=== PATIENT | male | born 1950 | race Hispanic/Latino ===

== ENCOUNTER 2016-12-03 19:35 | Inpatient (IN) | payer MEDICARE ==
--- NOTE | 2016-12-03 19:41 | ED PDOC ---
Arrival/HPI - General Historian: Patient, Family, EMS - General Time Seen by Provider: 12/03/16 19:36 - History of Present Illness Narrative History of Present Illness (Text): 12/03/16 19:41 65 y/o male, pmh including htn/hyperlipidemia/primary aphasia/demantia, nkda, biba with the sister and niece, c/o fever/coughing and possible urinary tract infection. Pt.'s history can not be obtained completely due to the aphasia. Pt. has been coughing started yesterday, been having decrease in appetize and energy level today, urine has been foul odor as well, fever started this evening , no antipyretic given at home. Pt. also try to get himself up from the chair this afternoon and fall to the bed, no head or neck injury, no back injury, no night sweat, no pain to the chest or abdominal, no other medical or psychological complaints. (Brett Hoyt) Past Medical History - Provider Review Nursing Documentation Reviewed: Yes - Cardiac Hx Cardiac Disorders: No - Pulmonary Hx Respiratory Disorders: No - Neurological Other/Comment: PRIMARY PROGRESSIVE APHASIA - HEENT Hx HEENT Disorder: No - Renal Hx Renal Disorder: No - Endocrine/Metabolic Hx Endocrine Disorders: No - Hematological/Oncological Hx Blood Disorders: No - Integumentary Hx Dermatological Disorder: No - Musculoskeletal/Rheumatological Hx Musculoskeletal Disorders: No - Gastrointestinal Hx Gastrointestinal Disorders: No - Genitourinary/Gynecological Hx Genitourinary Disorders: No - Psychiatric Hx Psychophysiologic Disorder: No Hx Substance Use: No Family/Social History - Physician Review Nursing Documentation Reviewed: Yes Family/Social History: Unknown Family HX Smoking Status: Never Smoked Hx Alcohol Use: No Hx Substance Use: No Allergies/Home Meds Allergies/Adverse Reactions: Allergies Penicillins Allergy (Verified 12/03/16 19:42) ANAPHYLAXIS Home Medications: Home Meds Medication Instructions Recorded Confirmed Ergocalciferol (Vitamin D2) 1 tab PO DAILY 12/03/16 12/03/16 [Vitamin D] Simvastatin [Zocor] 40 mg PO DAILY 12/03/16 12/03/16 Review of Systems - Review of Systems Systems not reviewed;Unavailable: Dementia Constitutional: Fatigue, Fevers Respiratory: Cough, Sputum. absent: SOB, Wheezing Cardiovascular: absent: Chest Pain Gastrointestinal: absent: Abdominal Pain, Nausea, Vomiting Genitourinary Male: Other (foul smelled urine). absent: Dysuria, Frequency, Hematuria, Urinary Output Changes Musculoskeletal: absent: Arthralgias, Back Pain Skin: absent: Rash, Pruritis, Skin Lesions, Laceration Neurological: absent: Facial Droop Physical Exam Vital Signs Reviewed: Yes Temperature: Afebrile Blood Pressure: Hypertensive Pulse: Regular Respiratory Rate: Normal Appearance: Positive for: Well-Appearing, Non-Toxic, Ill-Appearing Pain Distress: None Mental Status: Positive for: other (alert) - Systems Exam Head: Present: Atraumatic, Normocephalic Pupils: Present: PERRL Extroacular Muscles: Present: EOMI Conjunctiva: Present: Normal Mouth: Present: Moist Mucous Membranes Neck: Present: Normal Range of Motion, Trachea Midline. No: Meningeal Signs, MIDLINE TENDERNESS, Paraspinal Tenderness Respiratory/Chest: Present: Clear to Auscultation, Good Air Exchange. No: Respiratory Distress, Accessory Muscle Use, Wheezes, Decreased Breath Sounds, Rales, Retracting, Rhonchi, Tachypneic, Tender to Palpation, Other Cardiovascular: Present: Regular Rate and Rhythm, Normal S1, S2. No: Murmurs Abdomen: Present: Tenderness (mild suprapubic tenderness), Normal Bowel Sounds. No: Distention, Peritoneal Signs, Rebound, Guarding Back: Present: Normal Inspection. No: Midline Tenderness, Paraspinal Tenderness , Decubitus Ulcer Upper Extremity: Present: Normal Inspection. No: Cyanosis, Edema, Tenderness, Swelling Lower Extremity: Present: Normal Inspection. No: Edema, Tenderness, Swelling Neurological: Present: Motor Func Grossly Intact Skin: Present: Warm, Dry, Normal Color. No: Rashes Psychiatric: Present: Alert, Other (demantia) Medical Decision Making - Lab Interpretations Interpretation: Abnormal lab values (Lactic acid 2.4, elevation of LFTs) - RAD Interpretation Canteen Operator: Radiologist - EKG Interpretation Interpreted by ED Physician: Yes Type: 12 lead EKG ED Course and Treatment: 12/03/16 19:59 -labs/blood and urine culture/vbg -chest x-ray -ekg -IVF/tylenol 650mg po or rectal -desk monitor 12/03/16 21:31 -Pt. is HR at 94, febrile 102.9F in the ER, Lactic acid 2.7, source of infection suspected, code sepsis activated. -I ordered additional IVF and the goal is 2100ml which I explained to the [employer] Parul. -Chest x-ray show possible/questionable infiltrate on the rt. lower lobe region , IV rocephine and vancomycin ordered (broader coverage) -EKG: NSR @ 88 BPM, no ST elevation or depression, no T wave inversion. -Labs show no acute findings except Lactic acid 2.4, elevation of LFTs -UA show no UTI -I will admit the patient. 12/03/16 21:44 -I discussed the case with Dr. Angela Oscar and Dr. Partida (night doctor), discussed about the case/labs/radiology studies, will admit the patient. -Pt. has 103.5F fever, motrin 600mg po ordered. -I discussed with Dr. Will, discussed about the labs/radiology and admission plan, she agree on the treatment/dispo. (Brett Hoyt) - Lab Interpretations Microbiology Results: Microbiology Results 12/03/16 20:30 Blood-Venous Blood Culture - Final NO GROWTH AFTER 5 DAYS 12/03/16 20:30 Blood-Venous Gram Stain - Final TEST NOT PERFORMED 12/03/16 20:15 Blood-Venous Blood Culture - Final NO GROWTH AFTER 5 DAYS 12/03/16 20:15 Blood-Venous Gram Stain - Final TEST NOT PERFORMED 12/03/16 21:00 Urine Urine Culture - Final No Growth (<1,000 CFU/ML) Lab Results: 12/03/16 20:15 12/03/16 20:15 Lab Results 12/03/16 21:00: Urine Color Yellow, Urine Appearance Clear, Urine pH 7.0, Ur Specific [place] 1.020, Urine Protein 30 H, Urine Glucose (UA) Negative, Urine Ketones Negative, Urine Blood Trace-intact H, Urine Nitrate Negative, Urine Bilirubin Negative, Urine Urobilinogen 0.2, Ur Leukocyte Esterase Negative, Urine RBC 0 - 2, Urine WBC 0 - 2 12/03/16 20:15: pO2 30, VBG pH 7.38, VBG pCO2 49.0, VBG HCO3 29.0 H, VBG Total CO2 30.5 H, VBG O2 Sat (Calc) 61.2, VBG Base Excess 3.0 H, VBG Potassium 4.0, Sodium 138.0, Chloride 100.0, Glucose 120 H, Lactate 2.4 H, FiO2 21.0, Venous Blood Potassium 4.0 12/03/16 20:15: Sodium 136, Chloride 98, Potassium 4.0, Carbon Dioxide 28, Anion Gap 14, BUN 11, Creatinine 1.1, Est GFR ( Amer) > 60, Est GFR (Non- Af Amer) > 60, Random Glucose 115 H, Calcium 9.4, Total Bilirubin 1.4 H, AST 103 H, ALT 160 H, Alkaline Phosphatase 84, NT-Pro-B Natriuret Pep 238, Total Protein 8.0, Albumin 4.7, Globulin 3.3, Albumin/Globulin Ratio 1.4 12/03/16 20:15: WBC 6.6 D, RBC 5.51, Hgb 16.2, Hct 45.7, MCV 82.9, MCH 29.4, MCHC 35.4, RDW 13.1, Plt Count 141, MPV 10.6, Gran % 81.4 H, Lymph % (Auto) 11.7 L, [place] % (Auto) 6.7 H, Eos % (Auto) 0.0 L, Baso % (Auto) 0.2, Gran # 5.34 , Lymph # 0.8 L, [place] # 0.4, Eos # 0.0, Baso # 0.01 - RAD Interpretation Radiology Orders: 12/03/16 19:51 CHEST PORTABLE [RAD] Stat no obvious active disease (Brett Hoyt) - EKG Interpretation EKG Interpretation (Text): 12/03/16 22:09 NSR @ 88 BPM, no ST elevation or depression, no T wave inversion. (Brett Hoyt) - Medication Orders Current Medication Orders: Diphenhydramine HCl (Benadryl) 25 mg IVP Q4 PRN PRN Reason: Allergy symptoms Guaifenesin (Robitussin) 100 mg PO Q4H PRN PRN Reason: Cough Last Admin: 12/09/16 10:28 Dose: 100 mg Hydralazine HCl (Apresoline) 10 mg IVP Q6 PRN PRN Reason: SBP > 160 Vancomycin HCl (Vancomycin 1gm) 1 gm in 250 mls @ 167 mls/hr IVPB Q12H PAULA PRN Reason: Protocol Last Admin: 12/09/16 22:36 Dose: 167 mls/hr Ibuprofen (Motrin Oral Susp) 400 mg PO Q6 PRN PRN Reason: Fever >100.4 F Last Admin: 12/07/16 06:03 Dose: 400 mg Re-Assess: MAR Pain/Vitals Document 12/07/16 07:03 RDS (Rec: 12/07/16 09:00 RDS [id number]) Pain Reassessment Is This A Pain ReAssessment? No Sleep Is patient sleeping during reassessment? Yes Levofloxacin/Dextrose (Levaquin 750mg) 750 mg IVPB DAILY [facility] Last Admin: 12/09/16 10:26 Dose: 750 mg Lisinopril (Zestril) 5 mg PO DAILY [facility] Last Admin: 12/09/16 10:28 Dose: 5 mg Metoprolol Tartrate (Lopressor) 25 mg PO BID [facility] Last Admin: 12/09/16 19:01 Dose: 25 mg Pantoprazole Sodium (Protonix Ec Tab) 40 mg PO 0630 [facility] Last Admin: 12/10/16 06:05 Dose: 40 mg Discontinued Medications Acetaminophen (Tylenol 325mg Tab) 650 mg PO STAT STA Stop: 12/03/16 19:52 Last Admin: 12/03/16 20:54 Dose: Not Given Non-Admin Reason: NPO Acetaminophen (Tylenol 650 Mg Supp) 650 mg RC STAT STA Stop: 12/03/16 20:28 Last Admin: 12/03/16 20:54 Dose: 650 mg Acetaminophen (Tylenol 650 Mg Supp) 650 mg RC Q4H PRN PRN Reason: Fever >100.4 F Last Admin: 12/04/16 22:03 Dose: 650 mg Re-Assess: [facility] Pain/Vitals Document 12/04/16 23:03 ST (Rec: 12/05/16 00:09 ST [id number]) Pain Reassessment Is This A Pain ReAssessment? No Sleep Is patient sleeping during reassessment? No Presence of Pain Presence of Pain No Vitals Temperature (97.6 F-99.6 F) 100.3 F Temperature Source Rectal Barium Sulfate (Readi-Cat 2) Confirm Administered Dose 900 ml PO .STK-MED ONE Stop: 12/06/16 10:34 Enoxaparin Sodium (Lovenox) 30 mg SC DAILY [facility] PRN Reason: Protocol Last Admin: 12/05/16 11:28 Dose: 30 mg Sodium Chloride (Sodium Chloride 0.9%) 1,000 mls @ 999 mls/hr IV .Q1H1M STA Stop: 12/03/16 20:51 Sodium Chloride (Sodium Chloride 0.9%) 1,000 mls @ 500 mls/hr IV .Q2H STA Stop: 12/03/16 21:50 Last Admin: 12/03/16 20:25 Dose: 500 mls/hr Ceftriaxone Sodium (Rocephin 1 Gram Ivpb) 1 gm in 100 mls @ 200 mls/hr IVPB STAT STA PRN Reason: Protocol Stop: 12/03/16 21:13 Last Admin: 12/03/16 21:26 Dose: 200 mls/hr Sodium Chloride (Sodium Chloride 0.9%) 100 mls @ 999 mls/hr IV .Q6M STA Stop: 12/03/16 20:49 Last Admin: 12/03/16 20:55 Dose: 999 mls/hr Vancomycin HCl (Vancomycin 1gm) 1 gm in 250 mls @ 167 mls/hr IVPB STAT STA PRN Reason: Protocol Stop: 12/03/16 23:10 Last Admin: 12/03/16 23:04 Dose: 167 mls/hr Aztreonam (Azactam 1 Gm) 100 mls @ 100 mls/hr IVPB Q8 PAULA PRN Reason: Protocol Last Admin: 12/08/16 14:09 Dose: 100 mls/hr Ibuprofen (Motrin Oral Susp) 600 mg PO STAT STA Stop: 12/03/16 21:46 Last Admin: 12/03/16 21:58 Dose: 600 mg Iohexol (Omnipaque 350 100 Ml) Confirm Administered Dose 350 mg .ROUTE .STK-MED ONE Stop: 12/06/16 13:43 Lisinopril (Zestril) 2.5 mg PO DAILY [facility] Last Admin: 12/08/16 09:35 Dose: 2.5 mg Potassium Chloride (Potassium Chloride Oral Soln) 40 meq PO ONCE ONE Stop: 12/07/16 07:38 Last Admin: 12/07/16 08:11 Dose: 40 meq Potassium Chloride (K-Dur 20 Meq Er Tab) 20 meq PO ONCE ONE Stop: 12/08/16 06:53 Last Admin: 12/08/16 10:13 Dose: 20 meq Potassium Chloride (Potassium Chloride Oral Soln) 40 meq PO ONCE ONE Stop: 12/09/16 08:01 Last Admin: 12/09/16 10:28 Dose: 40 meq - PA / [employer] / Resident Statement /DO has reviewed & agrees with the documentation as recorded. Disposition/Present on Arrival - Present on Arrival Any Indicators Present on Arrival: No History of DVT/PE: No History of Uncontrolled Diabetes: No Urinary Catheter: No History of Decub. Ulcer: No History Surgical Site Infection Following: None - Disposition Have Diagnosis and Disposition been Completed?: Yes Disposition Time: 20:50 Patient Plan: Admission - Disposition Diagnosis: Sepsis Disposition: HOSPITALIZED Patient Problems: Current Active Problems Problem Status Onset Sepsis Acute Condition: STABLE
[2016-12-03 19:42] VITALS: BMI 22.1
[2016-12-03] MEDS ORDERED: Sodium Chloride 0.9% 1,000 ML IV STA ×2 (19:51→19:54)
[2016-12-03 20:27] LABS: ADD MANUAL DIFF? NO
[2016-12-03 20:35] LABS: VENOUS BLOOD PH 7.38 (7.32-7.43)
[2016-12-03 20:43] LABS: BASO # 0.01 K/mm3 (0.0-2.0); BASO % 0.2 % (0.0-3.0); GRAN # 5.34 (1.4-6.5); GRAN % 81.4 % (50.0-68.0); HEMATOCRIT 45.7 % (42.0-52.0); LYMPH # 0.8 (1.2-3.4); LYMPH % 11.7 % (22.0-35.0); MEAN CELL VOLUME 82.9 fL (80.0-105.0); MEAN CORPUSCULAR HEMOGLOBIN 29.4 pg (25.0-35.0); MEAN CORPUSCULAR HGB CONC 35.4 g/dl (31.0-37.0); MEAN PLATELET VOLUME 10.6 fl (7.0-11.0); MONO # 0.4 (0.1-0.6); MONO % 6.7 % (1.0-6.0); PLATELET COUNT 141 10^3/uL (120.0-450.0); RED CELL DISTRIBUTION WIDTH 13.1 % (11.5-14.5); WHITE BLOOD COUNT 6.6 10^3/ul (4.5-11.0)
[2016-12-03] MEDS ORDERED: cefTRIAXone 1 gm 1 GM/100 ML BAG IVPB STA (20:44)
[2016-12-03] MEDS ORDERED: Azithromycin 500MG/NS 250ml 500 MG/250 ML BAG IVPB STA (20:44)
[2016-12-03] MEDS ORDERED: Sodium Chloride 0.9% 100 ML IV STA (20:44)
[2016-12-03 20:45] LABS: ALB/GLOB RATIO 1.4 (1.1-1.8); ALKALINE PHOSPHATASE 84 U/L (38-133); ALT/SGPT 160 U/L (7-56); AST/SGOT 103 U/L (15-59); BILIRUBIN,TOTAL 1.4 mg/dL (0.2-1.3); BLOOD UREA NITROGEN 11 mg/dL (7-21); CALCIUM 9.4 mg/dL (8.4-10.5); CARBON DIOXIDE 28 mmol/L (21-33); CHLORIDE 98 mmol/L (98-107); GFR AFRICAN-AMERICAN > 60; GLUCOSE,RANDOM 115 mg/dL (70-110); SODIUM 136 mmol/L (132-148)
[2016-12-03 21:11] LABS: URINE BILIRUBIN NEGATIVE (NEGATIVE); URINE BLOOD TRACE-INTACT (NEGATIVE); URINE GLUCOSE (UA) NEGATIVE (NEGATIVE); URINE KETONE NEGATIVE (NEGATIVE); URINE LEUKOCYTE ESTERASE NEGATIVE Leu/uL (NEGATIVE); URINE PROTEIN 30 mg/dL (<30 mg/dL); URINE UROBILINOGEN 0.2 E.U./dL (<1 E.U./dL)
[2016-12-03 21:17] LABS: URINE APPEARANCE CLEAR (CLEAR); URINE COLOR YELLOW (YELLOW)
[2016-12-03 21:25] LABS: URINE RBC 0 - 2 /hpf (0-2); URINE WBC 0 - 2 /hpf (0-6)
[2016-12-03] MEDS ORDERED: Vancomycin 1gm in NS 250ml 1 GM/250 ML BAG IVPB STA (21:41)
[2016-12-03] MEDS ORDERED: DiphenhydrAMINE 50 mg/ml Inj IVP PRN (22:48)
--- NOTE | 2016-12-03 23:00 | CP.PCM.HP ---
<Angela Oscar - Last Filed: 12/03/16 23:16> History of Present Illness - History of Present Illness History of Present Illness: 65 year old male with past medical history of primary progressive dementia was brought in by EMS to [facility] accompanied with his sister and niece for coughs and foul smelling urine. At the time of interview, patient was by himself. History per ED staff, patient started having dry cough for the past 2 days along with decreased appetite and energy. Patient also had a fell on his bed at home this evening, did not sustain any injuries. Patient was last seen in [facility] for AMS in 10/2015 and 11/2015. Due to parents baseline dementia, past medical history and review of systems is limited. In the ED patient's pulse was found to be 94 bpm, temperature of 102.9F and Lactic acid of 2.7 and code sepsis was called. CXR showed questionable infiltrate on the RLL, IV rocephine and vancomycin were given. Present on Admission - Present on Admission Any Indicators Present on Admission: No History of DVT/PE: No History of Uncontrolled Diabetes: No Review of Systems - Review of Systems Systems not reviewed;Unavailable: Dementia, Altered Mental Status - Constitutional Constitutional: As Per HPI - EENT Eyes: As Per HPI Ears: As Per HPI Nose/Mouth/Throat: As Per HPI - Cardiovascular Cardiovascular: As Per HPI - Respiratory Respiratory: As Per HPI - Gastrointestinal Gastrointestinal: As Per HPI - Genitourinary Genitourinary: As Per HPI - Musculoskeletal Musculoskeletal: As Per HPI - Integumentary Integumentary: As Per HPI - Neurological Neurological: As Per HPI - Psychiatric Psychiatric: As Per HPI - Endocrine Endocrine: As Per HPI - Hematologic/Lymphatic Hematologic: As Per HPI Past Patient History - Infectious Disease Hx of Infectious Diseases: None - Past Social History Smoking Status: Never Smoked - CARDIAC Hx Cardiac Disorders: No - PULMONARY Hx Respiratory Disorders: No - NEUROLOGICAL Other/Comment: PRIMARY PROGRESSIVE APHASIA - HEENT Hx HEENT Problems: No - RENAL Hx Chronic Kidney Disease: No - ENDOCRINE/METABOLIC Hx Endocrine Disorders: No - HEMATOLOGICAL/ONCOLOGICAL Hx Blood Disorders: No - INTEGUMENTARY Hx Dermatological Problems: No - MUSCULOSKELETAL/RHEUMATOLOGICAL Hx Musculoskeletal Disorders: No - GASTROINTESTINAL Hx Gastrointestinal Disorders: No - GENITOURINARY/GYNECOLOGICAL Hx Genitourinary Disorders: No - PSYCHIATRIC Hx Psychophysiologic Disorder: No Hx Substance Use: No - SURGICAL HISTORY Hx Surgeries: No (pt denies) - ANESTHESIA Hx Anesthesia: No Meds Allergies/Adverse Reactions: Allergies Allergy/AdvReac Type Severity Reaction Status Date / Time Penicillins Allergy ANAPHYLAXIS Verified 12/03/16 19:42 Physical Exam - Constitutional Appears: No Acute Distress, Chronically Ill - Head Exam Head Exam: ATRAUMATIC, NORMOCEPHALIC - Eye Exam Eye Exam: EOMI, Normal appearance, PERRL - ENT Exam ENT Exam: Mucous Membranes Moist - Neck Exam Neck exam: Positive for: Normal Inspection - Respiratory Exam Respiratory Exam: Clear to Auscultation Bilateral, NORMAL BREATHING PATTERN Additional comments: gurgling sound from throat appreciated - Cardiovascular Exam Cardiovascular Exam: REGULAR RHYTHM, RRR, +S1, +S2 - GI/Abdominal Exam GI & Abdominal Exam: Normal Bowel Sounds, Soft. absent: Tenderness - Extremities Exam Extremities exam: Positive for: normal capillary refill, normal inspection, pedal pulses present - Back Exam Back exam: NORMAL INSPECTION - Neurological Exam Neurological exam: Alert, Altered Additional comments: Awake, alert, not orientated to time, person or place. - Psychiatric Exam Additional comments: unable to assess - Skin Skin Exam: Dry, Warm Results - Vital Signs Recent Vital Signs: Last Vital Signs Temp 103.5 F H 12/03/16 21:58 Pulse 94 H 12/03/16 21:39 Resp 19 12/03/16 21:39 BP 183/96 H 12/03/16 21:39 Pulse Ox 95 12/03/16 21:39 - Labs Result Diagrams: 12/03/16 20:15 12/03/16 20:15 Labs: Laboratory Results - last 24 hr 12/03/16 12/03/16 12/03/16 20:15 20:15 20:15 WBC 6.6 D RBC 5.51 Hgb 16.2 Hct 45.7 MCV 82.9 MCH 29.4 MCHC 35.4 RDW 13.1 Plt Count 141 MPV 10.6 Gran % 81.4 H Lymph % (Auto) 11.7 L [place] % (Auto) 6.7 H Eos % (Auto) 0.0 L Baso % (Auto) 0.2 Gran # 5.34 Lymph # 0.8 L [place] # 0.4 Eos # 0.0 Baso # 0.01 pO2 30 VBG pH 7.38 VBG pCO2 49.0 VBG HCO3 29.0 H VBG Total CO2 30.5 H VBG O2 Sat (Calc) 61.2 VBG Base Excess 3.0 H VBG Potassium 4.0 Sodium 136 138.0 Chloride 98 100.0 Glucose 120 H Lactate 2.4 H FiO2 21.0 Potassium 4.0 Carbon Dioxide 28 Anion Gap 14 BUN 11 Creatinine 1.1 Est GFR ( Amer) > 60 Est GFR (Non-Af Amer) > 60 Random Glucose 115 H Calcium 9.4 Total Bilirubin 1.4 H AST 103 H ALT 160 H Alkaline Phosphatase 84 NT-Pro-B Natriuret Pep 238 Total Protein 8.0 Albumin 4.7 Globulin 3.3 Albumin/Globulin Ratio 1.4 Venous Blood Potassium 4.0 Urine Color Urine Appearance Urine pH Ur Specific [place] Urine Protein Urine Glucose (UA) Urine Ketones Urine Blood Urine Nitrate Urine Bilirubin Urine Urobilinogen Ur Leukocyte Esterase Urine RBC Urine WBC 12/03/16 21:00 WBC RBC Hgb Hct MCV MCH MCHC RDW Plt Count MPV Gran % Lymph % (Auto) [place] % (Auto) Eos % (Auto) Baso % (Auto) Gran # Lymph # [place] # Eos # Baso # pO2 VBG pH VBG pCO2 VBG HCO3 VBG Total CO2 VBG O2 Sat (Calc) VBG Base Excess VBG Potassium Sodium Chloride Glucose Lactate FiO2 Potassium Carbon Dioxide Anion Gap BUN Creatinine Est GFR ( Amer) Est GFR (Non-Af Amer) Random Glucose Calcium Total Bilirubin AST ALT Alkaline Phosphatase NT-Pro-B Natriuret Pep Total Protein Albumin Globulin Albumin/Globulin Ratio Venous Blood Potassium Urine Color Yellow Urine Appearance Clear Urine pH 7.0 Ur Specific [place] 1.020 Urine Protein 30 H Urine Glucose (UA) Negative Urine Ketones Negative Urine Blood Trace-intact H Urine Nitrate Negative Urine Bilirubin Negative Urine Urobilinogen 0.2 Ur Leukocyte Esterase Negative Urine RBC 0 - 2 Urine WBC 0 - 2 Assessment & Plan - Assessment and Plan (Free Text) Assessment: 65 year old male with past medical history of dementia presents with sepsis likely secondary to right lower lobe pneumonia Plan: Sepsis secondary to pneumonia vs UTI -Fever at 102.9F, heart rate at 94 bpm, lactate 2.7 -CXR showed possible RLL infiltrate -UA showed negative LE and WBC. Protein of 30 -Vancomycin and rocephin given in the ED -Azithromycin IV -Robitussin prn -Follow up blood and urine cultures -Follow up procal, microbe antigens -Aspiration precaution -ID consult, Dr. Hawthorne help appreciated Transaminitis -AST/ALT on admission 103/160 -Follow up hep panel Prophylactic measures -Protonix for GI ppx -Lovenox for DVT ppx -Motrin for fever -Benadryl for allergy symptoms <Halley Partida - Last Filed: 12/04/16 02:51> Results - Vital Signs Recent Vital Signs: Last Vital Signs Temp 100.5 F H 12/03/16 23:14 Pulse 94 H 12/04/16 02:00 Resp 17 12/04/16 00:36 BP 147/78 12/04/16 00:36 Pulse Ox 96 12/04/16 00:36 - Labs Result Diagrams: 12/03/16 20:15 12/03/16 20:15 Labs: Laboratory Results - last 24 hr 12/04/16 01:30 pO2 27 L VBG pH 7.27 L VBG pCO2 59.0 VBG HCO3 27.1 VBG Total CO2 28.9 H VBG O2 Sat (Calc) 50.9 VBG Base Excess -1.0 L VBG Potassium 3.8 Sodium 141.0 Chloride 107.0 Glucose 105 Lactate 2.5 H FiO2 21.0 Venous Blood Potassium 3.8 Attending/Attestation - Attestation I have personally seen and examined this patient.: Yes I have fully participated in the care of the patient.: Yes I have reviewed all pertinent clinical information: Yes Notes (Text): 12/04/16 02:50 Patient was seen when he was in bed # 8 in the ER. Agree with history , physical examination, assessment and plan.
[2016-12-04 01:43] LABS: VENOUS BLOOD PH 7.27 (7.32-7.43)
--- NOTE | 2016-12-04 03:14 | PCM.SEPTIC ---
<Angela Oscar - Last Filed: 12/04/16 03:12> Sepsis Progress Note - Reassessment Type Date of Evaluation: 12/04/16 Time of Evaluation: 02:50 Reassessment Type: Non-invasive reassessment - Non Invasive Reassessment Were the most recent vital sign reviewed: Yes Vital Sign (Latest): Temp Pulse Resp BP Pulse Ox 100.9 F H 94 H 24 163/91 H 96 12/04/16 01:49 12/04/16 02:00 12/04/16 01:49 12/04/16 01:49 12/04/16 00:36 Cardiovascular: Yes: Tachycardia. No: Murmur, Irregularly Irregular Respiratory: Yes: Normal Breath Sounds Capillary Refill: Normal (Less than 2 sec) Skin: Warm, Dry <Halley Partida - Last Filed: 12/04/16 20:50> Sepsis Progress Note - Non Invasive Reassessment Vital Sign (Latest): Temp Pulse Resp BP Pulse Ox 100.9 F H 86 20 170/99 H 96 12/04/16 18:46 12/04/16 17:39 12/04/16 12:00 12/04/16 12:00 12/04/16 06:00 Attending/Attestation - Attestation I have personally seen and examined this patient.: No I have fully participated in the care of the patient.: Yes I have reviewed all pertinent clinical information, including history, physical exam and plan: Yes
[2016-12-04] MEDS: Pantoprazole 40 mg EC Tab PO SCH (07:05)
--- NOTE | 2016-12-04 08:16 | RAD ---
HISTORY: Cough and fever COMPARISON: 11/14/2015. FINDINGS: LUNGS: The lungs are clear. PLEURA: No significant pleural effusion identified, no pneumothorax apparent. CARDIOVASCULAR: Normal. OSSEOUS STRUCTURES: No significant abnormalities. VISUALIZED UPPER ABDOMEN: Normal. OTHER FINDINGS: None. IMPRESSION: No active pulmonary disease.
--- NOTE | 2016-12-04 09:01 | US ---
HISTORY: elevated LFT COMPARISON: None available TECHNIQUE: Sonographic evaluation of the abdomen. FINDINGS: LIVER: Measures 17.2 cm in sagittal dimension and appears within normal limits of size, shape, and echotexture. No focal hepatic mass identified. The main portal vein appears patent with normal directional flow. No intrahepatic bile duct dilatation. GALLBLADDER: No gallstones. No gallbladder wall thickening. Negative sonographic Schwarz's sign as assessed by the pneumatic jacketer. COMMON BILE DUCT: Measures 5 mm. PANCREAS: Not well visualized. RIGHT KIDNEY: Measures 10.8 x 5.4 x 5.0cm. No obstructing calculus or hydronephrosis identified. LEFT KIDNEY: Measures 10.2 x 5.3 x 5.0cm. No obstructing calculus or hydronephrosis identified. SPLEEN: Measures approximately 11.5 x 5.9 x 4.9 cm. AORTA: Limited views appear unremarkable. IVC: Limited views appear unremarkable. OTHER FINDINGS: None. IMPRESSION: No acute findings. See above.
[2016-12-04] MEDS: levoFLOXacin 750 mg in D5W 150 ML BAG IVPB SCH (09:51)
[2016-12-04] MEDS: Enoxaparin 30 mg Syringe SC SCH (09:52)
[2016-12-04] MEDS ORDERED: ERGOCALCIFEROL PO SCH (10:00)
[2016-12-04] MEDS ORDERED: Azithromycin 500MG/NS 250ml 500 MG/250 ML BAG IVPB SCH (10:00)
[2016-12-04] MEDS: Vancomycin 1gm in NS 250ml 1 GM/250 ML BAG IVPB SCH (13:24)
[2016-12-04] MEDS ORDERED: metroNIDAZOLE IV 500 mg/100 ml 500 MG/100 ML BAG IVPB SCH (14:00)
[2016-12-04 15:23] LABS: ADD MANUAL DIFF? NO
[2016-12-04 15:27] LABS: VENOUS BLOOD GAS BASE EXCESS 1.7 mmol/L (0.0-2.0)
[2016-12-04 15:55] LABS: ALB/GLOB RATIO 1.2 (1.1-1.8); ALKALINE PHOSPHATASE 65 U/L (38-133); ALT/SGPT 90 U/L (7-56); AST/SGOT 40 U/L (15-59); BILIRUBIN,TOTAL 1.5 mg/dL (0.2-1.3); BLOOD UREA NITROGEN 13 mg/dL (7-21); CALCIUM 8.3 mg/dL (8.4-10.5); CARBON DIOXIDE 23 mmol/L (21-33); CHLORIDE 105 mmol/L (95-110); GFR AFRICAN-AMERICAN > 60; GLUCOSE,RANDOM 153 mg/dL (70-110); POTASSIUM 3.7 mmol/L (3.6-5.0); SODIUM 137 mmol/L (132-148); TOTAL PROTEIN 6.1 g/dL (5.8-8.3)
[2016-12-04 16:06] LABS: BASO # 0.01 K/mm3 (0.0-2.0); BASO % 0.2 % (0.0-3.0); GRAN # 3.24 (1.4-6.5); GRAN % 80.8 % (50.0-68.0); LYMPH # 0.4 (1.2-3.4); MEAN CELL VOLUME 83.3 fL (80.0-105.0); MEAN CORPUSCULAR HEMOGLOBIN 28.8 pg (25.0-35.0); MEAN CORPUSCULAR HGB CONC 34.6 g/dl (31.0-37.0); MEAN PLATELET VOLUME 11.2 fl (7.0-11.0); MONO # 0.3 (0.1-0.6); PLATELET COUNT 117 10^3/uL (120.0-450.0); RED CELL DISTRIBUTION WIDTH 13.3 % (11.5-14.5)
--- NOTE | 2016-12-04 19:07 | CARD ---
APPROVED REPORT EKG Measurement Heart [id number] <Conclusion> Normal sinus rhythm Normal ECG
--- NOTE | 2016-12-04 19:15 | CP.PCM.CON ---
History of Present Illness - History of Present Illness History of Present Illness: Infectious Disease Consultation: December 04, 2016 65 yo male with foul smelling urine and cough at home. The patient was brought to [facility] sister and niece. The patient has primary progressive dementia and aphasia. Symptoms started 2 days ago and the patient also had a fall at home. Patient was found to have a fever up to 102.9 F. The patient also had lactic acidosis of 2.7. He was started on IV Vancomycin and Rocephin for antibiotic treatment. When he was first brought in, the patient was lethargic but is more arousable now. PMHx: Primary Progressive Dementia, Primary Progressive Aphasia. PSHx: none to my knowledge Allergies: PCN Social Hx: To my knowledge, no tobacco, EtOH, or illicit drug use Active Medications Acetaminophen (Tylenol 650 Mg Supp) 650 mg RC Q4H PRN PRN Reason: Fever >100.4 F Last Admin: 12/04/16 06:15 Dose: 650 mg Diphenhydramine HCl (Benadryl) 25 mg IVP Q4 PRN PRN Reason: Allergy symptoms Enoxaparin Sodium (Lovenox) 30 mg SC DAILY PAULA PRN Reason: Protocol Last Admin: 12/04/16 09:52 Dose: 30 mg Guaifenesin (Robitussin) 100 mg PO Q4H PRN PRN Reason: Cough Vancomycin HCl (Vancomycin 1gm) 1 gm in 250 mls @ 167 mls/hr IVPB Q12H PAULA PRN Reason: Protocol Last Admin: 12/04/16 13:24 Dose: 167 mls/hr Ibuprofen (Motrin Oral Susp) 400 mg PO Q6 PRN PRN Reason: Fever >100.4 F Last Admin: 12/04/16 18:46 Dose: 400 mg Levofloxacin/Dextrose (Levaquin 750mg) 750 mg IVPB DAILY [facility] Last Admin: 12/04/16 09:51 Dose: 750 mg Pantoprazole Sodium (Protonix Ec Tab) 40 mg PO 0630 [facility] Last Admin: 12/04/16 07:05 Dose: Not Given Family Hx: none given ROS: Unable to obtain from the patient. Past Patient History - Infectious Disease Hx of Infectious Diseases: None - Past Social History Smoking Status: Never Smoked - CARDIAC Hx Cardiac Disorders: Yes Hx Hypercholesterolemia: Yes Hx Hypertension: Yes - PULMONARY Hx Respiratory Disorders: No - NEUROLOGICAL Hx Neurological Disorder: Yes Hx Dementia: Yes Other/Comment: PRIMARY PROGRESSIVE APHASIA - HEENT Hx HEENT Problems: No - RENAL Hx Chronic Kidney Disease: No - ENDOCRINE/METABOLIC Hx Endocrine Disorders: No - HEMATOLOGICAL/ONCOLOGICAL Hx Blood Disorders: No - INTEGUMENTARY Hx Dermatological Problems: No - MUSCULOSKELETAL/RHEUMATOLOGICAL Hx Musculoskeletal Disorders: No Hx Falls: Yes - GASTROINTESTINAL Hx Gastrointestinal Disorders: No - GENITOURINARY/GYNECOLOGICAL Hx Genitourinary Disorders: No - PSYCHIATRIC Hx Psychophysiologic Disorder: No - SURGICAL HISTORY Hx Surgeries: No (pt denies) - ANESTHESIA Hx Anesthesia: No Meds Allergies/Adverse Reactions: Allergies Allergy/AdvReac Type Severity Reaction Status Date / Time Penicillins Allergy ANAPHYLAXIS Verified 12/03/16 19:42 - Medications Medications: Current Medications Acetaminophen (Tylenol 650 Mg Supp) 650 mg RC Q4H PRN PRN Reason: Fever >100.4 F Last Admin: 12/04/16 06:15 Dose: 650 mg Diphenhydramine HCl (Benadryl) 25 mg IVP Q4 PRN PRN Reason: Allergy symptoms Enoxaparin Sodium (Lovenox) 30 mg SC DAILY PAULA PRN Reason: Protocol Last Admin: 12/04/16 09:52 Dose: 30 mg Guaifenesin (Robitussin) 100 mg PO Q4H PRN PRN Reason: Cough Vancomycin HCl (Vancomycin 1gm) 1 gm in 250 mls @ 167 mls/hr IVPB Q12H PAULA PRN Reason: Protocol Last Admin: 12/04/16 13:24 Dose: 167 mls/hr Ibuprofen (Motrin Oral Susp) 400 mg PO Q6 PRN PRN Reason: Fever >100.4 F Last Admin: 12/04/16 18:46 Dose: 400 mg Levofloxacin/Dextrose (Levaquin 750mg) 750 mg IVPB DAILY [facility] Last Admin: 12/04/16 09:51 Dose: 750 mg Pantoprazole Sodium (Protonix Ec Tab) 40 mg PO 0630 [facility] Last Admin: 12/04/16 07:05 Dose: Not Given Physical Exam - Constitutional Appears: Non-toxic, No Acute Distress, Chronically Ill - Head Exam Head Exam: ATRAUMATIC, NORMOCEPHALIC - Eye Exam Eye Exam: EOMI, PERRL Pupil Exam: NORMAL ACCOMODATION, PERRL - ENT Exam ENT Exam: Mucous Membranes Moist, Normal External Ear Exam, TM's Normal Bilaterally - Neck Exam Neck exam: Positive for: Full Rom, Normal Inspection - Respiratory Exam Respiratory Exam: Clear to Auscultation Bilateral, NORMAL BREATHING PATTERN. absent: Rales, Rhonchi, Wheezes - Cardiovascular Exam Cardiovascular Exam: REGULAR RHYTHM, RRR, +S1, +S2 - GI/Abdominal Exam GI & Abdominal Exam: Normal Bowel Sounds, Soft. absent: Distended, Tenderness - Extremities Exam Extremities exam: Positive for: normal inspection Additional comments: general weakness - Neurological Exam Neurological exam: Alert, CN II-XII Intact Additional comments: AAO x 1 at best. gives simple answer if given simple questions. - Skin Skin Exam: Intact, Normal Color Results - Vital Signs Recent Vital Signs: Last Vital Signs Temp 100.9 F H 12/04/16 18:46 Pulse 86 12/04/16 17:39 Resp 20 12/04/16 12:00 BP 170/99 H 12/04/16 12:00 Pulse Ox 96 12/04/16 06:00 - Labs Result Diagrams: 12/04/16 15:15 12/04/16 15:15 Labs: Laboratory Results - last 24 hr 12/04/16 12/04/16 12/04/16 00:15 01:30 15:15 WBC RBC Hgb Hct MCV MCH MCHC RDW Plt Count MPV Gran % Lymph % (Auto) Rutherford % (Auto) Eos % (Auto) Baso % (Auto) Gran # Lymph # Rutherford # Eos # Baso # pO2 27 L 66 H VBG pH 7.27 L 7.50 H VBG pCO2 59.0 31.0 L VBG HCO3 27.1 24.2 VBG Total CO2 28.9 H 25.2 VBG O2 Sat (Calc) 50.9 96.7 H VBG Base Excess -1.0 L 1.7 VBG Potassium 3.8 3.7 Sodium 141.0 137.0 Chloride 107.0 106.0 Glucose 105 171 H Lactate 2.5 H 2.1 FiO2 21.0 21.0 Potassium Carbon Dioxide Anion Gap BUN Creatinine Est GFR ( Amer) Est GFR (Non-Af Amer) Random Glucose Calcium Total Bilirubin AST ALT Alkaline Phosphatase Total Protein Albumin Globulin Albumin/Globulin Ratio Venous Blood Potassium 3.8 3.7 Ur L.pneumophila Ag Negative 12/04/16 12/04/16 15:15 15:15 WBC 4.0 L D RBC 4.68 Hgb 13.5 L Hct 39.0 L MCV 83.3 MCH 28.8 MCHC 34.6 RDW 13.3 Plt Count 117 L MPV 11.2 H Gran % 80.8 H Lymph % (Auto) 11.0 L Rutherford % (Auto) 8.0 H Eos % (Auto) 0.0 L Baso % (Auto) 0.2 Gran # 3.24 Lymph # 0.4 L Rutherford # 0.3 Eos # 0.0 Baso # 0.01 pO2 VBG pH VBG pCO2 VBG HCO3 VBG Total CO2 VBG O2 Sat (Calc) VBG Base Excess VBG Potassium Sodium 137 Chloride 105 Glucose Lactate FiO2 Potassium 3.7 Carbon Dioxide 23 Anion Gap 13 BUN 13 Creatinine 0.9 Est GFR ( Amer) > 60 Est GFR (Non-Af Amer) > 60 Random Glucose 153 H Calcium 8.3 L Total Bilirubin 1.5 H AST 40 ALT 90 H Alkaline Phosphatase 65 Total Protein 6.1 Albumin 3.4 Globulin 2.7 Albumin/Globulin Ratio 1.2 Venous Blood Potassium Ur L.pneumophila Ag Assessment & Plan - Assessment and Plan (Free Text) Assessment: 65 yo male with fevers up to 102.9 F and lactic acidosis, and question of pneumonia. He was apparently given Rocephin and Vancomycin in the ER. He supposedly has a PCN allergy. Azithromycin also started. Mild transaminitis. Licona cultures. Questionable UTI. Supportive care. Official read of Chest X-ray is not showing any active pulmonary disease. Continue on Vancomycin and Aztreonam for now. Thank you for allowing me to participate in the care of the patient, we will follow with you.
[2016-12-04 20:20] LABS: VENOUS BLOOD GAS BASE EXCESS 1.9 mmol/L (0.0-2.0); VENOUS BLOOD PH 7.42 (7.32-7.43)
[2016-12-04] MEDS: Aztreonam 1 Gm in NS 100mL 100 ML IVPB SCH (22:01)
[2016-12-05] MEDS: Vancomycin 1gm in NS 250ml 1 GM/250 ML BAG IVPB SCH ×3 (00:03→22:53)
[2016-12-05] MEDS: Aztreonam 1 Gm in NS 100mL 100 ML IVPB SCH ×3 (05:35→21:08)
[2016-12-05] MEDS: Pantoprazole 40 mg EC Tab PO SCH (05:36)
[2016-12-05 06:47] LABS: ADD MANUAL DIFF? NO
[2016-12-05 06:51] LABS: BASO # 0.01 K/mm3 (0.0-2.0); BASO % 0.3 % (0.0-3.0); EOS % 0.3 % (1.5-5.0); GRAN # 2.51 (1.4-6.5); GRAN % 66.9 % (50.0-68.0); HEMATOCRIT 39.5 % (42.0-52.0); LYMPH # 0.8 (1.2-3.4); LYMPH % 21.6 % (22.0-35.0); MEAN CELL VOLUME 82.3 fL (80.0-105.0); MEAN CORPUSCULAR HEMOGLOBIN 28.8 pg (25.0-35.0); MEAN CORPUSCULAR HGB CONC 34.9 g/dl (31.0-37.0); MEAN PLATELET VOLUME 10.4 fl (7.0-11.0); MONO # 0.4 (0.1-0.6); MONO % 10.9 % (1.0-6.0); PLATELET COUNT 98 10^3/uL (120.0-450.0); WHITE BLOOD COUNT 3.8 10^3/ul (4.5-11.0)
[2016-12-05 07:05] LABS: BLOOD UREA NITROGEN 15 mg/dL (7-21); CALCIUM 8.6 mg/dL (8.4-10.5); CARBON DIOXIDE 25 mmol/L (21-33); CHLORIDE 107 mmol/L (98-107); GFR AFRICAN-AMERICAN > 60; GLUCOSE,RANDOM 102 mg/dL (70-110); POTASSIUM 4.2 mmol/L (3.6-5.0); SODIUM 141 mmol/L (132-148)
[2016-12-05 10:03] LABS: ALB/GLOB RATIO 1.2 (1.1-1.8); BILIRUBIN,DIRECT 0.5 mg/dL (0.0-0.4); BILIRUBIN,TOTAL 1.7 mg/dL (0.2-1.3)
[2016-12-05] MEDS: levoFLOXacin 750 mg in D5W 150 ML BAG IVPB SCH (11:28)
[2016-12-05] MEDS: Enoxaparin 30 mg Syringe SC SCH (11:28)
--- NOTE | 2016-12-05 12:19 | CP.PCM.PN ---
Addendum entered and electronically signed by Aliza Gentile DO 12/05/16 19:54: addition to plan: abd U/S w/o acute findings. Pending chest/abd/pelvis CT with IV and PO contrast Original Note: <Aliza Gentile - Last Filed: 12/05/16 19:43> Subjective - Date & Time of Evaluation Date of Evaluation: 12/05/16 Time of Evaluation: 09:35 - Subjective Subjective: Pt seen and evaluated at bedside. Observed coughing, underneath a cooling blanket and pt denies chest pain and abdominal pain. Temperature of 101F this PM. Objective - Vital Signs/Intake and Output Vital Signs (last 24 hours): Temp Pulse Resp BP Pulse Ox 99.9 F H 93 H 18 153/79 H 95 12/05/16 05:44 12/05/16 05:44 12/05/16 05:44 12/05/16 05:44 12/05/16 05:44 Intake and Output: 12/05/16 12/05/16 06:59 18:59 Intake Total 570 Balance 570 - Medications Medications: Current Medications Diphenhydramine HCl (Benadryl) 25 mg IVP Q4 PRN PRN Reason: Allergy symptoms Enoxaparin Sodium (Lovenox) 30 mg SC DAILY PAULA PRN Reason: Protocol Last Admin: 12/05/16 11:28 Dose: 30 mg Guaifenesin (Robitussin) 100 mg PO Q4H PRN PRN Reason: Cough Vancomycin HCl (Vancomycin 1gm) 1 gm in 250 mls @ 167 mls/hr IVPB Q12H PAULA PRN Reason: Protocol Last Admin: 12/05/16 00:03 Dose: 167 mls/hr Aztreonam (Azactam 1 Gm) 100 mls @ 100 mls/hr IVPB Q8 PAULA PRN Reason: Protocol Last Admin: 12/05/16 05:35 Dose: 100 mls/hr Ibuprofen (Motrin Oral Susp) 400 mg PO Q6 PRN PRN Reason: Fever >100.4 F Last Admin: 12/04/16 18:46 Dose: 400 mg Levofloxacin/Dextrose (Levaquin 750mg) 750 mg IVPB DAILY [facility] Last Admin: 12/05/16 11:28 Dose: 750 mg Pantoprazole Sodium (Protonix Ec Tab) 40 mg PO 0630 [facility] Last Admin: 12/05/16 05:36 Dose: 40 mg - Labs Labs: 12/05/16 06:30 12/05/16 06:30 - Constitutional Appears: No Acute Distress, Confused - Head Exam Head Exam: ATRAUMATIC, NORMOCEPHALIC - Eye Exam Eye Exam: EOMI, Normal appearance - Respiratory Exam Respiratory Exam: Clear to Ausculation Bilateral, NORMAL BREATHING PATTERN - Cardiovascular Exam Cardiovascular Exam: +S1, +S2. absent: Bradycardia - GI/Abdominal Exam GI & Abdominal Exam: Soft. absent: Tenderness - Exam External exam: absent: Lacerations, Lesions - Back Exam Back Exam: absent: CVA tenderness (L), CVA tenderness (R) - Neurological Exam Neurological Exam: Alert, Awake - Skin Skin Exam: Normal Color, Warm Assessment and Plan - Assessment and Plan (Free Text) Plan: 65 year old male with past medical history of dementia presents with sepsis likely secondary to right lower lobe pneumonia Sepsis secondary to pneumonia vs UTI -Initially Fever at 102.9F, heart rate at 94 bpm, lactate 2.7, code sepsis called -CXR showed possible RLL infiltrate -UA showed negative LE and WBC. Protein of 30 -Vancomycin and rocephin given in the ED -Cureently Aztreonam, levofloxacin, vancomycin IV -Robitussin prn -blood cx is negative at 24hrs and urine cx negative final -procal 5.05-->4.28 , legionella ur ag negative -Aspiration precaution -ID consult, Dr. Hawthorne help appreciated Transaminitis -AST/ALT on admission 103/160-->44/71 today -hep panel negative Prophylactic measures -Protonix for GI ppx -Lovenox for DVT ppx -Motrin for fever -Benadryl for allergy symptoms <Diana Chavez - Last Filed: 12/05/16 21:44> Objective - Vital Signs/Intake and Output Vital Signs (last 24 hours): Temp Pulse Resp BP Pulse Ox 100.1 F H 78 20 169/85 H 95 12/05/16 18:00 12/05/16 18:00 12/05/16 18:00 12/05/16 18:00 12/05/16 05:44 - Medications Medications: Current Medications Diphenhydramine HCl (Benadryl) 25 mg IVP Q4 PRN PRN Reason: Allergy symptoms Guaifenesin (Robitussin) 100 mg PO Q4H PRN PRN Reason: Cough Last Admin: 12/05/16 12:34 Dose: 100 mg Vancomycin HCl (Vancomycin 1gm) 1 gm in 250 mls @ 167 mls/hr IVPB Q12H PAULA PRN Reason: Protocol Last Admin: 12/05/16 13:19 Dose: 167 mls/hr Aztreonam (Azactam 1 Gm) 100 mls @ 100 mls/hr IVPB Q8 PAULA PRN Reason: Protocol Last Admin: 12/05/16 21:08 Dose: 100 mls/hr Ibuprofen (Motrin Oral Susp) 400 mg PO Q6 PRN PRN Reason: Fever >100.4 F Last Admin: 12/05/16 15:05 Dose: 400 mg Levofloxacin/Dextrose (Levaquin 750mg) 750 mg IVPB DAILY [facility] Last Admin: 12/05/16 11:28 Dose: 750 mg Pantoprazole Sodium (Protonix Ec Tab) 40 mg PO 0630 [facility] Last Admin: 12/05/16 05:36 Dose: 40 mg - Labs Labs: 12/05/16 06:30 12/05/16 06:30 Attending/Attestation - Attestation I have personally seen and examined this patient.: Yes I have fully participated in the care of the patient.: Yes I have reviewed all pertinent clinical information, including history, physical exam and plan: Yes Notes (Text): 12/05/16 21:41 Patient seen and examined at bedside with the resident. Labs, vitals, medications, orders and notes reviewed. case d/w ID attending and Imaging ordered considering ongoing FUO.Cultures remain negative so far. BM suppression noted. Agree with the plan outlined above including continuation of antibiotics and telemetry monitoring. Monitor LFTS and CBC closely. Hold Lovenox.
[2016-12-05] MEDS: guaiFENesin 100 mg/5 ml Syrup UD PO PRN (12:34)
--- NOTE | 2016-12-05 19:53 | CP.PCM.PN ---
Subjective - Date & Time of Evaluation Date of Evaluation: 12/05/16 Time of Evaluation: 18:00 - Subjective Subjective: Infectious Disease Follow Up: December 05, 2016 65 yo male with foul smelling urine and cough at home. The patient was brought to [facility] [place] by sister and niece. The patient has primary progressive dementia and aphasia. Symptoms started 2 days ago and the patient also had a fall at home. Patient was found to have a fever up to 102.9 F. The patient also had lactic acidosis of 2.7. He was started on IV Vancomycin and Rocephin for antibiotic treatment. When he was first brought in, the patient was lethargic but is more arousable now. Currently on Vancomycin IV and Aztreonam. Although the patient is still having fevers, it is downtrending. The patient is arousable. Continuing on antibiotics for now. Cultures of blood and urine are negative so far. Objective - Vital Signs/Intake and Output Vital Signs (last 24 hours): Temp Pulse Resp BP Pulse Ox 100.1 F H 78 20 169/85 H 95 12/05/16 18:00 12/05/16 18:00 12/05/16 18:00 12/05/16 18:00 12/05/16 05:44 - Medications Medications: Current Medications Diphenhydramine HCl (Benadryl) 25 mg IVP Q4 PRN PRN Reason: Allergy symptoms Enoxaparin Sodium (Lovenox) 30 mg SC DAILY PAULA PRN Reason: Protocol Last Admin: 12/05/16 11:28 Dose: 30 mg Guaifenesin (Robitussin) 100 mg PO Q4H PRN PRN Reason: Cough Last Admin: 12/05/16 12:34 Dose: 100 mg Vancomycin HCl (Vancomycin 1gm) 1 gm in 250 mls @ 167 mls/hr IVPB Q12H PAULA PRN Reason: Protocol Last Admin: 12/05/16 13:19 Dose: 167 mls/hr Aztreonam (Azactam 1 Gm) 100 mls @ 100 mls/hr IVPB Q8 PAULA PRN Reason: Protocol Last Admin: 12/05/16 14:56 Dose: 100 mls/hr Ibuprofen (Motrin Oral Susp) 400 mg PO Q6 PRN PRN Reason: Fever >100.4 F Last Admin: 12/05/16 15:05 Dose: 400 mg Levofloxacin/Dextrose (Levaquin 750mg) 750 mg IVPB DAILY [facility] Last Admin: 12/05/16 11:28 Dose: 750 mg Pantoprazole Sodium (Protonix Ec Tab) 40 mg PO 0630 [facility] Last Admin: 12/05/16 05:36 Dose: 40 mg - Labs Labs: 12/05/16 06:30 12/05/16 06:30 - Constitutional Appears: Non-toxic, No Acute Distress, Chronically Ill - Head Exam Head Exam: ATRAUMATIC, NORMOCEPHALIC - Eye Exam Eye Exam: EOMI, PERRL Pupil Exam: NORMAL ACCOMODATION, PERRL - ENT Exam ENT Exam: Mucous Membranes Moist, Normal External Ear Exam, TM's Normal Bilaterally - Neck Exam Neck Exam: Full ROM, Normal Inspection - Respiratory Exam Respiratory Exam: Clear to Ausculation Bilateral, NORMAL BREATHING PATTERN. absent: Rales, Rhonchi, Wheezes - Cardiovascular Exam Cardiovascular Exam: REGULAR RHYTHM, RRR, +S1, +S2 - GI/Abdominal Exam GI & Abdominal Exam: Soft, Normal Bowel Sounds. absent: Distended, Tenderness - Extremities Exam Extremities Exam: Full ROM, Normal Inspection Additional comments: general weakness - Neurological Exam Neurological Exam: Alert, Awake, CN II-XII Intact Additional comments: AAO x 1 at best. gives simple answer if given simple questions. - Psychiatric Exam Additional comments: AAO x 1 at best. gives simple answer if given simple questions. - Skin Skin Exam: Intact, Normal Color Assessment and Plan - Assessment and Plan (Free Text) Assessment: 65 yo male with fevers up to 102.9 F and lactic acidosis, and question of pneumonia. He was apparently given Rocephin and Vancomycin in the ER. He supposedly has a PCN allergy. Azithromycin also started. Mild transaminitis. Licona cultures. Questionable UTI. Supportive care. Official read of Chest X-ray is not showing any active pulmonary disease. Continue on Vancomycin and Aztreonam for now. Fevers downtrending so far. Thank you for allowing me to participate in the care of the patient, we will follow with you.
[2016-12-06] MEDS: Aztreonam 1 Gm in NS 100mL 100 ML IVPB SCH ×3 (05:00→22:14)
[2016-12-06] MEDS: Pantoprazole 40 mg EC Tab PO SCH (06:07)
[2016-12-06] MEDS: levoFLOXacin 750 mg in D5W 150 ML BAG IVPB SCH (09:42)
[2016-12-06] MEDS ORDERED: Barium Sulfate Susp 2.1% w/v, 2.0% w/w 450 mL Bottle PO ONE (10:33)
[2016-12-06 11:16] LABS: ADD MANUAL DIFF? NO
[2016-12-06 11:26] LABS: BASO # 0.01 K/mm3 (0.0-2.0); BASO % 0.3 % (0.0-3.0); EOS % 1.4 % (1.5-5.0); GRAN # 1.95 (1.4-6.5); HEMATOCRIT 38.8 % (42.0-52.0); LYMPH # 0.5 (1.2-3.4); LYMPH % 17.2 % (22.0-35.0); MEAN CELL VOLUME 81.2 fL (80.0-105.0); MEAN CORPUSCULAR HEMOGLOBIN 28.9 pg (25.0-35.0); MEAN CORPUSCULAR HGB CONC 35.6 g/dl (31.0-37.0); MEAN PLATELET VOLUME 10.8 fl (7.0-11.0); MONO # 0.4 (0.1-0.6); MONO % 14.1 % (1.0-6.0); PLATELET COUNT 134 10^3/uL (120.0-450.0); RED CELL DISTRIBUTION WIDTH 12.8 % (11.5-14.5)
[2016-12-06 11:27] LABS: WHITE BLOOD COUNT 2.9 10^3/ul (4.5-11.0)
[2016-12-06] MEDS: Vancomycin 1gm in NS 250ml 1 GM/250 ML BAG IVPB SCH (11:28)
[2016-12-06 11:30] LABS: ALB/GLOB RATIO 1.1 (1.1-1.8); ALKALINE PHOSPHATASE 65 U/L (38-133); ALT/SGPT 60 U/L (7-56); AST/SGOT 28 U/L (15-59); BLOOD UREA NITROGEN 13 mg/dL (7-21); CALCIUM 9.1 mg/dL (8.4-10.5); CARBON DIOXIDE 31 mmol/L (21-33); CHLORIDE 103 mmol/L (98-107); GFR AFRICAN-AMERICAN > 60; GLUCOSE,RANDOM 116 mg/dL (70-110); POTASSIUM 3.9 mmol/L (3.6-5.0); SODIUM 140 mmol/L (132-148)
[2016-12-06] MEDS ORDERED: Iohexol 350 MG/100 ML VIAL ONE (13:42)
--- NOTE | 2016-12-06 17:35 | CP.PCM.PN ---
Subjective - Date & Time of Evaluation Date of Evaluation: 12/06/16 Time of Evaluation: 15:15 - Subjective Subjective: Infectious Disease Follow Up: December 06, 2016 65 yo male with foul smelling urine and cough at home. The patient was brought to [facility] [place] by sister and niece. The patient has primary progressive dementia and aphasia. Symptoms started 2 days ago and the patient also had a fall at home. Patient was found to have a fever up to 102.9 F. The patient also had lactic acidosis of 2.7. He was started on IV Vancomycin and Rocephin for antibiotic treatment. When he was first brought in, the patient was lethargic but is more arousable now. Currently on Vancomycin IV and Aztreonam. Although the patient is still having fevers, it is downtrending. The patient is arousable. Continuing on antibiotics for now. Cultures of blood and urine are negative so far. The patient did have temperatures that were under 100.0 F today. Objective - Vital Signs/Intake and Output Vital Signs (last 24 hours): Temp Pulse Resp BP Pulse Ox 97.1 F L 66 20 159/87 H 94 L 12/06/16 12:00 12/06/16 14:00 12/06/16 12:00 12/06/16 13:00 12/06/16 05:20 Intake and Output: 12/06/16 12/06/16 06:59 18:59 Intake Total 1130 Balance 1130 - Medications Medications: Current Medications Diphenhydramine HCl (Benadryl) 25 mg IVP Q4 PRN PRN Reason: Allergy symptoms Guaifenesin (Robitussin) 100 mg PO Q4H PRN PRN Reason: Cough Last Admin: 12/05/16 12:34 Dose: 100 mg Vancomycin HCl (Vancomycin 1gm) 1 gm in 250 mls @ 167 mls/hr IVPB Q12H PAULA PRN Reason: Protocol Last Admin: 12/06/16 11:28 Dose: 167 mls/hr Aztreonam (Azactam 1 Gm) 100 mls @ 100 mls/hr IVPB Q8 PAULA PRN Reason: Protocol Last Admin: 12/06/16 14:03 Dose: 100 mls/hr Ibuprofen (Motrin Oral Susp) 400 mg PO Q6 PRN PRN Reason: Fever >100.4 F Last Admin: 12/06/16 04:20 Dose: 400 mg Levofloxacin/Dextrose (Levaquin 750mg) 750 mg IVPB DAILY [facility] Last Admin: 12/06/16 09:42 Dose: 750 mg Metoprolol Tartrate (Lopressor) 25 mg PO BID [facility] Last Admin: 12/06/16 09:41 Dose: 25 mg Pantoprazole Sodium (Protonix Ec Tab) 40 mg PO 0630 [facility] Last Admin: 12/06/16 06:07 Dose: Not Given - Labs Labs: 12/06/16 11:10 12/06/16 11:10 - Constitutional Appears: Non-toxic, No Acute Distress, Chronically Ill - Head Exam Head Exam: ATRAUMATIC, NORMOCEPHALIC - Eye Exam Eye Exam: EOMI, PERRL Pupil Exam: NORMAL ACCOMODATION, PERRL - ENT Exam ENT Exam: Mucous Membranes Moist, Normal External Ear Exam, TM's Normal Bilaterally - Neck Exam Neck Exam: Full ROM, Normal Inspection - Respiratory Exam Respiratory Exam: Clear to Ausculation Bilateral, NORMAL BREATHING PATTERN. absent: Rales, Rhonchi, Wheezes - Cardiovascular Exam Cardiovascular Exam: REGULAR RHYTHM, RRR, +S1, +S2 - GI/Abdominal Exam GI & Abdominal Exam: Soft, Normal Bowel Sounds. absent: Distended, Tenderness - Extremities Exam Extremities Exam: Full ROM, Normal Inspection Additional comments: general weakness - Neurological Exam Neurological Exam: Alert, Awake, CN II-XII Intact, Oriented x3 Additional comments: AAO x 1 at best. gives simple answer if given simple questions. - Psychiatric Exam Additional comments: AAO x 1 at best. gives simple answer if given simple questions. - Skin Skin Exam: Intact, Normal Color Assessment and Plan - Assessment and Plan (Free Text) Assessment: 65 yo male with fevers up to 102.9 F and lactic acidosis, and question of pneumonia. He was apparently given Rocephin and Vancomycin in the ER. He supposedly has a PCN allergy. Azithromycin also started. Mild transaminitis. Licona cultures. Questionable UTI. Supportive care. Official read of Chest X-ray is not showing any active pulmonary disease. Continue on Vancomycin and Aztreonam for now. Fevers downtrending so far. Noted leukocytosis of 2.9 today. Unclear what his normal WBC values have been normally but on previous hospitalizations it has been on the low side. Thank you for allowing me to participate in the care of the patient, we will follow with you.
--- NOTE | 2016-12-06 19:29 | CP.PCM.PN ---
<Aliza Gentile - Last Filed: 12/06/16 19:33> Subjective - Date & Time of Evaluation Date of Evaluation: 12/06/16 Time of Evaluation: 11:00 - Subjective Subjective: Pt seen and evaluated at bedside. Pt denies chest and abdominal pain. Intermittent low grade fevers throughout overnight w/ tmax 101.1. Pt refused PO contrast for Chest/abd/pelvis CT, so ordered with only IV contrast. Objective - Vital Signs/Intake and Output Vital Signs (last 24 hours): Temp Pulse Resp BP Pulse Ox 97.3 F L 74 16 177/87 H 94 L 12/06/16 18:00 12/06/16 18:00 12/06/16 18:00 12/06/16 18:00 12/06/16 05:20 - Medications Medications: Current Medications Diphenhydramine HCl (Benadryl) 25 mg IVP Q4 PRN PRN Reason: Allergy symptoms Guaifenesin (Robitussin) 100 mg PO Q4H PRN PRN Reason: Cough Last Admin: 12/05/16 12:34 Dose: 100 mg Vancomycin HCl (Vancomycin 1gm) 1 gm in 250 mls @ 167 mls/hr IVPB Q12H PAULA PRN Reason: Protocol Last Admin: 12/06/16 11:28 Dose: 167 mls/hr Aztreonam (Azactam 1 Gm) 100 mls @ 100 mls/hr IVPB Q8 [facility]ULA PRN Reason: Protocol Last Admin: 12/06/16 14:03 Dose: 100 mls/hr Ibuprofen (Motrin Oral Susp) 400 mg PO Q6 PRN PRN Reason: Fever >100.4 F Last Admin: 12/06/16 04:20 Dose: 400 mg Levofloxacin/Dextrose (Levaquin 750mg) 750 mg IVPB DAILY [facility] Last Admin: 12/06/16 09:42 Dose: 750 mg Metoprolol Tartrate (Lopressor) 25 mg PO BID [facility] Last Admin: 12/06/16 17:41 Dose: 25 mg Pantoprazole Sodium (Protonix Ec Tab) 40 mg PO 0630 [facility] Last Admin: 12/06/16 06:07 Dose: Not Given - Labs Labs: 12/06/16 11:10 12/06/16 11:10 - Additional Findings Additional findings: - Constitutional Appears: No Acute Distress, Confused - Head Exam Head Exam: ATRAUMATIC, NORMOCEPHALIC - Eye Exam Eye Exam: EOMI, Normal appearance - Respiratory Exam Respiratory Exam: Clear to Ausculation Bilateral, NORMAL BREATHING PATTERN - Cardiovascular Exam Cardiovascular Exam: +S1, +S2. absent: tachycardia - GI/Abdominal Exam GI & Abdominal Exam: Soft. absent: Tenderness - Exam External exam: absent: Lacerations, Lesions - Back Exam Back Exam: absent: CVA tenderness (L), CVA tenderness (R) - Neurological Exam Neurological Exam: Alert, Awake - Skin Skin Exam: Normal Color, Warm Assessment and Plan - Assessment and Plan (Free Text) Plan: 65 year old male with past medical history of dementia presents with sepsis likely secondary to right lower lobe pneumonia Sepsis secondary to pneumonia vs UTI -Initially Fever at 102.9F, heart rate at 94 bpm, lactate 2.7, code sepsis called -CXR showed possible RLL infiltrate -UA showed negative LE and WBC. Protein of 30 -Vancomycin and rocephin given in the ED -Currently Aztreonam, levofloxacin, vancomycin IV -Robitussin prn -blood cx is negative at 48hrs and urine cx negative final -procal 5.05-->4.28 , legionella ur ag negative, mycoplasma pnu igg positive -Aspiration precaution -ID consult, Dr. Hawthorne help appreciated -chest/abd/pelvis CT w/ IV contrast ordered for infectious source investigation. PO contrast was refused by pt. Transaminitis -AST/ALT on admission 103/160-->44/71 --> 28/60 today -hep panel negative Prophylactic measures -Protonix for GI ppx -Lovenox for DVT ppx -Motrin for fever -Benadryl for allergy symptoms <Diana Chavez - Last Filed: 12/07/16 17:49> Objective - Vital Signs/Intake and Output Vital Signs (last 24 hours): Temp Pulse Resp BP Pulse Ox 98.9 F 68 20 168/90 H 94 L 12/07/16 12:00 12/07/16 17:40 12/07/16 12:00 12/07/16 17:40 12/06/16 05:20 Intake and Output: 12/07/16 12/07/16 06:59 18:59 Intake Total 120 Output Total 1200 Balance -1080 - Medications Medications: Current Medications Diphenhydramine HCl (Benadryl) 25 mg IVP Q4 PRN PRN Reason: Allergy symptoms Guaifenesin (Robitussin) 100 mg PO Q4H PRN PRN Reason: Cough Last Admin: 12/05/16 12:34 Dose: 100 mg Vancomycin HCl (Vancomycin 1gm) 1 gm in 250 mls @ 167 mls/hr IVPB Q12H PAULA PRN Reason: Protocol Last Admin: 12/07/16 12:45 Dose: 167 mls/hr Aztreonam (Azactam 1 Gm) 100 mls @ 100 mls/hr IVPB Q8 [facility]UL[facility] PRN Reason: Protocol Last Admin: 12/07/16 14:53 Dose: 100 mls/hr Ibuprofen (Motrin Oral Susp) 400 mg PO Q6 PRN PRN Reason: Fever >100.4 F Last Admin: 12/07/16 06:03 Dose: 400 mg Levofloxacin/Dextrose (Levaquin 750mg) 750 mg IVPB DAILY [facility] Last Admin: 12/07/16 11:11 Dose: 750 mg Lisinopril (Zestril) 2.5 mg PO DAILY [facility] Last Admin: 12/07/16 11:12 Dose: 2.5 mg Metoprolol Tartrate (Lopressor) 25 mg PO BID [facility] Last Admin: 12/07/16 17:40 Dose: 25 mg Pantoprazole Sodium (Protonix Ec Tab) 40 mg PO 0630 [facility] Last Admin: 12/07/16 06:03 Dose: 40 mg - Labs Labs: 12/07/16 06:30 12/07/16 06:30 Attending/Attestation - Attestation I have personally seen and examined this patient.: Yes I have fully participated in the care of the patient.: Yes I have reviewed all pertinent clinical information, including history, physical exam and plan: Yes Notes (Text): 12/07/16 17:48 Patient seen and examined at bedside with the resident. Labs, vitals, medications reviewed. Low grade fevers noted. Multi-speciality follow up ongoing. Obtain Imaging in view of ongoing FUO. Continue IV antibiotics, agree with the rest of the plan as outlined above by the resident.
[2016-12-07] MEDS: Vancomycin 1gm in NS 250ml 1 GM/250 ML BAG IVPB SCH ×3 (01:06→22:48)
[2016-12-07] MEDS: Aztreonam 1 Gm in NS 100mL 100 ML IVPB SCH ×3 (06:02→22:47)
[2016-12-07] MEDS: Pantoprazole 40 mg EC Tab PO SCH (06:03)
[2016-12-07 06:50] LABS: ADD MANUAL DIFF? NO
[2016-12-07 07:05] LABS: BASO # 0.01 K/mm3 (0.0-2.0); BASO % 0.3 % (0.0-3.0); EOS # 0.1 (0.0-0.7); EOS % 1.5 % (1.5-5.0); GRAN # 2.19 (1.4-6.5); GRAN % 66.8 % (50.0-68.0); LYMPH # 0.6 (1.2-3.4); LYMPH % 18.9 % (22.0-35.0); MEAN CELL VOLUME 80.4 fL (80.0-105.0); MEAN CORPUSCULAR HEMOGLOBIN 28.5 pg (25.0-35.0); MEAN CORPUSCULAR HGB CONC 35.4 g/dl (31.0-37.0); MEAN PLATELET VOLUME 11.2 fl (7.0-11.0); MONO # 0.4 (0.1-0.6); MONO % 12.5 % (1.0-6.0); PLATELET COUNT 153 10^3/uL (120.0-450.0); RED CELL DISTRIBUTION WIDTH 12.8 % (11.5-14.5); WHITE BLOOD COUNT 3.3 10^3/ul (4.5-11.0)
[2016-12-07 07:22] LABS: ALB/GLOB RATIO 1.1 (1.1-1.8); ALKALINE PHOSPHATASE 71 U/L (38-133); ALT/SGPT 56 U/L (7-56); AST/SGOT 31 U/L (15-59); BILIRUBIN,TOTAL 0.8 mg/dL (0.2-1.3); BLOOD UREA NITROGEN 12 mg/dL (7-21); CALCIUM 8.9 mg/dL (8.4-10.5); CARBON DIOXIDE 26 mmol/L (21-33); CHLORIDE 105 mmol/L (98-107); GFR AFRICAN-AMERICAN > 60; GLUCOSE,RANDOM 90 mg/dL (70-110); POTASSIUM 3.5 mmol/L (3.6-5.0); SODIUM 140 mmol/L (132-148); TOTAL PROTEIN 6.7 g/dL (5.8-8.3)
[2016-12-07] MEDS ORDERED: Potassium Chloride 40 mEq/30 ml LIQ UD PO ONE (07:37)
--- NOTE | 2016-12-07 10:17 | CT ---
PROCEDURE: CT Chest, Abdomen and Pelvis with intravenous contrast HISTORY: fevers of unknown orgin COMPARISON: None. TECHNIQUE: IV dose administered: 100 cc of Omni 350 Radiation dose: Total exam DLP = 928 mGy-cm. This CT exam was performed using one or more of the following dose reduction techniques: Automated exposure control, adjustment of the mA and/or kV according to patient size, and/or use of iterative reconstruction technique. FINDINGS: CT CHEST WITH CONTRAST: LUNGS: There is a focal infiltrate in the superior segment of the left lower lobe seen on image 56 series 4. There is also consolidation at the left lung base posteriorly image 82. Findings suspicious for pneumonia MEDIASTINUM: Unremarkable. Normal caliber aorta and pulmonary arterial trunk. No aortic dissection. Normal size heart. LYMPH NODES: Unremarkable. PLEURA: Unremarkable. No pneumothorax. No pleural fluid. BONES: Unremarkable. OTHER FINDINGS: None. CT ABDOMEN AND PELVIS: LIVER: Unremarkable. No gross lesion or ductal dilatation. GALLBLADDER AND BILE DUCTS: Unremarkable. PANCREAS: Unremarkable. No gross lesion or ductal dilatation. SPLEEN: Unremarkable. ADRENALS: Unremarkable. No mass. KIDNEYS AND URETERS: Unremarkable. No hydronephrosis. No solid mass. VASCULATURE: Unremarkable. No aortic aneurysm. BOWEL: Unremarkable. No obstruction. No gross mural thickening. APPENDIX: Normal appendix. PERITONEUM: Unremarkable. No free fluid. No free air. LYMPH NODES: Unremarkable. No enlarged lymph nodes. BLADDER: Unremarkable. REPRODUCTIVE: Unremarkable. BONES: No acute fracture. OTHER FINDINGS: None. IMPRESSION: Multi focal left lower lobe pneumonia
[2016-12-07] MEDS: levoFLOXacin 750 mg in D5W 150 ML BAG IVPB SCH (11:11)
--- NOTE | 2016-12-07 11:25 | CP.PCM.PN ---
<Tyler Carlos - Last Filed: 12/07/16 11:25> Subjective - Date & Time of Evaluation Date of Evaluation: 12/07/16 Time of Evaluation: 11:25 - Subjective Subjective: Med progress note. Attending: Dr. Hall Pt seen and examined at bedside. No acute distress. No events overnight. Pt is obtunded, ROS not able to be obtained. Fever 100.5 this morning. Objective - Vital Signs/Intake and Output Vital Signs (last 24 hours): Temp Pulse Resp BP Pulse Ox 100.2 F H 72 20 152/98 H 94 L 12/07/16 06:03 12/07/16 11:13 12/07/16 06:00 12/07/16 11:13 12/06/16 05:20 Intake and Output: 12/07/16 12/07/16 06:59 18:59 Intake Total 120 Output Total 1200 Balance -1080 - Medications Medications: Current Medications Diphenhydramine HCl (Benadryl) 25 mg IVP Q4 PRN PRN Reason: Allergy symptoms Guaifenesin (Robitussin) 100 mg PO Q4H PRN PRN Reason: Cough Last Admin: 12/05/16 12:34 Dose: 100 mg Vancomycin HCl (Vancomycin 1gm) 1 gm in 250 mls @ 167 mls/hr IVPB Q12H [facility]UL[facility] PRN Reason: Protocol Last Admin: 12/07/16 01:06 Dose: 167 mls/hr Aztreonam (Azactam 1 Gm) 100 mls @ 100 mls/hr IVPB Q8 [facility] PRN Reason: Protocol Last Admin: 12/07/16 06:02 Dose: 100 mls/hr Ibuprofen (Motrin Oral Susp) 400 mg PO Q6 PRN PRN Reason: Fever >100.4 F Last Admin: 12/07/16 06:03 Dose: 400 mg Levofloxacin/Dextrose (Levaquin 750mg) 750 mg IVPB DAILY [facility] Last Admin: 12/07/16 11:11 Dose: 750 mg Lisinopril (Zestril) 2.5 mg PO DAILY [facility] Last Admin: 12/07/16 11:12 Dose: 2.5 mg Metoprolol Tartrate (Lopressor) 25 mg PO BID [facility] Last Admin: 12/07/16 11:13 Dose: 25 mg Pantoprazole Sodium (Protonix Ec Tab) 40 mg PO 0630 [facility] Last Admin: 12/07/16 06:03 Dose: 40 mg - Labs Labs: 12/07/16 06:30 12/07/16 06:30 - Constitutional Appears: Non-toxic, No Acute Distress, Unkempt - Head Exam Head Exam: ATRAUMATIC, NORMAL INSPECTION, NORMOCEPHALIC - Eye Exam Eye Exam: EOMI - ENT Exam ENT Exam: Mucous Membranes Moist - Neck Exam Neck Exam: Full ROM, Normal Inspection - Respiratory Exam Respiratory Exam: NORMAL BREATHING PATTERN. absent: Respiratory Distress - Cardiovascular Exam Cardiovascular Exam: +S1, +S2 - GI/Abdominal Exam GI & Abdominal Exam: Soft, Normal Bowel Sounds. absent: Tenderness - Extremities Exam Extremities Exam: Full ROM, Normal Inspection - Neurological Exam Neurological Exam: Altered - Psychiatric Exam Additional comments: Unable to assess- AMS - Skin Skin Exam: Dry, Intact, Normal Color, Warm Assessment and Plan - Assessment and Plan (Free Text) Assessment: This is a 65 year old male with past medical history of dementia presenting with sepsis with questionable source at this point Sepsis secondary to pneumonia vs UTI vs. other source -Initially Fever at 102.9F, heart rate at 94 bpm, lactate 2.7, code sepsis called -CXR read as no active disease -UA showed negative LE and WBC. Protein of 30, trace blood -Vancomycin and rocephin given in the ED -Currently Aztreonam, levofloxacin, vancomycin IV -continue aztreonam 1 g q 8 hrs -continue levaquin 750 mg iv daily -continue vanco 1 g q 12 hrs -Robitussin prn -blood cx is negative -urine cultures negative -procal 5.05-->4.28 , legionella ur ag negative, mycoplasma pnu igg positive -Aspiration precaution -ID consult, Dr. Hawthorne help appreciated -chest/abd/pelvis CT w/ IV contrast ordered for infectious source investigation. PO contrast was refused by pt. -scan pending Transaminitis -AST/ALT on admission 103/160-->44/71 --> 28/60 today>> LFTs normal today -hep panel negative Prophylactic measures -Protonix for GI ppx -SCDs -Motrin for fever -Benadryl for allergy symptoms discussed with Dr. Hall <Deisy Hall - Last Filed: 12/08/16 08:01> Objective - Vital Signs/Intake and Output Vital Signs (last 24 hours): Temp Pulse Resp BP Pulse Ox 98 F 69 19 175/96 H 98 12/08/16 06:00 12/08/16 06:00 12/08/16 06:00 12/08/16 06:00 12/08/16 00:01 Intake and Output: 12/08/16 12/08/16 06:59 18:59 Intake Total 420 Output Total 400 Balance 20 - Medications Medications: Current Medications Diphenhydramine HCl (Benadryl) 25 mg IVP Q4 PRN PRN Reason: Allergy symptoms Guaifenesin (Robitussin) 100 mg PO Q4H PRN PRN Reason: Cough Last Admin: 12/05/16 12:34 Dose: 100 mg Vancomycin HCl (Vancomycin 1gm) 1 gm in 250 mls @ 167 mls/hr IVPB Q12H PAULA PRN Reason: Protocol Last Admin: 12/07/16 22:48 Dose: 167 mls/hr Aztreonam (Azactam 1 Gm) 100 mls @ 100 mls/hr IVPB Q8 [facility] PRN Reason: Protocol Last Admin: 12/08/16 06:32 Dose: 100 mls/hr Ibuprofen (Motrin Oral Susp) 400 mg PO Q6 PRN PRN Reason: Fever >100.4 F Last Admin: 12/07/16 06:03 Dose: 400 mg Levofloxacin/Dextrose (Levaquin 750mg) 750 mg IVPB DAILY [facility] Last Admin: 12/07/16 11:11 Dose: 750 mg Lisinopril (Zestril) 2.5 mg PO DAILY [facility] Last Admin: 12/07/16 11:12 Dose: 2.5 mg Metoprolol Tartrate (Lopressor) 25 mg PO BID [facility] Last Admin: 12/07/16 17:40 Dose: 25 mg Pantoprazole Sodium (Protonix Ec Tab) 40 mg PO 0630 [facility] Last Admin: 12/08/16 06:32 Dose: 40 mg - Labs Labs: 12/08/16 05:45 12/08/16 05:45 Attending/Attestation - Attestation I have personally seen and examined this patient.: Yes I have fully participated in the care of the patient.: Yes I have reviewed all pertinent clinical information, including history, physical exam and plan: Yes Notes (Text): 12/07/16 65 year old male with past medical history of dementia who presented with sepsis. CT chest shows left lower lobe pneumonia. Fever trend is coming down. Continue with antibiotics as per ID. Will continue to monitor LFTs which were elevated but is now improving. Hepatitis panel was negative. He is hypertensive while on metoprolol. Will add lisinopril as well and monitor. Deisy Hall MD Hospitalist.
--- NOTE | 2016-12-07 19:48 | CP.PCM.PN ---
Subjective - Date & Time of Evaluation Date of Evaluation: 12/07/16 Time of Evaluation: 17:45 - Subjective Subjective: Infectious Disease Follow Up: December 07, 2016 65 yo male with foul smelling urine and cough at home. The patient [place] [facility] [place] and [place] The patient has primary progressive dementia and aphasia. Symptoms started 2 days ago and the patient also had a fall at home. Patient was found to have a fever up to 102.9 F. The patient also had lactic acidosis of 2.7. He was started on IV Vancomycin and Rocephin for antibiotic treatment. When he was first brought in, the patient was lethargic but is more arousable now. Currently on Vancomycin IV and Aztreonam. Although the patient is still having fevers, it is downtrending. The patient is arousable. Continuing on antibiotics for now. Cultures of blood and urine are negative so far. The patient did have temperatures up to 100.6 F today. On the whole, the patient is improving. Objective - Vital Signs/Intake and Output Vital Signs (last 24 hours): Temp Pulse Resp BP Pulse Ox 97.1 F L 68 20 168/90 H 94 L 12/07/16 18:00 12/07/16 18:00 12/07/16 18:00 12/07/16 18:00 12/06/16 05:20 - Medications Medications: Current Medications Diphenhydramine HCl (Benadryl) 25 mg IVP Q4 PRN PRN Reason: Allergy symptoms Guaifenesin (Robitussin) 100 mg PO Q4H PRN PRN Reason: Cough Last Admin: 12/05/16 12:34 Dose: 100 mg Vancomycin HCl (Vancomycin 1gm) 1 gm in 250 mls @ 167 mls/hr IVPB Q12H [facility]UL[facility] PRN Reason: Protocol Last Admin: 12/07/16 12:45 Dose: 167 mls/hr Aztreonam (Azactam 1 Gm) 100 mls @ 100 mls/hr IVPB Q8 [facility] PRN Reason: Protocol Last Admin: 12/07/16 14:53 Dose: 100 mls/hr Ibuprofen (Motrin Oral Susp) 400 mg PO Q6 PRN PRN Reason: Fever >100.4 F Last Admin: 12/07/16 06:03 Dose: 400 mg Levofloxacin/Dextrose (Levaquin 750mg) 750 mg IVPB DAILY [facility] Last Admin: 12/07/16 11:11 Dose: 750 mg Lisinopril (Zestril) 2.5 mg PO DAILY [facility] Last Admin: 12/07/16 11:12 Dose: 2.5 mg Metoprolol Tartrate (Lopressor) 25 mg PO BID [facility] Last Admin: 12/07/16 17:40 Dose: 25 mg Pantoprazole Sodium (Protonix Ec Tab) 40 mg PO 0630 [facility] Last Admin: 12/07/16 06:03 Dose: 40 mg - Labs Labs: 12/07/16 06:30 12/07/16 06:30 - Constitutional Appears: Non-toxic, No Acute Distress, Chronically Ill - Head Exam Head Exam: ATRAUMATIC, NORMOCEPHALIC - Eye Exam Eye Exam: EOMI, PERRL Pupil Exam: NORMAL ACCOMODATION, PERRL - ENT Exam ENT Exam: Mucous Membranes Moist, Normal External Ear Exam, TM's Normal Bilaterally - Neck Exam Neck Exam: Full ROM, Normal Inspection - Respiratory Exam Respiratory Exam: Clear to Ausculation Bilateral, NORMAL BREATHING PATTERN. absent: Rales, Rhonchi, Wheezes - Cardiovascular Exam Cardiovascular Exam: REGULAR RHYTHM, RRR, +S1, +S2 - GI/Abdominal Exam GI & Abdominal Exam: Soft, Normal Bowel Sounds. absent: Distended, Tenderness - Extremities Exam Extremities Exam: Full ROM, Normal Inspection Additional comments: general weakness - Neurological Exam Neurological Exam: Alert, Awake, CN II-XII Intact Additional comments: AAO x 1 at best. gives simple answer if given simple questions. - Psychiatric Exam Additional comments: AAO x 1 at best. gives simple answer if given simple questions. - Skin Skin Exam: Intact, Normal Color Assessment and Plan - Assessment and Plan (Free Text) Assessment: 65 yo male with fevers up to 102.9 F and lactic acidosis, and question of pneumonia. He was apparently given Rocephin and Vancomycin in the ER. He supposedly has a PCN allergy. Azithromycin also started. Mild transaminitis. Licona cultures. Questionable UTI. Supportive care. Official read of Chest X-ray is not showing any active pulmonary disease. Continue on Vancomycin and Aztreonam for now. Fevers downtrending so far. Noted leukocytosis of 3.3 today. Unclear what his normal WBC values have been normally but on previous hospitalizations it has been on the low side. Thank you for allowing me to participate in the care of the patient, we will follow with you.
[2016-12-08 06:15] LABS: ADD MANUAL DIFF? NO
[2016-12-08 06:19] LABS: BASO # 0.01 K/mm3 (0.0-2.0); BASO % 0.3 % (0.0-3.0); EOS # 0.1 (0.0-0.7); EOS % 1.8 % (1.5-5.0); GRAN # 1.77 (1.4-6.5); GRAN % 52.5 % (50.0-68.0); HEMATOCRIT 38.8 % (42.0-52.0); LYMPH % 28.5 % (22.0-35.0); MEAN CELL VOLUME 81.7 fL (80.0-105.0); MEAN CORPUSCULAR HEMOGLOBIN 28.4 pg (25.0-35.0); MEAN CORPUSCULAR HGB CONC 34.8 g/dl (31.0-37.0); MEAN PLATELET VOLUME 10.4 fl (7.0-11.0); MONO # 0.6 (0.1-0.6); MONO % 16.9 % (1.0-6.0); PLATELET COUNT 169 10^3/uL (120.0-450.0); RED CELL DISTRIBUTION WIDTH 12.8 % (11.5-14.5); WHITE BLOOD COUNT 3.4 10^3/ul (4.5-11.0)
[2016-12-08] MEDS: Aztreonam 1 Gm in NS 100mL 100 ML IVPB SCH ×2 (06:32→14:09)
[2016-12-08] MEDS: Pantoprazole 40 mg EC Tab PO SCH (06:32)
[2016-12-08 06:42] LABS: ALB/GLOB RATIO 1.1 (1.1-1.8); ALKALINE PHOSPHATASE 62 U/L (38-133); ALT/SGPT 57 U/L (7-56); AST/SGOT 33 U/L (15-59); BILIRUBIN,TOTAL 0.6 mg/dL (0.2-1.3); BLOOD UREA NITROGEN 13 mg/dL (7-21); CALCIUM 8.8 mg/dL (8.4-10.5); CARBON DIOXIDE 27 mmol/L (21-33); CHLORIDE 107 mmol/L (98-107); GFR AFRICAN-AMERICAN > 60; GLUCOSE,RANDOM 95 mg/dL (70-110); PHOSPHOROUS 3.7 mg/dL (2.5-4.5); POTASSIUM 3.4 mmol/L (3.6-5.0); SODIUM 140 mmol/L (132-148); TOTAL PROTEIN 6.3 g/dL (5.8-8.3)
[2016-12-08] MEDS ORDERED: Potassium Chloride 20 mEq ER Tab PO ONE (06:52)
[2016-12-08] MEDS: levoFLOXacin 750 mg in D5W 150 ML BAG IVPB SCH (09:35)
[2016-12-08] MEDS: Vancomycin 1gm in NS 250ml 1 GM/250 ML BAG IVPB SCH ×2 (11:51→23:25)
--- NOTE | 2016-12-08 13:37 | CP.PCM.PN ---
<Tyler Carlos - Last Filed: 12/08/16 13:38> Subjective - Date & Time of Evaluation Date of Evaluation: 12/08/16 Time of Evaluation: 13:35 - Subjective Subjective: Med progress note. Attending : Dr. Hall Pt seen and examined at bedside. No acute distress. No events overnight. Pt has been afebrile for over 24 hrs. Pt is demented, not able to answer questions. Will f/u with id workup. Objective - Vital Signs/Intake and Output Vital Signs (last 24 hours): Temp Pulse Resp BP Pulse Ox 98.3 F 74 20 139/79 98 12/08/16 12:00 12/08/16 12:00 12/08/16 12:00 12/08/16 12:00 12/08/16 00:01 Intake and Output: 12/08/16 12/08/16 06:59 18:59 Intake Total 420 Output Total 400 Balance 20 - Medications Medications: Current Medications Diphenhydramine HCl (Benadryl) 25 mg IVP Q4 PRN PRN Reason: Allergy symptoms Guaifenesin (Robitussin) 100 mg PO Q4H PRN PRN Reason: Cough Last Admin: 12/05/16 12:34 Dose: 100 mg Vancomycin HCl (Vancomycin 1gm) 1 gm in 250 mls @ 167 mls/hr IVPB Q12H [facility] PRN Reason: Protocol Last Admin: 12/08/16 11:51 Dose: 167 mls/hr Aztreonam (Azactam 1 Gm) 100 mls @ 100 mls/hr IVPB Q8 [facility] PRN Reason: Protocol Last Admin: 12/08/16 06:32 Dose: 100 mls/hr Ibuprofen (Motrin Oral Susp) 400 mg PO Q6 PRN PRN Reason: Fever >100.4 F Last Admin: 12/07/16 06:03 Dose: 400 mg Levofloxacin/Dextrose (Levaquin 750mg) 750 mg IVPB DAILY [facility] Last Admin: 12/08/16 09:35 Dose: 750 mg Lisinopril (Zestril) 5 mg PO DAILY [facility] Metoprolol Tartrate (Lopressor) 25 mg PO BID [facility] Last Admin: 12/08/16 09:35 Dose: 25 mg Pantoprazole Sodium (Protonix Ec Tab) 40 mg PO 0630 [facility] Last Admin: 12/08/16 06:32 Dose: 40 mg - Labs Labs: 12/08/16 05:45 12/08/16 05:45 - Constitutional Appears: Non-toxic, No Acute Distress, Unkempt - Head Exam Head Exam: ATRAUMATIC, NORMAL INSPECTION, NORMOCEPHALIC - Eye Exam Eye Exam: EOMI - ENT Exam ENT Exam: Mucous Membranes Moist - Neck Exam Neck Exam: Full ROM, Normal Inspection - Respiratory Exam Respiratory Exam: NORMAL BREATHING PATTERN. absent: Respiratory Distress - Cardiovascular Exam Cardiovascular Exam: +S1, +S2 - GI/Abdominal Exam GI & Abdominal Exam: Soft, Normal Bowel Sounds. absent: Tenderness - Extremities Exam Extremities Exam: Full ROM, Normal Inspection - Neurological Exam Neurological Exam: Altered - Psychiatric Exam Additional comments: Unable to assess - Skin Skin Exam: Dry, Intact, Normal Color, Warm Assessment and Plan - Assessment and Plan (Free Text) Assessment: This is a 65 year old male with past medical history of dementia presenting with sepsis secondary to pneumonia Sepsis secondary to pneumonia -ct chest/abd/pelvis shows multifocal left lower lobe pna -Initially Fever at 102.9F, heart rate at 94 bpm, lactate 2.7, code sepsis called -CXR read as no active disease -UA showed negative LE and WBC. Protein of 30, trace blood -Vancomycin and rocephin given in the ED -Currently Aztreonam, levofloxacin, vancomycin IV -continue aztreonam 1 g q 8 hrs -continue levaquin 750 mg iv daily -continue vanco 1 g q 12 hrs -Robitussin prn -blood cx is negative -urine cultures negative -procal 5.05-->4.28 , legionella ur ag negative, mycoplasma pnu igg positive -Aspiration precaution -ID consult, Dr. Hawthorne help appreciated -will dc tele HTN -will increase lisinopril to 5 mg po daily -continue to monitor Transaminitis -AST/ALT on admission 103/160-->44/71 --> 28/60 today>> LFTs normal today -hep panel negative Prophylactic measures -Protonix for GI ppx -SCDs -Motrin for fever -Benadryl for allergy symptoms discussed with Dr. Hall <Deisy Hall - Last Filed: 12/09/16 21:53> Objective - Vital Signs/Intake and Output Vital Signs (last 24 hours): Temp Pulse Resp BP Pulse Ox 97.3 F L 64 20 123/72 96 12/09/16 16:00 12/09/16 19:01 12/09/16 16:00 12/09/16 19:01 12/09/16 16:00 Intake and Output: 12/09/16 12/10/16 18:59 06:59 Intake Total 200 Balance 200 - Medications Medications: Current Medications Diphenhydramine HCl (Benadryl) 25 mg IVP Q4 PRN PRN Reason: Allergy symptoms Guaifenesin (Robitussin) 100 mg PO Q4H PRN PRN Reason: Cough Last Admin: 12/09/16 10:28 Dose: 100 mg Hydralazine HCl (Apresoline) 10 mg IVP Q6 PRN PRN Reason: SBP > 160 Vancomycin HCl (Vancomycin 1gm) 1 gm in 250 mls @ 167 mls/hr IVPB Q12H [facility] PRN Reason: Protocol Last Admin: 12/09/16 11:32 Dose: 167 mls/hr Ibuprofen (Motrin Oral Susp) 400 mg PO Q6 PRN PRN Reason: Fever >100.4 F Last Admin: 12/07/16 06:03 Dose: 400 mg Levofloxacin/Dextrose (Levaquin 750mg) 750 mg IVPB DAILY [facility] Last Admin: 12/09/16 10:26 Dose: 750 mg Lisinopril (Zestril) 5 mg PO DAILY [facility] Last Admin: 12/09/16 10:28 Dose: 5 mg Metoprolol Tartrate (Lopressor) 25 mg PO BID [facility] Last Admin: 12/09/16 19:01 Dose: 25 mg Pantoprazole Sodium (Protonix Ec Tab) 40 mg PO 0630 [facility] Last Admin: 12/09/16 05:34 Dose: 40 mg - Labs Labs: 12/09/16 06:15 12/09/16 06:15 Attending/Attestation - Attestation I have personally seen and examined this patient.: Yes I have fully participated in the care of the patient.: Yes I have reviewed all pertinent clinical information, including history, physical exam and plan: Yes Notes (Text): 12/08/16 65 year old male with past medical history of dementia who presented with sepsis. He was found to have left lower lobe pneumonia on CT chest. Fever trend has come down. Continue with antibiotics as per ID. Will d/c tele. He initially had elevated LFTs which have improved. Hepatitis panel was negative. He is on metoprolol and lisinopril for hypertension. Deisy Hall MD Hospitalist.
--- NOTE | 2016-12-08 19:12 | CP.PCM.PN ---
Subjective - Date & Time of Evaluation Date of Evaluation: 12/08/16 Time of Evaluation: 16:45 - Subjective Subjective: Infectious Disease Follow Up: December 08, 2016 65 yo male with foul smelling urine and cough at home. The patient was brought to [facility] [place] by sister and niece. The patient has primary progressive dementia and aphasia. Symptoms started 2 days ago and the patient also had a fall at home. Patient was found to have a fever up to 102.9 F. The patient also had lactic acidosis of 2.7. He was started on IV Vancomycin and Rocephin for antibiotic treatment. When he was first brought in, the patient was lethargic but is more arousable now. Currently on Vancomycin IV and Aztreonam. Although the patient is still having fevers, it is downtrending. The patient is arousable. Continuing on antibiotics for now. Cultures of blood and urine are negative so far. The patient is afebrile. On the whole, the patient is improving. He is awake but demented. Objective - Vital Signs/Intake and Output Vital Signs (last 24 hours): Temp Pulse Resp BP Pulse Ox 98.1 F 65 20 146/97 H 98 12/08/16 17:39 12/08/16 17:39 12/08/16 17:39 12/08/16 17:39 12/08/16 00:01 Intake and Output: 12/08/16 12/08/16 06:59 18:59 Intake Total 420 540 Output Total 400 Balance 20 540 - Medications Medications: Current Medications Diphenhydramine HCl (Benadryl) 25 mg IVP Q4 PRN PRN Reason: Allergy symptoms Guaifenesin (Robitussin) 100 mg PO Q4H PRN PRN Reason: Cough Last Admin: 12/05/16 12:34 Dose: 100 mg Hydralazine HCl (Apresoline) 10 mg IVP Q6 PRN PRN Reason: SBP > 160 Vancomycin HCl (Vancomycin 1gm) 1 gm in 250 mls @ 167 mls/hr IVPB Q12H PAULA PRN Reason: Protocol Last Admin: 12/08/16 11:51 Dose: 167 mls/hr Ibuprofen (Motrin Oral Susp) 400 mg PO Q6 PRN PRN Reason: Fever >100.4 F Last Admin: 12/07/16 06:03 Dose: 400 mg Levofloxacin/Dextrose (Levaquin 750mg) 750 mg IVPB DAILY [facility] Last Admin: 12/08/16 09:35 Dose: 750 mg Lisinopril (Zestril) 5 mg PO DAILY [facility] Metoprolol Tartrate (Lopressor) 25 mg PO BID [facility] Last Admin: 12/08/16 17:30 Dose: 25 mg Pantoprazole Sodium (Protonix Ec Tab) 40 mg PO 0630 [facility] Last Admin: 12/08/16 06:32 Dose: 40 mg - Labs Labs: 12/08/16 05:45 12/08/16 05:45 - Constitutional Appears: Non-toxic, No Acute Distress, Chronically Ill - Head Exam Head Exam: ATRAUMATIC, NORMOCEPHALIC - Eye Exam Eye Exam: EOMI, PERRL Pupil Exam: NORMAL ACCOMODATION, PERRL - ENT Exam ENT Exam: Mucous Membranes Moist, Normal External Ear Exam, TM's Normal Bilaterally - Neck Exam Neck Exam: Full ROM, Normal Inspection - Respiratory Exam Respiratory Exam: Clear to Ausculation Bilateral, NORMAL BREATHING PATTERN. absent: Rales, Rhonchi, Wheezes - Cardiovascular Exam Cardiovascular Exam: REGULAR RHYTHM, RRR, +S1, +S2 - GI/Abdominal Exam GI & Abdominal Exam: Soft, Normal Bowel Sounds. absent: Distended, Tenderness - Extremities Exam Extremities Exam: Full ROM, Normal Inspection Additional comments: general weakness - Neurological Exam Neurological Exam: Alert, Awake, CN II-XII Intact Additional comments: AAO x 1 at best. gives simple answer if given simple questions. - Psychiatric Exam Additional comments: AAO x 1 at best. gives simple answer if given simple questions. - Skin Skin Exam: Intact, Normal Color Assessment and Plan - Assessment and Plan (Free Text) Assessment: 65 yo male with fevers up to 102.9 F and lactic acidosis, and question of pneumonia. He was apparently given Rocephin and Vancomycin in the ER. He supposedly has a PCN allergy. Azithromycin also started. Mild transaminitis. Licona cultures. Questionable UTI. Supportive care. Official read of Chest X-ray is not showing any active pulmonary disease. Continue on Vancomycin and Aztreonam for now. Fevers downtrending so far. Noted leukocytosis of 3.4 today. Unclear what his normal WBC values have been normally but on previous hospitalizations it has been on the low side. On the whole, the patient has been improving. Looking for at least 7 days of antibiotic therapy. Thank you for allowing me to participate in the care of the patient, we will follow with you.
[2016-12-09] MEDS: Pantoprazole 40 mg EC Tab PO SCH (05:34)
[2016-12-09 06:45] LABS: ADD MANUAL DIFF? NO
[2016-12-09 06:53] LABS: BASO # 0.03 K/mm3 (0.0-2.0); BASO % 0.7 % (0.0-3.0); EOS # 0.1 (0.0-0.7); EOS % 2.3 % (1.5-5.0); GRAN # 2.28 (1.4-6.5); GRAN % 52.4 % (50.0-68.0); HEMATOCRIT 39.4 % (42.0-52.0); LYMPH # 1.2 (1.2-3.4); LYMPH % 27.6 % (22.0-35.0); MEAN CELL VOLUME 82.1 fL (80.0-105.0); MEAN CORPUSCULAR HEMOGLOBIN 28.5 pg (25.0-35.0); MEAN CORPUSCULAR HGB CONC 34.8 g/dl (31.0-37.0); MEAN PLATELET VOLUME 10.3 fl (7.0-11.0); MONO # 0.7 (0.1-0.6); PLATELET COUNT 179 10^3/uL (120.0-450.0); RED CELL DISTRIBUTION WIDTH 12.8 % (11.5-14.5); WHITE BLOOD COUNT 4.4 10^3/ul (4.5-11.0)
[2016-12-09 07:10] LABS: ALB/GLOB RATIO 1.1 (1.1-1.8); ALKALINE PHOSPHATASE 59 U/L (38-133); ALT/SGPT 64 U/L (7-56); AST/SGOT 39 U/L (15-59); BILIRUBIN,TOTAL 0.5 mg/dL (0.2-1.3); BLOOD UREA NITROGEN 13 mg/dL (7-21); CALCIUM 8.6 mg/dL (8.4-10.5); CARBON DIOXIDE 25 mmol/L (21-33); CHLORIDE 107 mmol/L (95-110); GFR AFRICAN-AMERICAN > 60; GLUCOSE,RANDOM 90 mg/dL (70-110); PHOSPHOROUS 3.3 mg/dL (2.5-4.5); POTASSIUM 3.4 mmol/L (3.6-5.0); SODIUM 140 mmol/L (132-148); TOTAL PROTEIN 6.3 g/dL (5.8-8.3)
[2016-12-09] MEDS ORDERED: Potassium Chloride 40 mEq/30 ml LIQ UD PO ONE (08:00)
[2016-12-09] MEDS: levoFLOXacin 750 mg in D5W 150 ML BAG IVPB SCH (10:26)
[2016-12-09] MEDS: guaiFENesin 100 mg/5 ml Syrup UD PO PRN (10:28)
[2016-12-09] MEDS: Vancomycin 1gm in NS 250ml 1 GM/250 ML BAG IVPB SCH ×2 (11:32→22:36)
--- NOTE | 2016-12-09 15:17 | CP.PCM.PN ---
<Tyler Carlos - Last Filed: 12/09/16 15:17> Subjective - Date & Time of Evaluation Date of Evaluation: 12/09/16 Time of Evaluation: 15:15 - Subjective Subjective: Med progress note. Attending: Dr. Hall Pt seen and examined at bedside. No acute distress. No events overnight. Pt afebrile. Pt non responding appropriately. ROS unable to be obtained. DC planning in progress. Objective - Vital Signs/Intake and Output Vital Signs (last 24 hours): Temp Pulse Resp BP Pulse Ox 98.3 F 72 18 168/85 H 95 12/09/16 07:40 12/09/16 10:29 12/09/16 07:40 12/09/16 10:29 12/09/16 07:40 Intake and Output: 12/09/16 12/09/16 06:59 18:59 Intake Total 120 200 Output Total 1000 Balance -880 200 - Medications Medications: Current Medications Diphenhydramine HCl (Benadryl) 25 mg IVP Q4 PRN PRN Reason: Allergy symptoms Guaifenesin (Robitussin) 100 mg PO Q4H PRN PRN Reason: Cough Last Admin: 12/09/16 10:28 Dose: 100 mg Hydralazine HCl (Apresoline) 10 mg IVP Q6 PRN PRN Reason: SBP > 160 Vancomycin HCl (Vancomycin 1gm) 1 gm in 250 mls @ 167 mls/hr IVPB Q12H PAULA PRN Reason: Protocol Last Admin: 12/09/16 11:32 Dose: 167 mls/hr Ibuprofen (Motrin Oral Susp) 400 mg PO Q6 PRN PRN Reason: Fever >100.4 F Last Admin: 12/07/16 06:03 Dose: 400 mg Levofloxacin/Dextrose (Levaquin 750mg) 750 mg IVPB DAILY [facility] Last Admin: 12/09/16 10:26 Dose: 750 mg Lisinopril (Zestril) 5 mg PO DAILY [facility] Last Admin: 12/09/16 10:28 Dose: 5 mg Metoprolol Tartrate (Lopressor) 25 mg PO BID [facility] Last Admin: 12/09/16 10:29 Dose: 25 mg Pantoprazole Sodium (Protonix Ec Tab) 40 mg PO 0630 [facility] Last Admin: 12/09/16 05:34 Dose: 40 mg - Labs Labs: 06/07/17 06:15 12/09/16 06:15 - Constitutional Appears: Non-toxic, No Acute Distress - Head Exam Head Exam: ATRAUMATIC, NORMAL INSPECTION, NORMOCEPHALIC - Eye Exam Eye Exam: EOMI - ENT Exam ENT Exam: Mucous Membranes Moist - Neck Exam Neck Exam: Full ROM, Normal Inspection - Respiratory Exam Respiratory Exam: NORMAL BREATHING PATTERN - Cardiovascular Exam Cardiovascular Exam: +S1, +S2 - GI/Abdominal Exam GI & Abdominal Exam: Soft, Normal Bowel Sounds. absent: Tenderness - Extremities Exam Extremities Exam: Full ROM, Normal Inspection - Neurological Exam Neurological Exam: Altered, Awake. absent: Oriented x3 - Psychiatric Exam Additional comments: Unable to assess - Skin Skin Exam: Dry, Intact, Normal Color, Warm Assessment and Plan - Assessment and Plan (Free Text) Assessment: This is a 65 year old male with past medical history of dementia presenting with sepsis secondary to pneumonia Sepsis secondary to pneumonia -ct chest/abd/pelvis shows multifocal left lower lobe pna -Initially Fever at 102.9F, heart rate at 94 bpm, lactate 2.7, code sepsis called -CXR read as no active disease -UA showed negative LE and WBC. Protein of 30, trace blood -Vancomycin and rocephin given in the ED -Currently Aztreonam, levofloxacin, vancomycin IV -continue aztreonam 1 g q 8 hrs>>> discontinued -continue levaquin 750 mg iv daily -continue vanco 1 g q 12 hrs -Robitussin prn -blood cx is negative -urine cultures negative -procal 5.05-->4.28 , legionella ur ag negative, mycoplasma pnu igg positive -Aspiration precaution -ID consult, Dr. Hawthorne help appreciated -will dc tele HTN -will increase lisinopril to 5 mg po daily -continue to monitor -added hydralazine 10 IV q 6 prn sbp > 160 Transaminitis -AST/ALT on admission 103/160-->44/71 --> 28/60 today>> ALT 64 today -continue to monitor -hep panel negative Prophylactic measures -Protonix for GI ppx -SCDs -Motrin for fever -Benadryl for allergy symptoms discussed with Dr. Hall <Deisy Hall - Last Filed: 12/10/16 08:08> Objective - Vital Signs/Intake and Output Vital Signs (last 24 hours): Temp Pulse Resp BP Pulse Ox 99.0 F 75 18 147/83 95 12/10/16 07:30 12/10/16 07:30 12/10/16 07:30 12/10/16 07:30 12/10/16 07:30 Intake and Output: 12/10/16 12/10/16 06:59 18:59 Intake Total 0 Output Total 100 Balance -100 - Medications Medications: Current Medications Diphenhydramine HCl (Benadryl) 25 mg IVP Q4 PRN PRN Reason: Allergy symptoms Guaifenesin (Robitussin) 100 mg PO Q4H PRN PRN Reason: Cough Last Admin: 12/09/16 10:28 Dose: 100 mg Hydralazine HCl (Apresoline) 10 mg IVP Q6 PRN PRN Reason: SBP > 160 Vancomycin HCl (Vancomycin 1gm) 1 gm in 250 mls @ 167 mls/hr IVPB Q12H PAULA PRN Reason: Protocol Last Admin: 12/09/16 22:36 Dose: 167 mls/hr Ibuprofen (Motrin Oral Susp) 400 mg PO Q6 PRN PRN Reason: Fever >100.4 F Last Admin: 12/07/16 06:03 Dose: 400 mg Levofloxacin/Dextrose (Levaquin 750mg) 750 mg IVPB DAILY [facility] Last Admin: 12/09/16 10:26 Dose: 750 mg Lisinopril (Zestril) 5 mg PO DAILY [facility] Last Admin: 12/09/16 10:28 Dose: 5 mg Metoprolol Tartrate (Lopressor) 25 mg PO BID [facility] Last Admin: 12/09/16 19:01 Dose: 25 mg Pantoprazole Sodium (Protonix Ec Tab) 40 mg PO 0630 [facility] Last Admin: 12/10/16 06:05 Dose: 40 mg - Labs Labs: 12/10/16 06:30 12/10/16 06:30 Attending/Attestation - Attestation I have personally seen and examined this patient.: Yes I have fully participated in the care of the patient.: Yes I have reviewed all pertinent clinical information, including history, physical exam and plan: Yes Notes (Text): 12/09/16 65 year old male with past medical history of dementia who presented with sepsis secondary to left lower lobe pneumonia as seen on CT chest. Continue with antibiotics as per ID. He is no longer febrile. Cultures have been negative to date. He initially had elevated LFTs which have overall improved. Hepatitis panel was negative. He is on metoprolol and lisinopril for hypertension. PT evaluation was appreciated who recommended [facility]. However patient's family request patient to go home with his own [facility]. Discussed with case work aide and high school social studies tutor today. Deisy Hall MD Hospitalist.
--- NOTE | 2016-12-09 17:45 | CP.PCM.PN ---
Subjective - Date & Time of Evaluation Date of Evaluation: 12/09/16 Time of Evaluation: 15:45 - Subjective Subjective: Infectious Disease Follow Up: December 09, 2016 66 yo male with foul smelling urine and cough at home. The patient was brought to [facility] [place] by sister and niece. The patient has primary progressive dementia and aphasia. Symptoms started 2 days ago and the patient also had a fall at home. Patient was found to have a fever up to 102.9 F. The patient also had lactic acidosis of 2.7. He was started on IV Vancomycin and Rocephin for antibiotic treatment. When he was first brought in, the patient was lethargic but is more arousable now. Currently on Vancomycin IV and Aztreonam. Although the patient is still having fevers, it is downtrending. The patient is arousable. Continuing on antibiotics for now. Cultures of blood and urine are negative so far. The patient is afebrile. On the whole, the patient is improving. He is awake but demented. Objective - Vital Signs/Intake and Output Vital Signs (last 24 hours): Temp Pulse Resp BP Pulse Ox 97.3 F L 64 20 123/72 96 12/09/16 16:00 12/09/16 16:00 12/09/16 16:00 12/09/16 16:00 12/09/16 16:00 Intake and Output: 12/09/16 12/09/16 06:59 18:59 Intake Total 120 200 Output Total 1000 Balance -880 200 - Medications Medications: Current Medications Diphenhydramine HCl (Benadryl) 25 mg IVP Q4 PRN PRN Reason: Allergy symptoms Guaifenesin (Robitussin) 100 mg PO Q4H PRN PRN Reason: Cough Last Admin: 12/09/16 10:28 Dose: 100 mg Hydralazine HCl (Apresoline) 10 mg IVP Q6 PRN PRN Reason: SBP > 160 Vancomycin HCl (Vancomycin 1gm) 1 gm in 250 mls @ 167 mls/hr IVPB Q12H PAULA PRN Reason: Protocol Last Admin: 12/09/16 11:32 Dose: 167 mls/hr Ibuprofen (Motrin Oral Susp) 400 mg PO Q6 PRN PRN Reason: Fever >100.4 F Last Admin: 06/05/17 06:03 Dose: 400 mg Levofloxacin/Dextrose (Levaquin 750mg) 750 mg IVPB DAILY [facility] Last Admin: 12/09/16 10:26 Dose: 750 mg Lisinopril (Zestril) 5 mg PO DAILY [facility] Last Admin: 12/09/16 10:28 Dose: 5 mg Metoprolol Tartrate (Lopressor) 25 mg PO BID [facility] Last Admin: 12/09/16 10:29 Dose: 25 mg Pantoprazole Sodium (Protonix Ec Tab) 40 mg PO 0630 [facility] Last Admin: 12/09/16 05:34 Dose: 40 mg - Labs Labs: 12/09/16 06:15 12/09/16 06:15 - Constitutional Appears: Non-toxic, No Acute Distress, Confused, Chronically Ill - Head Exam Head Exam: ATRAUMATIC, NORMOCEPHALIC - Eye Exam Eye Exam: EOMI, PERRL Pupil Exam: NORMAL ACCOMODATION, PERRL - ENT Exam ENT Exam: Mucous Membranes Moist, Normal External Ear Exam, TM's Normal Bilaterally - Neck Exam Neck Exam: Full ROM, Normal Inspection - Respiratory Exam Respiratory Exam: Clear to Ausculation Bilateral, NORMAL BREATHING PATTERN. absent: Rales, Rhonchi, Wheezes - Cardiovascular Exam Cardiovascular Exam: REGULAR RHYTHM, RRR, +S1, +S2 - GI/Abdominal Exam GI & Abdominal Exam: Soft, Normal Bowel Sounds. absent: Distended, Tenderness - Extremities Exam Additional comments: general weakness - Neurological Exam Neurological Exam: Alert, Awake, CN II-XII Intact Additional comments: AAO x 1 at best. gives simple answer if given simple questions. - Psychiatric Exam Additional comments: AAO x 1 at best. gives simple answer if given simple questions. - Skin Skin Exam: Intact, Normal Color Assessment and Plan - Assessment and Plan (Free Text) Assessment: 65 yo male with fevers up to 102.9 F and lactic acidosis, and question of pneumonia. He was apparently given Rocephin and Vancomycin in the ER. He supposedly has a PCN allergy. Azithromycin also started. Mild transaminitis. Licona cultures. Questionable UTI. Supportive care. Official read of Chest X-ray is not showing any active pulmonary disease. Continue on Vancomycin and Aztreonam for now. Afebrile for the past 48 hours. Noted WBC of 4.4 today. Unclear what his normal WBC values have been normally but on previous hospitalizations it has been on the low side. On the whole, the patient has been improving. Looking for at least 7 days of antibiotic therapy. Thank you for allowing me to participate in the care of the patient, we will follow with you.
[2016-12-10] MEDS: Pantoprazole 40 mg EC Tab PO SCH (06:05)
[2016-12-10 06:46] LABS: ADD MANUAL DIFF? NO
[2016-12-10 07:07] LABS: BASO # 0.02 K/mm3 (0.0-2.0); BASO % 0.4 % (0.0-3.0); EOS # 0.1 (0.0-0.7); GRAN # 3.49 (1.4-6.5); GRAN % 63.6 % (50.0-68.0); HEMATOCRIT 40.2 % (42.0-52.0); LYMPH # 1.2 (1.2-3.4); LYMPH % 22.3 % (22.0-35.0); MEAN CORPUSCULAR HGB CONC 34.1 g/dl (31.0-37.0); MEAN PLATELET VOLUME 9.9 fl (7.0-11.0); MONO # 0.6 (0.1-0.6); MONO % 11.7 % (1.0-6.0); PLATELET COUNT 205 10^3/uL (120.0-450.0); RED CELL DISTRIBUTION WIDTH 12.8 % (11.5-14.5); WHITE BLOOD COUNT 5.5 10^3/ul (4.5-11.0)
[2016-12-10 07:24] LABS: ALB/GLOB RATIO 1.1 (1.1-1.8); ALKALINE PHOSPHATASE 60 U/L (38-133); ALT/SGPT 57 U/L (7-56); AST/SGOT 31 U/L (15-59); BILIRUBIN,TOTAL 0.5 mg/dL (0.2-1.3); BLOOD UREA NITROGEN 13 mg/dL (7-21); CALCIUM 8.9 mg/dL (8.4-10.5); CARBON DIOXIDE 26 mmol/L (21-33); CHLORIDE 107 mmol/L (98-107); GFR AFRICAN-AMERICAN > 60; GLUCOSE,RANDOM 94 mg/dL (70-110); MAGNESIUM 2.1 mg/dL (1.7-2.2); PHOSPHOROUS 3.2 mg/dL (2.5-4.5); POTASSIUM 3.6 mmol/L (3.6-5.0); SODIUM 140 mmol/L (132-148); TOTAL PROTEIN 6.4 g/dL (5.8-8.3)
[2016-12-10 07:49] VITALS: O2SAT 95
[2016-12-10] MEDS: Vancomycin 1gm in NS 250ml 1 GM/250 ML BAG IVPB SCH (11:26)
--- NOTE | 2016-12-10 13:49 | CP.PCM.DIS ---
<Tyler Carlos - Last Filed: 12/10/16 13:51> Provider - Provider Date of Admission: 12/03/16 21:46 Attending physician: Deisy Hall MD Primary care physician: NO PRIMARY CARE PROVIDER Consults: Consults [facility]ER[facility]-Myron Hawthorne Time Spent in preparation of Discharge (in minutes): 45 Hospital Course - Lab Results Lab Results: Most Recent Lab Values WBC 5.5 10^3/ul (4.5-11.0) D 12/10/16 06:30 RBC 4.90 10^6/uL (3.5-6.1) 12/10/16 06:30 Hgb 13.7 gm/dL (14.0-18.0) L 12/10/16 06:30 Hct 40.2 % (42.0-52.0) L 12/10/16 06:30 MCV 82.0 fL (80.0-105.0) 12/10/16 06:30 MCH 28.0 pg (25.0-35.0) 12/10/16 06:30 MCHC 34.1 g/dl (31.0-37.0) 12/10/16 06:30 RDW 12.8 % (11.5-14.5) 12/10/16 06:30 Plt Count 205 10^3/uL (120.0-450.0) 12/10/16 06:30 MPV 9.9 fl (7.0-11.0) 12/10/16 06:30 Gran % 63.6 % (50.0-68.0) 12/10/16 06:30 Lymph % (Auto) 22.3 % (22.0-35.0) 12/10/16 06:30 Moca % (Auto) 11.7 % (1.0-6.0) H 12/10/16 06:30 Eos % (Auto) 2.0 % (1.5-5.0) 12/10/16 06:30 Baso % (Auto) 0.4 % (0.0-3.0) 12/10/16 06:30 Gran # 3.49 (1.4-6.5) 12/10/16 06:30 Lymph # 1.2 (1.2-3.4) 12/10/16 06:30 Moca # 0.6 (0.1-0.6) 12/10/16 06:30 Eos # 0.1 (0.0-0.7) 12/10/16 06:30 Baso # 0.02 K/mm3 (0.0-2.0) 12/10/16 06:30 pO2 62 mm/Hg (30-55) H 12/04/16 20:16 VBG pH 7.42 (7.32-7.43) 12/04/16 20:16 VBG pCO2 41.0 (40-60) 12/04/16 20:16 VBG HCO3 26.6 mmol/l (21-28) 12/04/16 20:16 VBG Total CO2 27.9 mmol.L (22-28) 12/04/16 20:16 VBG O2 Sat (Calc) 94.5 % (40-65) H 12/04/16 20:16 VBG Base Excess 1.9 mmol/L (0.0-2.0) 12/04/16 20:16 VBG Potassium 4.1 mmol/L (3.6-5.2) 12/04/16 20:16 Sodium 139.0 mmol/L (132-148) 12/04/16 20:16 Chloride 104.0 mmol/L (98-107) 12/04/16 20:16 Glucose 135 mg/dl (75-110) H 12/04/16 20:16 Lactate 2.3 mmol/L (0.7-2.1) H 12/04/16 20:16 FiO2 21.0 % 12/04/16 20:16 Sodium 140 mmol/L (132-148) 12/10/16 06:30 Potassium 3.6 mmol/L (3.6-5.0) 12/10/16 06:30 Chloride 107 mmol/L (98-107) 12/10/16 06:30 Carbon Dioxide 26 mmol/L (21-33) 12/10/16 06:30 Anion Gap 11 (10-20) 12/10/16 06:30 BUN 13 mg/dL (7-21) 12/10/16 06:30 Creatinine 0.9 mg/dL (0.5-1.4) 12/10/16 06:30 Est GFR ( Amer) > 60 12/10/16 06:30 Est GFR (Non-Af Amer) > 60 12/10/16 06:30 Random Glucose 94 mg/dL (70-110) 12/10/16 06:30 Calcium 8.9 mg/dL (8.4-10.5) 12/10/16 06:30 Phosphorus 3.2 mg/dL (2.5-4.5) 12/10/16 06:30 Magnesium 2.1 mg/dL (1.7-2.2) 12/10/16 06:30 Total Bilirubin 0.5 mg/dL (0.2-1.3) 12/10/16 06:30 Direct Bilirubin 0.5 mg/dL (0.0-0.4) H 12/05/16 09:20 AST 31 U/L (15-59) 12/10/16 06:30 ALT 57 U/L (7-56) H 12/10/16 06:30 Alkaline Phosphatase 60 U/L (38-133) 12/10/16 06:30 NT-Pro-B Natriuret Pep 238 pg/mL (0-450) 12/03/16 20:15 Total Protein 6.4 g/dL (5.8-8.3) 12/10/16 06:30 Albumin 3.3 g/dL (3.0-4.8) 12/10/16 06:30 Globulin 3.1 gm/dL 12/10/16 06:30 Albumin/Globulin Ratio 1.1 (1.1-1.8) 12/10/16 06:30 Procalcitonin 4.26 NG/ML (0.19-0.49) H 12/05/16 11:40 Venous Blood Potassium 4.1 mmol/L (3.6-5.2) 12/04/16 20:16 Urine Color Yellow (YELLOW) 12/03/16 21:00 Urine Appearance Clear (CLEAR) 12/03/16 21:00 Urine pH 7.0 (4.7-8.0) 12/03/16 21:00 Ur Specific [place] 1.020 (1.005-1.035) 12/03/16 21:00 Urine Protein 30 mg/dL (<30 mg/dL) H 12/03/16 21:00 Urine Glucose (UA) Negative mg/dL (NEGATIVE) 12/03/16 21:00 Urine Ketones Negative mg/dL (NEGATIVE) 12/03/16 21:00 Urine Blood Trace-intact (NEGATIVE) H 12/03/16 21:00 Urine Nitrate Negative (NEGATIVE) 12/03/16 21:00 Urine Bilirubin Negative (NEGATIVE) 12/03/16 21:00 Urine Urobilinogen 0.2 E.U./dL (<1 E.U./dL) 12/03/16 21:00 Ur Leukocyte Esterase Negative Mariana/uL (NEGATIVE) 12/03/16 21:00 Urine RBC 0 - 2 /hpf (0-2) 12/03/16 21:00 Urine WBC 0 - 2 /hpf (0-6) 12/03/16 21:00 Vancomycin Trough 8.2 ug/mL (5.0-10.0) 12/06/16 23:30 Hepatitis A IgM Ab Negative (NEGATIVE) 12/04/16 15:15 Hep Bs Antigen Negative (NEGATIVE) 12/04/16 15:15 Hep B Core IgM Ab Negative (NEGATIVE) 12/04/16 15:15 Hepatitis C Antibody Negative (NEGATIVE) 12/04/16 15:15 Ur L.pneumophila Ag Negative (NEGATIVE) 12/04/16 00:15 Mycoplasma pneumon IgG 1.88 (<=0.90) H 12/04/16 15:15 Mycoplasma pneumon IgM 14 U/mL (<770) 12/04/16 15:15 Ur Strep pneumoniae Ag Not detected 12/04/16 00:15 - Hospital Course Hospital Course: Admit date- 12/04/16 DC date- 12/10/16 Attending: Dr. Hall Procedures- none Consults Go-ID No complications DC to home with nm services Discharge dx 1. Pneumonia 2. HTN 3. Transaminitis HPI: see h/p Labs: see lab data Hospital course This is a 65 year old male with past medical history of dementia presenting with sepsis secondary to pneumonia Sepsis secondary to pneumonia -ct chest/abd/pelvis shows multifocal left lower lobe pna -Initially Fever at 102.9F, heart rate at 94 bpm, lactate 2.7, code sepsis called -CXR read as no active disease -UA showed negative LE and WBC. Protein of 30, trace blood -Vancomycin and rocephin given in the ED -put on Aztreonam, levofloxacin, vancomycin IV -aztreonam 1 g q 8 hrs>>> discontinued -levaquin 750 mg iv daily -vanco 1 g q 12 hrs -Robitussin prn -blood cx is negative -urine cultures negative -procal 5.05-->4.28 , legionella ur ag negative, mycoplasma pnu igg positive -Aspiration precaution -ID consult, Dr. Hawthorne help appreciated -initially on tele__ then discontinued HTN - lisinopril to 5 mg po daily -continue to monitor -added hydralazine 10 IV q 6 prn sbp > 160 Transaminitis -AST/ALT on admission 103/160-->44/71 --> 28/60 today>> ALT 57 today -continue to monitor -hep panel negative Prophylactic measures -Protonix for GI ppx -SCDs -Motrin for fever -Benadryl for allergy symptoms DC meds 1. levaquin 750 mg po daily for 5 days 2. lisinopril 5 mg po daily 3. lopressor 25 mg po bid 4. vitamin d DC instructions 1. Pt medically stable for dc. Please return if condition worsens. FU with PMD. Take levaquin for 5 more days. - Date & Time of H&P Date of H&P: 12/04/16 Time of H&P: 00:10 Discharge Exam - Head Exam Head Exam: ATRAUMATIC, NORMAL INSPECTION, NORMOCEPHALIC - Eye Exam Eye Exam: EOMI - ENT Exam ENT Exam: Mucous Membranes Moist - Neck Exam Neck exam: Full Rom, Normal Inspection - Respiratory Exam Respiratory Exam: NORMAL BREATHING PATTERN, UNREMARKABLE - Cardiovascular Exam Cardiovascular Exam: +S1, +S2 - GI/Abdominal Exam GI & Abdominal Exam: Normal Bowel Sounds - Extremities Exam Extremities exam: full ROM, normal inspection - Neurological Exam Neurological exam: Altered - Psychiatric Exam Psychiatric exam: Flat Affect - Skin Skin Exam: Dry, Intact, Normal Color, Warm Discharge Plan - Discharge Medications Prescriptions: levoFLOXacin [Levaquin] 750 mg PO DAILY #5 tab Lisinopril [Zestril] 5 mg PO DAILY #30 tab Metoprolol Tartrate [Lopressor] 25 mg PO BID #60 tab - Follow Up Plan Condition: STABLE Disposition: HOME/ ROUTINE Instructions: Alzheimer Disease (DC), Sepsis (GEN) Additional Instructions: You are being discharged to home. You are being given the following prescriptions. Please take them according to the directions on the bottles. Levaquin 750 mg PO #5 Lisinopril 5mg PO #30 Lopressor 25 mg PO #60 If your symptoms worsen, please return to the Emergency Room. Referrals: PCP,NO [Primary Care Provider] - <Deisy Hall - Last Filed: 12/10/16 17:11> Provider - Provider Date of Admission: 12/03/16 21:46 Attending physician: Deisy Hall MD Primary care physician: NO PRIMARY CARE PROVIDER Hospital Course - Lab Results Lab Results: Most Recent Lab Values WBC 5.5 10^3/ul (4.5-11.0) D 12/10/16 06:30 RBC 4.90 10^6/uL (3.5-6.1) 12/10/16 06:30 Hgb 13.7 gm/dL (14.0-18.0) L 12/10/16 06:30 Hct 40.2 % (42.0-52.0) L 12/10/16 06:30 MCV 82.0 fL (80.0-105.0) 12/10/16 06:30 MCH 28.0 pg (25.0-35.0) 12/10/16 06:30 MCHC 34.1 g/dl (31.0-37.0) 12/10/16 06:30 RDW 12.8 % (11.5-14.5) 12/10/16 06:30 Plt Count 205 10^3/uL (120.0-450.0) 12/10/16 06:30 MPV 9.9 fl (7.0-11.0) 12/10/16 06:30 Gran % 63.6 % (50.0-68.0) 12/10/16 06:30 Lymph % (Auto) 22.3 % (22.0-35.0) 12/10/16 06:30 Moca % (Auto) 11.7 % (1.0-6.0) H 12/10/16 06:30 Eos % (Auto) 2.0 % (1.5-5.0) 12/10/16 06:30 Baso % (Auto) 0.4 % (0.0-3.0) 12/10/16 06:30 Gran # 3.49 (1.4-6.5) 12/10/16 06:30 Lymph # 1.2 (1.2-3.4) 12/10/16 06:30 Moca # 0.6 (0.1-0.6) 12/10/16 06:30 Eos # 0.1 (0.0-0.7) 12/10/16 06:30 Baso # 0.02 K/mm3 (0.0-2.0) 12/10/16 06:30 pO2 62 mm/Hg (30-55) H 12/04/16 20:16 VBG pH 7.42 (7.32-7.43) 12/04/16 20:16 VBG pCO2 41.0 (40-60) 12/04/16 20:16 VBG HCO3 26.6 mmol/l (21-28) 12/04/16 20:16 VBG Total CO2 27.9 mmol.L (22-28) 12/04/16 20:16 VBG O2 Sat (Calc) 94.5 % (40-65) H 12/04/16 20:16 VBG Base Excess 1.9 mmol/L (0.0-2.0) 12/04/16 20:16 VBG Potassium 4.1 mmol/L (3.6-5.2) 12/04/16 20:16 Sodium 139.0 mmol/L (132-148) 12/04/16 20:16 Chloride 104.0 mmol/L (98-107) 12/04/16 20:16 Glucose 135 mg/dl (75-110) H 12/04/16 20:16 Lactate 2.3 mmol/L (0.7-2.1) H 12/04/16 20:16 FiO2 21.0 % 12/04/16 20:16 Sodium 140 mmol/L (132-148) 12/10/16 06:30 Potassium 3.6 mmol/L (3.6-5.0) 12/10/16 06:30 Chloride 107 mmol/L (98-107) 12/10/16 06:30 Carbon Dioxide 26 mmol/L (21-33) 12/10/16 06:30 Anion Gap 11 (10-20) 12/10/16 06:30 BUN 13 mg/dL (7-21) 12/10/16 06:30 Creatinine 0.9 mg/dL (0.5-1.4) 12/10/16 06:30 Est GFR ( Amer) > 60 12/10/16 06:30 Est GFR (Non-Af Amer) > 60 12/10/16 06:30 Random Glucose 94 mg/dL (70-110) 12/10/16 06:30 Calcium 8.9 mg/dL (8.4-10.5) 12/10/16 06:30 Phosphorus 3.2 mg/dL (2.5-4.5) 12/10/16 06:30 Magnesium 2.1 mg/dL (1.7-2.2) 12/10/16 06:30 Total Bilirubin 0.5 mg/dL (0.2-1.3) 12/10/16 06:30 Direct Bilirubin 0.5 mg/dL (0.0-0.4) H 12/05/16 09:20 AST 31 U/L (15-59) 12/10/16 06:30 ALT 57 U/L (7-56) H 12/10/16 06:30 Alkaline Phosphatase 60 U/L (38-133) 12/10/16 06:30 NT-Pro-B Natriuret Pep 238 pg/mL (0-450) 12/03/16 20:15 Total Protein 6.4 g/dL (5.8-8.3) 12/10/16 06:30 Albumin 3.3 g/dL (3.0-4.8) 12/10/16 06:30 Globulin 3.1 gm/dL 12/10/16 06:30 Albumin/Globulin Ratio 1.1 (1.1-1.8) 12/10/16 06:30 Procalcitonin 4.26 NG/ML (0.19-0.49) H 12/05/16 11:40 Venous Blood Potassium 4.1 mmol/L (3.6-5.2) 12/04/16 20:16 Urine Color Yellow (YELLOW) 12/03/16 21:00 Urine Appearance Clear (CLEAR) 12/03/16 21:00 Urine pH 7.0 (4.7-8.0) 12/03/16 21:00 Ur Specific [place] 1.020 (1.005-1.035) 12/03/16 21:00 Urine Protein 30 mg/dL (<30 mg/dL) H 12/03/16 21:00 Urine Glucose (UA) Negative mg/dL (NEGATIVE) 12/03/16 21:00 Urine Ketones Negative mg/dL (NEGATIVE) 12/03/16 21:00 Urine Blood Trace-intact (NEGATIVE) H 12/03/16 21:00 Urine Nitrate Negative (NEGATIVE) 12/03/16 21:00 Urine Bilirubin Negative (NEGATIVE) 12/03/16 21:00 Urine Urobilinogen 0.2 E.U./dL (<1 E.U./dL) 12/03/16 21:00 Ur Leukocyte Esterase Negative Mariana/uL (NEGATIVE) 12/03/16 21:00 Urine RBC 0 - 2 /hpf (0-2) 12/03/16 21:00 Urine WBC 0 - 2 /hpf (0-6) 12/03/16 21:00 Vancomycin Trough 8.2 ug/mL (5.0-10.0) 12/06/16 23:30 Hepatitis A IgM Ab Negative (NEGATIVE) 12/04/16 15:15 Hep Bs Antigen Negative (NEGATIVE) 12/04/16 15:15 Hep B Core IgM Ab Negative (NEGATIVE) 12/04/16 15:15 Hepatitis C Antibody Negative (NEGATIVE) 12/04/16 15:15 Ur L.pneumophila Ag Negative (NEGATIVE) 12/04/16 00:15 Mycoplasma pneumon IgG 1.88 (<=0.90) H 12/04/16 15:15 Mycoplasma pneumon IgM 14 U/mL (<770) 12/04/16 15:15 Ur Strep pneumoniae Ag Not detected 12/04/16 00:15 Attending/Attestation - Attestation I have personally seen and examined this patient.: Yes I have fully participated in the care of the patient.: Yes I have reviewed all pertinent clinical information, including history, physical exam and plan: Yes Notes (Text): 12/10/16 17:07 65 year old male with past medical history of dementia who presented with sepsis secondary to left lower lobe pneumonia as seen on CT chest. He was started on antibiotics with improvement of symptoms. He was no longer febrile and cultures have been negative to date. He initially had elevated LFTs which have overall improved. Hepatitis panel was negative. He is on metoprolol and lisinopril for hypertension. He was seen by PT who recommended [facility]. However family has refused [facility] and requested home with his [facility]. Patient is discharged home with home services. Continue with po antibiotics. Follow up with PMD. Deisy Hall MD Hospitalist.
[2016-12-10] MEDS: levoFLOXacin 750 mg in D5W 150 ML BAG IVPB SCH (15:25)
[2016-12-10 17:27] VITALS: BP 133/80; PULSE 63; RESP 20; TEMP 97.6
--- NOTE | 2016-12-10 18:54 | CP.PCM.PN ---
Subjective - Date & Time of Evaluation Date of Evaluation: 12/10/16 Time of Evaluation: 17:00 - Subjective Subjective: Infectious Disease Follow Up: December 10, 2016 66 yo male with foul smelling urine and cough at home. The patient was brought to [facility] [place] sister and niece. The patient has primary progressive dementia and aphasia. Symptoms started 2 days ago and the patient also had a fall at home. Patient was found to have a fever up to 102.9 F. The patient also had lactic acidosis of 2.7. He was started on IV Vancomycin and Rocephin for antibiotic treatment. When he was first brought in, the patient was lethargic but is more arousable now. Currently on Vancomycin IV and Aztreonam. Although the patient is still having fevers, it is downtrending. The patient is arousable. Continuing on antibiotics for now. Cultures of blood and urine are negative so far. The patient is afebrile. On the whole, the patient is improving. He is awake but demented. Objective - Vital Signs/Intake and Output Vital Signs (last 24 hours): Temp Pulse Resp BP Pulse Ox 97.6 F 63 20 133/80 95 12/10/16 16:00 12/10/16 18:35 12/10/16 16:00 12/10/16 18:35 12/10/16 16:00 Intake and Output: 12/10/16 12/10/16 06:59 18:59 Intake Total 0 300 Output Total 100 Balance -100 300 - Medications Medications: Current Medications Diphenhydramine HCl (Benadryl) 25 mg IVP Q4 PRN PRN Reason: Allergy symptoms Guaifenesin (Robitussin) 100 mg PO Q4H PRN PRN Reason: Cough Last Admin: 12/09/16 10:28 Dose: 100 mg Hydralazine HCl (Apresoline) 10 mg IVP Q6 PRN PRN Reason: SBP > 160 Ibuprofen (Motrin Oral Susp) 400 mg PO Q6 PRN PRN Reason: Fever >100.4 F Last Admin: 12/07/16 06:03 Dose: 400 mg Levofloxacin (Levaquin) 750 mg PO DAILY PAULA Stop: 12/16/16 00:01 Lisinopril (Zestril) 5 mg PO DAILY [facility] Last Admin: 12/10/16 15:26 Dose: 5 mg Metoprolol Tartrate (Lopressor) 25 mg PO BID [facility] Last Admin: 12/10/16 18:35 Dose: 25 mg Pantoprazole Sodium (Protonix Ec Tab) 40 mg PO 0630 [facility] Last Admin: 12/10/16 06:05 Dose: 40 mg - Labs Labs: 12/10/16 06:30 12/10/16 06:30 - Constitutional Appears: Non-toxic, No Acute Distress, Chronically Ill - Head Exam Head Exam: ATRAUMATIC, NORMOCEPHALIC - Eye Exam Eye Exam: EOMI, PERRL Pupil Exam: NORMAL ACCOMODATION, PERRL - ENT Exam ENT Exam: Mucous Membranes Moist, Normal External Ear Exam, TM's Normal Bilaterally - Neck Exam Neck Exam: Full ROM, Normal Inspection - Respiratory Exam Respiratory Exam: Clear to Ausculation Bilateral, NORMAL BREATHING PATTERN. absent: Rales, Rhonchi, Wheezes - Cardiovascular Exam Cardiovascular Exam: REGULAR RHYTHM, RRR, +S1, +S2 - GI/Abdominal Exam GI & Abdominal Exam: Soft, Normal Bowel Sounds. absent: Distended, Tenderness - Extremities Exam Extremities Exam: Full ROM, Normal Inspection Additional comments: general weakness - Neurological Exam Neurological Exam: Alert, Awake, CN II-XII Intact Additional comments: AAO x 1 at best. gives simple answer if given simple questions. - Psychiatric Exam Additional comments: AAO x 1 at best. gives simple answer if given simple questions. - Skin Skin Exam: Intact Assessment and Plan - Assessment and Plan (Free Text) Assessment: 65 yo male with fevers up to 102.9 F and lactic acidosis, and question of pneumonia. He was apparently given Rocephin and Vancomycin in the ER. He supposedly has a PCN allergy. Azithromycin also started. Mild transaminitis. Licona cultures. Questionable UTI. Supportive care. Official read of Chest X-ray is not showing any active pulmonary disease. Continue on Vancomycin and Aztreonam for now. Afebrile for the past 48 hours. Noted WBC of 5.5 today. Unclear what his normal WBC values have been normally but on previous hospitalizations it has been on the low side. On the whole, the patient has been improving. Looking for at least 7 days of antibiotic therapy. Thank you for allowing me to participate in the care of the patient, we will follow with you.
[2016-12-11] MEDS ORDERED: levoFLOXacin 750 MG TAB PO SCH (10:00)
== END 2016-12-10 21:51 | disposition home or self-care (01) | DRG 871 ==
LOC: ED 19:35 → ERH 21:46 → 2RNO 12-04 01:51 → 5RNO 12-08 22:31
PROVIDERS: ADMIT Internal Medicine; ATTEND Internal Medicine
DX: A41.9 Sepsis, unspecified organism (principal); J18.9 Pneumonia, unspecified organism; E87.2 Acidosis; F03.90 Unspecified dementia, unspecified severity, without behavioral disturbance, psychotic disturbance, mood disturbance, and anxiety; R47.01 Aphasia; I10 Essential (primary) hypertension; E78.5 Hyperlipidemia, unspecified; R79.89 Other specified abnormal findings of blood chemistry; Z91.81 History of falling

== ENCOUNTER 2017-06-18 15:56 | Inpatient (IN) | payer MEDICARE, OTHER ==
--- NOTE | 2017-06-18 16:12 | ED PDOC ---
Arrival/HPI - General Time Seen by Provider: 06/18/17 16:00 Historian: Family, Caregiver, EMS EM Caveat: Dementia, Other (aphasia (baseline)) - Critical Care Critical Care Time: Unstable - History of Present Illness Narrative History of Present Illness (Text): 06/18/17 16:04 66 y/o male, pmh including htn/hyperlipidemia/primary aphasia/demantia, penicillin allergy, limited HPI can be obtained due to the patient is aphasia, biba with the sister c/o change in activity and fatigue x 2 days. Pt. was eating lunch today around 12pm, eating and keep tilting the chin down to the chest, doesn't wanna drink much water or wanna chew his food which they concern for food bolus stuck, no clenching fist against the chest, no fever or chills, no gagging or coughing, no nausea or vomiting, no diarrhea, no other medical or psychological complaints. As per family, pt. also has been having swelling of the bilateral lower extremities for the past 1 weeks on and off but he usually is bed bound and doesn't walk independently as his usual baseline. Past Medical History - Provider Review Nursing Documentation Reviewed: Yes - Infectious Disease Hx of Infectious Diseases: None - Cardiac Hx Cardiac Disorders: No - Pulmonary Hx Respiratory Disorders: No - Neurological Other/Comment: PRIMARY PROGRESSIVE APHASIA - HEENT Hx HEENT Disorder: No - Renal Hx Renal Disorder: No - Endocrine/Metabolic Hx Endocrine Disorders: No - Hematological/Oncological Hx Blood Disorders: No - Integumentary Hx Dermatological Disorder: No - Musculoskeletal/Rheumatological Hx Musculoskeletal Disorders: No - Gastrointestinal Hx Gastrointestinal Disorders: No - Genitourinary/Gynecological Hx Genitourinary Disorders: No - Psychiatric Hx Psychophysiologic Disorder: Yes Hx Substance Use: No - Anesthesia Hx Anesthesia: No Family/Social History - Physician Review Nursing Documentation Reviewed: Yes Family/Social History: Unknown Family HX Smoking Status: Never Smoked Hx Alcohol Use: No Hx Substance Use: No Allergies/Home Meds Allergies/Adverse Reactions: Allergies Penicillins Allergy (Verified 12/03/16 19:42) ANAPHYLAXIS Home Medications: Home Meds Medication Instructions Recorded Confirmed Ergocalciferol (Vitamin D2) 1 tab PO DAILY 12/03/16 12/03/16 [Vitamin D] Review of Systems - Review of Systems Systems not reviewed;Unavailable: Dementia Constitutional: absent: Fevers Respiratory: absent: Cough Gastrointestinal: absent: Diarrhea, Nausea, Vomiting Skin: absent: Rash Physical Exam - Physical Exam Physical Exam Limitations: Other (demantia) Vital Signs Reviewed: Yes Vital Signs Temp Pulse Pulse Resp BP Pulse Ox 06/18/17 22:20 83 21 98 06/18/17 22:10 84 15 96 06/18/17 22:08 100.5 F H 80 80 16 06/18/17 22:00 85 20 115/72 97 06/18/17 21:50 87 20 98 06/18/17 21:40 88 23 96 06/18/17 21:35 88 22 116/77 98 06/18/17 21:33 94 H 19 71/36 L 96 06/18/17 21:31 91 H 92/62 L 92 L 06/18/17 21:30 95 H 18 66/48 L 06/18/17 21:28 92 H 6 L 06/18/17 21:20 82 17 110/58 L 98 06/18/17 18:07 97.6 F 06/18/17 16:09 96 H 18 118/81 98 Temperature: Afebrile Blood Pressure: Normal Pulse: Regular Respiratory Rate: Normal Appearance: Positive for: Well-Appearing, Non-Toxic, Comfortable - Systems Exam Head: Present: Atraumatic, Normocephalic Pupils: Present: PERRL Extroacular Muscles: Present: EOMI Conjunctiva: Present: Normal Ears: Present: NORMAL TM, Normal Canal. No: Erythema Mouth: Present: Moist Mucous Membranes Pharnyx: Present: Other (no visible foreign bodies but there is moist old food inside the mouth with no food bolus). No: ERYTHEMA, EXUDATE, TONSILS ENLARGED, Uvular Deviation, Muffled/Hoarse Voice, Strider, Soft Palate/Uvular Edema Nose (Internal): Present: Normal Inspection, No Active Bleeding. No: Rhinorrhea , Septal Hematoma, Epistaxis Neck: Present: Normal Range of Motion, Trachea Midline. No: MIDLINE TENDERNESS , Lymphadenopathy Respiratory/Chest: Present: Clear to Auscultation, Good Air Exchange. No: Respiratory Distress, Accessory Muscle Use, Wheezes, Decreased Breath Sounds, Rales, Retracting, Rhonchi Cardiovascular: Present: Regular Rate and Rhythm, Normal S1, S2, Other (2+ pedal edema noted on the bilateral lower extremities tibial region. ). No: Murmurs Abdomen: Present: Normal Bowel Sounds. No: Tenderness, Distention, Peritoneal Signs, Rebound, Guarding Rectal: Present: Normal Rectal Tone, Other (Guaiac negative. Female Cooler Service Supervisor: COMBINE MECHANICTIFFANIE Rodirgues. ). No: Occult Blood, Rectal Tenderness, Gross Blood, Melena, Hemorrhoids, Fissures, Nodule/Mass/Lesions Back: Present: Normal Inspection Upper Extremity: Present: Normal Inspection. No: Cyanosis, Edema Lower Extremity: Present: Normal Inspection. No: Edema Neurological: Present: Motor Func Grossly Intact Skin: Present: Warm, Dry, Normal Color. No: Rashes Psychiatric: Present: Alert, Oriented x 3, Normal Insight, Normal Concentration Medical Decision Making ED Course and Treatment: 06/18/17 16:21 Differential: Sepsis vs. dehydration vs. UTI vs. food bolus vs. pneumonia vs. influenza vs. CAD -labs/ua -EKG -CT neck and chest -IVF @ 70cc/hr -Case discussed with Dr. Savage and agreed on the treatment/orders -Observe and reassess 06/18/17 18:06 -Pending ekg -Bilateral lower extremities venuous doppler: as per preliminary report, no acute DVT. -CT Neck and Chest: No significant or acute findings to account for/ related to the clinical presentation. Multifocal infiltrates right lung. Likely infectious/ inflammatory process. -Labs are non-significant exept wbc 13.0/BUN 37 with creatine 1.4 (likely dehydrated), Na 151 and Cl 110 (likely dehydratedion), AST 183 and ALT 122 ( acutely elevated, underlying cause is unclear at this point), BNP 7590 (this is acutely elevated with pedal edema, likely this is new onset of CHF). -VBG shock panel lactic acid within normal limit, pt. fits the SIRS criteria but not sepsis. Blood cultures ordered. -Negative influenza result. -Pt. will need admission for dehydration/CHF/pneumonia to telemetry, calling the patient's pmd Dr. Salgado for admission. -Case discussed with Dr. Savage and agreed on the admission. -Pending UA and EKG 06/18/17 18:20 -Rocephine and azithromycin IV ordered, urine culture ordered. -Dr. Salgado paged for admission. 06/18/17 18:54 -EKG: NSR @ 88 BPM, ST elevation noted on the V4V5, no T wave inversion. -Cardiac enzyme ordered. -Discussed with Dr. Savage about the labs/radiology results and he examined the patient as well. -Dr. Savage Spoke to cardia cath (blender) Dr. Nesbitt, reviewed the EKG and stated no need to activate the code HEART as Q waves developed with pneumonia, IV heparin 5000unit bolus/aspirin, need ICU admission. As per Dr. Santacruz, the patient is not a code HEART candidate given sepsis/pneumonia with other underlying comorbidities. -Plavix ordered. 06/18/17 19:23 -I spoke to Dr. Dick, ICU independent agent music education, discussed about the case/labs/radiology results, he will come to evaluate the patient and see if he qualifies for ICU. -UA +UTI, rocephine IV ordered. 06/18/17 19:30 -Dr. Dick came to evaluate the patient, reviewed the charts, will take the patient to the ICU. 06/18/17 19:37 -Pt. doesn't wanna tolerate PO aspirin, changed to rectal aspirin. -CK 1415 and Troponin. 06/18/17 19:58 -I spoke to Dr. Pollard, discussed about the labs/radiology studies/treatments , agreed on the ICU and request Dr. Seymour King for routine consult. 06/18/17 20:14 -I discussed with the family member about the findings and agreed about the admission to the ICU for closer observation and care for the patient. -I spoke to the assigned COMBINE MECHANIC Lilia to tell the floor nurse to notify family members if there is status change on the patient including during the admission to the ICU. 06/18/17 21:06 -Dr. Momin (Parking Lot Signaler) is in the ER, covering for Dr. King, discussed about the case/labs/radiology results by Dr. Savage and Dr. Momin is evaluating the patient. - Critical Care Critical Care Minutes: 30 minutes Narrative Critical Care (Text): 06/18/17 20:02 -Pneumonia/UTI/Dehydration/CHF/NJ, IV antiobiotics/anticoagulant. - Lab Interpretations Microbiology Results: Microbiology Results 06/18/17 19:00 Blood-Venous Blood Culture - Final Staphylococcus Sp Coag Neg 06/18/17 19:00 Blood-Venous Gram Stain - Final 06/18/17 19:20 Blood-Venous S.aureus & Coag-Neg Staph PNA FISH - Final 06/18/17 19:20 Blood-Venous Blood Culture - Final Coagulase Neg Staphylococcus 06/18/17 19:20 Blood-Venous Gram Stain - Final 06/18/17 19:00 Urine Urine Culture - Final No Growth (<1,000 CFU/ML) Lab Results: 06/18/17 16:15 06/18/17 16:15 Lab Results 06/18/17 19:00: Urine Color Yellow, Urine Appearance Clear, Urine pH 5.5, Ur Specific [place] >= 1.030, Urine Protein 100 H, Urine Glucose (UA) Negative, Urine Ketones Negative, Urine Blood Moderate H, Urine Nitrate Positive H, Urine Bilirubin Negative, Urine Urobilinogen 0.2, Ur Leukocyte Esterase Negative, Urine RBC 15 - 20, Urine WBC 0 - 2, Ur Epithelial Cells None, Urine Bacteria Many, Urine Other Uyeast 06/18/17 16:50: Influenza Typ A,B (EIA) Negative for flu a/b 06/18/17 16:50: pO2 30, VBG pH 7.40, VBG pCO2 53.0, VBG HCO3 32.8 H, VBG Total CO2 34.4 H, VBG O2 Sat (Calc) 61.8, VBG Base Excess 6.5 H, VBG Potassium 4.1, Glucose 140 H, Lactate 1.3, FiO2 21.0, Sodium 149.0 H, Chloride 111.0 H, Venous Blood Potassium 4.1 06/18/17 16:15: Procalcitonin 0.35 06/18/17 16:15: Hemoglobin A1c 5.6 06/18/17 16:15: Triglycerides 123, Cholesterol 206 H, LDL Cholesterol Direct 101 , HDL Cholesterol 44 06/18/17 16:15: PT 13.1 H, INR 1.20 H, APTT 33.5 06/18/17 16:15: Lactate Dehydrogenase 3246 H, Total Creatine Kinase 1415 H, CK- MB (CK-2) 12.7 H, CK-MB (CK-2) % 0.9 L, Troponin I 59.00 H* 06/18/17 16:15: Acetaminophen < 10.0 L 06/18/17 16:15: WBC 13.0 H D, RBC 5.16, Hgb 15.0, Hct 45.3, MCV 87.8, MCH 29.1, MCHC 33.1, RDW 13.6, Plt Count 127, MPV 11.7 H, Gran % 83.6 H, Lymph % (Auto) 7.7 L, [place] % (Auto) 8.5 H, Eos % (Auto) 0.0 L, Baso % (Auto) 0.2, Gran # 10.87 H, Lymph # 1.0 L, [place] # 1.1 H, Eos # 0.0, Baso # 0.02 06/18/17 16:15: Sodium 151 H, Potassium 4.2, Chloride 110 H, Carbon Dioxide 32, Anion Gap 13, BUN 37 H, Creatinine 1.4, Est GFR ( Amer) > 60, Est GFR ( Non-Af Amer) 50, Random Glucose 138 H, Calcium 9.7, Magnesium 2.5 H, Total Bilirubin 1.1, AST 183 H, ALT 122 H, Alkaline Phosphatase 71, NT-Pro-B Natriuret Pep 7590 H, Total Protein 7.7, Albumin 4.1, Globulin 3.6, Albumin/ Globulin Ratio 1.1 - RAD Interpretation Radiology Orders: 06/18/17 16:13 DUPLEX LOWER EXTRM VEIN BILAT [US] Stat 06/18/17 16:17 NECK & CHEST W/O CONTRAST [CT] Stat Bilateral lower extremities venuous doppler: as per preliminary report, no acute DVT --------- CT Neck and Chest: PROCEDURE: CT Neck, Chest, HISTORY: demantia, food found in the mouth COMPARISON: None. TECHNIQUE: Unenhanced study. Intravenous contrast was not administered Radiation dose: Total exam DLP = 1293.50 mGy-cm. This CT exam was performed using one or more of the following dose reduction techniques: Automated exposure control, adjustment of the mA and/or kV according to patient size, and/or use of iterative reconstruction technique. Radiation dose (DLP): 1293.50 mGy-cm. FINDINGS: CT OF THE NECK: PHARYNX: Nasopharynx: Unremarkable. Oropharnx: Unremarkable. Hypopharynx: Unremarkable. LYMPH NODES: Unremarkable. VASCULATURE: Unremarkable. GLANDS: Unremarkable. CERVICAL SPINE: Multilevel degenerative changes, mild. Reversal of the anatomic lordosis with kyphosis CT OF THE CHEST: LUNGS: Multifocal subsegmental infiltrates primarily affecting the right upper lobe and to a lesser extent dependent portions of the right lower lobe. No focal infiltrates identified left lung. No suspicious pulmonary nodules or masses. MEDIASTINUM: Unremarkable thoracic aorta. No aneurysm or dissection. Normal sized heart. Pulmonary arterial truck unremarkable. No vascular congestion. No lymphadenopathy. PLEURA: No pleural fluid. No pneumothorax. BONES: No fracture. No destructive lesion. OTHER FINDINGS: None. IMPRESSION: No significant or acute findings to account for/ related to the clinical presentation. Multifocal infiltrates right lung. Likely infectious/ inflammatory process. Entry Level Manufacturing Engineer: Radiologist - EKG Interpretation Interpreted by ED Physician: Yes Type: 12 lead EKG Comparison: Com.w/previous EKG - Medication Orders Current Medication Orders: Apixaban (Eliquis) 2.5 mg PO BID [facility] PRN Reason: Protocol Last Admin: 06/23/17 10:15 Dose: 2.5 mg Aspirin (Ecotrin) 81 mg PO DAILY [facility] Last Admin: 06/23/17 10:14 Dose: 81 mg Atorvastatin Calcium (Lipitor) 40 mg PO DIN [facility] Last Admin: 06/22/17 17:28 Dose: 40 mg Azithromycin (Zithromax) 500 mg PO DAILY [facility] Last Admin: 06/23/17 10:14 Dose: 500 mg Clopidogrel Bisulfate (Plavix) 75 mg PO DAILY [facility] Last Admin: 06/23/17 10:14 Dose: 75 mg Famotidine (Pepcid) 20 mg PO BID [facility] Last Admin: 06/23/17 10:14 Dose: 20 mg Furosemide (Lasix) 40 mg IVP DAILY [facility] Last Admin: 06/23/17 10:13 Dose: 40 mg MAR Blood Pressure Document 06/23/17 10:13 RT (Rec: 06/23/17 10:14 RT [id number]) Blood Pressure Blood Pressure (100/60-150/90) 120/70 IVP Administration Document 06/23/17 10:13 RT (Rec: 06/23/17 10:14 RT [facility] [id number]) Charges for Administration # of IVP Administrations 1 Sodium Chloride (Sodium Chloride 0.9%) 1,000 mls @ 50 mls/hr IV .Q20H [facility] Last Admin: 06/22/17 18:55 Dose: 50 mls/hr eMAR Start Stop Document 06/22/17 18:55 KE (Rec: 06/22/17 18:56 KE [facility] [id number]) Intravenous Solution Start Date 06/22/17 Start Time 18:30 Labetalol HCl (Trandate) 5 mg IV Q6 PRN PRN Reason: sbp>160 Metoprolol Tartrate (Lopressor) 25 mg PO BID [facility] Last Admin: 06/23/17 10:14 Dose: 25 mg MAR Pulse and Blood Pressure Document 06/23/17 10:14 RT (Rec: 06/23/17 10:14 RT [facility] [id number]) Pulse Pulse Rate (60-90) 98 Blood Pressure Blood Pressure (100/60-150/90) 120/70 Discontinued Medications Aspirin (Aspirin Supp) 300 mg RC STAT STA Stop: 06/18/17 19:42 Last Admin: 06/18/17 20:02 Dose: 300 mg Aspirin (Aspirin Chewable) 81 mg PO DAILY [facility] Last Admin: 06/21/17 09:31 Dose: 81 mg Clopidogrel Bisulfate (Plavix) 300 mg PO STAT STA Stop: 06/18/17 19:30 Heparin Sodium (Porcine) (Heparin) 5,000 units SC STAT STA PRN Reason: Protocol Stop: 06/18/17 19:20 Last Admin: 06/18/17 19:26 Dose: 5,000 units Subcutaneous Administrations Document 06/18/17 19:26 IT (Rec: 06/18/17 19:26 IT [id number]) Injection Site MAR Injection Site Right Abdomen Charges for Administration # of Subcutaneous Administrations 1 Heparin Sodium (Porcine) (Heparin) 5,000 units IV STAT STA Stop: 06/18/17 19:31 Last Admin: 06/18/17 19:32 Dose: 5,000 units eMAR Start Stop Document 06/18/17 19:32 IT (Rec: 06/18/17 19:32 IT [id number]) Intravenous Solution Start Date 06/18/17 Start Time 19:32 Sodium Chloride (Sodium Chloride 0.9%) 1,000 mls @ 75 mls/hr IV .[id number] [facility]UL[facility] Last Admin: 06/19/17 10:31 Dose: 75 mls/hr eMAR Start Stop Document 06/19/17 10:31 PHANT (Rec: 06/19/17 10:32 PHANT [facility] [employer]) Intravenous Solution Start Date 06/19/17 Start Time 10:32 End Date 06/19/17 Ceftriaxone Sodium (Rocephin 1 Gram Ivpb (D5w)) 1 gm in 100 mls @ 200 mls/hr IVPB STAT [facility] PRN Reason: Protocol Last Admin: 06/18/17 19:17 Dose: 200 mls/hr eMAR Start Stop Document 06/18/17 19:17 HP (Rec: 06/18/17 19:17 HP [id number]) Intravenous Solution Start Date 06/18/17 Start Time 19:17 End Date 06/18/17 End time 19:47 Total Infusion Time 30 Azithromycin (Zithromax 500mg In Ns) 500 mg in 250 mls @ 167 mls/hr IVPB STAT STA PRN Reason: Protocol Stop: 06/18/17 19:47 Last Admin: 06/18/17 20:12 Dose: 167 mls/hr eMAR Start Stop Document 06/18/17 20:12 IT (Rec: 06/18/17 20:12 IT [id number]) Intravenous Solution Start Date 06/18/17 Start Time 20:12 Heparin Sodium/Sodium Chloride (Heparin 69704 Units/250ml 1/2 Normal Saline) 25 ,000 units in 250 mls @ 8.132 mls/hr IV .Q24H PAULA; 12 UNITS/KG/HR PRN Reason: Protocol Last Admin: 06/21/17 04:12 Dose: 14 units/kg/hr, 9.487 mls/hr eMAR Start Stop Document 06/21/17 04:12 LOPEMAR (Rec: 06/21/17 04:13 LOPEMAR [facility] [place]- [facility]) Intravenous Solution Start Date 06/21/17 Start Time 04:12 Titration Intervention Document 06/21/17 04:12 LOPEMAR (Rec: 06/21/17 04:13 LOPEMAR [facility]) Titration Intake Cumulative Intake (Rx) 250 Waste Amount 0 Container Volume 250 Titration Dosing Titration Dose 14 IV Rate 9.487 Intake/Decrease Started/Running Cumulative Dose 51727 Ceftriaxone Sodium (Rocephin 1 Gram Ivpb (D5w)) 1 gm in 100 mls @ 100 mls/hr IVPB DAILY [facility] PRN Reason: Protocol Last Admin: 06/21/17 09:27 Dose: Azithromycin (Zithromax 500mg In Ns) 500 mg in 250 mls @ 167 mls/hr IVPB DAILY [facility] PRN Reason: Protocol Last Admin: 06/21/17 09:29 Dose: 167 mls/hr eMAR Start Stop Document 06/21/17 09:29 COURTNEY (Rec: 06/21/17 09:30 COURTNEY [facility]) Intravenous Solution Start Date 06/21/17 Start Time 09:29 End Date 06/21/17 End time 10:59 Total Infusion Time 90 Dextrose (Dextrose 5% In Water 1000 Ml) 1,000 mls @ 100 mls/hr IV .Q10H [facility] Last Admin: 06/21/17 05:04 Dose: 100 mls/hr eMAR Start Stop Document 06/21/17 05:04 LOPEMAR (Rec: 06/21/17 05:05 LOPEMAR [facility] [employer]) Intravenous Solution Start Date 06/21/17 Start Time 05:04 End Date 06/21/17 End time 15:00 Total Infusion Time 596 Potassium Chloride (Potassium Chloride 10 Meq/100 Ml) 10 meq in 100 mls @ 50 mls/hr IVPB ONCE ONE Stop: 06/20/17 15:17 Last Admin: 06/20/17 14:48 Dose: 50 mls/hr eMAR Start Stop Document 06/20/17 14:48 PHANT (Rec: 06/20/17 14:49 PHANT [id number]) Intravenous Solution Start Date 06/20/17 Start Time 14:48 End Date 06/20/17 End time 15:48 Total Infusion Time 60 Potassium Chloride (Potassium Chloride 10 Meq/100 Ml) 10 meq in 100 mls @ 50 mls/hr IVPB ONCE ONE Stop: 06/20/17 20:26 Last Admin: 06/20/17 21:18 Dose: 50 mls/hr eMAR Start Stop Document 06/20/17 21:18 LOPEMAR (Rec: 06/20/17 21:19 LOPEMAR [facility] [employer]) Intravenous Solution Start Date 06/20/17 Start Time 21:19 End Date 06/20/17 End time 22:20 Total Infusion Time 61 Sodium Chloride (Sodium Chloride 0.9%) 1,000 mls @ 10 mls/hr IV .Q24H PAULA Last Admin: 06/21/17 18:14 Dose: 10 mls/hr eMAR Start Stop Document 06/21/17 18:14 COURTNEY (Rec: 06/21/17 18:14 COURTNEY [facility] [place]) Intravenous Solution Start Date 06/21/17 Start Time 14:00 End Date 06/21/17 Potassium Chloride (Potassium Chloride Oral Soln) 40 meq PO ONCE ONE Stop: 06/21/17 10:24 Last Admin: 06/21/17 10:32 Dose: 40 meq - PA / RENTAL COORDINATOR / Resident Statement / has reviewed & agrees with the documentation as recorded. / has examined the patient and agrees with the treatment plan. Disposition/Present on Arrival - Present on Arrival Any Indicators Present on Arrival: No History of DVT/PE: No History of Uncontrolled Diabetes: No Urinary Catheter: No History of Decub. Ulcer: No History Surgical Site Infection Following: None - Disposition Have Diagnosis and Disposition been Completed?: Yes Diagnosis: CHF (congestive heart failure), Dehydration, Elevated LFTs, Pneumonia, Myocardial infarct, UTI (urinary tract infection) Disposition: HOSPITALIZED Disposition Time: 17:10 Patient Plan: Admission, ICU Patient Problems: Current Active Problems Problem Status Onset CHF (congestive heart failure) Acute Dehydration Acute Elevated LFTs Acute Pneumonia Acute Myocardial infarct Acute UTI (urinary tract infection) Acute Condition: GUARDED
[2017-06-18] MEDS: Sodium Chloride 0.9% 1,000 ML IV SCH (16:28)
[2017-06-18 16:31] LABS: BASO # 0.02 K/mm3 (0.0-2.0); BASO % 0.2 % (0.0-3.0); GRAN # 10.87 (1.4-6.5); GRAN % 83.6 % (50.0-68.0); HEMATOCRIT 45.3 % (42.0-52.0); LYMPH % 7.7 % (22.0-35.0); MEAN CELL VOLUME 87.8 fl (80.0-105.0); MEAN CORPUSCULAR HEMOGLOBIN 29.1 pg (25.0-35.0); MEAN CORPUSCULAR HGB CONC 33.1 g/dl (31.0-37.0); MEAN PLATELET VOLUME 11.7 fl (7.0-11.0); MONO # 1.1 (0.1-0.6); MONO % 8.5 % (1.0-6.0); RED CELL DISTRIBUTION WIDTH 13.6 % (11.5-14.5)
[2017-06-18 16:43] LABS: ALB/GLOB RATIO 1.1 (1.1-1.8); ALKALINE PHOSPHATASE 71 U/L (38-126); ALT/SGPT 122 U/L (7-56); AST/SGOT 183 U/L (17-59); BILIRUBIN,TOTAL 1.1 mg/dL (0.2-1.3); BLOOD UREA NITROGEN 37 mg/dL (7-21); CALCIUM 9.7 mg/dL (8.4-10.5); CARBON DIOXIDE 32 mmol/L (21-33); CHLORIDE 110 mmol/L (98-107); GFR AFRICAN-AMERICAN > 60; GLUCOSE,RANDOM 138 mg/dL (70-110); MAGNESIUM 2.5 mg/dL (1.7-2.2); POTASSIUM 4.2 mmol/L (3.6-5.0); SODIUM 151 mmol/L (132-148); TOTAL PROTEIN 7.7 g/dL (5.8-8.3)
[2017-06-18 17:02] LABS: VENOUS BLOOD GAS BASE EXCESS 6.5 mmol/L (0.0-2.0)
--- NOTE | 2017-06-18 18:04 | CT ---
PROCEDURE: CT Neck, Chest, HISTORY: demantia, food found in the mouth COMPARISON: None. TECHNIQUE: Unenhanced study. Intravenous contrast was not administered Radiation dose: Total exam DLP = 1293.50 mGy-cm. This CT exam was performed using one or more of the following dose reduction techniques: Automated exposure control, adjustment of the mA and/or kV according to patient size, and/or use of iterative reconstruction technique. Radiation dose (DLP): 1293.50 mGy-cm. FINDINGS: CT OF THE NECK: PHARYNX: Nasopharynx: Unremarkable. Oropharnx: Unremarkable. Hypopharynx: Unremarkable. LYMPH NODES: Unremarkable. VASCULATURE: Unremarkable. GLANDS: Unremarkable. CERVICAL SPINE: Multilevel degenerative changes, mild. Reversal of the anatomic lordosis with kyphosis CT OF THE CHEST: LUNGS: Multifocal subsegmental infiltrates primarily affecting the right upper lobe and to a lesser extent dependent portions of the right lower lobe. No focal infiltrates identified left lung. No suspicious pulmonary nodules or masses. MEDIASTINUM: Unremarkable thoracic aorta. No aneurysm or dissection. Normal sized heart. Pulmonary arterial truck unremarkable. No vascular congestion. No lymphadenopathy. PLEURA: No pleural fluid. No pneumothorax. BONES: No fracture. No destructive lesion. OTHER FINDINGS: None. IMPRESSION: No significant or acute findings to account for/ related to the clinical presentation. Multifocal infiltrates right lung. Likely infectious/ inflammatory process.
[2017-06-18] MEDS ORDERED: Azithromycin 500MG/NS 250ml 500 MG/250 ML BAG IVPB STA (18:18)
[2017-06-18] MEDS ORDERED: cefTRIAXone 1 gm 1 GM/100 ML BAG IVPB SCH (18:30)
[2017-06-18] MEDS ORDERED: Heparin 25,000units in D5W 25,000 UNITS/250 ML BAG IV SCH (19:15)
[2017-06-18 19:16] LABS: INR 1.2 (0.93-1.08); PARTIAL THROMBOPLASTIN TIME 33.5 Seconds (25.1-36.5)
[2017-06-18 19:20] LABS: PH,URINE 5.5 (4.7-8.0); URINE BILIRUBIN NEGATIVE (NEGATIVE); URINE BLOOD MODERATE (NEGATIVE); URINE GLUCOSE (UA) NEGATIVE (NEGATIVE); URINE KETONE NEGATIVE (NEGATIVE); URINE LEUKOCYTE ESTERASE NEGATIVE Leu/uL (NEGATIVE); URINE PROTEIN 100 mg/dL (<30 mg/dL); URINE UROBILINOGEN 0.2 E.U./dL (<1 E.U./dL)
[2017-06-18 19:21] LABS: URINE APPEARANCE CLEAR (CLEAR); URINE COLOR YELLOW (YELLOW)
--- NOTE | 2017-06-18 19:25 | US ---
HISTORY: Leg pain and swelling. Evaluate for DVT PHYSICIAN(S): Seymour Jordan MD. TECHNIQUE: Duplex sonography and color-flow Doppler with graded compression were used to evaluate the deep venous systems of both lower extremities. FINDINGS: The visualized deep venous systems of both lower extremities are sonographically normal and compressible. Normal wave forms and augmentation are seen. There is no sonographic evidence for deep venous thrombosis in the visualized segments of both lower extremities. IMPRESSION: No sonographic evidence for deep venous thrombosis in the visualized segments of both lower extremities.
[2017-06-18 19:26] LABS: URINE BACTERIA MANY (NEG); URINE RBC 15 - 20 /hpf (0-2); URINE WBC 0 - 2 /hpf (0-6)
[2017-06-18] MEDS ORDERED: Heparin25000 units/250ml 1/2NS 25,000 UNITS/250 ML BAG IV SCH (19:30)
[2017-06-18] MEDS: Heparin25000 units/250ml 1/2NS 25,000 UNITS/250 ML BAG IV SCH (19:33)
[2017-06-18] MEDS ORDERED: Labetalol 5 mg/ml Inj 20ML IV PRN (20:00)
[2017-06-18 20:41] LABS: CHOLESTEROL 206 mg/dL (130-200)
--- NOTE | 2017-06-18 22:33 | CP.PCM.HP ---
<Gail Garzon - Last Filed: 06/19/17 06:09> History of Present Illness - History of Present Illness History of Present Illness: PGY-2 ICU consult note 66 yo male with PMH of htn, hyperlipidemia, primary aphasia, dementia, penicillin allergy, present to ED with sister for change in activity and fatigue for 2 days. HPI and ROS were unable to be obtain due to patients aphasia and dementia, history taken from ED. Per sister when patient was eating lunch, he kept tilting his chin down to the chest, and did not want to drink much water or chew his food/ Family was concerned for choking. Per family patient did not have fever, chills, gagging, coughing, vomiting, diarrhea, no other medical complaints. In ED patient was found to have STEMI with EKG changes and elevated trops. PMH: htn, hyperlipidemia, primary aphasia, dementia PSH: none social history: never smokes, no alcohol use Allergy: penicillin Present on Admission - Present on Admission Any Indicators Present on Admission: No Review of Systems - Review of Systems Systems not reviewed;Unavailable: Dementia, Other (aphasic) Past Patient History - Infectious Disease Hx of Infectious Diseases: None - Past Social History Smoking Status: Never Smoked - CARDIAC Hx Cardiac Disorders: No - PULMONARY Hx Respiratory Disorders: No - NEUROLOGICAL Other/Comment: PRIMARY PROGRESSIVE APHASIA - HEENT Hx HEENT Problems: No - RENAL Hx Chronic Kidney Disease: No - ENDOCRINE/METABOLIC Hx Endocrine Disorders: No - HEMATOLOGICAL/ONCOLOGICAL Hx Blood Disorders: No - INTEGUMENTARY Hx Dermatological Problems: No - MUSCULOSKELETAL/RHEUMATOLOGICAL Hx Musculoskeletal Disorders: No - GASTROINTESTINAL Hx Gastrointestinal Disorders: No - GENITOURINARY/GYNECOLOGICAL Hx Genitourinary Disorders: No - PSYCHIATRIC Hx Psychophysiologic Disorder: Yes Hx Substance Use: No - SURGICAL HISTORY Hx Surgeries: No (pt denies) - ANESTHESIA Hx Anesthesia: No Meds Allergies/Adverse Reactions: Allergies Allergy/AdvReac Type Severity Reaction Status Date / Time Penicillins Allergy ANAPHYLAXIS Verified 12/03/16 19:42 Physical Exam - Constitutional Appears: Well, No Acute Distress - Head Exam Head Exam: ATRAUMATIC, NORMAL INSPECTION, NORMOCEPHALIC - Eye Exam Eye Exam: EOMI, Normal appearance - ENT Exam ENT Exam: Mucous Membranes Dry - Respiratory Exam Respiratory Exam: Clear to Auscultation Bilateral, NORMAL BREATHING PATTERN. absent: Rhonchi, Wheezes, Respiratory Distress - Cardiovascular Exam Cardiovascular Exam: REGULAR RHYTHM, +S1, +S2. absent: Tachycardia, Diastolic murmur, Systolic Murmur - GI/Abdominal Exam GI & Abdominal Exam: Normal Bowel Sounds, Soft. absent: Firm, Tenderness - Extremities Exam Additional comments: +1 pitting edema bilateral lower extremities - Neurological Exam Neurological exam: Alert - Skin Skin Exam: Dry, Intact, Normal Color, Warm Results - Vital Signs Recent Vital Signs: Last Vital Signs Temp 97.6 F 06/18/17 18:07 Pulse 82 06/18/17 21:20 Resp 17 06/18/17 21:20 BP 110/58 L 06/18/17 21:20 Pulse Ox 98 06/18/17 21:20 - Labs Result Diagrams: 06/18/17 16:15 06/18/17 16:15 Assessment & Plan - Assessment and Plan (Free Text) Assessment: 66 yo male with PMH of htn, hyperlipidemia, primary aphasia, demantia, penicillin allergy, present with STEMI, UTI Plan: neuro - history or dementia and aphasia - will continue to monitor ENT - patient has h/o dementia - failed bedside swallow - NPO - neck/chest CT negative for acute findings, infiltrates right lung - aspiration precautions - swallow evaluation cardio - STEMIwith elevated trops and ST changes - EKG showed NSR at [address] elevation in V4-5, no T wave inversions - Trop was elevated at 59, will trend trops and EKG - ED contacted cardiology, not code heart candidate - started on heparin drip - asa 300mg RC given in ED, will continue daily - labetalol 5mg prn q6 for SBP>160 - plavix PO was not started because patient failed bedside swallow - will start statin therapy once patient has swallow evaluation - hgba1c and lipid panel ordered - echo ordered - lasix 20mg q daily for lower extremity swelling - lower extremity US negative for DVT - cardiology consulted pulm - respiratory rate 18, saturating well on room air - supplemental O2 as needed to maintain SaO2>90 - neck/chest CT negative for acute findings, infiltrates right lung - aspiration precaution ID - afebrile with mild leukocytosis - UA positive for nitrates - given rocephen and azithromycin in ED, will continue IV. patient has pcn allergy however he has taken rocephen previously without incident - flu negative - lactate was low at 1.3 - will order procal - cxr - blood, urine cultures - continue to monitor GI - prophalaxis pepcid - NPO - swallow eval renal - elevated BUN, sodium, possible to due dehydration - NS @ 75 given in ED - will repeat CMP - monitor electrolytes, correct as needed GI prophalaxis- pepcid DVT prophalaxis heparin drip <Mayelin SHIN,Deshaun - Last Filed: 06/25/17 13:49> Results - Vital Signs Recent Vital Signs: Last Vital Signs Temp 97.1 F L 06/25/17 12:00 Pulse 102 H 06/25/17 12:00 Resp 19 06/25/17 12:00 BP 122/86 06/25/17 12:00 Pulse Ox 96 06/25/17 06:00 - Labs Result Diagrams: 06/25/17 05:50 06/25/17 05:50 Labs: Laboratory Results - last 24 hr 06/24/17 06/25/17 06/25/17 08:15 05:50 05:50 WBC 6.2 RBC 4.39 Hgb 12.5 L Hct 37.9 L MCV 86.3 MCH 28.5 MCHC 33.0 RDW 13.2 Plt Count 238 MPV 12.5 H Gran % 74.0 H Lymph % (Auto) 14.2 L Prentiss % (Auto) 10.5 H Eos % (Auto) 1.1 L Baso % (Auto) 0.2 Gran # 4.59 Lymph # 0.9 L Prentiss # 0.7 H Eos # 0.1 Baso # 0.01 Sodium 143 Potassium 3.8 Chloride 109 H Carbon Dioxide 26 Anion Gap 12 BUN 23 H Creatinine 1.1 Est GFR ( Amer) > 60 Est GFR (Non-Af Amer) > 60 Random Glucose 107 Calcium 8.3 L Total Bilirubin 0.7 AST 52 ALT 134 H Alkaline Phosphatase 94 Total Protein 6.5 Albumin 3.0 Globulin 3.5 Albumin/Globulin Ratio 0.9 L Crossmatch See Detail Attending/Attestation - Attestation I have personally seen and examined this patient.: Yes I have fully participated in the care of the patient.: Yes I have reviewed all pertinent clinical information: Yes Notes (Text): -I agree with the above ICU consult H&P completed by the resident physician, with the following changes and/or additions: -The patient is a 66 year old man with a history of HL, HTN, aphasia and dementia, brought in with lethargy and anorexia (noticed by his family). On EKG done in the ED, he was found to have ST-elevations on leads V4 and V5. ED physician spoke on-call bioinformatics assistant, who didn't feel a Code Heart was necessary since the EKG also showed evidence of Q-waves. Therefore, the patient will be treated as an NSTEMI and started on therapeutic Heparin Drip (per ACS protocol). He was given ASA in the ED. Cardiology has been consulted and serial trop's and EKG's ordered. We will defer further work-up of any potential issues with anorexia and/or dysphagia to the primary team once the patient's cardiac issues have been managed.
[2017-06-19 00:25] VITALS: BMI 20.9
[2017-06-19 02:06] LABS: TROPONIN I 47.5 ng/mL
--- NOTE | 2017-06-19 04:08 | CON ---
DATE: 06/18/2017 LOCATION: The patient is in ICU 128, bed 2. This consult is being done on behalf of Dr. King, whom I am covering. REASON FOR CONSULTATION: Acute myocardial infarction and dementia. HISTORY OF PRESENT ILLNESS: A 66-year-old patient who is known to have aphasia and dementia, hyperlipidemia, and hypertension. As per sister, the patient has change in activity and fatigue since last 2 days. The patient was eating lunch today and kept tilting the chin down to the chest. The patient was not drinking well and was not chewing his food, so family brought into the emergency room where his EKG showed ST elevation in V4, V5, and V6 along with deep Q with the troponin elevation suggestive of myocardial infarction. . There is no history of shortness of breath or diaphoresis or nausea or vomiting. There is no previous history of angina or coronary artery disease or cardiac problem. PAST MEDICAL HISTORY: Positive for dementia, aphasia, hypertension, and hyperlipidemia. ALLERGIES: THE PATIENT IS ALLERGIC TO PENICILLIN. PERSONAL HISTORY: No smoking. No drinking. FAMILY HISTORY: Not significant. HOME MEDICATIONS: The patient was taking ergocalciferol, which is vitamin D2 one tablet p.o. daily. REVIEW OF SYSTEMS: All the systems reviewed and positive as mentioned in the history, otherwise negative. PHYSICAL EXAMINATION: VITAL SIGNS: Blood pressure 110/58, respirations 18, pulse 82, and the patient is afebrile 97.6. HEENT: Head is normocephalic. Eyes; pupils are normal. Conjunctivae normal. NECK: JVP is low. Carotids are equal. THORAX: AP diameter normal. LUNGS: No significant rales. CARDIOVASCULAR: S1 and S2. ABDOMEN: Soft and nontender. No organomegaly. Bowel sounds normal. EXTREMITIES: No clubbing. No cyanosis. LABORATORY DATA: WBC 13.0, hemoglobin 15.0, hematocrit 45.3, and platelet 127. Sodium 151, potassium 4.2, BUN 37, creatinine 1.4, and random glucose 138. AST 183, ALT 122, and alkaline phosphatase 71. Total CPK is 1415. LDH 3246. Troponin 59.00. NT-proB natriuretic peptide 7590. Total protein and albumin normal. EKG showed sinus rhythm with ST elevation in V4, V5, V6 with deep Q wave in V4, V5, V6. Neck and chest CT showed infiltrates in the right lung. DIAGNOSES: Acute myocardial infarction, pneumonia, hypertension, hyperlipidemia, dementia, aphasia, hypernatremia, and dehydration. PLAN: The patient has been started on heparin drip, furosemide 20 mg IV daily, Plavix has been given 300 mg p.o. stat, Pepcid 20 mg b.i.d., Rocephin 1 g IV daily, sodium chloride saline 75 mL an hour. We will repeat labs in the morning. We will also add Lopressor 25 b.i.d. and we will follow with you. Mak Momin MD
[2017-06-19 06:25] LABS: BASO # 0.02 K/mm3 (0.0-2.0); BASO % 0.2 % (0.0-3.0); EOS % 0.1 % (1.5-5.0); GRAN # 6.27 (1.4-6.5); GRAN % 77.9 % (50.0-68.0); HEMATOCRIT 42.3 % (42.0-52.0); LYMPH # 1.1 (1.2-3.4); LYMPH % 13.7 % (22.0-35.0); MEAN CELL VOLUME 88.5 fl (80.0-105.0); MEAN CORPUSCULAR HEMOGLOBIN 28.7 pg (25.0-35.0); MEAN CORPUSCULAR HGB CONC 32.4 g/dl (31.0-37.0); MEAN PLATELET VOLUME 12.2 fl (7.0-11.0); MONO # 0.7 (0.1-0.6); MONO % 8.1 % (1.0-6.0); RED CELL DISTRIBUTION WIDTH 13.6 % (11.5-14.5); WHITE BLOOD COUNT 8.1 10^3/ul (4.5-11.0)
[2017-06-19 06:48] LABS: ALKALINE PHOSPHATASE 77 U/L (38-126); ALT/SGPT 175 U/L (7-56); AST/SGOT 226 U/L (17-59); BILIRUBIN,TOTAL 0.9 mg/dL (0.2-1.3); BLOOD UREA NITROGEN 33 mg/dL (7-21); CALCIUM 9.1 mg/dL (8.4-10.5); CARBON DIOXIDE 30 mmol/L (21-33); CHLORIDE 113 mmol/L (98-107); GFR AFRICAN-AMERICAN > 60; GLUCOSE,RANDOM 119 mg/dL (70-110); POTASSIUM 3.5 mmol/L (3.6-5.0); SODIUM 152 mmol/L (132-148); TOTAL PROTEIN 6.8 g/dL (5.8-8.3)
[2017-06-19] MEDS: Azithromycin 500MG/NS 250ml 500 MG/250 ML BAG IVPB SCH (10:21)
--- NOTE | 2017-06-19 10:21 | PN ---
PUBLICATION DISTRIBUTOR NOTE DATE: 06/19/2017 SUBJECTIVE: The patient is resting in bed, awake, but note that the patient does have aphasia as well as some dementia. The patient has no obvious respiratory distress, no seemingly shortness of breath, no cough, no congestion at this time. PHYSICAL EXAMINATION: VITAL SIGNS: Note that his temperature is 99, pulse is 80, respirations are 27, and BP is 102/64. HEENT: Head atraumatic and normocephalic. Eyes reactive to light. Ear, nose, and throat seemed to be within normal limits. NECK: Supple. No JVD. No thyroid enlargement. No lymph nodes. HEART: Has regular rate and rhythm. Normal S1 and S2. LUNGS: Revealed occasional rhonchi at the right base. ABDOMEN: Soft. Decreased bowel sounds. GENITALIA AND RECTAL: Deferred. MUSCULOSKELETAL: No joint deformities. EXTREMITIES: Revealed some trace lower extremity edema. NEUROLOGICAL: The patient is awake, but aphasic, but moves all extremities. SKIN: Warm and dry. LABORATORY DATA: As far as laboratories: His white count is 8.1, hemoglobin is 13.7, and hematocrit is 42.3 with platelets of 117,000. Sodium is 152, potassium is 3.5, chloride is 113, CO2 of 30 with BUN of 33, creatinine of 1.3, and glucose of 190. Note that the patient's troponin is 47.5. Chest x-ray reveals that there is a right upper lobe and scant right lower lobe infiltrates. IMPRESSION: As far as my impression, this patient presents with acute myocardial infarction, right upper lobe pneumonia, possible sepsis, history of congestive heart failure, hypertension, and hyperlipidemia. PLAN: As far as our plan, we will continue with Cardiology recommendations. The patient is resting on O2 via nasal cannula. Also, the patient is getting aspirin as well as IV heparin, Lasix, Lopressor, and Pepcid. He is getting antibiotics of Rocephin and azithromycin. He is on labetalol and normal saline. We will continue to treat him aggressively and follow closely along with the other consultants and the primary care doctor. Nelson Ann MD
[2017-06-19] MEDS: cefTRIAXone 1 gm 1 GM/100 ML BAG IVPB SCH (10:22)
[2017-06-19] MEDS: Sodium Chloride 0.9% 1,000 ML IV SCH (10:31)
--- NOTE | 2017-06-19 11:00 | RAD ---
HISTORY: leukocytosis COMPARISON: 12/03/2016 FINDINGS: LUNGS: No active pulmonary disease. PLEURA: No significant pleural effusion identified, no pneumothorax apparent. CARDIOVASCULAR: Normal. OSSEOUS STRUCTURES: No significant abnormalities. VISUALIZED UPPER ABDOMEN: Normal. OTHER FINDINGS: None. IMPRESSION: No active disease.
[2017-06-19 12:40] LABS: TROPONIN I 40.3 ng/mL
--- NOTE | 2017-06-19 15:08 | CARD ---
APPROVED REPORT EKG Measurement Heart [id number] <Conclusion> Normal sinus rhythm Anterolateral infarct, possibly acute ACUTE NM Abnormal ECG
--- NOTE | 2017-06-19 15:17 | CARD ---
APPROVED REPORT EKG Measurement Heart [id number] <Conclusion> Normal sinus rhythm Anterolateral infarct, possibly acute ACUTE SC Abnormal ECG
--- NOTE | 2017-06-19 15:23 | CARD ---
APPROVED REPORT EKG Measurement Heart [id number] QTc0 <Conclusion> No QRS complexes found, no ECG analysis possible
--- NOTE | 2017-06-19 15:29 | CARD ---
APPROVED REPORT EKG Measurement Heart [id number] ME [id number] <Conclusion> Normal sinus rhythm Acute Anteroseptal infarct, Abnormal ECG
--- NOTE | 2017-06-19 17:33 | HP ---
HISTORY OF PRESENT ILLNESS: The patient is a 66-year-old man with hypertension, hyperlipidemia, dementia and primary progressive aphasia, who is brought to [facility] ED by his sister for evaluation of a 3-day history of malaise, increasing lethargy and altered sensorium. The patient was last seen at his baseline on the day prior to presentation to the emergency department when he was eating lunch with his sister. During that time, she noticed him to become suddenly quiet and slump forward with food in his chest. She immediately called 911 and the patient was brought to [facility] ED for further evaluation. Upon arrival to the ED, he was noted to be febrile with a temperature of 100.5 and hypotensive with a blood pressure of 92/62. Workup in the emergency department demonstrated hypernatremia with a sodium of 151, transaminitis and a markedly elevated troponin level of 59. The patient was started on IV heparin, received the Plavix loading dose, and was subsequently admitted to the CCU for continued management of multiple electrolyte derangements and STEMI. PAST MEDICAL HISTORY: As per HPI. PAST SURGICAL HISTORY: None. ALLERGIES: PENICILLIN. MEDICATIONS: Simvastatin 20 mg p.o. daily, lisinopril 5 mg p.o. daily and Zoloft 50 mg p.o. daily. FAMILY HISTORY: Noncontributory. SOCIAL HISTORY: Patient has no toxic habits. REVIEW OF SYSTEMS: Unobtainable secondary to aphasia in this patient. PHYSICAL EXAMINATION: VITAL SIGNS: Temperature 99, pulse 80, blood pressure 120/66, respiratory rate 20, and oxygen saturation 98% on room air. GENERAL: No apparent distress. HEENT: PERRL, EOMI. No scleral icterus. No conjunctival pallor. NECK: Supple with full range of motion. No JVD. No bruits. LUNGS: Clear to auscultation. CARDIOVASCULAR: Regular rate and rhythm. Normal S1 and S2. ABDOMEN: Normoactive bowel sounds, soft, nontender, and nondistended. EXTREMITIES: No edema. NEUROLOGIC: Awake and alert. Not following commands. Able to move all extremities. LABORATORY DATA: WBC 8, hemoglobin 13.7, hematocrit 42, platelets 117. Sodium 152, potassium 3.5, chloride 113, bicarbonate 30, BUN 33, creatinine 1.3, glucose 119, AST 226, ALT 175, CK 1103. Troponin 59, 47.5. BNP 7590. IMAGING STUDIES: 1. CT of the chest without contrast demonstrates multifocal infiltrates in the lungs, likely infectious/inflammatory. 2. Bilateral lower extremity ultrasound with Doppler demonstrates no evidence for DVT. DIAGNOSTIC STUDIES: EKG demonstrates normal sinus rhythm with ST elevation in V4, V5, and V6. ASSESSMENT: The patient is a 66-year-old male with hypertension, hyperlipidemia, dementia and primary progressive aphasia, who presented to [facility] by EMS for evaluation of increasing lethargy and malaise, and who was admitted to the CCU for management of ST-elevation myocardial infarction, acute systolic heart failure, multiple electrolyte derangements and probable pneumonia. PLAN: 1. STEMI. Input from Dr. Momin noted and appreciated. Patient remains on heparin drip and has been loaded with aspirin and Plavix. Continue with Lopressor 25 mg p.o. b.i.d. and Lipitor 40 mg p.o. daily. 2. Acute systolic heart failure, likely secondary to acute [place]. A transthoracic echocardiogram is ordered and pending. As above, input from Dr. Momin noted and appreciated. Continue with Lasix 20 mg IV daily. Continue to monitor strict in's and out's. 3. Hypernatremia, etiology likely secondary to poor p.o. intake. Patient has a free water deficit of 3.4 L. Continue with IV fluid hydration consisting of isotonic saline at 75 mL per hour. Continue to monitor serum sodium daily. 4. Transaminitis, etiology likely secondary to shock liver due to poor forward flow in the setting of acute [place]. We will check acute hepatitis panel. Continue with IV fluid hydration and optimization of hemodynamics. Continue to monitor CMP daily. 5. Community-acquired pneumonia. CT of the chest reviewed and demonstrates infiltrates to the right upper lobe. This makes a low suspicion for aspiration pneumonia. The patient remains on ceftriaxone 1 g IV daily. We will resume azithromycin 500 mg IV daily. Continue to monitor for fever and leukocytosis. 6. Hypertension, blood pressure is controlled. Continue with current medications. 7. Hyperlipidemia. Continue with Lipitor 40 mg p.o. daily. 8. Dementia. Patient is at his baseline neurologic status. Continue to monitor daily. 9. Primary progressive aphasia. 10. Prophylaxis: Continue Pepcid for GI prophylaxis. DVT prophylaxis is not indicated as the patient is on heparin. CODE STATUS: Full code. Jacek Salgado MD [facility] # [id number]
[2017-06-20] MEDS: Heparin25000 units/250ml 1/2NS 25,000 UNITS/250 ML BAG IV SCH (00:49)
--- NOTE | 2017-06-20 01:02 | PN ---
DATE: 06/19/2017 LOCATION: The patient is in ICU 128, bed 2. This progress note being dictated on behalf of Dr. King, whom I am covering. REASON FOR CONSULTATION: Acute myocardial infarction, dementia, infiltrate in the lung, hypertension, and hyperlipidemia. SUBJECTIVE: The patient is lying in bed without any chest pain, shortness of breath, palpitations. PHYSICAL EXAMINATION VITAL SIGNS: Blood pressure 107/71, respirations 18, pulse 73. The patient is afebrile. Temperature 98.1. HEENT: Head is normocephalic. Eyes; pupils are normal. Conjunctivae normal. Nose and throat normal. NECK: JVP low. Carotid equal. THORAX: AP diameter normal. LUNGS: Clear. CARDIOVASCULAR: S1, S2. ABDOMEN: Soft. No tenderness. No organomegaly. Bowel sounds normal. EXTREMITIES: No clubbing. No cyanosis. LABORATORY DATA: WBC 8.1, hemoglobin 13.7, hematocrit 42.3, platelet 117. Sodium 142, potassium 3.5, BUN 33, creatinine 1.3. Total CPK 1103, second one 765, troponin initial 47.50, repeat 140.30. EKG: Anteroseptal myocardial infarction with Q wave in V1 to V4. Yesterday, CAT scan suggested infiltrate in the right lung. Today, chest x-ray reported as no significant abnormality. DIAGNOSES: Acute anteroseptal myocardial infarction, pneumonia, hypertension, hyperlipidemia, dementia, hypernatremia, and dehydration. PLAN: The patient is getting Lasix 20 IV daily, we will stop that. The patient is getting sodium chloride, normal saline 75 mL an hour, we will change it to D5W for present time because the patient has hypernitremia. The patient on Rocephin 1 g IV daily, azithromycin 500 mg IV daily. The patient is also on heparin drip. Lipitor 40 daily, metoprolol 25 b.i.d., Pepcid 20 b.i.d. Yesterday the patient received 300 mg of Plavix loading dose. We will start today Plavix 75 mg daily. We will repeat labs in the morning and we will follow. Mak Momin MD
[2017-06-20 07:37] LABS: BASO # 0.01 K/mm3 (0.0-2.0); BASO % 0.2 % (0.0-3.0); EOS % 0.5 % (1.5-5.0); GRAN # 4.28 (1.4-6.5); GRAN % 68.6 % (50.0-68.0); HEMATOCRIT 39.4 % (42.0-52.0); LYMPH # 1.4 (1.2-3.4); LYMPH % 22.4 % (22.0-35.0); MEAN CELL VOLUME 87.6 fl (80.0-105.0); MEAN CORPUSCULAR HEMOGLOBIN 29.1 pg (25.0-35.0); MEAN CORPUSCULAR HGB CONC 33.2 g/dl (31.0-37.0); MEAN PLATELET VOLUME 13.3 fl (7.0-11.0); MONO # 0.5 (0.1-0.6); MONO % 8.3 % (1.0-6.0); RED CELL DISTRIBUTION WIDTH 13.4 % (11.5-14.5); WHITE BLOOD COUNT 6.2 10^3/ul (4.5-11.0)
[2017-06-20 08:24] LABS: ALKALINE PHOSPHATASE 99 U/L (38-126); ALT/SGPT 304 U/L (7-56); AST/SGOT 254 U/L (17-59); BILIRUBIN,TOTAL 0.9 mg/dL (0.2-1.3); BLOOD UREA NITROGEN 24 mg/dL (7-21); CALCIUM 8.4 mg/dL (8.4-10.5); CARBON DIOXIDE 26 mmol/L (21-33); CHLORIDE 111 mmol/L (98-107); GFR AFRICAN-AMERICAN > 60; GLUCOSE,RANDOM 119 mg/dL (70-110); POTASSIUM 3.5 mmol/L (3.6-5.0); SODIUM 146 mmol/L (132-148); TOTAL PROTEIN 5.7 g/dL (5.8-8.3)
--- NOTE | 2017-06-20 09:30 | PN ---
DATE: 06/20/2017 CYBER SECURITY ENGINEER NOTE SUBJECTIVE: The patient is resting in bed, awake, no new complaints. He does carry diagnosis of aphasia as well as dementia. He had no respiratory distress. No shortness of breath. No cough. No wheezing. No fever, chills. No nausea or vomiting. PHYSICAL EXAMINATION: VITAL SIGNS: Note that his temperature is 98.8, his pulse is 75, BP is 108/70, respirations are 19. HEENT: Head is atraumatic and normocephalic. Eyes; reactive to light. Ears, nose, and throat seem to be within normal limits. NECK: Supple. No JVD. No thyroid enlargement. No lymph nodes. HEART: Has regular rate and rhythm. Normal S1 and S2. LUNGS: Reveal good breath sounds bilaterally. ABDOMEN: Soft, nontender. Normal bowel sounds. GENITALIA AND RECTAL: Deferred. MUSCULOSKELETAL: No joint deformities. EXTREMITIES: Reveal trace lower extremity edema. NEUROLOGICAL: He seems to be moving all extremities, awake but with aphasia and history of dementia. LABORATORY DATA: Reveal white count of 6.2, hemoglobin 13.1, hematocrit 39.4 with platelets of 137,000. His sodium is 152, potassium 3.5, chloride 113, CO2 of 30 with BUN of 33, creatinine of 1.3, and glucose of 119. His troponin is slowly decreasing and today is 40.3. IMPRESSION: As far as my impression, this patient has acute myocardial infarction, also right upper lobe pneumonia, possible sepsis with history of congestive heart failure, hypertension, and hyperlipidemia. PLAN: We will continue to follow professional sports scout's recommendations and continue on O2 via nasal cannula. The patient is also on aspirin and IV heparin, Lasix, Lopressor and Pepcid. He is getting antibiotics of Rocephin, Zithromax and is on labetalol and normal saline. We will continue to follow closely and treat aggressively along with the other consults and the primary care doctor. Nelson Ann MD
[2017-06-20] MEDS: Azithromycin 500MG/NS 250ml 500 MG/250 ML BAG IVPB SCH (09:46)
[2017-06-20] MEDS: cefTRIAXone 1 gm 1 GM/100 ML BAG IVPB SCH (09:46)
--- NOTE | 2017-06-20 21:05 | CP.PCM.PN ---
Subjective - Date & Time of Evaluation Date of Evaluation: 06/20/17 Time of Evaluation: 11:30 - Subjective Subjective: Subjective: The patient was seen and examined at bedside in the CCU. No acute events overnight. He remains clinically unchanged. Blood cultures noted to be positive with Staph. ID evaluation pending. Objective: VS: T 97.7, P 82, BP 99/58, RR 22 General: NAD HEENT: PERRL, EOMI, no scleral icterus, no conjunctival pallor Neck: No JVD Lungs: Coarse BS anteriorly with few scattered rhonchi CV: RRR, normal S1, S2 Abd: benign Ext: trace LE edema b/l Neuro: Awake and alert, not following commands, unable to answer questions Laboratory Data: WBC 6.2, Hb 13, Hct 39, Plt 137 Na 146, K 3.5, Cl 111, HCO3 26, BUN 24, Cr 1, Glucose 119 Blood cultures with Staph Assessment: The patient is a 66 year old man with HTN, HL, dementia and primary progressive aphasia who presented for evaluation of increasing lethargy and was admitted to the CCU for management of STEMI, acute systolic heart failure and sepsis secondary to pneumonia Plan: 1. STEMI. Input from Dr. Momin noted and appreciated. Continue with medical therapy consisting of heparin drip, beta blockade, statin, ASA and Plavix. TTE ordered and pending. 2. Acute systolic HF, likely secondary to acute MT. The patient has no underlying history of HF. TTE ordered and pending as above. Lasix dc as per Dr. Momin. 3. Hypernatremia, etiology likely secondary to poor po intake, resolving. Labs demonstrate favorably trending serum Na and patient remains on D5W. Will encourage po intake as per speech and swallow eval so as to wean patient off IVF. 4. Transaminitis, hepatitis panel negative. Will continue to monitor daily 5. Sepsis secondary to CAP. Patient remains on Azithromycin and Rocephin and remains afebrile and with improving leukocytosis. Procalcitonin pending. 6. Staph bacteremia. Dr. Ramirez has been consulted for further evaluation and recommendations. 7. HTN. BP controlled, c/w current meds. 8. Hyperlipidemia. Continue Lipitor 9. Dementia 10. Primary progressive aphasia 11. Prophylaxis. Continue Pepcid for GI prophylaxis and Heparin for DVT prophylaxis. Code Status: Full Code Objective - Vital Signs/Intake and Output Vital Signs (last 24 hours): Temp Pulse Resp BP Pulse Ox 98.5 F 82 26 H 99/58 L 97 06/20/17 16:00 06/20/17 18:35 06/20/17 18:35 06/20/17 18:00 06/20/17 05:00 Intake and Output: 06/20/17 06/21/17 18:59 06:59 Intake Total 2338 Output Total 350 Balance 1987 - Medications Medications: Current Medications Aspirin (Aspirin Chewable) 81 mg PO DAILY [facility] Last Admin: 06/20/17 09:49 Dose: 81 mg Atorvastatin Calcium (Lipitor) 40 mg PO DIN [facility] Last Admin: 06/20/17 17:27 Dose: 40 mg Clopidogrel Bisulfate (Plavix) 75 mg PO DAILY [facility] Last Admin: 06/20/17 09:48 Dose: 75 mg Famotidine (Pepcid) 20 mg PO BID [facility] Last Admin: 06/20/17 17:27 Dose: 20 mg Heparin Sodium/Sodium Chloride (Heparin 28931 Units/250ml 1/2 Normal Saline) 25 ,000 units in 250 mls @ 8.132 mls/hr IV .Q24H [facility]; 12 UNITS/KG/HR PRN Reason: Protocol Last Titration: 06/20/17 07:10 Dose: 14 units/kg/hr, 9.487 mls/hr Ceftriaxone Sodium (Rocephin 1 Gram Ivpb (D5w)) 1 gm in 100 mls @ 100 mls/hr IVPB DAILY [facility] PRN Reason: Protocol Last Admin: 06/20/17 09:46 Dose: 100 mls/hr Azithromycin (Zithromax 500mg In Ns) 500 mg in 250 mls @ 167 mls/hr IVPB DAILY [facility] PRN Reason: Protocol Last Admin: 06/20/17 09:46 Dose: 167 mls/hr Dextrose (Dextrose 5% In Water 1000 Ml) 1,000 mls @ 100 mls/hr IV .Q10H [facility] Last Admin: 06/20/17 17:52 Dose: 100 mls/hr Labetalol HCl (Trandate) 5 mg IV Q6 PRN PRN Reason: sbp>160 Metoprolol Tartrate (Lopressor) 25 mg PO BID [facility] Last Admin: 06/20/17 17:27 Dose: 25 mg - Labs Labs: 06/20/17 07:00 06/20/17 07:00 PT 13.1 SECONDS (9.4-12.5) H 06/18/17 16:15 INR 1.20 (0.93-1.08) H 06/18/17 16:15 APTT 52.3 Seconds (25.1-36.5) H 06/20/17 19:20
--- NOTE | 2017-06-20 23:36 | PN ---
DATE: 06/20/2017 LOCATION: The patient is in ICU 128, bed 2. This note being dictated on behalf of Dr. King, whom I am covering. REASON FOR CONSULTATION: Acute myocardial infarction, dementia, infiltrate in the lung, hypertension, hyperlipidemia. SUBJECTIVE: The patient is lying comfortably in bed without any respiratory distress. PHYSICAL EXAMINATION: VITAL SIGNS: Blood pressure 103/58, pulse 78, temperature 98.3, respirations 25. HEENT: Head is normocephalic. Eyes; pupils are normal. Conjunctivae normal. Nose and throat normal. NECK: JVP low. Carotid equal. THORAX: AP diameter normal. LUNGS: No significant rales. CARDIOPULMONARY: S1 and S2. ABDOMEN: Soft, nontender. No organomegaly. EXTREMITIES: No clubbing. No cyanosis. LABORATORY DATA: WBC 6.2, hemoglobin 13.1, hematocrit 39.4, platelets 137. Sodium 146, potassium 3.5, BUN 24, creatinine 1.0. AST 254, ALT 304, total protein 5.7, albumin 2.9. First troponin was 59.00, second was 47.50, third one 40.30. DIAGNOSES: Acute anteroseptal myocardial infarction, pneumonia, hypertension, hyperlipidemia, dementia, hypernatremia. Yesterday, sodium was 152, today is 146. Hypokalemia. PLAN: Yesterday due to hypernatremia, I stopped the patient's Lasix and also changed his IV therapy to 5% Dexilant water and today his sodium level has improved. The patient is on aspirin 81 mg daily, Dexilant water 100 mL an hour, heparin drip, Lipitor 40 p.o. daily, metoprolol 25 b.i.d., Pepcid 20 b.i.d., Plavix 75 mg daily. For hypokalemia, I already gave him potassium 10 mEq bolus and I will give another 10 mEq. The patient is on ceftriaxone 1 g IV daily, azithromycin 500 mg IV daily. Repeat blood work for tomorrow morning has been already ordered. From tomorrow Dr. Yao will follow the patient. Mak Momin MD
[2017-06-21] MEDS: Heparin25000 units/250ml 1/2NS 25,000 UNITS/250 ML BAG IV SCH (04:12)
[2017-06-21 05:54] LABS: BASO # 0.01 K/mm3 (0.0-2.0); BASO % 0.2 % (0.0-3.0); EOS % 0.7 % (1.5-5.0); GRAN # 3.83 (1.4-6.5); GRAN % 64.7 % (50.0-68.0); HEMATOCRIT 37.6 % (42.0-52.0); LYMPH # 1.4 (1.2-3.4); LYMPH % 24.2 % (22.0-35.0); MEAN CORPUSCULAR HEMOGLOBIN 29.1 pg (25.0-35.0); MEAN CORPUSCULAR HGB CONC 33.8 g/dl (31.0-37.0); MONO # 0.6 (0.1-0.6); MONO % 10.2 % (1.0-6.0); RED CELL DISTRIBUTION WIDTH 13.2 % (11.5-14.5); WHITE BLOOD COUNT 5.9 10^3/ul (4.5-11.0)
[2017-06-21 07:07] LABS: ALB/GLOB RATIO 0.9 (1.1-1.8); ALKALINE PHOSPHATASE 105 U/L (38-126); ALT/SGPT 461 U/L (7-56); AST/SGOT 275 U/L (17-59); BLOOD UREA NITROGEN 16 mg/dL (7-21); CALCIUM 8.2 mg/dL (8.4-10.5); CARBON DIOXIDE 27 mmol/L (21-33); CHLORIDE 107 mmol/L (98-107); GFR AFRICAN-AMERICAN > 60; GLUCOSE,RANDOM 124 mg/dL (70-110); POTASSIUM 3.3 mmol/L (3.6-5.0); SODIUM 139 mmol/L (132-148)
[2017-06-21] MEDS: cefTRIAXone 1 gm 1 GM/100 ML BAG IVPB SCH ×2 (08:30→09:27)
--- NOTE | 2017-06-21 08:58 | CON ---
DATE: 06/21/2017 LOCATION: The patient's and seen in the ICU 128, bed #2. CHIEF COMPLAINT: Positive blood culture x1-day duration. HISTORY OF PRESENT ILLNESS: This is a 66-year-old male with history of primary progressive aphasia, history of dementia, hyperlipidemia, hypertension, coronary artery disease, depression, who is admitted and with diagnoses of sepsis, pneumonia, urinary tract infection, myocardial infarction. Infectious Disease consultation requested. The patient's blood cultures done and one bottle is positive for coag-negative Staph. REVIEW OF SYSTEMS: Reveals the patient is not having any fevers now or in admission. The patient did have a temperature of 100.5 and at this point is poor historian. There has been no chills reported. No abdominal pain reported. No diarrhea or constipation. Unable to clearly verbalize. PAST MEDICAL HISTORY: Significant for the primary progressive aphasia. The patient with dementia, hyperlipidemia, hypertension, coronary artery disease, depression. PAST SURGICAL HISTORY: Noncontributory. ALLERGIES: THE PATIENT IS ALLERGIC TO PENICILLIN, THE TYPE OF ALLERGY IS NOT ENTIRELY CLEAR. MEDICATIONS: At home are reviewed and included Levaquin and lisinopril, although it is not clear when he was on the Levaquin. PHYSICAL EXAMINATION: GENERAL: He is in bed, in no acute distress. He appeared to be comfortable. VITAL SIGNS: With a temperature of 97.5, T max is 100.5 and blood pressure is 108/70, respiratory rate of 23 and his blood pressure was down to 66/48 on admission and the heart rate is down to 79 and it was up to 94 on admission. HEENT: Unremarkable. NECK: Supple. LUNGS: Have decreased breath sounds. HEART: Normal S1, S2. ABDOMEN: Soft, nontender. LABORATORY DATA: Reveals the patient's white count of 13,000, hemoglobin of 15, and platelets of 127. Coagulation is noted. Blood gases are reviewed and the patient's BUN is 37, creatinine of 1.4. LFTs were elevated, LDH is elevated and CK is elevated. Procalcitonin is 0.35. Urinalysis is noted to have 0-2 wbc's. Hepatitis profile is negative. Microbiology reveals one bottle of blood cultures positive for gram-positive cocci. By PNA FISH, it is a coag-negative Staph, and the patient had a chest x-ray which was negative. However, the CT scan of the chest and neck is reviewed and shows that there is multifocal infiltrates on the right lung. Dr. Jacek Salgado's note from yesterday is reviewed and appreciated. ASSESSMENT AND PLAN: A 66-year-old male with primary progressive aphasia, dementia, depression, hyperlipidemia, hypertension, coronary artery disease with sepsis with acute anterior septal wall myocardial infarction with acute systolic congestive heart failure and community-acquired pneumonia, right-sided aspiration pneumonia with a coag-negative Staph bacteremia most consistent with a contamination. No intravascular devices, and we will check on the repeat procalcitonin and repeat blood cultures x2 and continue the ceftriaxone and azithromycin as ordered by Dr. Jacek Salgado, and we will follow closely with you. Of note is the patient's QTC is 416, and we will also order a urine for Legionella antigen. We will follow closely with you. Devon Ramirez MD
[2017-06-21] MEDS: Azithromycin 500MG/NS 250ml 500 MG/250 ML BAG IVPB SCH (09:29)
[2017-06-21] MEDS ORDERED: Potassium Chloride 40 mEq/30 ml LIQ UD PO ONE (10:23)
[2017-06-21] MEDS ORDERED: Lidocaine 2% Inj (20ml) ONE (10:45)
[2017-06-21] MEDS ORDERED: Midazolam 2 MG/2 ML VIAL ONE (10:46)
[2017-06-21] MEDS ORDERED: Iodixanol 320 MG/ML 200 ML BOTTLE IV ONE ×2 (10:47→10:48)
--- NOTE | 2017-06-21 10:54 | CP.PCM.PN ---
Subjective - Date & Time of Evaluation Date of Evaluation: 06/21/17 Time of Evaluation: 08:15 - Subjective Subjective: Pt seen and examined, reports NO SOB, cp, fever, chills, or cough. Objective - Vital Signs/Intake and Output Vital Signs (last 24 hours): Temp Pulse Resp BP Pulse Ox 98.2 F 91 H 22 107/60 98 06/21/17 08:17 06/21/17 09:30 06/21/17 08:16 06/21/17 09:30 06/21/17 08:00 Intake and Output: 06/21/17 06/21/17 06:59 18:59 Intake Total 1425 Output Total 600 Balance 825 - Medications Medications: Current Medications Aspirin (Aspirin Chewable) 81 mg PO DAILY [facility] Last Admin: 06/21/17 09:31 Dose: 81 mg Atorvastatin Calcium (Lipitor) 40 mg PO DIN [facility] Last Admin: 06/20/17 17:27 Dose: 40 mg Clopidogrel Bisulfate (Plavix) 75 mg PO DAILY [facility] Last Admin: 06/21/17 09:30 Dose: 75 mg Famotidine (Pepcid) 20 mg PO BID [facility] Last Admin: 06/21/17 09:31 Dose: 20 mg Heparin Sodium/Sodium Chloride (Heparin 60270 Units/250ml 1/2 Normal Saline) 25 ,000 units in 250 mls @ 8.132 mls/hr IV .Q24H [facility]; 12 UNITS/KG/HR PRN Reason: Protocol Last Admin: 06/21/17 04:12 Dose: 14 units/kg/hr, 9.487 mls/hr Ceftriaxone Sodium (Rocephin 1 Gram Ivpb (D5w)) 1 gm in 100 mls @ 100 mls/hr IVPB DAILY [facility] PRN Reason: Protocol Last Admin: 06/21/17 09:27 Dose: Not Given Azithromycin (Zithromax 500mg In Ns) 500 mg in 250 mls @ 167 mls/hr IVPB DAILY [facility] PRN Reason: Protocol Last Admin: 06/21/17 09:29 Dose: 167 mls/hr Labetalol HCl (Trandate) 5 mg IV Q6 PRN PRN Reason: sbp>160 Metoprolol Tartrate (Lopressor) 25 mg PO BID [facility] Last Admin: 06/21/17 09:30 Dose: 25 mg - Labs Labs: 06/21/17 05:35 06/21/17 05:35 PT 13.1 SECONDS (9.4-12.5) H 06/18/17 16:15 INR 1.20 (0.93-1.08) H 06/18/17 16:15 APTT 57.3 Seconds (25.1-36.5) H 06/21/17 07:10 - Constitutional Appears: Well, Non-toxic, No Acute Distress - Head Exam Head Exam: NORMAL INSPECTION - Eye Exam Eye Exam: Normal appearance - ENT Exam ENT Exam: Mucous Membranes Moist - Neck Exam Neck Exam: Full ROM - Respiratory Exam Respiratory Exam: Clear to Ausculation Bilateral, NORMAL BREATHING PATTERN - Cardiovascular Exam Cardiovascular Exam: REGULAR RHYTHM, +S1, +S2 - GI/Abdominal Exam GI & Abdominal Exam: Soft, Normal Bowel Sounds - Extremities Exam Extremities Exam: Full ROM, Normal Inspection - Neurological Exam Neurological Exam: Alert, Awake Assessment and Plan - Assessment and Plan (Free Text) Assessment: 66yo male a/w NSTEMI, and CAP CAP NSTEMI Elevated LFTs Dehydration Recommend: - supp o2 as needed - Rocephin, Azithromycin - follow up Urine Lg, Strep, Procal - repeat Blood cultures - follow up ID - ASA, Plavix, Statin, BB - Heparin drip - NPO for cardiac cath today - follow up cardiology - ECHO - Check hep Panel - RUQ Sono - GI ppx - DVT ppx - stable
--- NOTE | 2017-06-21 11:08 | PN ---
SUBJECTIVE: The patient was seen and examined on the bedside in the CCU. No acute events overnight. He remains afebrile, hemodynamically stable and largely clinically unchanged. PHYSICAL EXAMINATION: VITAL SIGNS: Temperature 98.9, pulse 83, blood pressure 108/70, respiratory rate 20 and oxygen saturation 94% on 2L NC GENERAL: No apparent distress. HEENT: PERRL, EOMI. No scleral icterus. No conjunctival pallor. NECK: No JVD. No bruits. LUNGS: Clear to auscultation anteriorly. CARDIOVASCULAR: Regular rate and rhythm. Normal S1 and S2. ABDOMEN: Normoactive bowel sounds, soft, nontender, and nondistended. EXTREMITIES: Trace lower extremity edema bilaterally. NEUROLOGIC: Awake and alert. Unable to follow commands or answer questions. Able to move all extremities. LABORATORY DATA: WBC of 5.9 with 65% neutrophils, hemoglobin of 12.7, hematocrit of 38, and platelets of 123. Sodium of 139, potassium of 3.3, chloride of 107, bicarbonate of 27, BUN of 16, creatinine of 1.1, and glucose of 124. AST of 275 and ALT of 461. Blood cultures with coagulase-negative Staphylococcus. ASSESSMENT: The patient is a 66 year old man with hypertension, hyperlipidemia , dementia and primary progressive aphasia who presented to [facility] by EMS for evaluation of increasing lethargy and malaise and who was admitted to the CCU for management of STEMI, acute systolic heart failure, multiple electrolyte derangements and sepsis secondary to pneumonia. PLAN: 1. STEMI. Input from Dr. Momin noted and appreciated. The patient is presently on medical management consisting of heparin drip, Plavix 75 mg p.o. daily, Lipitor 40 mg p.o. daily, Aspirin 81 mg p.o. daily and Metoprolol 25 mg p.o. b.i.d. 2. Acute systolic heart failure, likely secondary to acute STEMI, resolving. TTE is pending. Patient remains off Lasix and largely clinically euvolemic. 3. Hypernatremia, etiology likely secondary to poor p.o. intake, resolved. We will discontinue IV fluids today and encourage p.o. intake. 4. Sepsis secondary to CAP. The patient is on Azithromycin 500 mg IV daily and Ceftriaxone 1 g IV daily. Input from Dr. Ramirez of Infectious Diseases is pending. 5. Bacteremia secondary to coagulase negative Staphylococcus. As above input from Dr. Ramirez is pending. A procalcitonin level has been ordered. TTE pending. 6. Transaminitis, consider etiology secondary to poor forward flow in the setting of acute myocardial infarction. Acute hepatitis panel is negative. Legionella has been sent and pending. Continue to monitor CMP daily. RUQ U/S pending. 7. Hypertension, blood pressure is controlled. Continue with current medications. 8. Hyperlipidemia. Continue Lipitor 40 mg p.o. daily. 9. Dementia. The patient remains at his baseline neurologic status. 10. Primary progressive aphasia. 11. Prophylaxis: Continue with Pepcid for GI prophylaxis. The patient remains on heparin drip thus DVT prophylaxis is not indicated. CODE STATUS: Full code. Jacek Salgado MD MTDD
--- NOTE | 2017-06-21 11:08 | PN ---
DATE: 06/21/2017 CARDIOLOGY FOLLOWUP HISTORY: The patient presented with an acute anterior wall myocardial infarction. The patient suffers from aphasia. Currently, the patient is comfortable in bed without shortness of breath. PHYSICAL EXAMINATION: VITAL SIGNS: Blood pressure is 107/60 and the heart rate in the 90s. NECK: Negative JVD. LUNGS: Without rales. HEART: Reveals S1 and S2. EXTREMITIES: Without edema. LABORATORY DATA: The EKG shows an acute anterior wall KS. Hemoglobin is 12.7. Chemistries, troponins are 40 with a BUN and creatinine of 9 and 1.1. IMPRESSION: 1. Acute anterior wall myocardial infarction. 2. Coronary artery disease. 3. Congestive heart failure. 4. Primary aphasia. 5. Hypertension. PLAN: Given these findings, we will continue his heparin, beta-blockers, and Plavix. We will need to discuss with the family about possible cardiac catheterization. Seymour King MD
[2017-06-21] MEDS ORDERED: Sodium Chloride 0.9% 1,000 ML IV SCH (13:00)
--- NOTE | 2017-06-21 14:29 | CARD ---
APPROVED REPORT EKG Measurement Heart [id number] <Conclusion> Poor data quality, interpretation may be adversely affected Normal sinus rhythm Left axis deviation Anterolateral infarct, age undetermined Electrical artifact and wandering baseline (V 6).
--- NOTE | 2017-06-21 19:25 | CARD ---
APPROVED REPORT EXAM: Two-dimensional and M-mode echocardiogram with Doppler and color Doppler. INDICATION 2D DIMENSIONS IVSd1.5 (0.7-1.1cm)LVDd3.9 (3.9-5.9cm) PWd1.4 (0.7-1.1cm)LVDs3.4 (2.5-4.0cm) FS (%) 12.5 %LVEF (%)27.3 (>50%) M-Mode DIMENSIONS Left Atrium (MM)3.50 (2.5-4.0cm)Aortic Root3.70 (2.2-3.7cm) Aortic Cusp Exc.2.00 (1.5-2.0cm) Aortic Valve AoV Peak Vjvkmaqn29.7cm/Ralf Peak GR.2mmHg Mitral Valve MV E Xqhcmzlt78.8cm/sMV A Epnmzqac33.5cm/sE/A ratio1.4 TDI Lateral E' Peak V7.60cm/sMedial E' Peak V4.97cm/sE/Lateral E'7.5 E/Medial E'11.4 Tricuspid Valve TR Peak [id number]/sRAP [id number] Peak Gr.6mmHg [id number] LEFT VENTRICLE The left ventricle is normal size. There is mild to moderate concentric left ventricular hypertrophy. The systolic function is moderately to severely impaired.EF-25% There is akinesis in the apical septal wall. Transmitral Doppler flow pattern is Grade II-pseudonormal filling dynamics. No left ventricle thrombus noted on this study. There is no ventricular septal defect visualized. There is no left ventricular aneurysm. Organized Layered Thrombus noted attatched to Apival septum. RIGHT VENTRICLE The right ventricle is normal size. There is normal right ventricular wall thickness. The right ventricular systolic function is normal. ATRIA The left atrium size is normal. The right atrium size is normal. The interatrial septum is intact with no evidence for an atrial septal defect. AORTIC VALVE The aortic valve is thickened but opens well. There is trace aortic regurgitation. There is no aortic valvular stenosis. There is no aortic valvular vegetation. MITRAL VALVE The mitral valve is thickened but opens well. Mitral regurgitation is trace. There is no mitral valve stenosis. There is no evidence of mitral valve prolapse. TRICUSPID VALVE The tricuspid valve leaflets are thickened , but open well. There is trace tricuspid regurgitation.RVSP-16 mmof Hg. There is no tricuspid valve stenosis. There is no tricuspid valve prolapse or vegetation. PULMONIC VALVE The pulmonary valve is normal in structure. There is trace pulmonic valvular regurgitation. There is no pulmonic valvular stenosis. GREAT VESSELS The aortic root is normal in size. The ascending aorta is normal in size. The pulmonary artery is normal. The IVC is normal in size and collapses >50% with inspiration. PERICARDIAL EFFUSION There is no pleural effusion. There is no pericardial effusion. <Conclusion> The left ventricle is normal size. There is mild to moderate concentric left ventricular hypertrophy. The systolic function is moderately to severely impaired.EF-25% Organized Layered Thrombus noted attatched to Apival septum. Trace MR/TR/AR/PI
[2017-06-22 06:19] LABS: ALB/GLOB RATIO 0.9 (1.1-1.8); ALKALINE PHOSPHATASE 103 U/L (38-126); ALT/SGPT 287 U/L (7-56); AST/SGOT 95 U/L (17-59); BILIRUBIN,TOTAL 0.9 mg/dL (0.2-1.3); BLOOD UREA NITROGEN 16 mg/dL (7-21); CALCIUM 8.2 mg/dL (8.4-10.5); CARBON DIOXIDE 27 mmol/L (21-33); CHLORIDE 107 mmol/L (98-107); GFR AFRICAN-AMERICAN > 60; GLUCOSE,RANDOM 105 mg/dL (70-110); POTASSIUM 4.2 mmol/L (3.6-5.0); SODIUM 142 mmol/L (132-148); TOTAL PROTEIN 6.1 g/dL (5.8-8.3)
[2017-06-22 06:38] LABS: EOS # 0.1 (0.0-0.7); EOS % 0.7 % (1.5-5.0); GRAN # 5.21 (1.4-6.5); GRAN % 73.9 % (50.0-68.0); HEMATOCRIT 37.6 % (42.0-52.0); LYMPH # 1.1 (1.2-3.4); LYMPH % 14.9 % (22.0-35.0); MEAN CELL VOLUME 86.2 fl (80.0-105.0); MEAN CORPUSCULAR HEMOGLOBIN 29.1 pg (25.0-35.0); MEAN CORPUSCULAR HGB CONC 33.8 g/dl (31.0-37.0); MEAN PLATELET VOLUME 13.5 fl (7.0-11.0); MONO # 0.7 (0.1-0.6); MONO % 10.5 % (1.0-6.0); RED CELL DISTRIBUTION WIDTH 13.2 % (11.5-14.5); WHITE BLOOD COUNT 7.1 10^3/ul (4.5-11.0)
--- NOTE | 2017-06-22 09:39 | CP.CCUPN ---
<Ian Castro - Last Filed: 06/22/17 09:42> CCU Subjective - Physician Review Subjective (Free Text): Pt seen and examined at bedside. Pt doing well overnight with no acute complaints. Pt s/p cardiac cath yesterday with 2 stents placed in LAD. Pt is aphasic. CCU Objective - Vital Signs / Intake & Output Vital Signs (Last 4 hours): Vital Signs Temp 06/22/17 08:00 99.3 F Intake and Output (Last 8hrs): Intake & Output 06/21/17 06/22/17 06/22/17 22:59 06:59 14:59 Intake Total 750 Output Total 3800 500 Balance -3050 -500 Intake: IV 350 Left Forearm 350 Oral 400 Output: Urine 3800 500 Urethral (Whitaker) 3800 500 - Physical Exam Head: Positive for: Atraumatic, Normocephalic Pupils: Positive for: PERRL Extroacular Muscles: Positive for: EOMI Conjunctiva: Positive for: Normal Mouth: Positive for: Moist Mucous Membranes Pharnyx: Positive for: Other Nose (Internal): Positive for: Normal Inspection, No Active Bleeding. Negative for: Rhinorrhea, Septal Hematoma, Epistaxis Neck: Positive for: Normal Range of Motion, Trachea Midline. Negative for: MIDLINE TENDERNESS, Lymphadenopathy Respiratory/Chest: Positive for: Clear to Auscultation, Good Air Exchange. Negative for: Respiratory Distress, Accessory Muscle Use, Wheezes, Decreased Breath Sounds, Rales, Retracting, Rhonchi Cardiovascular: Positive for: Regular Rate and Rhythm, Normal S1, S2, Other. Negative for: Murmurs Abdomen: Positive for: Normal Bowel Sounds. Negative for: Tenderness, Distention, Peritoneal Signs, Rebound, Guarding Genitourinary Male: Positive for: Other (Right groin dressing clean, dry, and intact.) Back: Positive for: Normal Inspection Upper Extremity: Positive for: Normal Inspection. Negative for: Cyanosis, Edema Lower Extremity: Positive for: Normal Inspection. Negative for: Edema Neurological: Positive for: Motor Func Grossly Intact Skin: Positive for: Warm, Dry, Normal Color. Negative for: Rashes Psychiatric: Positive for: Alert, Oriented x 3, Normal Insight, Normal Concentration - Medications Active Medications: Active Medications Generic Name Dose Route Start Last Admin Trade Name Freq PRN Reason Stop Dose Admin Aspirin 81 mg 06/22/17 10:00 Ecotrin PO DAILY [facility] Atorvastatin Calcium 40 mg 06/19/17 17:00 06/21/17 18:17 Lipitor PO 40 mg DIN PAULA Administration Azithromycin 500 mg 06/22/17 10:00 Zithromax PO DAILY PAULA Clopidogrel Bisulfate 75 mg 06/19/17 19:00 06/21/17 09:30 Plavix PO 75 mg DAILY PAULA Administration Famotidine 20 mg 06/19/17 10:00 06/21/17 18:18 Pepcid PO 20 mg BID PAULA Administration Furosemide 40 mg 06/21/17 13:00 06/21/17 13:36 Lasix IVP 40 mg DAILY PAULA Administration Sodium Chloride 1,000 mls @ 10 mls/hr 06/21/17 13:00 06/21/17 18:14 Sodium Chloride 0.9% IV 10 mls/hr .Q24H PAULA Administration Labetalol HCl 5 mg 06/18/17 20:00 Trandate IV Q6 PRN sbp>160 Metoprolol Tartrate 25 mg 06/18/17 23:00 06/21/17 18:17 Lopressor PO 25 mg BID PAULA Administration - Patient Studies Lab Studies: Microbiology Studies 06/21/17 05:35 Blood Culture - Preliminary Blood-Venous NO GROWTH AFTER 24 HOURS Lab Studies 06/22/17 06/22/17 06/22/17 Range/Units 05:15 05:15 05:00 WBC 7.1 D (4.5-11.0) 10^3/ul RBC 4.36 (3.5-6.1) 10^6/uL Hgb 12.7 L (14.0-18.0) g/dL Hct 37.6 L (42.0-52.0) % MCV 86.2 (80.0-105.0) fl MCH 29.1 (25.0-35.0) pg MCHC 33.8 (31.0-37.0) g/dl RDW 13.2 (11.5-14.5) % Plt Count 134 (120.0-450.0) 10^3/uL MPV 13.5 H (7.0-11.0) fl Gran % 73.9 H (50.0-68.0) % Lymph % (Auto) 14.9 L (22.0-35.0) % Callaway % (Auto) 10.5 H (1.0-6.0) % Eos % (Auto) 0.7 L (1.5-5.0) % Baso % (Auto) 0.0 (0.0-3.0) % Gran # 5.21 (1.4-6.5) Lymph # 1.1 L (1.2-3.4) Callaway # 0.7 H (0.1-0.6) Eos # 0.1 (0.0-0.7) Baso # 0.00 (0.0-2.0) K/mm3 APTT 32.4 (25.1-36.5) Seconds Sodium 142 (132-148) mmol/L Potassium 4.2 (3.6-5.0) mmol/L Chloride 107 (98-107) mmol/L Carbon Dioxide 27 (21-33) mmol/L Anion Gap 13 (10-20) BUN 16 (7-21) mg/dL Creatinine 1.2 (0.8-1.5) mg/dl Est GFR ( Amer) > 60 Est GFR (Non-Af Amer) > 60 Random Glucose 105 (70-110) mg/dL Calcium 8.2 L (8.4-10.5) mg/dL Total Bilirubin 0.9 (0.2-1.3) mg/dL AST 95 H D (17-59) U/L ALT 287 H (7-56) U/L Alkaline Phosphatase 103 (38-126) U/L Total Protein 6.1 (5.8-8.3) g/dL Albumin 2.8 L (3.0-4.8) g/dL Globulin 3.3 gm/dL Albumin/Globulin Ratio 0.9 L (1.1-1.8) Procalcitonin (0.19-0.49) NG/ML Ur L.pneumophila Ag (NEGATIVE) 06/21/17 06/21/17 Range/Units 08:16 05:35 WBC (4.5-11.0) 10^3/ul RBC (3.5-6.1) 10^6/uL Hgb (14.0-18.0) g/dL Hct (42.0-52.0) % MCV (80.0-105.0) fl MCH (25.0-35.0) pg MCHC (31.0-37.0) g/dl RDW (11.5-14.5) % Plt Count (120.0-450.0) 10^3/uL MPV (7.0-11.0) fl Gran % (50.0-68.0) % Lymph % (Auto) (22.0-35.0) % Callaway % (Auto) (1.0-6.0) % Eos % (Auto) (1.5-5.0) % Baso % (Auto) (0.0-3.0) % Gran # (1.4-6.5) Lymph # (1.2-3.4) Callaway # (0.1-0.6) Eos # (0.0-0.7) Baso # (0.0-2.0) K/mm3 APTT (25.1-36.5) Seconds Sodium (132-148) mmol/L Potassium (3.6-5.0) mmol/L Chloride (98-107) mmol/L Carbon Dioxide (21-33) mmol/L Anion Gap (10-20) BUN (7-21) mg/dL Creatinine (0.8-1.5) mg/dl Est GFR ( Amer) Est GFR (Non-Af Amer) Random Glucose (70-110) mg/dL Calcium (8.4-10.5) mg/dL Total Bilirubin (0.2-1.3) mg/dL AST (17-59) U/L ALT (7-56) U/L Alkaline Phosphatase (38-126) U/L Total Protein (5.8-8.3) g/dL Albumin (3.0-4.8) g/dL Globulin gm/dL Albumin/Globulin Ratio (1.1-1.8) Procalcitonin 0.15 L (0.19-0.49) NG/ML Ur L.pneumophila Ag Negative (NEGATIVE) Laboratory Results - last 24 hr 06/21/17 06/21/17 06/22/17 05:35 08:16 05:00 WBC 7.1 D RBC 4.36 Hgb 12.7 L Hct 37.6 L MCV 86.2 MCH 29.1 MCHC 33.8 RDW 13.2 Plt Count 134 MPV 13.5 H Gran % 73.9 H Lymph % (Auto) 14.9 L Callaway % (Auto) 10.5 H Eos % (Auto) 0.7 L Baso % (Auto) 0.0 Gran # 5.21 Lymph # 1.1 L Callaway # 0.7 H Eos # 0.1 Baso # 0.00 APTT Sodium Potassium Chloride Carbon Dioxide Anion Gap BUN Creatinine Est GFR ( Amer) Est GFR (Non-Af Amer) Random Glucose Calcium Total Bilirubin AST ALT Alkaline Phosphatase Total Protein Albumin Globulin Albumin/Globulin Ratio Procalcitonin 0.15 L Ur L.pneumophila Ag Negative 06/22/17 06/22/17 05:15 05:15 WBC RBC Hgb Hct MCV MCH MCHC RDW Plt Count MPV Gran % Lymph % (Auto) Callaway % (Auto) Eos % (Auto) Baso % (Auto) Gran # Lymph # Callaway # Eos # Baso # APTT 32.4 Sodium 142 Potassium 4.2 Chloride 107 Carbon Dioxide 27 Anion Gap 13 BUN 16 Creatinine 1.2 Est GFR ( Amer) > 60 Est GFR (Non-Af Amer) > 60 Random Glucose 105 Calcium 8.2 L Total Bilirubin 0.9 AST 95 H D ALT 287 H Alkaline Phosphatase 103 Total Protein 6.1 Albumin 2.8 L Globulin 3.3 Albumin/Globulin Ratio 0.9 L Procalcitonin Ur L.pneumophila Ag EKG/Cardiology Studies: Cardiology / EKG Studies 06/21/17 12:50 ELECTROCARDIOGRAM Urgent Comment: 12 lead EKG upon arrival in unit Reason For Exam: post ptca 06/22/17 13:00 ELECTROCARDIOGRAM DAILY Comment: Reason For Exam: chest pain Critical Care Progress Note - Nutrition Nutrition: Nutrition Category Date Time Status Pureed [Dysphagia/Modified Consistency Diet] [DIET] Diets 06/21/17 Dinner Ordered Assessment/Plan - Assessment and Plan (Free Text) Plan: 66 y/o M with PMH of hypertension, HLD, dementia, and aphasia presents with NSTEMI and CAP. Pt underwent cardiac cath with 2 stents placed in the LAD yesterday. Pt remains on Azithromycin for CAP, will continue to follow ID recs. Pt will be transferred to telemetry later today. Neuro: Aphasic, hx of dementia Currently at baseline Cardio: NSTEMI, s/p cath Continue ASA, plavix, lipitor, lasix, lopressor Cardiology, Dr. King following Maintain MAP > 65 Hemodynamically stable Pulm: CAP, continue Azithromycin. Consider Rocephin Follow ID recs, Dr. Ramirez Maintain O2 sats > 90% GI: Pepcid for GI PPX Dysphagia diet Renal: Maintain euvolemia Replenish electrolytes as needed ID: Afebrile, No leukocytosis Maintain normothermia Procal negative Continue Azithromycin Endocrine: Maintain euglycemia Matthew, PGY-2 <Donal Calzada - Last Filed: 06/22/17 11:21> CCU Objective - Vital Signs / Intake & Output Vital Signs (Last 4 hours): Vital Signs Temp BP 06/22/17 10:03 104/68 06/22/17 08:00 99.3 F Intake and Output (Last 8hrs): Intake & Output 06/21/17 06/22/17 06/22/17 22:59 06:59 14:59 Intake Total 750 Output Total 3800 500 Balance -3050 -500 Intake: IV 350 Left Forearm 350 Oral 400 Output: Urine 3800 500 Urethral (Whitaker) 3800 500 - Medications Active Medications: Active Medications Generic Name Dose Route Start Last Admin Trade Name Freq PRN Reason Stop Dose Admin Aspirin 81 mg 06/22/17 10:00 06/22/17 10:03 Ecotrin PO 81 mg DAILY PAULA Administration Atorvastatin Calcium 40 mg 06/19/17 17:00 06/21/17 18:17 Lipitor PO 40 mg DIN PAULA Administration Azithromycin 500 mg 06/22/17 10:00 06/22/17 10:03 Zithromax PO 500 mg DAILY PAULA Administration Clopidogrel Bisulfate 75 mg 06/19/17 19:00 06/22/17 10:03 Plavix PO 75 mg DAILY PAULA Administration Famotidine 20 mg 06/19/17 10:00 06/22/17 10:03 Pepcid PO 20 mg BID PAULA Administration Furosemide 40 mg 06/21/17 13:00 06/22/17 10:03 Lasix IVP 40 mg DAILY PAULA Administration Sodium Chloride 1,000 mls @ 10 mls/hr 06/21/17 13:00 06/21/17 18:14 Sodium Chloride 0.9% IV 10 mls/hr .Q24H PAULA Administration Labetalol HCl 5 mg 06/18/17 20:00 Trandate IV Q6 PRN sbp>160 Metoprolol Tartrate 25 mg 06/18/17 23:00 06/21/17 18:17 Lopressor PO 25 mg BID PAULA Administration - Patient Studies Lab Studies: Microbiology Studies 06/21/17 05:35 Blood Culture - Preliminary Blood-Venous NO GROWTH AFTER 24 HOURS Lab Studies 06/22/17 06/22/17 06/22/17 Range/Units 05:15 05:15 05:00 WBC 7.1 D (4.5-11.0) 10^3/ul RBC 4.36 (3.5-6.1) 10^6/uL Hgb 12.7 L (14.0-18.0) g/dL Hct 37.6 L (42.0-52.0) % MCV 86.2 (80.0-105.0) fl MCH 29.1 (25.0-35.0) pg MCHC 33.8 (31.0-37.0) g/dl RDW 13.2 (11.5-14.5) % Plt Count 134 (120.0-450.0) 10^3/uL MPV 13.5 H (7.0-11.0) fl Gran % 73.9 H (50.0-68.0) % Lymph % (Auto) 14.9 L (22.0-35.0) % Callaway % (Auto) 10.5 H (1.0-6.0) % Eos % (Auto) 0.7 L (1.5-5.0) % Baso % (Auto) 0.0 (0.0-3.0) % Gran # 5.21 (1.4-6.5) Lymph # 1.1 L (1.2-3.4) Callaway # 0.7 H (0.1-0.6) Eos # 0.1 (0.0-0.7) Baso # 0.00 (0.0-2.0) K/mm3 APTT 32.4 (25.1-36.5) Seconds Sodium 142 (132-148) mmol/L Potassium 4.2 (3.6-5.0) mmol/L Chloride 107 (98-107) mmol/L Carbon Dioxide 27 (21-33) mmol/L Anion Gap 13 (10-20) BUN 16 (7-21) mg/dL Creatinine 1.2 (0.8-1.5) mg/dl Est GFR ( Amer) > 60 Est GFR (Non-Af Amer) > 60 Random Glucose 105 (70-110) mg/dL Calcium 8.2 L (8.4-10.5) mg/dL Total Bilirubin 0.9 (0.2-1.3) mg/dL AST 95 H D (17-59) U/L ALT 287 H (7-56) U/L Alkaline Phosphatase 103 (38-126) U/L Total Protein 6.1 (5.8-8.3) g/dL Albumin 2.8 L (3.0-4.8) g/dL Globulin 3.3 gm/dL Albumin/Globulin Ratio 0.9 L (1.1-1.8) Procalcitonin (0.19-0.49) NG/ML Ur L.pneumophila Ag (NEGATIVE) 06/21/17 06/21/17 Range/Units 08:16 05:35 WBC (4.5-11.0) 10^3/ul RBC (3.5-6.1) 10^6/uL Hgb (14.0-18.0) g/dL Hct (42.0-52.0) % MCV (80.0-105.0) fl MCH (25.0-35.0) pg MCHC (31.0-37.0) g/dl RDW (11.5-14.5) % Plt Count (120.0-450.0) 10^3/uL MPV (7.0-11.0) fl Gran % (50.0-68.0) % Lymph % (Auto) (22.0-35.0) % Callaway % (Auto) (1.0-6.0) % Eos % (Auto) (1.5-5.0) % Baso % (Auto) (0.0-3.0) % Gran # (1.4-6.5) Lymph # (1.2-3.4) Callaway # (0.1-0.6) Eos # (0.0-0.7) Baso # (0.0-2.0) K/mm3 APTT (25.1-36.5) Seconds Sodium (132-148) mmol/L Potassium (3.6-5.0) mmol/L Chloride (98-107) mmol/L Carbon Dioxide (21-33) mmol/L Anion Gap (10-20) BUN (7-21) mg/dL Creatinine (0.8-1.5) mg/dl Est GFR ( Amer) Est GFR (Non-Af Amer) Random Glucose (70-110) mg/dL Calcium (8.4-10.5) mg/dL Total Bilirubin (0.2-1.3) mg/dL AST (17-59) U/L ALT (7-56) U/L Alkaline Phosphatase (38-126) U/L Total Protein (5.8-8.3) g/dL Albumin (3.0-4.8) g/dL Globulin gm/dL Albumin/Globulin Ratio (1.1-1.8) Procalcitonin 0.15 L (0.19-0.49) NG/ML Ur L.pneumophila Ag Negative (NEGATIVE) Laboratory Results - last 24 hr 06/21/17 06/21/17 06/22/17 05:35 08:16 05:00 WBC 7.1 D RBC 4.36 Hgb 12.7 L Hct 37.6 L MCV 86.2 MCH 29.1 MCHC 33.8 RDW 13.2 Plt Count 134 MPV 13.5 H Gran % 73.9 H Lymph % (Auto) 14.9 L [place] % (Auto) 10.5 H Eos % (Auto) 0.7 L Baso % (Auto) 0.0 Gran # 5.21 Lymph # 1.1 L [place]away # 0.7 H Eos # 0.1 Baso # 0.00 APTT Sodium Potassium Chloride Carbon Dioxide Anion Gap BUN Creatinine Est GFR ( Amer) Est GFR (Non-Af Amer) Random Glucose Calcium Total Bilirubin AST ALT Alkaline Phosphatase Total Protein Albumin Globulin Albumin/Globulin Ratio Procalcitonin 0.15 L Ur L.pneumophila Ag Negative 06/22/17 06/22/17 05:15 05:15 WBC RBC Hgb Hct MCV MCH MCHC RDW Plt Count MPV Gran % Lymph % (Auto) Call[place] % (Auto) Eos % (Auto) Baso % (Auto) Gran # Lymph # Callaway # Eos # Baso # APTT 32.4 Sodium 142 Potassium 4.2 Chloride 107 Carbon Dioxide 27 Anion Gap 13 BUN 16 Creatinine 1.2 Est GFR ( Amer) > 60 Est GFR (Non-Af Amer) > 60 Random Glucose 105 Calcium 8.2 L Total Bilirubin 0.9 AST 95 H D ALT 287 H Alkaline Phosphatase 103 Total Protein 6.1 Albumin 2.8 L Globulin 3.3 Albumin/Globulin Ratio 0.9 L Procalcitonin Ur L.pneumophila Ag EKG/Cardiology Studies: Cardiology / EKG Studies 06/21/17 12:50 ELECTROCARDIOGRAM Urgent Comment: 12 lead EKG upon arrival in unit Reason For Exam: post ptca 06/22/17 13:00 ELECTROCARDIOGRAM DAILY Comment: Reason For Exam: chest pain Critical Care Progress Note - Nutrition Nutrition: Nutrition Category Date Time Status Pureed [Dysphagia/Modified Consistency Diet] [DIET] Diets 06/21/17 Dinner Ordered Assessment/Plan - Assessment and Plan (Free Text) Plan: Patient seen and examined, on rounds with resident, agree with note, with following additions, exceptions. Pt currently doing well, s/p cath yesterday. No chest pain, or SOB. Stable. Cont with ASA, Plavix, Statin, BB. Would transfer to telemetry.
--- NOTE | 2017-06-22 09:58 | PN ---
SUBJECTIVE: The patient was seen and examined on the bedside in the CCU. No acute events overnight. He remains afebrile and hemodynamically stable. The patient is s/p cardiac catheterization with Dr. King with placement of GRZEGORZ stent to the mid LAD. There were no post-procedure complications noted and this morning the patient does not express any symptoms of chest pain or palpitations. OBJECTIVE: VITAL SIGNS: Temperature of 99.1, pulse of 77, blood pressure of 110/66, respiratory rate of 16, and oxygen saturation of 94% on room air. GENERAL: No apparent distress. HEENT: PERRL, EOMI. No scleral icterus. No conjunctival pallor. NECK: No JVD. No bruits. LUNGS: Clear to auscultation. CARDIOVASCULAR: Regular rate and rhythm. Normal S1 and S2. ABDOMEN: Normoactive bowel sounds, soft, nontender, and nondistended. EXTREMITIES: Trace lower extremity edema bilaterally. NEUROLOGIC: Awake and alert. Unable to follow commands or answer questions. Able to move all extremities. LABORATORY DATA: WBC of 7.1 with 74% neutrophils, hemoglobin of 12.7, hematocrit of 38, and platelets of 134. Chemistry reviewed and unremarkable. AST is 95 and ALT is 287. Blood cultures (06/18/2017) with coagulase-negative Staphylococcus (1 bottle) and sensitivity is noted. Blood cultures (06/21/2017) with no growth to date. ASSESSMENT: The patient is a 66 year old man with hypertension, hyperlipidemia , dementia and primary progressive aphasia who presented to [facility] by EMS for evaluation of increasing lethargy and malaise and who was admitted to the CCU for management of STEMI, acute systolic heart failure, multiple electrolyte derangements and sepsis secondary to pneumonia. PLAN: 1. STEMI. Input from Dr. King noted and the patient is s/p PCI with GRZEGORZ stent placement. Continue with Lipitor 40 mg p.o. daily, Aspirin 81 mg p.o. daily, Plavix 75 mg p.o. daily and Metoprolol 25 mg p.o. b.i.d. 2. Acute systolic heart failure, likely secondary to acute STEMI. TTE reviewed and demonstrates EF of 25%. As above the input from Dr. King noted and greatly appreciated. The patient has been restarted on Lasix 40 mg IV daily. Continue to monitor strict input and output. 3. Sepsis secondary to community-acquired pneumonia, resolving. The patient remains afebrile and hemodynamically stable. Input from Dr. Ramirez noted and greatly appreciated and the patient remains on Azithromycin 500 mg p.o. daily. 4. Hypernatremia, etiology likely secondary to poor p.o. intake, resolved. 5. Bacteremia secondary to coagulase-negative Staphylococcus. As above input from Dr. Ramirez noted. Continue with care as per Dr. Ramirez. 6. Transaminitis, consider secondary to poor forward flow in the setting of acute myocardial infarction, resolving. Labs demonstrates favorably trending liver function tests. Acute hepatitis panel is negative. 7. Hypertension, blood pressure is controlled. Continue with Metoprolol 25 mg p.o. b.i.d. 8. Hyperlipidemia. Continue Lipitor 40 mg p.o. daily. 9. Dementia. The patient remains at his baseline neurologic status. 10. Primary progressive aphasia. 11. Prophylaxis: Continue with Pepcid for GI and SCDs for DVT prophylaxis. CODE STATUS: Full code. Jacek Salgado MD MTDD
--- NOTE | 2017-06-22 13:34 | PN ---
DATE: 06/22/2017 SUBJECTIVE: The patient is in bed, in no acute distress. The patient has had no fevers. He did have a fever earlier this morning, late last night. PHYSICAL EXAMINATION: VITAL SIGNS: Temperature is 100.3, blood pressure is 104/60, respiratory rate of 16, heart rate of 77. GENERAL: The patient is on room air. HEENT: Unremarkable. NECK: Supple. LUNGS: Have decreased breath sounds. HEART: Normal S1, S2. ABDOMEN: Soft. LABORATORY EXAMINATION: Reveals a white count of 7.1, hemoglobin of 12, platelets of 134. BUN of 16, creatinine of 1.2, AST is 95, ALT is 287. Procalcitonin is 0.15. Urinalysis is noted. Urine for Legionella antigen is negative and hepatitis profile is negative. Influenza is negative. Microbiology reveals a coag-negative staph and the repeat blood cultures are no growth. The nurses note detected. Dr. Jacek Salgado's note is reviewed. ASSESSMENT AND PLAN: This is a 66-year-old male seen in the ICU 128, bed 2 with primary progressive aphasia, dementia, depression, hyperlipidemia, hypertension, coronary artery disease, admitted with sepsis with acute anterior septal wall myocardial infarction with acute systolic congestive heart failure and community-acquired pneumonia with right-sided aspiration pneumonia and a coag-negative staph bacteremia most consistent with contamination. The patient does not have any intravascular devices and procalcitonin is negative. Repeat blood cultures are negative and QTC is 416. We will follow closely. Currently on ceftriaxone and Zithromax. If cultures remain negative, the patient's ceftriaxone has been discontinued. The patient is only on p.o. Zithromax since the patient's procalcitonin is 0.15, which is a repeat one. The initial one was 0.35, which is highly against bacterial pneumonia, currently on p.o. Zithromax only. Devon Ramirez MD
--- NOTE | 2017-06-22 16:15 | US ---
PROCEDURE: Lower extremity DEMETRIS exam HISTORY: Peripheral vascular disease with pain and claudication. PHYSICIAN(S): Seymour Jordan MD. FINDINGS: The right resting DEMETRIS is moderately abnormal, 0.61. The left resting DEMETRIS is normal, 1.18 All waveforms on the right are severely blunted. This is consistent with right iliac occlusive disease. Given the asymmetry, this could represent an embolus. The PVR waveforms and pressures are normal at all levels on the left. IMPRESSION: 1. Right iliac occlusive disease. Given the asymmetry, this could represent a right iliac embolus
--- NOTE | 2017-06-22 17:57 | PN ---
DATE: 06/22/2017 SUBJECTIVE: The patient is without symptoms. PHYSICAL EXAMINATION: VITAL SIGNS: Blood pressure 104/68, heart rate is in the 80s, normal sinus rhythm. NECK: Negative JVD. LUNGS: Without rales. HEART: S1, S2. EXTREMITIES: Without edema. LABORATORY DATA: Hemoglobin is 12.7. Chemistries: BUN and creatinine are unremarkable. IMPRESSION: 1. Status post anterior wall myocardial infarction. 2. Status post successful percutaneous transluminal coronary angiography and stent of an occluded left anterior descending artery. 3. Coronary artery disease. 4. History of aphasia. 5. Peripheral vascular disease. Given these findings, an arterial Doppler was performed today. In review of the echocardiogram, there is an organized thrombus in the apical septum according to echocardiogram. Given these findings, we will start the patient on low-dose Eliquis. We will maintain on Plavix and aspirin. Even though the risk of bleeding is increased, the patient will need these three medications for his recently placed stent as well as his organized thrombus in the apex. As an outpatient, we will discontinue the aspirin and just continue the Plavix and Eliquis. Seymour King MD
[2017-06-22] MEDS: Sodium Chloride 0.9% 1,000 ML IV SCH (18:55)
[2017-06-23 06:12] LABS: INR 1.31 (0.93-1.08)
[2017-06-23 08:48] LABS: BASO # 0.01 K/mm3 (0.0-2.0); BASO % 0.2 % (0.0-3.0); EOS # 0.1 (0.0-0.7); EOS % 1.9 % (1.5-5.0); GRAN # 3.77 (1.4-6.5); GRAN % 70.3 % (50.0-68.0); HEMATOCRIT 36.4 % (42.0-52.0); LYMPH # 0.9 (1.2-3.4); LYMPH % 16.6 % (22.0-35.0); MEAN CELL VOLUME 86.5 fl (80.0-105.0); MEAN CORPUSCULAR HEMOGLOBIN 28.5 pg (25.0-35.0); MEAN PLATELET VOLUME 13.3 fl (7.0-11.0); MONO # 0.6 (0.1-0.6); RED CELL DISTRIBUTION WIDTH 13.3 % (11.5-14.5); WHITE BLOOD COUNT 5.4 10^3/ul (4.5-11.0)
[2017-06-23 08:54] LABS: ALB/GLOB RATIO 0.8 (1.1-1.8); ALKALINE PHOSPHATASE 88 U/L (38-126); ALT/SGPT 195 U/L (7-56); AST/SGOT 60 U/L (17-59); BILIRUBIN,TOTAL 0.5 mg/dL (0.2-1.3); BLOOD UREA NITROGEN 20 mg/dL (7-21); CALCIUM 8.2 mg/dL (8.4-10.5); CARBON DIOXIDE 27 mmol/L (21-33); CHLORIDE 106 mmol/L (98-107); GFR AFRICAN-AMERICAN > 60; GLUCOSE,RANDOM 104 mg/dL (70-110); POTASSIUM 3.6 mmol/L (3.6-5.0); SODIUM 140 mmol/L (132-148); TOTAL PROTEIN 6.2 g/dL (5.8-8.3)
--- NOTE | 2017-06-23 10:21 | PN ---
SUBJECTIVE: The patient was seen and examined at the bedside on the telemetry birch. No acute events overnight. He remains afebrile and hemodynamically stable s/p transfer out of the CCU. He is pending PT evaluation. OBJECTIVE: VITAL SIGNS: Temperature 98.1, pulse 74, blood pressure 155/52, respiratory rate 18, and oxygen saturation 96% on room air. GENERAL: No apparent distress. HEENT: PERRL. EOMI. No scleral icterus. No conjunctival pallor. NECK: No JVD. No bruits. LUNGS: Clear to auscultation. CARDIOVASCULAR: Regular rate and rhythm. Normal S1 and S2. ABDOMEN: Normoactive bowel sounds, soft, nontender, and nondistended. EXTREMITIES: Trace lower extremity edema bilaterally. NEUROLOGIC: Awake and alert, unable to follow commands. Moving all extremities. LABORATORY DATA: Morning laboratories are pending. Blood cultures (06/18/2017) with coag-negative staph (1 bottle) and sensitivities noted. Blood cultures (06/21/2017) with no growth to date. IMAGING STUDIES: Lower extremity DEMETRIS exam demonstrates right iliac occlusive disease which could represent an iliac embolus. ASSESSMENT: The patient is a 66 year old man with hypertension, hyperlipidemia , dementia and primary progressive aphasia who presented to for evaluation of increasing lethargy and malaise and was initially admitted to the CCU for management of STEMI, acute systolic heart failure, multiple electrolyte derangements and sepsis secondary to pneumonia who is now s/p PCI with GRZEGORZ stent placement to the LAD s/p transfer to the telemetry birch. PLAN: 1. STEMI s/p PCI with GRZEGORZ stent placement to the LAD lesion. Input from Dr. King noted and greatly appreciated. The patient remains on Aspirin 81 mg p.o. daily, Plavix 75 mg p.o. daily, Lipitor 40 mg p.o. daily and Metoprolol 25 mg p.o. b.i.d. 2. Intracardiac thrombus. TTE demonstrates an organized, layered thrombus to the apical septum. The patient has been started on Eliquis 2.5 mg p.o. b.i.d. 3. Acute systolic heart failure, likely secondary to acute STEMI. TTE demonstrates severe diminished EF of 25%. As above input from Dr. King noted and appreciated. Continue with Lasix 40 mg IV daily. Continue to monitor strict Ins and outs. 4. Sepsis secondary to community-acquired pneumonia, resolving. The patient remains afebrile and hemodynamically stable and with negative repeat blood cultures. Input from Dr. Ramirez noted and appreciated. The patient remains Azithromycin 500 mg p.o. daily (day #5). 5. Peripheral vascular disease. The patient's DEMETRIS demonstrates right iliac vasoocclusive disease. Continue with Lipitor 40 mg p.o. daily and Eliquis 2.5 mg p.o. b.i.d. 6. Hypernatremia, etiology likely secondary to poor p.o. intake, resolved. 7. Transaminitis, consider etiology secondary to poor forward flow in the setting of acute NM and acute systolic HF. Labs with favorably trending LFTs. Hepatitis panel negative. 8. Hypertension, blood pressure is controlled. Continue Metoprolol 25 mg p.o. b.i.d.. 9. Hyperlipidemia. Continue Lipitor 40 mg p.o. daily. 10. Dementia. The patient remains at his baseline neurologic status. 11. Primary progressive aphasia. 12. Prophylaxis: Continue with Pepcid for GI prophylaxis and SCDs for DVT prophylaxis. CODE STATUS: Full code. Jacek Salgado MD MTDD
--- NOTE | 2017-06-23 10:26 | CARD ---
APPROVED REPORT EKG Measurement Heart [id number] <Conclusion> Normal sinus rhythm Possible Left atrial enlargement Anterolateral infarct, possibly acute ACUTE [place] Abnormal ECG
--- NOTE | 2017-06-23 12:04 | PN ---
DATE: 06/23/2017 CARDIOLOGY FOLLOWUP SUBJECTIVE: The patient is without shortness of breath. No chest pain noted. PHYSICAL EXAMINATION: VITAL SIGNS: Blood pressure is 155/52, the heart rate is in the 70s, normal sinus rhythm. NECK: Negative JVD. LUNGS: Without rales. HEART: Reveal S1, S2. EXTREMITIES: Both extremities are warm. There are decreased pulses on the right lower extremity. LABORATORY DATA: Hemoglobin is 12.0. Chemistries, BUN and creatinine unremarkable. IMPRESSION: 1. Status post acute anterior wall myocardial infarction. 2. Status post percutaneous transluminal coronary angioplasty and stent of an occluded left anterior descending artery. 3. History of left ventricular thrombus. 4. Hypercholesterolemia. 5. Peripheral vascular disease. 6. Decreased pulses in the right lower extremity. Given these findings, the patient is for angiogram of the right lower extremity today. I have discussed with Dr. Jordan. We would avoid thrombolysis if possible given the patient's multiple anticoagulants and antiplatelet therapy as well as the history of left ventricular thrombus. Seymour King MD
--- NOTE | 2017-06-23 13:29 | IP.NPCORE ---
Acute PA Core Measure PNote - Source Source: Echo - Medications Aspirin Name/Dose/Frequency:: ecotrin 81mg Beta Luciana prescribed: Name/dose/frequency: lopressor 25mg bid Contraindications to LINDA/ARB:: Worsening renal insufficiency Lipid Lowering Agent: Name/Dose/Frequency: lipitor 40 mg LDL:: 101
[2017-06-23] MEDS ORDERED: Lidocaine 2% Inj (20ml) ONE (14:19)
[2017-06-23] MEDS ORDERED: Midazolam 2 MG/2 ML VIAL ONE ×2 (14:20→14:52)
[2017-06-23] MEDS ORDERED: HEPARIN SODIUM/NS 2,000 ML IV ONE (14:21)
[2017-06-23] MEDS ORDERED: Iodixanol 320 MG/ML 100 ML BOTTLE IV ONE (14:21)
[2017-06-23] MEDS ORDERED: Iodixanol 320 MG/ML 200 ML BOTTLE IV ONE (14:21)
[2017-06-23] MEDS ORDERED: Nitroglycerin 50mg in D5W 50 MG/250 ML BOTTLE IV ONE (14:22)
--- NOTE | 2017-06-23 16:26 | VASCULAR ---
PROCEDURE: Abdominal aortogram and bilateral lower extremity runoff with right selective views HISTORY: Recent cardiac catheterization. Acute right lower extremity ischemia. Possible closure device injury. PHYSICIAN(S): Seymour Jordan MD. TECHNIQUE: The relative risks and indications of the procedure were explained to the patient's knees and consent obtained. The patient was hydrated prior to the procedure and the appropriate labs drawn. The patient was placed supine on the arteriogram table and the left groin prepped and draped in the usual sterile fashion. Conscious sedation and monitoring were provided throughout the procedure by a nurse. Under ultrasound guidance, the left common femoral artery was punctured with a micropuncture set. Next a 5 Monegasque sheath was placed the left groin. Through the sheath and over a guidewire, a 5 Monegasque flush catheter was placed in the abdominal aorta at the level of the renal arteries and a PA DSA abdominal aortogram performed. The catheter was pulled down to the aortic bifurcation and bilateral oblique DSA pelvic arteriograms performed. Overlapping bilateral lower extremity DSA arteriograms were obtained from the inguinal ligaments to the trifurcation. A 6 Monegasque 40 cm sheath was placed in the right external iliac artery. A 5 Monegasque bearing sting catheter was placed at the site of the right common femoral artery occlusion. The abrupt occlusion was probed with various 0.035 and 0.014 guidewires. The occlusion could not be successfully crossed with re-entry. The procedure was terminated. FINDINGS: There are single renal arteries bilaterally which are patent. The nephrograms are symmetric. The infrarenal abdominal aorta is patent. The aortic bifurcation is patent. The common external iliac arteries are normal and patent. There is slow flow in the right iliac system. The internal iliac arteries are patent bilaterally. Right lower extremity: There is an abrupt occlusion of the right common femoral artery at the inguinal ligament. Reconstitution is noted at the right [employer]AD [employer] bifurcation. The appearance is consistent with a closure device injury Reconstituted slow flow is noted in the normal right profunda femoral artery and right SFA. The right popliteal artery is patent. The right trifurcation is intact and faintly opacified. Left lower extremity: Left common femoral artery is patent. The left profunda femoral artery is patent. The left superficial femoral artery is patent and continuous without a radiographically significant stenosis. The left popliteal artery and trifurcation. The 3 left tibial vessels are patent and continuous to the foot. IMPRESSION: 1. Abrupt occlusion of the right common femoral artery, consist with with a closure device injury. Unfortunately, the occlusion could not be crossed in an antegrade fashion
--- NOTE | 2017-06-23 17:49 | CP.PCM.CON ---
History of Present Illness - History of Present Illness History of Present Illness: Vascular Surgery 66 yo male with PMH of htn, hyperlipidemia, CAD, R ventricular thrombus, primary aphasia, dementia, penicillin allergy, present to ED with sister for change in activity and fatigue. HPI and ROS were unable to be obtain due to patients aphasia and dementia, history taken from the chart. Pt was found to have STEMI. Pt underwent endovascular LAD stent placement via R groin. Pt was also found to have decreased pulses on the R leg and DEMETRIS showed R illiac vasoacclusive disease. Endovascular angioplasty was attempted but unable to revascularize R SFA. Angiogram shows R SFA occlusion. Pt is currently on theraputic anticoagulation. Vascular surgery is consulted to evaluate for SFA thrombosis/embolus. PMH: htn, hyperlipidemia, primary aphasia, dementia PSH: none social history: never smokes, no alcohol use Allergy: penicillin Review of Systems - Review of Systems Systems not reviewed;Unavailable: Dementia Past Patient History - Infectious Disease Hx of Infectious Diseases: None - Past Social History Smoking Status: Never Smoked - CARDIAC Hx Cardiac Disorders: No - PULMONARY Hx Respiratory Disorders: No - NEUROLOGICAL Other/Comment: PRIMARY PROGRESSIVE APHASIA - HEENT Hx HEENT Problems: No - RENAL Hx Chronic Kidney Disease: No - ENDOCRINE/METABOLIC Hx Endocrine Disorders: No - HEMATOLOGICAL/ONCOLOGICAL Hx Blood Disorders: No - INTEGUMENTARY Hx Dermatological Problems: No - MUSCULOSKELETAL/RHEUMATOLOGICAL Hx Musculoskeletal Disorders: No - GASTROINTESTINAL Hx Gastrointestinal Disorders: No - GENITOURINARY/GYNECOLOGICAL Hx Genitourinary Disorders: No - PSYCHIATRIC Hx Psychophysiologic Disorder: Yes Hx Substance Use: No - SURGICAL HISTORY Hx Surgeries: Yes - ANESTHESIA Hx Anesthesia: No Meds Allergies/Adverse Reactions: Allergies Allergy/AdvReac Type Severity Reaction Status Date / Time Penicillins Allergy ANAPHYLAXIS Verified 12/03/16 19:42 - Medications Medications: Current Medications Apixaban (Eliquis) 2.5 mg PO BID [facility] PRN Reason: Protocol Last Admin: 06/23/17 10:15 Dose: 2.5 mg Aspirin (Ecotrin) 81 mg PO DAILY [facility] Last Admin: 06/23/17 10:14 Dose: 81 mg Atorvastatin Calcium (Lipitor) 40 mg PO DIN [facility] Last Admin: 06/23/17 17:30 Dose: 40 mg Azithromycin (Zithromax) 500 mg PO DAILY [facility] Last Admin: 06/23/17 10:14 Dose: 500 mg Clopidogrel Bisulfate (Plavix) 75 mg PO DAILY [facility] Last Admin: 06/23/17 10:14 Dose: 75 mg Famotidine (Pepcid) 20 mg PO BID [facility] Last Admin: 06/23/17 17:28 Dose: 20 mg Furosemide (Lasix) 40 mg IVP DAILY [facility] Last Admin: 06/23/17 10:13 Dose: 40 mg Sodium Chloride (Sodium Chloride 0.9%) 1,000 mls @ 50 mls/hr IV .Q20H [facility] Last Admin: 06/22/17 18:55 Dose: 50 mls/hr Labetalol HCl (Trandate) 5 mg IV Q6 PRN PRN Reason: sbp>160 Metoprolol Tartrate (Lopressor) 25 mg PO BID [facility] Last Admin: 06/23/17 17:28 Dose: 25 mg Physical Exam - Constitutional Appears: No Acute Distress - Head Exam Head Exam: ATRAUMATIC, NORMAL INSPECTION, NORMOCEPHALIC - Eye Exam Eye Exam: EOMI, Normal appearance, PERRL Pupil Exam: NORMAL ACCOMODATION, PERRL - ENT Exam ENT Exam: Mucous Membranes Moist, Normal Exam - Neck Exam Neck exam: Positive for: Normal Inspection - Respiratory Exam Respiratory Exam: Clear to Auscultation Bilateral, NORMAL BREATHING PATTERN - Cardiovascular Exam Cardiovascular Exam: REGULAR RHYTHM, +S1, +S2 - GI/Abdominal Exam GI & Abdominal Exam: Normal Bowel Sounds, Soft. absent: Tenderness - Exam Exam: NORMAL INSPECTION - Extremities Exam Extremities exam: Positive for: tenderness. Negative for: full ROM Additional comments: thready R popliteal pulses. R PT dopplerable pulses. non palpable R distal pulses. L leg has immobilizer. b/l groin has pressure dressing. - Skin Skin Exam: Dry, Intact Results - Vital Signs Recent Vital Signs: Last Vital Signs Temp 97.4 F L 06/23/17 16:37 Pulse 73 06/23/17 17:28 Resp 24 06/23/17 16:37 BP 136/60 06/23/17 17:28 Pulse Ox 96 06/23/17 06:00 - Labs Result Diagrams: 06/23/17 08:00 06/23/17 08:00 Labs: Laboratory Results - last 24 hr 06/23/17 06/23/17 06/23/17 05:45 08:00 08:00 WBC 5.4 D RBC 4.21 Hgb 12.0 L Hct 36.4 L MCV 86.5 MCH 28.5 MCHC 33.0 RDW 13.3 Plt Count 159 MPV 13.3 H Gran % 70.3 H Lymph % (Auto) 16.6 L [place] % (Auto) 11.0 H Eos % (Auto) 1.9 Baso % (Auto) 0.2 Gran # 3.77 Lymph # 0.9 L [place] # 0.6 Eos # 0.1 Baso # 0.01 PT 14.5 H INR 1.31 H APTT 33.0 Sodium 140 Potassium 3.6 Chloride 106 Carbon Dioxide 27 Anion Gap 10 BUN 20 Creatinine 1.1 Est GFR ( Amer) > 60 Est GFR (Non-Af Amer) > 60 Random Glucose 104 Calcium 8.2 L Total Bilirubin 0.5 AST 60 H D ALT 195 H Alkaline Phosphatase 88 Total Protein 6.2 Albumin 2.8 L Globulin 3.4 Albumin/Globulin Ratio 0.8 L Assessment & Plan - Assessment and Plan (Free Text) Assessment: R SFA thrombosis/embolism -OR Th 1130 AM for embolectomy -NPO after midnight -Will obtain consent from family : family considering surgery -Medical management -Continue anticoagulation RAYSA Bernstein
--- NOTE | 2017-06-23 23:31 | PN ---
DATE: 06/23/2017 SUBJECTIVE: Patient is in bed, in no acute distress, nontoxic. PHYSICAL EXAMINATION: VITAL SIGNS: Temperature is 98, blood pressure is 112/70, respiratory rate of 18. HEENT: Unremarkable. NECK: Supple. LUNGS: Have decreased breath sounds. HEART: Normal S1 and S2. ABDOMEN: Soft and nontender. LABORATORY DATA: Reveals a white count of 5.4, hemoglobin of 12, platelets of 36. Chemistries are noted and troponin is 40. Microbiology reveals coag-negative staph and repeat blood cultures are negative and urine culture has no growth. Review of the orders reveals the patient is on p.o. Zithromax. ASSESSMENT AND PLAN: He is a 66-year-old male seen early this morning in room 271, bed 2, with primary progressive aphasia, dementia, depression, hyperlipidemia, hypertension, coronary artery disease, admitted with sepsis with acute anterior septal wall myocardial infarction, acute systolic congestive heart failure, community-acquired pneumonia, right-sided aspiration pneumonia with a coag-negative staph consistent with a contamination. Patient has no intravascular devices and procalcitonin is negative. Currently on p.o. Zithromax. We will follow closely with you. Devon Ramirez MD
[2017-06-24 07:07] LABS: ALKALINE PHOSPHATASE 97 U/L (38-126); ALT/SGPT 168 U/L (7-56); AST/SGOT 51 U/L (17-59); BILIRUBIN,TOTAL 0.6 mg/dL (0.2-1.3); BLOOD UREA NITROGEN 20 mg/dL (7-21); CALCIUM 8.4 mg/dL (8.4-10.5); CARBON DIOXIDE 27 mmol/L (21-33); CHLORIDE 106 mmol/L (98-107); GFR AFRICAN-AMERICAN > 60; GLUCOSE,RANDOM 107 mg/dL (70-110); POTASSIUM 3.8 mmol/L (3.6-5.0); SODIUM 140 mmol/L (132-148); TOTAL PROTEIN 6.6 g/dL (5.8-8.3)
[2017-06-24 07:21] LABS: BASO # 0.01 K/mm3 (0.0-2.0); BASO % 0.2 % (0.0-3.0); EOS # 0.1 (0.0-0.7); EOS % 1.3 % (1.5-5.0); GRAN # 4.7 (1.4-6.5); GRAN % 74.9 % (50.0-68.0); LYMPH # 0.9 (1.2-3.4); LYMPH % 13.6 % (22.0-35.0); MEAN CELL VOLUME 85.7 fl (80.0-105.0); MEAN CORPUSCULAR HEMOGLOBIN 28.4 pg (25.0-35.0); MEAN CORPUSCULAR HGB CONC 33.1 g/dl (31.0-37.0); MEAN PLATELET VOLUME 13.4 fl (7.0-11.0); MONO # 0.6 (0.1-0.6); RED CELL DISTRIBUTION WIDTH 13.1 % (11.5-14.5); WHITE BLOOD COUNT 6.3 10^3/ul (4.5-11.0)
[2017-06-24 08:01] LABS: ALB/GLOB RATIO 0.8 (1.1-1.8)
--- NOTE | 2017-06-24 10:35 | PN ---
SUBJECTIVE: The patient was seen and examined at the bedside on the telemetry birch. No acute events overnight. He remains afebrile and hemodynamically stable. Yesterday the patient was scheduled for IR procedure with Dr. Seymour Jordan for attempted thrombolysis of his right iliac thrombus however due to significant peripheral vascular disease this was a technically difficult procedure and was unable to be performed. As such Dr. Bernstein of vascular surgery was consulted for possible embolectomy. OBJECTIVE: VITAL SIGNS: Temperature of 98.3, pulse of 80, blood pressure of 124/78, respiratory rate of 19 and oxygen saturation of 94% on room air. GENERAL: No apparent distress. HEENT: PERRL. EOMI. No scleral icterus. No conjunctival pallor. NECK: No JVD. No bruits. LUNGS: Clear to auscultation. CARDIOVASCULAR: Regular rate and rhythm. Normal S1 and S2. ABDOMEN: Normoactive bowel sounds. Soft, nontender and nondistended. EXTREMITIES: Trace lower extremity edema bilaterally. NEUROLOGIC: Awake, alert and unable to follow commands. Moving all extremities. LABORATORY DATA: WBC of 6.3 with 75% neutrophils, hemoglobin of 13, hematocrit of 39 and platelets of 228. Chemistry reviewed and unremarkable. AST of 51 and ALT of 168. Blood cultures (06/18/2017) with coagulase-negative Staphylococcus (one bottle). Blood cultures (06/21/2017) with no growth to date. ASSESSMENT: The patient is a 66 year old man with hypertension, hyperlipidemia , dementia and primary progressive aphasia who presented for evaluation of increasing lethargy and malaise and was initially admitted to the CCU for management of STEMI, acute systolic heart failure, multiple electrolyte derangements and sepsis secondary to pneumonia who is now s/p PCI with GRZEGORZ stent placement to the LAD s/p transfer to the telemetry birch and pending right lower extremity thrombectomy with the vascular surgery. PLAN: 1. STEMI s/p PCI with GRZEGORZ stent placement to LAD. Input from Dr. King noted. The patient remains on Aspirin 81 mg p.o. daily, Plavix 75 mg p.o daily, Lipitor 40 mg p.o. daily and Metoprolol 25 mg p.o. b.i.d. He remains chest pain free and hemodynamically stable. 2. Intracardiac thrombus. TTE demonstrates an organized, layered thrombus to the apical septum. He remains on Eliquis 2.5 mg p.o. b.i.d. 3. PVD. Input from Dr. Jordan noted and patient is s/p unsuccessful attempt at IR thrombolysis due to significant vasculopathy. Dr. Bernstein of vascular surgery is evaluating the patient for possible thrombectomy. 4. Acute systolic heart failure, likely secondary to acute STEMI. TTE demonstrates severely diminished EF of 25%. As above input from Dr. King noted. The patient remains on Lasix 40 mg IV daily. 5. Sepsis secondary to community-acquired pneumonia, resolving. Input from Dr. Ramirez noted and appreciated. The patient remains Azithromycin 500 mg p.o. daily (day # 6). He remains afebrile and hemodynamically stable and with negative repeat blood cultures. 6. Hypernatremia, etiology secondary to poor p.o. intake, resolved. 7. Transaminitis, consider etiology secondary to poor forward flow in the setting of an acute FL and acute systolic heart failure. Labs demonstrate near resolution of transaminitis. Hepatitis panel is negative. 8. Hypertension. Blood pressure controlled. Continue Metoprolol 25 mg p.o. b.i.d. 9. Hyperlipidemia, continue Lipitor 40 mg p.o. daily. 10. Dementia. The patient remains at his baseline neurologic status. 11. Primary progressive aphasia. 12. Prophylaxis: Continue with Pepcid for GI prophylaxis. He remains on Eliquis thus DVT prophylaxis not indicated. CODE STATUS: Full code. Jacek Salgado MD MTDLaith
--- NOTE | 2017-06-24 11:44 | PN ---
DATE: 06/24/2017 SUBJECTIVE: The patient is comfortable without shortness of breath, without pain in the lower extremities. OBJECTIVE: VITAL SIGNS: On physical exam, blood pressure is 122/68, heart rate is in the 70s. NECK: Negative JVD. LUNGS: Without rales. HEART: S1, S2. EXTREMITIES: The right lower extremity is slightly cooler than the left. Hemoglobin is 12.5, BUN and creatinine unremarkable. IMPRESSION: 1. Status post anterior wall myocardial infarction. 2. Status post emergency percutaneous transluminal coronary angioplasty and stent of an occluded left anterior descending artery. 3. History of left ventricular thrombus. 4. Right femoral occlusion from Angio-Seal placement. 5. Mild ischemia in the right lower extremity. 6. History of primary aphasia. Given these findings, the patient is going to the OR to repair the right femoral artery. Seymour King MD
[2017-06-24] MEDS ORDERED: Lidocaine 1% Inj (20ml) ONE (12:26)
[2017-06-24] MEDS ORDERED: Thrombin Topical 20,000 Intl Units Spray Kit TOP ONE (12:38)
[2017-06-24] MEDS: Sodium Chloride 0.9% 1,000 ML IV SCH ×2 (14:00→23:46)
--- NOTE | 2017-06-24 14:20 | CP.PCM.PN ---
Subjective - Date & Time of Evaluation Date of Evaluation: 06/24/17 Time of Evaluation: 13:51 - Subjective Subjective: Surgery Pt s&e. NAEON. OR cancelled. Family is undecided. Objective - Vital Signs/Intake and Output Vital Signs (last 24 hours): Temp Pulse Resp BP Pulse Ox 98.4 F 66 18 115/68 95 06/24/17 11:45 06/24/17 11:45 06/24/17 11:45 06/24/17 11:45 06/24/17 11:45 Intake and Output: 06/24/17 06/24/17 06:59 18:59 Intake Total 120 Output Total 850 Balance -730 - Medications Medications: Current Medications Apixaban (Eliquis) 2.5 mg PO BID [facility] PRN Reason: Protocol Last Admin: 06/23/17 10:15 Dose: 2.5 mg Aspirin (Ecotrin) 81 mg PO DAILY [facility] Last Admin: 06/24/17 09:41 Dose: Not Given Atorvastatin Calcium (Lipitor) 40 mg PO DIN [facility] Last Admin: 06/23/17 17:30 Dose: 40 mg Azithromycin (Zithromax) 500 mg PO DAILY [facility] Last Admin: 06/24/17 10:52 Dose: Not Given Clopidogrel Bisulfate (Plavix) 75 mg PO DAILY [facility] Last Admin: 06/24/17 09:41 Dose: Not Given Famotidine (Pepcid) 20 mg PO BID [facility] Last Admin: 06/24/17 09:42 Dose: Not Given Furosemide (Lasix) 40 mg IVP DAILY [facility] Last Admin: 06/24/17 09:23 Dose: 40 mg Sodium Chloride (Sodium Chloride 0.9%) 1,000 mls @ 50 mls/hr IV .Q20H [facility] Last Admin: 06/22/17 18:55 Dose: 50 mls/hr Labetalol HCl (Trandate) 5 mg IV Q6 PRN PRN Reason: sbp>160 Metoprolol Tartrate (Lopressor) 25 mg PO BID [facility] Last Admin: 06/24/17 09:06 Dose: 25 mg - Labs Labs: 06/24/17 05:30 06/24/17 05:30 PT 14.5 SECONDS (9.4-12.5) H 06/23/17 05:45 INR 1.31 (0.93-1.08) H 06/23/17 05:45 APTT 33.0 Seconds (25.1-36.5) 06/23/17 05:45 - Constitutional Appears: Non-toxic - Head Exam Head Exam: ATRAUMATIC, NORMAL INSPECTION, NORMOCEPHALIC - Eye Exam Eye Exam: EOMI, Normal appearance, PERRL Pupil Exam: NORMAL ACCOMODATION, PERRL - ENT Exam ENT Exam: Mucous Membranes Moist, Normal Exam - Neck Exam Neck Exam: Full ROM, Normal Inspection - Respiratory Exam Respiratory Exam: Clear to Ausculation Bilateral, NORMAL BREATHING PATTERN - Cardiovascular Exam Cardiovascular Exam: REGULAR RHYTHM, +S1, +S2. absent: Murmur - GI/Abdominal Exam GI & Abdominal Exam: Soft, Normal Bowel Sounds. absent: Distended, Tenderness - Exam Exam: NORMAL INSPECTION - Extremities Exam Extremities Exam: Full ROM, Normal Capillary Refill, Normal Inspection. absent : Joint Swelling, Pedal Edema Additional comments: b/l groin dressing in place. C/D/I. R LE thready popliteal pulses. Dopplerable PT, non dopplerable DP - Back Exam Back Exam: NORMAL INSPECTION - Neurological Exam Neurological Exam: Awake. absent: Alert, Normal Gait, Oriented x3 - Skin Skin Exam: Dry, Intact, Normal Color. absent: Erythema Assessment and Plan - Assessment and Plan (Free Text) Assessment: R SFA thromboembolism -Medical management -Family refused surgery RAYSA Bernstein
--- NOTE | 2017-06-24 19:51 | CARDCATH ---
PROCEDURE DATE: 06/21/2017 EMERGENCY CARDIAC CATHETERIZATION AND PTCA HISTORY: The patient is a 66-year-old male who presented with acute anterior wall myocardial infarction to be dyspneic. Code heart was called. PROCEDURE: an emergency cardiac catheterization with PTCA and stent of an occluded LAD. DESCRIPTION OF PROCEDURE: The right femoral artery was cannulated with 6-Finnish sheath. There were no complications. The findings on catheterization revealed left ventricle that showed an anterior apical hypokinetic area. Initial LVEDP was 35-40 mmHg. The estimated ejection fraction is 35-40%. The findings on catheterization revealed a left dominant circulation. The RCA was a small vessel without intimal irregularities. The left main artery is unremarkable. The LAD was occluded in its midportion. Diagonal vessels were diffusely diseased. The circumflex artery was a large vessel, revealed intimal irregularities. The patient was started on intravenous Angiomax under fluoroscopic guide, the guiding catheter was placed in the ostium of left main artery. An 0.014 ATW wire followed by a flow-through wire was used across the total occlusion. A 2.0 balloon was utilized to predilate the lesion. A 2.5 x2 stents were placed in the mid LAD and deployed at 14 atmospheres of pressure. Repeat coronary arteriography revealed an excellent result with no residual stenosis and BRENDA III flow. Angio-Seal was used to close the femoral artery site, and the patient tolerated the procedure well. In summary, the procedure was an emergency cardiac catheterization and PTCA and stent of an occluded LAD. LV function shows anterior apical myocardial infarction. Given these findings, the patient will need to remain on aspirin indefinitely and Plavix for at least a year and undergo a strict cardiac risk reduction program. Seymour King MD
--- NOTE | 2017-06-24 20:10 | PN ---
DATE: 06/24/2017 SUBJECTIVE: The patient is in bed, in no acute distress. He was seen early this morning in room 271, bed 2. PHYSICAL EXAMINATION: VITAL SIGNS: Temperature is 98, blood pressure is 116/70, respiratory rate of 16. HEENT: Unremarkable. NECK: Supple. LUNGS: Have decreased breath sounds. HEART: Normal S1 and S2. ABDOMEN: Soft. LABORATORY DATA: Reveals a white count of 6.3, hemoglobin of 12, platelets of 228. BUN of 20, creatinine of 1.1. Procalcitonin is 0.15. Urinalysis is noted. Serology is noted. Urine for Legionella antigen is negative. Hepatitis profile is negative. Influenza is negative. Blood cultures are coag-negative staph. Repeat blood cultures, no growth. Review of orders reveals the patient to be on p.o. Zithromax. ASSESSMENT AND PLAN: This is a 66-year-old male, and this patient is in room 271, bed 2, with primary progressive aphasia, dementia, depression, hyperlipidemia, hypertension, coronary artery disease, admitted with sepsis with acute anterior septal wall myocardial infarction, acute systolic congestive heart failure, community-acquired pneumonia, right-sided aspiration, pneumonia with a coag-negative staph, which is a contamination. No intravascular devices, procalcitonin is normal, and is on p.o. Zithromax. Devon Ramirez MD
[2017-06-25 06:14] LABS: BASO # 0.01 K/mm3 (0.0-2.0); BASO % 0.2 % (0.0-3.0); EOS # 0.1 (0.0-0.7); EOS % 1.1 % (1.5-5.0); GRAN # 4.59 (1.4-6.5); HEMATOCRIT 37.9 % (42.0-52.0); LYMPH # 0.9 (1.2-3.4); LYMPH % 14.2 % (22.0-35.0); MEAN CELL VOLUME 86.3 fl (80.0-105.0); MEAN CORPUSCULAR HEMOGLOBIN 28.5 pg (25.0-35.0); MEAN PLATELET VOLUME 12.5 fl (7.0-11.0); MONO # 0.7 (0.1-0.6); MONO % 10.5 % (1.0-6.0); RED CELL DISTRIBUTION WIDTH 13.2 % (11.5-14.5); WHITE BLOOD COUNT 6.2 10^3/ul (4.5-11.0)
[2017-06-25 06:42] LABS: ALB/GLOB RATIO 0.9 (1.1-1.8); ALKALINE PHOSPHATASE 94 U/L (38-126); ALT/SGPT 134 U/L (7-56); AST/SGOT 52 U/L (17-59); BILIRUBIN,TOTAL 0.7 mg/dL (0.2-1.3); BLOOD UREA NITROGEN 23 mg/dL (7-21); CALCIUM 8.3 mg/dL (8.4-10.5); CARBON DIOXIDE 26 mmol/L (21-33); CHLORIDE 109 mmol/L (98-107); GFR AFRICAN-AMERICAN > 60; GLUCOSE,RANDOM 107 mg/dL (70-110); POTASSIUM 3.8 mmol/L (3.6-5.0); SODIUM 143 mmol/L (132-148); TOTAL PROTEIN 6.5 g/dL (5.8-8.3)
[2017-06-25] MEDS: Sodium Chloride 0.9% 1,000 ML IV SCH ×2 (07:01→09:57)
--- NOTE | 2017-06-25 08:28 | PN ---
DATE: 06/25/2017 SUBJECTIVE: The patient is in bed, in no acute distress, nontoxic, but seen early this morning in 271, bed 2. Has uneventful night last night. PHYSICAL EXAMINATION: VITAL SIGNS: Temperature is 98, blood pressure 120/60, respiratory rate of 18. HEENT: Unremarkable. NECK: Supple. LUNGS: Decreased breath sounds. HEART: Normal S1 and S2. ABDOMEN: Soft, nontender. LABORATORY DATA: Reveals a white count of 6.2, hemoglobin of 12, platelets of 238. BUN of 23, creatinine of 1.1, procalcitonin was 0.15. His repeat blood cultures are negative. Initially, the patient did have a coag-negative Staph. The urine culture is no growth and review of orders reveals the patient to be on p.o. azithromycin. ASSESSMENT AND PLAN: This is a 66-year-old male, the patient was seen early this morning with history of primary progressive aphasia, dementia, depression, hyperlipidemia, hypertension, coronary artery disease, admitted with sepsis with acute anterior septal wall myocardial infarction, acute systolic congestive heart failure with reduced ejection fraction, and the patient with community-acquired pneumonia, right-sided aspiration pneumonia and coag-negative Staphylococcus most consistent with a contamination. Currently, on p.o. Zithromax. Devon Ramirez MD
--- NOTE | 2017-06-25 09:19 | CP.PCM.PN ---
Subjective - Date & Time of Evaluation Date of Evaluation: 06/25/17 Time of Evaluation: 09:16 - Subjective Subjective: Vascular surgery Pt s&e. OR for SFA embolectomy cancelled. Pt's POA undecided. Pt follows commands. Aphasic. Objective - Vital Signs/Intake and Output Vital Signs (last 24 hours): Temp Pulse Resp BP Pulse Ox 97.8 F 69 20 122/76 96 06/25/17 06:00 06/25/17 06:00 06/25/17 06:00 06/25/17 06:00 06/25/17 06:00 Intake and Output: 06/25/17 06/25/17 06:59 18:59 Intake Total 660 Output Total 300 Balance 360 - Medications Medications: Current Medications Apixaban (Eliquis) 2.5 mg PO BID [facility] PRN Reason: Protocol Last Admin: 06/24/17 17:00 Dose: 2.5 mg Aspirin (Ecotrin) 81 mg PO DAILY [facility] Last Admin: 06/24/17 15:34 Dose: 81 mg Atorvastatin Calcium (Lipitor) 40 mg PO DIN [facility] Last Admin: 06/24/17 17:00 Dose: 40 mg Azithromycin (Zithromax) 500 mg PO DAILY [facility] Last Admin: 06/24/17 15:34 Dose: 500 mg Clopidogrel Bisulfate (Plavix) 75 mg PO DAILY [facility] Last Admin: 06/24/17 15:34 Dose: 75 mg Famotidine (Pepcid) 20 mg PO BID [facility] Last Admin: 06/24/17 17:00 Dose: 20 mg Furosemide (Lasix) 40 mg IVP DAILY [facility] Last Admin: 06/24/17 09:23 Dose: 40 mg Sodium Chloride (Sodium Chloride 0.9%) 1,000 mls @ 50 mls/hr IV .Q20H [facility] Last Admin: 06/25/17 07:01 Dose: Not Given Labetalol HCl (Trandate) 5 mg IV Q6 PRN PRN Reason: sbp>160 Metoprolol Tartrate (Lopressor) 25 mg PO BID [facility] Last Admin: 06/24/17 17:00 Dose: 25 mg - Labs Labs: 06/25/17 05:50 06/25/17 05:50 PT 14.5 SECONDS (9.4-12.5) H 06/23/17 05:45 INR 1.31 (0.93-1.08) H 06/23/17 05:45 APTT 33.0 Seconds (25.1-36.5) 06/23/17 05:45 - Constitutional Appears: No Acute Distress - Head Exam Head Exam: ATRAUMATIC, NORMAL INSPECTION, NORMOCEPHALIC - Eye Exam Eye Exam: EOMI, Normal appearance, PERRL Pupil Exam: NORMAL ACCOMODATION, PERRL - ENT Exam ENT Exam: Mucous Membranes Moist, Normal Exam - Neck Exam Neck Exam: Full ROM, Normal Inspection. absent: Lymphadenopathy - Respiratory Exam Respiratory Exam: Clear to Ausculation Bilateral, NORMAL BREATHING PATTERN - Cardiovascular Exam Cardiovascular Exam: REGULAR RHYTHM, +S1, +S2. absent: Murmur - GI/Abdominal Exam GI & Abdominal Exam: Soft, Normal Bowel Sounds. absent: Distended, Tenderness - Extremities Exam Extremities Exam: Normal Capillary Refill. absent: Joint Swelling, Pedal Edema Additional comments: THready R popliteal pulses. Non palpable distal pulses. monophasic R DP, biphasic R PT - Back Exam Back Exam: NORMAL INSPECTION - Neurological Exam Neurological Exam: Awake. absent: Alert, Normal Gait, Oriented x3 - Skin Skin Exam: Dry, Intact, Normal Color, Warm Assessment and Plan - Assessment and Plan (Free Text) Assessment: R SFA Thromboembolism : Pt family undecided on undergoing surgery despite risk of limb loss. Explained to pt's POA in detail multiple times. -We will sign off. -Please reconsult as needed. Will RAYSA Bernstein
--- NOTE | 2017-06-25 11:55 | PN ---
DATE: LOCATION: The patient is currently in room 271, bed 2. SUBJECTIVE: He is aphasic, both expressive and receptive. The patient was supposed to have been taken to the OR yesterday for a right femoral occlusion, but Anesthesia refused the surgery, saying that the patient will from the surgery. I spoke with Dr. Yao and we spoke with the Anesthesia and they will decide whether to take him probably Wednesday. There have been no acute events overnight. PHYSICAL EXAMINATION: VITAL SIGNS: Temperature of 97.8, pulse rate of 69, blood pressure of 122/76, and respiratory rate of 20 with an O2 saturation of 96% on room air. HEENT: Unremarkable. NECK: Supple with a full range of motion. No JVD or bruits are present. LUNGS: Clear bilaterally. HEART: Regular rate and rhythm. ABDOMEN: Soft. It is nontender. There is no organomegaly. Bowel sounds are normoactive. EXTREMITIES: Show no deformities. There is no edema. There is no cyanosis of either leg. NEUROLOGIC: Apart from the aphasia, the patient has no focal motor deficits. LABORATORY DATA: Laboratory values are hemoglobin of 12.5 with a hematocrit of 37.9. Chemistry is normal with the exception of a chloride of 109 and BUN of 23, calcium of 8.3, and an ALT of 134 which is coming down. We will refer the patient to Transitional Care Unit and await anesthesiologist's decision as to the surgery. CURRENT DIAGNOSES: Status post anterior wall myocardial infarction, status post angiography with stent placement in the left anterior descending artery, history of left ventricular thrombus, right femoral occlusion and history of primary aphasia. We will continue current regimen. Harley Salgado MD
[2017-06-26 01:35] VITALS: O2SAT 95
[2017-06-26] MEDS: Sodium Chloride 0.9% 1,000 ML IV SCH ×2 (02:30→04:59)
[2017-06-26 06:46] LABS: BASO # 0.01 K/mm3 (0.0-2.0); BASO % 0.1 % (0.0-3.0); EOS # 0.1 (0.0-0.7); EOS % 0.9 % (1.5-5.0); GRAN % 75.8 % (50.0-68.0); HEMATOCRIT 35.9 % (42.0-52.0); LYMPH # 1.1 (1.2-3.4); LYMPH % 13.4 % (22.0-35.0); MEAN CELL VOLUME 86.5 fl (80.0-105.0); MEAN CORPUSCULAR HEMOGLOBIN 28.2 pg (25.0-35.0); MEAN CORPUSCULAR HGB CONC 32.6 g/dl (31.0-37.0); MEAN PLATELET VOLUME 12.4 fl (7.0-11.0); MONO # 0.8 (0.1-0.6); MONO % 9.8 % (1.0-6.0); WHITE BLOOD COUNT 7.9 10^3/ul (4.5-11.0)
[2017-06-26 07:15] LABS: ALB/GLOB RATIO 0.9 (1.1-1.8); ALKALINE PHOSPHATASE 90 U/L (38-126); ALT/SGPT 137 U/L (7-56); AST/SGOT 64 U/L (17-59); BILIRUBIN,TOTAL 0.4 mg/dL (0.2-1.3); BLOOD UREA NITROGEN 24 mg/dL (7-21); CALCIUM 8.1 mg/dL (8.4-10.5); CARBON DIOXIDE 25 mmol/L (21-33); CHLORIDE 110 mmol/L (98-107); GFR AFRICAN-AMERICAN > 60; GLUCOSE,RANDOM 110 mg/dL (70-110); POTASSIUM 3.7 mmol/L (3.6-5.0); SODIUM 142 mmol/L (132-148); TOTAL PROTEIN 6.1 g/dL (5.8-8.3)
--- NOTE | 2017-06-26 08:17 | CP.PCM.PN ---
Subjective - Date & Time of Evaluation Date of Evaluation: 06/26/17 Time of Evaluation: 07:20 - Subjective Subjective: Vascular Surgery Note for Dr. Bernstein Patient seen and examined at bedside. No acute event overnight. He is resting in bed comfortably. Patient is non-verbal due to aphasia but is able to follow commands. ROS unobtainable. Objective - Vital Signs/Intake and Output Vital Signs (last 24 hours): Temp Pulse Resp BP Pulse Ox 98.3 F 78 18 123/75 95 06/26/17 06:00 06/26/17 06:00 06/26/17 06:00 06/26/17 06:00 06/26/17 06:00 Intake and Output: 06/26/17 06/26/17 06:59 18:59 Intake Total 840 Output Total 700 Balance 140 - Medications Medications: Current Medications Apixaban (Eliquis) 2.5 mg PO BID [facility] PRN Reason: Protocol Last Admin: 06/25/17 17:53 Dose: 2.5 mg Aspirin (Ecotrin) 81 mg PO DAILY [facility] Last Admin: 06/25/17 09:38 Dose: 81 mg Atorvastatin Calcium (Lipitor) 40 mg PO DIN [facility] Last Admin: 06/25/17 17:53 Dose: 40 mg Azithromycin (Zithromax) 500 mg PO DAILY [facility] Last Admin: 06/25/17 09:38 Dose: 500 mg Clopidogrel Bisulfate (Plavix) 75 mg PO DAILY [facility] Last Admin: 06/25/17 09:38 Dose: 75 mg Famotidine (Pepcid) 20 mg PO BID [facility] Last Admin: 06/25/17 17:53 Dose: 20 mg Furosemide (Lasix) 40 mg IVP DAILY [facility] Last Admin: 06/25/17 09:38 Dose: 40 mg Sodium Chloride (Sodium Chloride 0.9%) 1,000 mls @ 50 mls/hr IV .Q20H [facility] Last Admin: 06/26/17 04:59 Dose: 50 mls/hr Labetalol HCl (Trandate) 5 mg IV Q6 PRN PRN Reason: sbp>160 Metoprolol Tartrate (Lopressor) 25 mg PO BID [facility] Last Admin: 06/25/17 17:53 Dose: 25 mg - Labs Labs: 06/26/17 06:00 06/26/17 06:00 PT 14.5 SECONDS (9.4-12.5) H 06/23/17 05:45 INR 1.31 (0.93-1.08) H 06/23/17 05:45 APTT 33.0 Seconds (25.1-36.5) 06/23/17 05:45 - Constitutional Appears: No Acute Distress - Head Exam Head Exam: ATRAUMATIC, NORMOCEPHALIC - Eye Exam Eye Exam: EOMI, Normal appearance Pupil Exam: PERRL - ENT Exam ENT Exam: Mucous Membranes Moist - Respiratory Exam Respiratory Exam: NORMAL BREATHING PATTERN - Cardiovascular Exam Cardiovascular Exam: REGULAR RHYTHM - GI/Abdominal Exam GI & Abdominal Exam: Soft. absent: Tenderness - Extremities Exam Additional comments: RLE: Thready R popliteal pulses. Non palpable distal pulses - pulses found with doppler (monophasic R DP, biphasic R PT) LLE: palpable DP on the left - Neurological Exam Neurological Exam: Awake - Psychiatric Exam Psychiatric exam: Flat Affect - Skin Skin Exam: Dry, Warm Assessment and Plan - Assessment and Plan (Free Text) Plan: 66 M with R SFA Thromboembolism Surgery rescheduled for Friday 06/29 NPO Past MN Wednesday Anticoagulation Management as per primary team Will discuss with Dr. Amandeep Preciado PGY1
--- NOTE | 2017-06-26 12:41 | PN ---
DATE: SUBJECTIVE: The patient is seen and examined at bedside on Telemetry [facility]. No acute events overnight. He remains afebrile and hemodynamically stable. The patient is pending TCU evaluation for possible transfer. Otherwise, he remains clinically unchanged. PHYSICAL EXAMINATION: GENERAL: No apparent distress. VITAL SIGNS: Temperature 98.3, pulse 78, blood pressure 123/75, respiratory rate 18, and oxygen saturation 95% on room air. HEENT: PERRL, EOMI, no scleral icterus. No conjunctival pallor. NECK: No JVD. No bruits. LUNGS: Clear to auscultation. CARDIOVASCULAR: Regular rate and rhythm. Normal S1 and S2. ABDOMEN: Normoactive bowel sounds. Soft, nontender, and nondistended. EXTREMITIES: No edema. NEUROLOGIC: Awake and alert. Unable to follow commands. Moving all extremities. LABORATORY DATA: WBC 7.9, hemoglobin 12, hematocrit 36, and platelets 247. Chemistry reviewed and largely unremarkable. Blood cultures on 06/21/2017, with no growth today. ASSESSMENT: The patient is a 66-year-old man with hypertension, hyperlipidemia, dementia, and primary progressive aphasia, who presented for evaluation of increasing lethargy and malaise and was initially admitted to the CCU for management of ST-segment elevation myocardial infarction, acute systolic heart failure, and sepsis secondary to pneumonia, who is now status post percutaneous coronary intervention with drug-eluting stent placement to the left anterior descending artery status post transfer to the Telemetry [facility] and pending TCU evaluation. PLAN: 1. STEMI status post PCI with GRZEGORZ placement to the LAD, Dr. King noted. Continue aspirin 81 mg p.o. daily, Plavix 75 mg p.o. daily, Lipitor 40 mg p.o. daily, and metoprolol 25 mg p.o. twice a day. 2. Intracardiac thrombus, TTE demonstrates an organized, layered thrombus to the apical septum. Continue Eliquis 2.5 mg p.o. twice a day. 3. PVD: The patient was reportedly scheduled for vascular surgery with Dr. Bernstein for thrombectomy; however, the case was canceled by Anesthesiology secondary to the patient's poor underlying cardiac function. Continue with aspirin 81 mg p.o. daily, Lipitor 40 mg p.o. daily, and Eliquis 2.5 mg p.o. twice a day pending reevaluation by Vascular Surgery and Anesthesiology. 4. Acute systolic heart failure, likely secondary to acute STEMI, resolved. The patient remains clinically euvolemic. Continue Lasix 40 mg IV daily. 5. Sepsis secondary to community-acquired pneumonia, resolved. The patient has completed a seven-day course of azithromycin and remains afebrile, hemodynamically stable and without leukocytosis. Repeat blood cultures are negative. 6. Hypernatremia, resolved. 7. Transaminitis, consider etiology secondary to poor forward flow in the setting of an acute [place] and acute systolic heart failure, resolving. Hepatitis panel is negative. 8. Hypertension: Blood pressure controlled, continue metoprolol 25 mg p.o. twice a day. 9. Hyperlipidemia, continue Lipitor 40 mg p.o. daily. 10. Dementia: The patient remains at his baseline neurologic status. 11. Primary progressive aphasia. 12. Prophylaxis: Continue with Pepcid for GI prophylaxis. He remains on Eliquis as DVT prophylaxis is not indicated. CODE STATUS: Full code. Jacek Salgado MD MTDLaith
[2017-06-26 13:38] VITALS: RESP 20; TEMP 98.1
[2017-06-26 14:02] VITALS: BP 115/69; PULSE 80
--- NOTE | 2017-06-26 14:06 | PN ---
DATE: 06/26/2017 SUBJECTIVE: The patient is in bed in no acute distress, nontoxic. PHYSICAL EXAMINATION: VITAL SIGNS: Temperature is 98, blood pressure is 106/60, and respiratory rate of 18. HEENT: Unremarkable. NECK: Supple. LUNGS: Have decreased breath sounds. HEART: Normal S1 and S2. ABDOMEN: Soft and nontender. LABORATORY EXAMINATION: Reveals a white count of 7.9, hemoglobin of 11, and platelets of 247. BUN of 24 and creatinine of 1.1. Hepatitis profile is negative. Microbiology is noted. Review of orders reveals the patient to be off of antibiotics. Dr. Harley Salgado's note is reviewed. Dr. Carla Bernstein's note is reviewed from yesterday. Surgery is to be scheduled for next Wednesday. ASSESSMENT AND PLAN: This is a 66-year-old male with seen early this morning with a history of primary progressive aphasia, dementia, depression, hyperlipidemia, hypertension, coronary artery disease with sepsis, with acute anterior septal wall myocardial infarction, acute systolic congestive heart failure, reduced ejection fraction in a patient with community-acquired pneumonia, right-sided aspiration pneumonia, Coagulase-negative Staphylococcus bacteremia consistent with contamination and currently off of antibiotics, afebrile, acute systolic congestive heart failure and was allergic to penicillin with the right superficial femoral artery thromboembolism. The patient is scheduled for surgery on Wednesday per Vascular Surgery by Dr. Carla Bernstein. Dr. Seymour King's note is also reviewed from 06/24/2017. Devon Ramirez MD
--- NOTE | 2017-06-26 15:10 | PN ---
DATE: Covering for Dr. Seymour King. SUBJECTIVE: The patient denies any chest pain. He denies any leg pain. PHYSICAL EXAMINATION: VITAL SIGNS: Blood pressure 106/60, heart rate 82, temperature 98.3, and respirations 18. HEENT: Normocephalic. CHEST: Clear. HEART: S1 and S2 regular. EXTREMITIES: No pedal edema. LABORATORY DATA: Hemoglobin and hematocrit 11.7 and 35.9. White count and platelet count are within normal limits. Today's SMA-7 is within normal limits except for chloride of 110 and BUN of 24. Calcium is 8.1. ASSESSMENT: 1. Status post ST-elevation myocardial infarction with recent left anterior descending artery stenting, so with recent stenting. 2. Left ventricular thrombus. 3. Systolic heart failure. 4. Primary aphasia. 5. Peripheral vascular disease. RECOMMENDATIONS: Continue aspirin 81 mg once a day, Eliquis 2.5 mg twice a day, Plavix 75 mg once daily, Lopressor 25 mg once daily, Lipitor 40 mg once daily, Lasix 40 mg intravenously once a day and labetalol at 5 mg intravenously q.6 hours p.r.n. Start Cozaar 12.5 mg orally daily. The patient will be transferred to [facility]. Chi Hoang MD
--- NOTE | 2017-06-27 21:32 | PN ---
DATE: 06/25/2017 SUBJECTIVE: The patient's embolectomy was not done yesterday due to the patient's power of admitted attorneys, niece discussion with anesthesia. The patient is awake, alert without complaints. PHYSICAL EXAMINATION: VITAL SIGNS: Blood pressure is 124/75, the heart rate in the 60s. NECK: Negative JVD. LUNGS: Without rales, HEART: With S1, S2. EXTREMITIES: Both feet are equally warm. LABORATORY DATA: Hemoglobin is 12.5. Chemistries, BUN and creatinine is 23 and 1.1. IMPRESSION: 1. Status post acute anterior wall myocardial infarction. 2. Status post emergency percutaneous transluminal coronary angioplasty and stent of an occluded left anterior descending artery. 3. History of a left ventricular thrombus. 4. Compromise of flow in the right lower extremity post closure device deployment. FINDINGS: Given these findings, I had an extensive discussion with the patient's niece. The risks, benefits of thrombectomy was discussed with the patient's niece in detail. Although the patient is at higher risk for any procedure given his recent anterior wall MD, under local anesthesia, the procedure should be able to be done safely. The risks, benefit analysis would suggest that an embolectomy should be done. She understands. All questions were answered. She is agreeable. I have left a message with Dr. Bernstein to try to reschedule the procedure as soon as possible. Seymour King MD
== END 2017-06-26 16:23 | DRG 853 ==
LOC: ED 15:56 → ERH 19:53 → ICU 21:42 → 2RSO 06-22 17:22
PROVIDERS: ADMIT Internal Medicine; ATTEND Internal Medicine
PROC: 02703DZ Dilation of Coronary Artery, One Artery with Intraluminal Device, Percutaneous Approach (ICD-10-PCS; principal; 2017-06-21)
PROC: 4A023N7 Measurement of Cardiac Sampling and Pressure, Left Heart, Percutaneous Approach (ICD-10-PCS; 2017-06-21)
PROC: B41D1ZZ Fluoroscopy of Aorta and Bilateral Lower Extremity Arteries using Low Osmolar Contrast (ICD-10-PCS; 2017-06-23)
DX: A41.9 Sepsis, unspecified organism (principal); J69.0 Pneumonitis due to inhalation of food and vomit; I21.09 ST elevation (STEMI) myocardial infarction involving other coronary artery of anterior wall; I21.4 Non-ST elevation (NSTEMI) myocardial infarction; I21.29 ST elevation (STEMI) myocardial infarction involving other sites; I50.23 Acute on chronic systolic (congestive) heart failure; I74.5 Embolism and thrombosis of iliac artery; E87.0 Hyperosmolality and hypernatremia; N39.0 Urinary tract infection, site not specified; R47.01 Aphasia; I25.10 Atherosclerotic heart disease of native coronary artery without angina pectoris; I25.2 Old myocardial infarction; I70.201 Unspecified atherosclerosis of native arteries of extremities, right leg; I11.0 Hypertensive heart disease with heart failure; F03.90 Unspecified dementia, unspecified severity, without behavioral disturbance, psychotic disturbance, mood disturbance, and anxiety; E87.6 Hypokalemia; E86.0 Dehydration; E78.5 Hyperlipidemia, unspecified; E78.00 Pure hypercholesterolemia, unspecified; Z79.01 Long term (current) use of anticoagulants; Z88.0 Allergy status to penicillin; Y84.0 Cardiac catheterization as the cause of abnormal reaction of the patient, or of later complication, without mention of misadventure at the time of the procedure

== ENCOUNTER 2017-06-26 16:26 | Inpatient (IN) | payer OTHER ==
[2017-06-26 16:35] VITALS: BMI 21.1
[2017-06-26] MEDS ORDERED: Pneumococcal 23-Valent Vaccine IM ONE (19:16)
[2017-06-26] MEDS ORDERED: Influenza Vaccine 60 mcg/0.5 mL SYR (4YR UP) IM ONE (19:16)
[2017-06-27 07:13] LABS: BASO # 0.02 K/mm3 (0.0-2.0); BASO % 0.2 % (0.0-3.0); EOS # 0.1 (0.0-0.7); EOS % 1.5 % (1.5-5.0); GRAN # 6.07 (1.4-6.5); GRAN % 74.2 % (50.0-68.0); LYMPH # 1.3 (1.2-3.4); LYMPH % 15.6 % (22.0-35.0); MEAN CELL VOLUME 86.8 fl (80.0-105.0); MEAN CORPUSCULAR HEMOGLOBIN 28.3 pg (25.0-35.0); MEAN CORPUSCULAR HGB CONC 32.6 g/dl (31.0-37.0); MEAN PLATELET VOLUME 12.7 fl (7.0-11.0); MONO # 0.7 (0.1-0.6); MONO % 8.5 % (1.0-6.0); RED CELL DISTRIBUTION WIDTH 13.1 % (11.5-14.5); WHITE BLOOD COUNT 8.2 10^3/ul (4.5-11.0)
[2017-06-27 07:46] LABS: ALB/GLOB RATIO 0.9 (1.1-1.8); ALKALINE PHOSPHATASE 92 U/L (38-126); ALT/SGPT 137 U/L (7-56); AST/SGOT 61 U/L (17-59); BILIRUBIN,TOTAL 0.6 mg/dL (0.2-1.3); BLOOD UREA NITROGEN 23 mg/dL (7-21); CALCIUM 8.7 mg/dL (8.4-10.5); CARBON DIOXIDE 25 mmol/L (21-33); CHLORIDE 108 mmol/L (98-107); GFR AFRICAN-AMERICAN > 60; GLUCOSE,RANDOM 107 mg/dL (70-110); POTASSIUM 3.7 mmol/L (3.6-5.0); SODIUM 143 mmol/L (132-148); TOTAL PROTEIN 6.7 g/dL (5.8-8.3)
--- NOTE | 2017-06-27 11:21 | CP.PCM.PN ---
Subjective - Date & Time of Evaluation Date of Evaluation: 06/27/17 Time of Evaluation: 11:18 - Subjective Subjective: Surgery Pt s&e. NAEON. Pt is aphasic. Objective - Vital Signs/Intake and Output Vital Signs (last 24 hours): Temp Pulse Resp BP Pulse Ox 98.3 F 77 16 110/73 94 L 06/27/17 10:41 06/27/17 10:41 06/27/17 10:41 06/27/17 10:57 06/27/17 10:41 Intake and Output: 06/27/17 06/27/17 06:59 18:59 Intake Total 240 Output Total 675 Balance -435 - Medications Medications: Current Medications Apixaban (Eliquis) 2.5 mg PO BID [facility] PRN Reason: Protocol Last Admin: 06/27/17 10:40 Dose: 2.5 mg Aspirin (Ecotrin) 81 mg PO 0800 [facility] PRN Reason: Protocol Last Admin: 06/27/17 10:40 Dose: 81 mg Atorvastatin Calcium (Lipitor) 40 mg PO DIN [facility] PRN Reason: Protocol Last Admin: 06/26/17 18:20 Dose: 40 mg Clopidogrel Bisulfate (Plavix) 75 mg PO DAILY [facility] PRN Reason: Protocol Last Admin: 06/27/17 10:41 Dose: 75 mg Famotidine (Pepcid) 20 mg PO 1000,2200 [facility] PRN Reason: Protocol Last Admin: 06/27/17 10:41 Dose: 20 mg Furosemide (Lasix) 40 mg IVP DAILY [facility] PRN Reason: Protocol Last Admin: 06/27/17 10:57 Dose: 40 mg Losartan Potassium (Cozaar) 12.5 mg PO DAILY [facility] PRN Reason: Protocol Last Admin: 06/27/17 10:40 Dose: 12.5 mg Metoprolol Tartrate (Lopressor) 25 mg PO 0800,1800 [facility] PRN Reason: Protocol Last Admin: 06/27/17 07:37 Dose: Not Given - Labs Labs: 06/27/17 06:30 06/27/17 06:30 - Constitutional Appears: No Acute Distress - Head Exam Head Exam: ATRAUMATIC, NORMAL INSPECTION, NORMOCEPHALIC - Eye Exam Eye Exam: EOMI, Normal appearance, PERRL Pupil Exam: NORMAL ACCOMODATION, PERRL - ENT Exam ENT Exam: Mucous Membranes Moist, Normal Exam - Neck Exam Neck Exam: Full ROM, Normal Inspection. absent: Lymphadenopathy - Respiratory Exam Respiratory Exam: Clear to Ausculation Bilateral, NORMAL BREATHING PATTERN - Cardiovascular Exam Cardiovascular Exam: REGULAR RHYTHM, +S1, +S2. absent: Murmur - GI/Abdominal Exam GI & Abdominal Exam: Soft, Normal Bowel Sounds. absent: Distended, Tenderness - Exam Exam: NORMAL INSPECTION - Extremities Exam Extremities Exam: absent: Full ROM, Tenderness Additional comments: Groin site C/D/I. diminished pulses on R LE - Back Exam Back Exam: NORMAL INSPECTION - Neurological Exam Neurological Exam: Awake. absent: Normal Gait, Oriented x3 - Skin Skin Exam: Dry, Intact, Normal Color, Warm Assessment and Plan - Assessment and Plan (Free Text) Assessment: R SFA thromboembolism -Booked for OR on 06/29 -NPO aftermidnight on Wed night -Continue anticoagulation -Medical management -Consent in chart Will RAYSA Bernstein
--- NOTE | 2017-06-27 23:42 | HP ---
HISTORY OF PRESENT ILLNESS: The patient is a 66 year old man with hypertension , hyperlipidemia, dementi and primary progressive aphasia who initially presented to the [facility] for evaluation of a 3 day history of malaise and increasing lethargy and was initially admitted to the CCU for management of STEMI, acute systolic heart failure and sepsis secondary to community acquired pneumonia. The patient's hospital course was complicated by development of right lower extremity arterial thrombus. Arrangements were made for IR catheter directed thrombolysis however this was technically unfeasible due to the patient's severe underlying PVD. As such, the patient was evaluated by Dr. Bernstein of Vascular Surgery for possible thrombectomy however, given his multiple comorbidities and poor underlying cardiac function, the procedure was canceled by the anesthesiologist. The patient was subsequently transferred to the TCU for continued physical therapy and medical management of his underlying comorbidities with the intent of reevaluating him by the vascular surgery team and anesthesiology for possible thrombectomy. This morning the patient appears to be in his usual state of health and there have been no acute events overnight. PAST MEDICAL HISTORY: As per HPI. PAST SURGICAL HISTORY: None. ALLERGIES: PENICILLIN. MEDICATIONS: Aspirin 81 mg p.o daily, Lipitor 40 mg p.o. daily, Plavix 75 mg p.o. daily, Eliquis 2.5 mg p.o. b.i.d., Metoprolol 25 mg p.o. b.i.d., Lasix 40 mg IV daily, Pepcid 20 mg p.o. b.i.d. FAMILY HISTORY: Noncontributory. SOCIAL HISTORY: The patient has no history of toxic habits. REVIEW OF SYSTEMS: Unobtainable secondary to aphasia. PHYSICAL EXAMINATION: VITAL SIGNS: Temperature 98.3, pulse 77, blood pressure 110/73, respiratory rate 16, oxygen saturation 97% on room air. GENERAL: No apparent distress. HEENT: PERRL . EOMI. No scleral icterus. No conjunctival pallor. NECK: No JVD. No bruits. LUNGS: Clear to auscultation. CARDIOVASCULAR: Regular rate and rhythm. Normal S1 and S2. ABDOMEN: Normoactive bowel sounds. Soft, nontender, and nondistended. EXTREMITIES: No edema. NEUROLOGIC: Awake and alert. Unable to follow commands. Moving all extremities. LABORATORY DATA: CBC reveled and largely unremarkable. CMP reviewed and largely unremarkable. AST 61, ALT 137. ASSESSMENT: The patient is a 66 year old man with hypertension, hyperlipidemia , dementia and primary progressive aphagia who initially was admitted to the CCU for management of STEMI, acute systolic heart failure and sepsis secondary to pneumonia who is now s/p PCI with GRZEGORZ stent placement to the LAD lesion and s /p transfer to the TCU for continued PT and pending reevaluation by the vascular surgery team and anesthesiology for possible right lower extremity thrombectomy. PLAN: 1. STEMI s/p PCI with GRZEGORZ stent placement to the LAD. Input from Dr. King noted and appreciated. Continue Aspirin 81 mg p.o. daily, Plavix 75 mg p.o. daily, Lipitor 40 mg p.o. daily, and Metoprolol 25 mg p.o. b.i.d. 2. Intracardiac thrombus. TTE demonstrates an organized, layered thrombus to the apical septum. Continue Eliquis 2.5 mg p.o. b.i.d. 3. PVD. Continue medical therapy consisting of Aspirin 81 mg p.o. daily, Lipitor 40 mg p.o. daily and Eliquis 2.5 mg p.o. b.i.d. The patient is pending reevaluation by Dr. Hoyt and anesthesiology for possible thrombectomy. 4. Acute systolic heart failure, likely secondary to acute STEMI, resolved. The patient remains clinically euvolemic. Continue Lasix 40 mg IV daily. 5. Sepsis secondary to community acquired pneumonia, resolved. The patient has completed a 7 day course of Azithromycin and remains afebrile and hemodynamically stable and without leukocytosis. Repeat blood cultures were negative. 6. Hypernatremia, resolved. 7. Transaminitis, consider secondary to poor fluid flow in the setting of acute PR and acute systolic heart failure, resolving. Hepatitis panel is negative. 8. Hypertension, blood pressure controlled. Continue Metoprolol 25 mg p.o. b.i.d. 9. Hyperlipidemia. Continue Lipitor 40 mg p.o. daily. 10. Dementia. The patient remains at his baseline neurologic status. 11. Primary progressive aphasia. 12. Prophylaxis. Continue with Pepcid for GI prophylaxis. He remains on Eliquis and thus, DVT prophylaxis is not indicated. CODE STATUS: Full code. Jacek Salgado MD NATH[facility]
--- NOTE | 2017-06-28 00:18 | CON ---
DATE: 06/27/2017 The patient is seen in room 327 earlier today. Chief complaint is weakness times several days. HISTORY OF PRESENT ILLNESS: This is a 66-year-old male with past medical history significant for primary progressive aphasia, history of dementia, hyperlipidemia, hypertension, coronary artery disease, depression who was admitted with diagnosis of sepsis and pneumonia, urinary tract infection, myocardial infarction. The patient had fever and is a poor historian. REVIEW OF SYSTEMS: Reveals the patient has no abdominal pain, diarrhea or constipation. No fevers and chills. No nausea and vomiting. PAST MEDICAL HISTORY: Significant for primary progressive aphasia, depression and dementia and coronary artery disease, hypertension, hyperlipidemia. PAST SURGICAL HISTORY: Noncontributory. ALLERGIES: The patient is allergic to PENICILLIN type of allergy. MEDICATION: No medications are reviewed. PHYSICAL EXAMINATION: VITAL SIGNS: Temperature is 98, blood pressure is 106/65, respiratory rate of 19. HEENT: Unremarkable. NECK: Supple. CARDIOPULMONARY: Normal S1, S2. LUNGS: Decreased breath sounds. ABDOMEN: Soft, nontender. LABORATORY DATA: White count of 7.9, hemoglobin of 11, platelets are noted to be over 200,000, BUN is noted and creatinine of 1.1, hepatitis profile is negative. Microbiology is reviewed. ASSESSMENT: This is a 66-year-old male who was seen earlier today with diagnosis of primary progressive aphasia, dementia, depression, coronary artery disease, hypertension and admitted with sepsis with acute anterior septal wall myocardial infarction, acute systolic congestive heart failure, reduced ejection fraction and patient with community-acquired pneumonia, right-sided aspiration pneumonia, had a positive blood culture which was coag-negative Staph consistent with contamination. The patient at this time is off of antibiotic, afebrile, and has right superficial femoral artery thromboembolism. The patient is scheduled for surgery on Wednesday with Dr. Carla Bernstein and review of orders confirms the patient to be off of antibiotics. However, the patient is at risk for developing nosocomial infections. Devon Ramirez MD
[2017-06-28 07:41] LABS: BASO # 0.03 K/mm3 (0.0-2.0); BASO % 0.4 % (0.0-3.0); EOS # 0.1 (0.0-0.7); EOS % 1.6 % (1.5-5.0); GRAN # 5.77 (1.4-6.5); GRAN % 72.2 % (50.0-68.0); HEMATOCRIT 38.1 % (42.0-52.0); LYMPH # 1.4 (1.2-3.4); LYMPH % 17.3 % (22.0-35.0); MEAN CORPUSCULAR HEMOGLOBIN 28.1 pg (25.0-35.0); MEAN CORPUSCULAR HGB CONC 32.3 g/dl (31.0-37.0); MEAN PLATELET VOLUME 12.7 fl (7.0-11.0); MONO # 0.7 (0.1-0.6); MONO % 8.5 % (1.0-6.0); RED CELL DISTRIBUTION WIDTH 13.1 % (11.5-14.5)
--- NOTE | 2017-06-28 07:42 | CP.PCM.PN ---
Subjective - Date & Time of Evaluation Date of Evaluation: 06/28/17 Time of Evaluation: 07:40 - Subjective Subjective: Surgery Pt s&e. NAEON. Aphasic. Objective - Vital Signs/Intake and Output Vital Signs (last 24 hours): Temp Pulse Resp BP Pulse Ox 97.1 F L 69 16 101/66 94 L 06/28/17 06:00 06/28/17 06:00 06/28/17 06:00 06/28/17 06:00 06/28/17 06:00 Intake and Output: 06/28/17 06/28/17 06:59 18:59 Output Total 850 Balance -850 - Medications Medications: Current Medications Apixaban (Eliquis) 2.5 mg PO BID PAULA PRN Reason: Protocol Last Admin: 06/27/17 18:10 Dose: 2.5 mg Aspirin (Ecotrin) 81 mg PO 0800 PAULA PRN Reason: Protocol Last Admin: 06/27/17 10:40 Dose: 81 mg Atorvastatin Calcium (Lipitor) 40 mg PO DIN PAULA PRN Reason: Protocol Last Admin: 06/27/17 18:11 Dose: 40 mg Clopidogrel Bisulfate (Plavix) 75 mg PO DAILY PAULA PRN Reason: Protocol Last Admin: 06/27/17 10:41 Dose: 75 mg Famotidine (Pepcid) 20 mg PO 1000,2200 PAULA PRN Reason: Protocol Last Admin: 06/27/17 21:27 Dose: 20 mg Furosemide (Lasix) 40 mg IVP DAILY PAULA PRN Reason: Protocol Last Admin: 06/27/17 10:57 Dose: 40 mg Metoprolol Tartrate (Lopressor) 25 mg PO 0800,1800 PAULA PRN Reason: Protocol Last Admin: 06/27/17 18:11 Dose: 25 mg - Labs Labs: 06/27/17 06:30 06/27/17 06:30 - Constitutional Appears: No Acute Distress - Head Exam Head Exam: ATRAUMATIC, NORMAL INSPECTION, NORMOCEPHALIC - Eye Exam Eye Exam: EOMI, Normal appearance, PERRL Pupil Exam: NORMAL ACCOMODATION, PERRL - ENT Exam ENT Exam: Mucous Membranes Moist, Normal Exam - Neck Exam Neck Exam: Full ROM, Normal Inspection. absent: Lymphadenopathy - Respiratory Exam Respiratory Exam: Clear to Ausculation Bilateral, NORMAL BREATHING PATTERN - Cardiovascular Exam Cardiovascular Exam: REGULAR RHYTHM, +S1, +S2. absent: Murmur - GI/Abdominal Exam GI & Abdominal Exam: Soft, Normal Bowel Sounds. absent: Distended, Tenderness - Exam Exam: NORMAL INSPECTION - Extremities Exam Extremities Exam: Full ROM, Normal Capillary Refill, Normal Inspection. absent : Joint Swelling, Pedal Edema, Tenderness - Back Exam Back Exam: NORMAL INSPECTION - Neurological Exam Neurological Exam: Awake - Skin Skin Exam: Dry, Intact, Normal Color, Warm Assessment and Plan - Assessment and Plan (Free Text) Assessment: R SFA thromboembolism -Booked for OR on 06/29 -NPO aftermidnight on Wed night -Continue anticoagulation -Medical management -Consent in chart Will RAYSA Bernstein
[2017-06-28 07:47] LABS: ALB/GLOB RATIO 0.9 (1.1-1.8); ALKALINE PHOSPHATASE 97 U/L (38-126); ALT/SGPT 151 U/L (7-56); AST/SGOT 66 U/L (17-59); BILIRUBIN,TOTAL 0.6 mg/dL (0.2-1.3); BLOOD UREA NITROGEN 25 mg/dL (7-21); CALCIUM 8.6 mg/dL (8.4-10.5); CARBON DIOXIDE 26 mmol/L (21-33); CHLORIDE 104 mmol/L (98-107); GFR AFRICAN-AMERICAN > 60; GLUCOSE,RANDOM 102 mg/dL (70-110); POTASSIUM 3.9 mmol/L (3.6-5.0); SODIUM 139 mmol/L (132-148); TOTAL PROTEIN 6.7 g/dL (5.8-8.3)
[2017-06-28 11:48] VITALS: RESP 14; TEMP 98.1; O2SAT 97
--- NOTE | 2017-06-28 12:26 | PN ---
DATE: 06/28/2017 SUBJECTIVE: The patient seen in bed, in no acute distress, and nontoxic. PHYSICAL EXAMINATION VITAL SIGNS: Temperature is 97, blood pressure is 101/60, and respiratory rate of 16. HEENT: Examination of HEENT is unremarkable. NECK: Supple. LUNGS: Decreased breath sounds. HEART: Normal S1 and S2. ABDOMINAL: Soft and nontender. LABORATORY DATA: Laboratory examination reveals a white count of 8000, hemoglobin of 12, and platelets of 299. BUN of 25, and creatinine of 1.0. Review of orders reveals the patient to be off of antibiotics. ASSESSMENT AND PLAN: This is a 66-year-old male with past medical history significant for a primary progressive aphasia, dementia, hyperlipidemia, hypertension, coronary artery disease, depression, diagnosis of sepsis, pneumonia, urinary tract infection, and myocardial infarction. The patient was admitted with sepsis due to acute anterior septal wall myocardial infarction and acute systolic congestive heart failure with reduced ejection fraction, community acquired pneumonia, left-sided aspiration pneumonia with coagulase-negative Staphylococcus bacteriemia, which was consistent with contamination. Currently off of antibiotics and afebrile. The patient has had right superficial femoral artery thromboembolism. He is scheduled for surgery by Dr. Carla Bernstein tomorrow. Devon Ramirez MD
[2017-06-29 06:10] LABS: BASO # 0.03 K/mm3 (0.0-2.0); BASO % 0.4 % (0.0-3.0); EOS # 0.1 (0.0-0.7); EOS % 1.1 % (1.5-5.0); GRAN # 4.97 (1.4-6.5); GRAN % 69.2 % (50.0-68.0); HEMATOCRIT 37.3 % (42.0-52.0); LYMPH # 1.5 (1.2-3.4); LYMPH % 20.4 % (22.0-35.0); MEAN CELL VOLUME 85.9 fl (80.0-105.0); MEAN CORPUSCULAR HEMOGLOBIN 28.3 pg (25.0-35.0); MONO # 0.6 (0.1-0.6); MONO % 8.9 % (1.0-6.0); RED CELL DISTRIBUTION WIDTH 12.7 % (11.5-14.5); WHITE BLOOD COUNT 7.2 10^3/ul (4.5-11.0)
[2017-06-29 06:49] LABS: ALB/GLOB RATIO 0.9 (1.1-1.8); ALKALINE PHOSPHATASE 88 U/L (38-126); ALT/SGPT 139 U/L (7-56); AST/SGOT 52 U/L (17-59); BILIRUBIN,TOTAL 0.6 mg/dL (0.2-1.3); BLOOD UREA NITROGEN 28 mg/dL (7-21); CALCIUM 8.7 mg/dL (8.4-10.5); CARBON DIOXIDE 27 mmol/L (21-33); CHLORIDE 103 mmol/L (98-107); GFR AFRICAN-AMERICAN > 60; GLUCOSE,RANDOM 101 mg/dL (70-110); POTASSIUM 4.3 mmol/L (3.6-5.0); SODIUM 137 mmol/L (132-148); TOTAL PROTEIN 6.6 g/dL (5.8-8.3)
[2017-06-29 08:11] LABS: URINE BILIRUBIN NEGATIVE (NEGATIVE); URINE BLOOD LARGE (NEGATIVE); URINE GLUCOSE (UA) NEGATIVE (NEGATIVE); URINE KETONE NEGATIVE (NEGATIVE); URINE LEUKOCYTE ESTERASE TRACE Leu/uL (NEGATIVE); URINE PROTEIN 30 mg/dL (<30 mg/dL)
[2017-06-29 08:13] LABS: URINE APPEARANCE TURBID (CLEAR); URINE COLOR RED (YELLOW)
[2017-06-29 08:28] VITALS: BP 101/61; PULSE 76
[2017-06-29 08:34] LABS: URINE BACTERIA MANY (NEG); URINE RBC TNTC /hpf (0-2)
[2017-06-29] MEDS ORDERED: Heparin 10,000 Units/ml ONE (09:19)
[2017-06-29] MEDS ORDERED: Thrombin Topical 20,000 Intl Units Spray Kit TOP ONE (09:20)
[2017-06-29] MEDS ORDERED: Lidocaine 1% Inj (20ml) ONE ×2 (09:20→10:18)
[2017-06-29] MEDS ORDERED: Iohexol 240 (50 ml) ONE (09:27)
--- NOTE | 2017-06-29 10:00 | PN ---
SUBJECTIVE: The patient was seen and examined at bedside on the TCU. Overnight he was noted to have some hematuria with light pink urine noted in his Whitaker catheter. There were no fevers associated with the hematuria. Of note the patient is on ASA, Plavix and Eliquis. He otherwise remains hemodynamically stable and largely clinically unchanged. He is pending thrombectomy with Dr. Bernstein of Vascular Surgery. PHYSICAL EXAMINATION: VITAL SIGNS: Temperature 98.1, pulse 76, blood pressure 101/61, respiratory rate 14, oxygen saturation 96% on room air. GENERAL: In no apparent distress. HEENT: PERRL, EOMI. No scleral icterus. No conjunctival pallor. NECK: No JVD. No bruits. LUNGS: Clear to auscultation. CARDIOVASCULAR: Regular rate and rhythm. Normal S1 and S2. ABDOMEN: Normoactive bowel sound. Soft, nontender, and nondistended. EXTREMITIES: No edema. NEUROLOGIC: Awake and alert, not following commands. Able to move all extremities. LABORATORY DATA: CBC reviewed and unremarkable. CMP reviewed and unremarkable. ASSESSMENT: The patient is a 66 year old man with hypertension, hyperlipidemia , dementia and primary progressive aphasia who was initially dmitted to the CCU for management of STEMI, acute systolic heart failure and sepsis secondary to CAP who is s/p PCI with GRZEGORZ stent placement to the LAD lesion and s/p transfer to the TCU for continued PT and medical management of his comorbidities and pending right lower extremity thrombectomy. PLAN: 1. STEMI s/p PCI with GRZEGORZ stent placement to the LAD. Input from Dr. King noted and appreciated. Continue Aspirin 81 mg p.o. daily, Plavix 75 mg p.o. daily, Lipitor 40 mg p.o. daily and Metoprolol 25 mg p.o. b.i.d. 2. Intracardiac thrombus, TTE demonstrates an organized, layered thrombus to the apical septum. Continue Eliquis 2.5 mg p.o. b.i.d. 3. PVD. Continue medical therapy consisting of Aspirin 81 mg p.o. daily, Lipitor 40 mg p.o. daily and Eliquis 2.5 mg p.o. b.i.d. As above, the patient is pending possible thrombectomy with Dr. Bernstein. 4. Acute systolic heart failure, likely secondary to acute STEMI, resolved. The patient remains clinically euvolemic. We will d/c Lasix. 5. Sepsis secondary to community-acquired pneumonia, resolved. The patient has completed 7 day course of Azithromycin and remains afebrile, without leukocytosis and with negative repeat blood cultures. 6. Hypernatremia, resolved. 7. Transaminitis, resolved. 8. Hypertension. ContinueMetoprolol 25 mg p.o. b.i.d. 9. Hyperlipidemia. Continue Lipitor 40 mg p.o. daily. 10. Dementia. The patient remains at his baseline neurologic status. 11. Primary progressive aphasia. 12. Prophylaxis. Continue with Pepcid for GI prophylaxis. He remains on Eliquis thus DVT prophylaxis not indicated. CODE STATUS: Full code. Jacek Salgado MD MTDD
[2017-06-29] MEDS ORDERED: Propofol 10 mg/ml Inj (20 ML) ONE (10:17)
--- NOTE | 2017-06-29 10:17 | PN ---
DATE: 06/29/2017 CARDIOLOGY FOLLOWUP NOTE SUBJECTIVE: The patient is resting comfortably. OBJECTIVE: VITAL SIGNS: Blood pressure is 101/61 and heart rate is in the 70s. NECK: Negative JVD. LUNGS: Without rales. HEART: S1 and S2. EXTREMITIES: Both lower extremities have equal temperature. LABORATORY DATA: Hemoglobin is 12.3. Chemistries, BUN and creatinine are 28 and 1.0 with potassium of 4.3. IMPRESSION: 1. Status post anterior wall myocardial infarction. 2. Status post emergency percutaneous transluminal coronary angioplasty stent on occluded left anterior descending artery. 3. Peripheral vascular disease. 4. Status post occlusion of the right femoral artery after deployment of a closure device. 5. Primary aphasia. PLAN: Given these findings, the patient is scheduled for vascular surgery to correct the flow across the right femoral artery. Seymour King MD
[2017-06-29] MEDS ORDERED: Rocuronium 10 mg/ml (5 ml) ONE (10:18)
[2017-06-29] MEDS ORDERED: Etomidate 40 MG/20 ML ML IV ONE (10:18)
[2017-06-29] MEDS ORDERED: Midazolam 2 MG/2 ML VIAL ONE (10:18)
--- NOTE | 2017-06-29 11:42 | CP.PCM.PN ---
Subjective - Date & Time of Evaluation Date of Evaluation: 06/29/17 Time of Evaluation: 11:39 - Subjective Subjective: VAscular surgery Pt s&e. Today OR case can cancelled because of Eliquis. Objective - Vital Signs/Intake and Output Vital Signs (last 24 hours): Temp Pulse Resp BP Pulse Ox 98.1 F 76 14 101/61 97 06/28/17 11:48 06/29/17 08:23 06/28/17 11:48 06/29/17 08:23 06/28/17 11:48 Intake and Output: 06/29/17 06/29/17 06:59 18:59 Output Total 350 Balance -350 - Medications Medications: Current Medications Apixaban (Eliquis) 2.5 mg PO BID PAULA PRN Reason: Protocol Last Admin: 06/29/17 11:14 Dose: Not Given Aspirin (Ecotrin) 81 mg PO 0800 PAULA PRN Reason: Protocol Last Admin: 06/29/17 08:15 Dose: 81 mg Atorvastatin Calcium (Lipitor) 40 mg PO DIN PAULA PRN Reason: Protocol Last Admin: 06/28/17 17:20 Dose: 40 mg Clopidogrel Bisulfate (Plavix) 75 mg PO DAILY PAULA PRN Reason: Protocol Last Admin: 06/29/17 11:15 Dose: Not Given Famotidine (Pepcid) 20 mg PO 1000,2200 PAULA PRN Reason: Protocol Last Admin: 06/29/17 11:15 Dose: Not Given Metoprolol Tartrate (Lopressor) 25 mg PO 0800,1800 PAULA PRN Reason: Protocol Last Admin: 06/29/17 08:23 Dose: Not Given - Labs Labs: 06/29/17 05:40 06/29/17 05:40 - Constitutional Appears: No Acute Distress - Head Exam Head Exam: ATRAUMATIC, NORMAL INSPECTION, NORMOCEPHALIC - Eye Exam Eye Exam: EOMI, Normal appearance, PERRL Pupil Exam: NORMAL ACCOMODATION, PERRL - ENT Exam ENT Exam: Mucous Membranes Moist, Normal Exam - Neck Exam Neck Exam: Full ROM, Normal Inspection. absent: Lymphadenopathy Additional comments: INtubated - Cardiovascular Exam Cardiovascular Exam: REGULAR RHYTHM, +S1, +S2. absent: Murmur - GI/Abdominal Exam GI & Abdominal Exam: Soft, Normal Bowel Sounds. absent: Distended, Tenderness - Extremities Exam Extremities Exam: Full ROM, Normal Capillary Refill, Normal Inspection. absent : Joint Swelling, Pedal Edema - Back Exam Back Exam: NORMAL INSPECTION - Neurological Exam Neurological Exam: Alert, Awake, CN II-XII Intact, Normal Gait, Oriented x3 - Psychiatric Exam Psychiatric exam: Normal Affect, Normal Mood - Skin Skin Exam: Dry, Intact, Normal Color, Warm
--- NOTE | 2017-06-29 13:12 | PN ---
DATE: 06/29/2017 SUBJECTIVE: The patient seen in bed in no acute distress, nontoxic. PHYSICAL EXAMINATION VITAL SIGNS: Temperature is 98, blood pressure is 101/60, and respiratory rate of 18. HEENT: Examination of HEENT is unremarkable. NECK: Supple. LUNGS: Decreased breath sounds. HEART: Normal S1 and S2. ABDOMEN: Soft and nontender. LABORATORY DATA: Laboratory examination reveals the patient has a white count of 7.2, hemoglobin of 12, platelets of 287, BUN of 28, and creatinine of 1.0. Urinalysis is noted, 2 to 5 wbc's. ASSESSMENT AND PLAN: This is a 66-year-old male with past medical history significant for primary progressive aphasia, dementia, hyperlipidemia, hypertension, coronary artery disease, and depression. Diagnosed with sepsis, pneumonia, urinary tract infection, and myocardial infarction. Admitted with sepsis due to acute anterior septal wall myocardial infarction and acute systolic congestive failure with reduced ejection fraction, and with community acquired pneumonia, left-sided aspiration community acquired pneumonia and a coagulase-negative Staphylococcus bacteremia, which is consistent with contamination. Currently, the patient is off antibiotics and afebrile. The patient was seen early this morning, the patient should have possible OR this morning by Dr. Carla Bernstein for thromboembolectomy for a right superficial femoral artery thromboembolism with the diagnosis preoperatively. We will follow with you. Devon Ramirez MD
--- NOTE | 2017-06-30 18:39 | DS ---
ADMITTING DIAGNOSES: CAD s/p STEMI s/p PCI with GRZEGORZ stent placement to the LAD, PVD with right iliac arterial thrombus. DISCHARGE DIAGNOSES: CAD s/p STEMI s/p PCI with GRZEGORZ stent placement to the LAD, PVD with right iliac arterial thrombus. SECONDARY DIAGNOSES: Intracardiac thrombus, hypertension, hyperlipidemia, acute systolic heart failure secondary to STEMI (resolving), dementia and primary progressive aphasia. CONSULTATIONS: Dr. Ramirez (Infectious Disease), Dr. Bernstein (Vascular Surgery), Dr. King ( Cardiology). IMAGING STUDIES: None. PROCEDURES: None. HISTORY OF PRESENT ILLNESS: The patient is a 66 year old man with multiple medical comorbidities including hypertension, hyperlipidemia, dementia and primary progressive aphasia who initially presented to [facility] for evaluation of a 3 day history of malaise and increasing lethargy and was initially admitted to the CCU for management of STEMI, acute systolic heart failure and sepsis secondary to community acquired pneumonia. The patient's hospital course was complicated by development of a right lower extremity arterial thrombus. Arrangements were made for IR catheter directed thrombolysis however this was technically unfeasible due to the patient's severe underlying peripheral vascular disease. As such the patient was evaluated by Dr. Bernstein of Vascular Surgery for possible thrombectomy however given his multiple comorbidities and poor underlying cardiac function, the procedure was canceled by the anesthesiologist. The patient was subsequently transferred to the TCU for continued physical therapy and medical management of his underlying comorbidities with the intent of reevaluating him by the Vascular Surgery team for thrombectomy. HOSPITAL COURSE: While on the TCU, the patient's stay was uncomplicated. He was maintained on his Aspirin, Plavix and Eliquis. Arrangements were made for repeat attempt thrombectomy with Dr. Bernstein and the patient was readmitted with scheduled OR on 06/29/2017 with the plan to be transferred to the ICU postoperatively. CONDITION: Guarded, improved. DISPOSITION: ICU. DISCHARGE MEDICATIONS: Eliquis 2.5 mg p.o. b.i.d., Aspirin 81 mg p.o. daily, Plavix 75 mg p.o. daily, Lipitor 40 mg p.o. daily and Metoprolol 25 mg p.o. b.i.d. FOLLOWUP: The patient will be followed by his PMD and the consultants during his hospital stay. Jacek Salgado MD NATHANIEL
== END 2017-06-29 12:48 | disposition short-term general hospital (02) | DRG 280 ==
LOC: TRCU 16:26
PROVIDERS: ADMIT Internal Medicine; ATTEND Internal Medicine
PROC: F07Z9ZZ Gait Training/Functional Ambulation Treatment (ICD-10-PCS; principal; 2017-06-27)
DX: I74.3 Embolism and thrombosis of arteries of the lower extremities (principal); I21.09 ST elevation (STEMI) myocardial infarction involving other coronary artery of anterior wall; I50.23 Acute on chronic systolic (congestive) heart failure; J69.0 Pneumonitis due to inhalation of food and vomit; A41.9 Sepsis, unspecified organism; R47.01 Aphasia; N39.0 Urinary tract infection, site not specified; I25.10 Atherosclerotic heart disease of native coronary artery without angina pectoris; F03.90 Unspecified dementia, unspecified severity, without behavioral disturbance, psychotic disturbance, mood disturbance, and anxiety; I11.0 Hypertensive heart disease with heart failure; E78.5 Hyperlipidemia, unspecified; F32.9 Major depressive disorder, single episode, unspecified; Z79.01 Long term (current) use of anticoagulants; Z88.0 Allergy status to penicillin; Z95.5 Presence of coronary angioplasty implant and graft

== ENCOUNTER 2017-06-29 09:55 | Inpatient (IN) | payer MEDICARE, OTHER ==
[2017-06-29] MEDS ORDERED: Vancomycin 1 g Inj ONE (10:50)
--- NOTE | 2017-06-29 14:08 | CP.PCM.CON ---
<Ian Castro - Last Filed: 06/29/17 14:24> History of Present Illness - History of Present Illness History of Present Illness: 66 y/o M with PMH of progressive primary aphasia, HTN, HLD, and CAD with stent placement initially presented to the hospital for NSTEMI and CAP. Patient underwent stent placement of the LAD. Patient also received a full course of abx for CAP. Patient developed diminished pulses in his right foot. Angiogram performed showed right SFA occlusion. IR attempted to remove clot, but were unsuccessful. Patient was scheduled today for vascular surgery, but it was cancelled as the patient had anticoagulation today. Patient will remain in the ICU for observation at this time as he has an arterial line. Patient is aphasic , medical information provided from previous charts and staff. PMH: As above Surgical Hx: Stent placement Family medical Hx : Noncontributory Social Hx: No alcohol, tobacco, or illicit drug use Medications: Reviewed, as per KAREEN Allergies: Penicillins Review of Systems - Review of Systems Review of Systems: Aphasic Past Patient History - Infectious Disease Hx of Infectious Diseases: None - Past Social History Smoking Status: Never Smoked - CARDIAC Hx Cardiac Disorders: Yes Hx Congestive Heart Failure: Yes Hx Hypercholesterolemia: Yes Hx Hypertension: Yes - PULMONARY Hx Respiratory Disorders: No - NEUROLOGICAL Hx Paralysis: No - HEENT Hx HEENT Problems: No - RENAL Hx Chronic Kidney Disease: No - ENDOCRINE/METABOLIC Hx Endocrine Disorders: No - HEMATOLOGICAL/ONCOLOGICAL Hx Blood Transfusions: No - INTEGUMENTARY Hx Dermatological Problems: No - MUSCULOSKELETAL/RHEUMATOLOGICAL Hx Musculoskeletal Disorders: No - GASTROINTESTINAL Hx Gastrointestinal Disorders: Yes (DYSPHAGIA, FINELY CHOPPED WITH THIN LIQUIDS DIET) - GENITOURINARY/GYNECOLOGICAL Hx Genitourinary Disorders: Yes (INCONTINENT) Hx Reproductive Disorders: No - PSYCHIATRIC Hx Substance Use: No - SURGICAL HISTORY Hx Surgeries: Yes - ANESTHESIA Hx Anesthesia Reactions: No Hx Malignant Hyperthermia: No Meds Allergies/Adverse Reactions: Allergies Allergy/AdvReac Type Severity Reaction Status Date / Time Penicillins Allergy ANAPHYLAXIS Verified 06/26/17 18:51 Physical Exam - Constitutional Appears: Non-toxic, No Acute Distress - Head Exam Head Exam: ATRAUMATIC, NORMAL INSPECTION, NORMOCEPHALIC - Eye Exam Eye Exam: EOMI, Normal appearance, PERRL - ENT Exam ENT Exam: Mucous Membranes Moist, Normal Exam - Respiratory Exam Respiratory Exam: Clear to Auscultation Bilateral, NORMAL BREATHING PATTERN. absent: Rhonchi, Wheezes - Cardiovascular Exam Cardiovascular Exam: RRR, +S1, +S2 - GI/Abdominal Exam GI & Abdominal Exam: Soft, Tenderness. absent: Normal Bowel Sounds - Extremities Exam Extremities exam: Positive for: normal inspection. Negative for: calf tenderness, pedal edema Additional comments: Arterial line in right radial artery Diminished pedal pulses in right lower extremity - Neurological Exam Neurological exam: Alert, CN II-XII Intact - Skin Skin Exam: Intact, Normal Color, Warm Results - Vital Signs Recent Vital Signs: Last Vital Signs Temp 98 F 06/29/17 12:37 Pulse 71 06/29/17 12:38 Resp 12 06/29/17 12:37 BP 112/75 06/29/17 12:37 Pulse Ox 100 06/29/17 12:05 Assessment & Plan - Assessment and Plan (Free Text) Plan: 66 y/o M with PMH of progressive primary aphasia, HTN, HLD, and CAD with stent placement presents for observation and monitoring of arterial radial line in preparation for right SFA embolectomy as per vascular surgery. Patient scheduled for surgery tomorrow. Neuro: Aphasic No focal neurological deficits Cardio: Hemodynamically stable Maintain MAP >65 2 stents placed in LAD Hold anticoagulation for surgery tomorrow Pulm: Extubated in ICU Maintain O2 sats >90% GI: Protonix for GI prophylaxis NPO after midnight Renal: Replenish electrolytes as needed Maintain euvolemia ID: Maintain normothermia S/p treatment for CAP Endocrine: Maintain euglycemia Matthew, PGY-2 <Tera Hartley - Last Filed: 06/29/17 20:21> Meds - Medications Medications: Current Medications Atorvastatin Calcium (Lipitor) 40 mg PO DIN [facility] Clopidogrel Bisulfate (Plavix) 75 mg PO DAILY [facility] Famotidine (Pepcid) 20 mg PO 1000,2200 PAULA Furosemide (Lasix) 40 mg IVP DAILY [facility] Losartan Potassium (Cozaar) 12.5 mg PO DAILY [facility] Metoprolol Tartrate (Lopressor) 25 mg PO BID [facility] Results - Vital Signs Recent Vital Signs: Last Vital Signs Temp 98.1 F 06/29/17 12:37 Pulse 66 06/29/17 18:50 Resp 15 06/29/17 18:50 BP 109/71 06/29/17 18:00 Pulse Ox 100 06/29/17 18:50 - Labs Result Diagrams: 06/29/17 14:20 Labs: Laboratory Results - last 24 hr 06/29/17 14:20 WBC 7.1 RBC 4.40 Hgb 12.7 L Hct 38.2 L MCV 86.8 MCH 28.9 MCHC 33.2 RDW 12.9 Plt Count 303 MPV 13.2 H Gran % 74.1 H Lymph % (Auto) 16.5 L [place]oshone % (Auto) 8.0 H Eos % (Auto) 1.3 L Baso % (Auto) 0.1 Gran # 5.28 Lymph # 1.2 [place]one # 0.6 Eos # 0.1 Baso # 0.01 Attending/Attestation - Attestation I have personally seen and examined this patient.: Yes I have fully participated in the care of the patient.: Yes I have reviewed all pertinent clinical information: Yes Notes (Text): 06/29/17 20:18 66 yo male who was supposed to go for CEA, however after GA induction, A-line placement and intubation, it was revealed that the patient is on apixaban and procedure was aborted. 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 Hemodynamically and respiratory narvaez stable. ccm time 40 min
[2017-06-29 17:17] LABS: BASO # 0.01 K/mm3 (0.0-2.0); BASO % 0.1 % (0.0-3.0); EOS # 0.1 (0.0-0.7); EOS % 1.3 % (1.5-5.0); GRAN # 5.28 (1.4-6.5); GRAN % 74.1 % (50.0-68.0); HEMOGLOBIN 12.7 g/dL (14.0-18.0); LYMPH # 1.2 (1.2-3.4); LYMPH % 16.5 % (22.0-35.0); MEAN CELL VOLUME 86.8 fl (80.0-105.0); MEAN CORPUSCULAR HEMOGLOBIN 28.9 pg (25.0-35.0); MEAN CORPUSCULAR HGB CONC 33.2 g/dl (31.0-37.0); MEAN PLATELET VOLUME 13.2 fl (7.0-11.0); MONO # 0.6 (0.1-0.6); RBC 4.4 10^6/uL (3.5-6.1); RED CELL DISTRIBUTION WIDTH 12.9 % (11.5-14.5); WHITE BLOOD COUNT 7.1 10^3/ul (4.5-11.0)
--- NOTE | 2017-06-29 21:44 | CARD ---
APPROVED REPORT EKG Measurement Heart [id number] CO [id number] <Conclusion> Normal sinus rhythm Left anterior fascicular block Anterolateral infarct, recent Abnormal ECG
[2017-06-30 10:27] LABS: HEMOGLOBIN 12.6 g/dL (14.0-18.0); MEAN CELL VOLUME 86.1 fl (80.0-105.0); MEAN CORPUSCULAR HEMOGLOBIN 28.8 pg (25.0-35.0); MEAN CORPUSCULAR HGB CONC 33.4 g/dl (31.0-37.0); MEAN PLATELET VOLUME 12.2 fl (7.0-11.0); RBC 4.38 10^6/uL (3.5-6.1); RED CELL DISTRIBUTION WIDTH 12.7 % (11.5-14.5); WHITE BLOOD COUNT 7.6 10^3/ul (4.5-11.0)
[2017-06-30 10:37] LABS: ALB/GLOB RATIO 0.9 (1.1-1.8); ALBUMIN 3.2 g/dL (3.0-4.8); ALT/SGPT 120 U/L (7-56); AST/SGOT 58 U/L (17-59); BLOOD UREA NITROGEN 24 mg/dL (7-21); CALCIUM 8.9 mg/dL (8.4-10.5); GFR AFRICAN-AMERICAN > 60; GFR NON-AFRICAN AMERICAN > 60
--- NOTE | 2017-06-30 10:57 | CP.CCUPN ---
<Juan Preciado - Last Filed: 06/30/17 11:43> CCU Subjective - Physician Review Events Since Last Encounter (Free Text): Critical care Progress Note for Dr. Calzada Patient seen and examined at bedside. No acute events overnight. Patient was taken to operating room yesterday however operation was delayed. Patient will be taken to OR today for R SFA embolectomy. Denies nausea/vomiting, fever/chills , chest pain, abdominal pain, sob. CCU Objective - Vital Signs / Intake & Output Vital Signs (Last 4 hours): Vital Signs Pulse Resp BP Pulse Ox 06/30/17 10:00 60 06/30/17 09:20 60 06/30/17 09:00 68 20 103/69 99 06/30/17 08:50 68 14 99 06/30/17 08:40 70 100 06/30/17 08:30 65 14 99 06/30/17 08:20 65 13 99 06/30/17 08:10 69 12 98 06/30/17 08:00 69 16 108/73 100 06/30/17 07:50 65 8 L 100 06/30/17 07:40 69 14 99 06/30/17 07:30 67 33 H 98 06/30/17 07:20 64 100 06/30/17 07:10 69 6 L 99 06/30/17 07:00 70 12 111/71 98 Intake and Output (Last 8hrs): Intake & Output 06/29/17 06/30/17 06/30/17 22:59 06:59 14:59 Output Total 300 350 Balance -300 -350 Weight 147 lb Output: Urine 300 350 Urethral (Whitaker) 300 350 - Physical Exam Physical Exam Limitations: Positive for: Other (Aphasic) Head: Positive for: Atraumatic, Normocephalic Extroacular Muscles: Positive for: EOMI Conjunctiva: Positive for: Normal Neck: Positive for: Normal Range of Motion Respiratory/Chest: Positive for: Clear to Auscultation Cardiovascular: Positive for: Regular Rate and Rhythm, Normal S1, S2. Negative for: Murmurs Abdomen: Positive for: Normal Bowel Sounds. Negative for: Tenderness Upper Extremity: Positive for: Normal Inspection, NORMAL PULSES Lower Extremity: Positive for: Normal Inspection. Negative for: Edema, NORMAL PULSES (2+ Pulses on Left, No pulses found on right) Skin: Positive for: Dry, Other (Radial Arterial line in place) - Medications Active Medications: Active Medications Generic Name Dose Route Start Last Admin Trade Name Aristeo PRN Reason Stop Dose Admin Atorvastatin Calcium 40 mg 06/30/17 17:00 Lipitor PO DIN PAULA Clopidogrel Bisulfate 75 mg 06/30/17 10:00 06/30/17 09:22 Plavix PO 75 mg DAILY PAULA Administration Famotidine 20 mg 06/29/17 22:00 06/30/17 09:22 Pepcid PO 20 mg 1000,2200 PAULA Administration Metoprolol Tartrate 25 mg 06/29/17 18:00 06/30/17 09:20 Lopressor PO Not Given BID [facility] - Patient Studies Lab Studies: Lab Studies 06/30/17 06/30/17 06/29/17 Range/Units 10:10 10:10 14:20 WBC 7.6 7.1 (4.5-11.0) 10^3/ul RBC 4.38 4.40 (3.5-6.1) 10^6/uL Hgb 12.6 L 12.7 L (14.0-18.0) g/dL Hct 37.7 L 38.2 L (42.0-52.0) % MCV 86.1 86.8 (80.0-105.0) fl MCH 28.8 28.9 (25.0-35.0) pg MCHC 33.4 33.2 (31.0-37.0) g/dl RDW 12.7 12.9 (11.5-14.5) % Plt Count 277 303 (120.0-450.0) 10^3/uL MPV 12.2 H 13.2 H (7.0-11.0) fl Gran % 74.1 H (50.0-68.0) % Lymph % (Auto) 16.5 L (22.0-35.0) % Barnwell % (Auto) 8.0 H (1.0-6.0) % Eos % (Auto) 1.3 L (1.5-5.0) % Baso % (Auto) 0.1 (0.0-3.0) % Gran # 5.28 (1.4-6.5) Lymph # 1.2 (1.2-3.4) Barnwell # 0.6 (0.1-0.6) Eos # 0.1 (0.0-0.7) Baso # 0.01 (0.0-2.0) K/mm3 Sodium 139 (132-148) mmol/L Potassium 4.4 (3.6-5.0) mmol/L Chloride 104 (98-107) mmol/L Carbon Dioxide 26 (21-33) mmol/L Anion Gap 13 (10-20) BUN 24 H (7-21) mg/dL Creatinine 0.9 (0.8-1.5) mg/dl Est GFR ( Amer) > 60 Est GFR (Non-Af Amer) > 60 Random Glucose 114 H (70-110) mg/dL Calcium 8.9 (8.4-10.5) mg/dL Total Bilirubin 0.7 (0.2-1.3) mg/dL AST 58 (17-59) U/L ALT 120 H (7-56) U/L Alkaline Phosphatase 96 (38-126) U/L Total Protein 6.8 (5.8-8.3) g/dL Albumin 3.2 (3.0-4.8) g/dL Globulin 3.6 gm/dL Albumin/Globulin Ratio 0.9 L (1.1-1.8) Blood Type Antibody Screen Crossmatch BBK History Checked 06/29/17 Range/Units 09:45 WBC (4.5-11.0) 10^3/ul RBC (3.5-6.1) 10^6/uL Hgb (14.0-18.0) g/dL Hct (42.0-52.0) % MCV (80.0-105.0) fl MCH (25.0-35.0) pg MCHC (31.0-37.0) g/dl RDW (11.5-14.5) % Plt Count (120.0-450.0) 10^3/uL MPV (7.0-11.0) fl Gran % (50.0-68.0) % Lymph % (Auto) (22.0-35.0) % Barnwell % (Auto) (1.0-6.0) % Eos % (Auto) (1.5-5.0) % Baso % (Auto) (0.0-3.0) % Gran # (1.4-6.5) Lymph # (1.2-3.4) Barnwell # (0.1-0.6) Eos # (0.0-0.7) Baso # (0.0-2.0) K/mm3 Sodium (132-148) mmol/L Potassium (3.6-5.0) mmol/L Chloride (98-107) mmol/L Carbon Dioxide (21-33) mmol/L Anion Gap (10-20) BUN (7-21) mg/dL Creatinine (0.8-1.5) mg/dl Est GFR ( Amer) Est GFR (Non-Af Amer) Random Glucose (70-110) mg/dL Calcium (8.4-10.5) mg/dL Total Bilirubin (0.2-1.3) mg/dL AST (17-59) U/L ALT (7-56) U/L Alkaline Phosphatase (38-126) U/L Total Protein (5.8-8.3) g/dL Albumin (3.0-4.8) g/dL Globulin gm/dL Albumin/Globulin Ratio (1.1-1.8) Blood Type A POSITIVE Antibody Screen Negative Crossmatch See Detail BBK History Checked Patient has bt Laboratory Results - last 24 hr 06/29/17 06/29/17 06/30/17 09:45 14:20 10:10 WBC 7.1 7.6 RBC 4.40 4.38 Hgb 12.7 L 12.6 L Hct 38.2 L 37.7 L MCV 86.8 86.1 MCH 28.9 28.8 MCHC 33.2 33.4 RDW 12.9 12.7 Plt Count 303 277 MPV 13.2 H 12.2 H Gran % 74.1 H Lymph % (Auto) 16.5 L Barnwell % (Auto) 8.0 H Eos % (Auto) 1.3 L Baso % (Auto) 0.1 Gran # 5.28 Lymph # 1.2 Barnwell # 0.6 Eos # 0.1 Baso # 0.01 Sodium Potassium Chloride Carbon Dioxide Anion Gap BUN Creatinine Est GFR ( Amer) Est GFR (Non-Af Amer) Random Glucose Calcium Total Bilirubin AST ALT Alkaline Phosphatase Total Protein Albumin Globulin Albumin/Globulin Ratio Blood Type A POSITIVE Antibody Screen Negative Crossmatch See Detail BBK History Checked Patient has bt 06/30/17 10:10 WBC RBC Hgb Hct MCV MCH MCHC RDW Plt Count MPV Gran % Lymph % (Auto) Barnwell % (Auto) Eos % (Auto) Baso % (Auto) Gran # Lymph # Barnwell # Eos # Baso # Sodium 139 Potassium 4.4 Chloride 104 Carbon Dioxide 26 Anion Gap 13 BUN 24 H Creatinine 0.9 Est GFR ( Amer) > 60 Est GFR (Non-Af Amer) > 60 Random Glucose 114 H Calcium 8.9 Total Bilirubin 0.7 AST 58 ALT 120 H Alkaline Phosphatase 96 Total Protein 6.8 Albumin 3.2 Globulin 3.6 Albumin/Globulin Ratio 0.9 L Blood Type Antibody Screen Crossmatch BBK History Checked Critical Care Progress Note - Nutrition Nutrition: Nutrition Category Date Time Status NPO Diet [DIET] Diets 06/30/17 Breakfast Ordered Assessment/Plan - Assessment and Plan (Free Text) Assessment: 66 M with pmhx of progressive aphasia, htn, hld, and CAD with stent placement presents for observation and monitoring of arterial radial line in preparation for right SFA embolectomy as per vascular surgery Neurology: Mental status improving with continued visual hallucinations. -aphasic -no focal neurological deficits Pulmonary: Chest xray shows right sided infiltrate representing pneumonia -Extubated -Maintain O2 saturation >90% Cardiology: right sided heart failure with moderate pulmonary hypertension -hemodynamically stable -maintain MAP >65 -2 stents in LAD -hold coagulation for surgery ID: AMS secondary to hypothermia, leukopenia -Maintain normothermia -s/p treatment for CAP Renal: stable, monitoring electrolytes Endocrinology: Transient hypoglycemia likely 2/2 poor intake and infection -Maintain euglycemia Hematology: H/H currently stable, will continue to monitor GI: -currently tolerating food -PPI Prophylaxis w/protonix -NPO for surgery Juan Ozzy PGY1 <Donal Calzada - Last Filed: 06/30/17 12:12> CCU Objective - Vital Signs / Intake & Output Vital Signs (Last 4 hours): Vital Signs Pulse Resp BP Pulse Ox 06/30/17 10:00 60 06/30/17 09:20 60 06/30/17 09:00 68 20 103/69 99 06/30/17 08:50 68 14 99 06/30/17 08:40 70 100 06/30/17 08:30 65 14 99 06/30/17 08:20 65 13 99 06/30/17 08:10 69 12 98 Intake and Output (Last 8hrs): Intake & Output 06/29/17 06/30/17 06/30/17 22:59 06:59 14:59 Output Total 300 350 Balance -300 -350 Weight 147 lb Output: Urine 300 350 Urethral (Whitaker) 300 350 - Medications Active Medications: Active Medications Generic Name Dose Route Start Last Admin Trade Name Aristeo PRN Reason Stop Dose Admin Atorvastatin Calcium 40 mg 06/30/17 17:00 Lipitor PO DIN PAULA Clopidogrel Bisulfate 75 mg 06/30/17 10:00 06/30/17 09:22 Plavix PO 75 mg DAILY PAULA Administration Famotidine 20 mg 06/29/17 22:00 06/30/17 09:22 Pepcid PO 20 mg 1000,2200 PAULA Administration Metoprolol Tartrate 25 mg 06/29/17 18:00 06/30/17 09:20 Lopressor PO Not Given BID PAULA - Patient Studies Lab Studies: Lab Studies 06/30/17 06/30/17 06/29/17 Range/Units 10:10 10:10 14:20 WBC 7.6 7.1 (4.5-11.0) 10^3/ul RBC 4.38 4.40 (3.5-6.1) 10^6/uL Hgb 12.6 L 12.7 L (14.0-18.0) g/dL Hct 37.7 L 38.2 L (42.0-52.0) % MCV 86.1 86.8 (80.0-105.0) fl MCH 28.8 28.9 (25.0-35.0) pg MCHC 33.4 33.2 (31.0-37.0) g/dl RDW 12.7 12.9 (11.5-14.5) % Plt Count 277 303 (120.0-450.0) 10^3/uL MPV 12.2 H 13.2 H (7.0-11.0) fl Gran % 74.1 H (50.0-68.0) % Lymph % (Auto) 16.5 L (22.0-35.0) % Barnwell % (Auto) 8.0 H (1.0-6.0) % Eos % (Auto) 1.3 L (1.5-5.0) % Baso % (Auto) 0.1 (0.0-3.0) % Gran # 5.28 (1.4-6.5) Lymph # 1.2 (1.2-3.4) Barnwell # 0.6 (0.1-0.6) Eos # 0.1 (0.0-0.7) Baso # 0.01 (0.0-2.0) K/mm3 Sodium 139 (132-148) mmol/L Potassium 4.4 (3.6-5.0) mmol/L Chloride 104 (98-107) mmol/L Carbon Dioxide 26 (21-33) mmol/L Anion Gap 13 (10-20) BUN 24 H (7-21) mg/dL Creatinine 0.9 (0.8-1.5) mg/dl Est GFR ( Amer) > 60 Est GFR (Non-Af Amer) > 60 Random Glucose 114 H (70-110) mg/dL Calcium 8.9 (8.4-10.5) mg/dL Total Bilirubin 0.7 (0.2-1.3) mg/dL AST 58 (17-59) U/L ALT 120 H (7-56) U/L Alkaline Phosphatase 96 (38-126) U/L Total Protein 6.8 (5.8-8.3) g/dL Albumin 3.2 (3.0-4.8) g/dL Globulin 3.6 gm/dL Albumin/Globulin Ratio 0.9 L (1.1-1.8) Blood Type Antibody Screen Crossmatch BBK History Checked 06/29/17 Range/Units 09:45 WBC (4.5-11.0) 10^3/ul RBC (3.5-6.1) 10^6/uL Hgb (14.0-18.0) g/dL Hct (42.0-52.0) % MCV (80.0-105.0) fl MCH (25.0-35.0) pg MCHC (31.0-37.0) g/dl RDW (11.5-14.5) % Plt Count (120.0-450.0) 10^3/uL MPV (7.0-11.0) fl Gran % (50.0-68.0) % Lymph % (Auto) (22.0-35.0) % Barnwell % (Auto) (1.0-6.0) % Eos % (Auto) (1.5-5.0) % Baso % (Auto) (0.0-3.0) % Gran # (1.4-6.5) Lymph # (1.2-3.4) Barnwell # (0.1-0.6) Eos # (0.0-0.7) Baso # (0.0-2.0) K/mm3 Sodium (132-148) mmol/L Potassium (3.6-5.0) mmol/L Chloride (98-107) mmol/L Carbon Dioxide (21-33) mmol/L Anion Gap (10-20) BUN (7-21) mg/dL Creatinine (0.8-1.5) mg/dl Est GFR ( Amer) Est GFR (Non-Af Amer) Random Glucose (70-110) mg/dL Calcium (8.4-10.5) mg/dL Total Bilirubin (0.2-1.3) mg/dL AST (17-59) U/L ALT (7-56) U/L Alkaline Phosphatase (38-126) U/L Total Protein (5.8-8.3) g/dL Albumin (3.0-4.8) g/dL Globulin gm/dL Albumin/Globulin Ratio (1.1-1.8) Blood Type A POSITIVE Antibody Screen Negative Crossmatch See Detail BBK History Checked Patient has bt Laboratory Results - last 24 hr 06/29/17 06/29/17 06/30/17 09:45 14:20 10:10 WBC 7.1 7.6 RBC 4.40 4.38 Hgb 12.7 L 12.6 L Hct 38.2 L 37.7 L MCV 86.8 86.1 MCH 28.9 28.8 MCHC 33.2 33.4 RDW 12.9 12.7 Plt Count 303 277 MPV 13.2 H 12.2 H Gran % 74.1 H Lymph % (Auto) 16.5 L Barnwell % (Auto) 8.0 H Eos % (Auto) 1.3 L Baso % (Auto) 0.1 Gran # 5.28 Lymph # 1.2 Barnwell # 0.6 Eos # 0.1 Baso # 0.01 Sodium Potassium Chloride Carbon Dioxide Anion Gap BUN Creatinine Est GFR ( Amer) Est GFR (Non-Af Amer) Random Glucose Calcium Total Bilirubin AST ALT Alkaline Phosphatase Total Protein Albumin Globulin Albumin/Globulin Ratio Blood Type A POSITIVE Antibody Screen Negative Crossmatch See Detail BBK History Checked Patient has bt 06/30/17 10:10 WBC RBC Hgb Hct MCV MCH MCHC RDW Plt Count MPV Gran % Lymph % (Auto) Barnwell % (Auto) Eos % (Auto) Baso % (Auto) Gran # Lymph # Barnwell # Eos # Baso # Sodium 139 Potassium 4.4 Chloride 104 Carbon Dioxide 26 Anion Gap 13 BUN 24 H Creatinine 0.9 Est GFR ( Amer) > 60 Est GFR (Non-Af Amer) > 60 Random Glucose 114 H Calcium 8.9 Total Bilirubin 0.7 AST 58 ALT 120 H Alkaline Phosphatase 96 Total Protein 6.8 Albumin 3.2 Globulin 3.6 Albumin/Globulin Ratio 0.9 L Blood Type Antibody Screen Crossmatch BBK History Checked Critical Care Progress Note - Nutrition Nutrition: Nutrition Category Date Time Status NPO Diet [DIET] Diets 06/30/17 Breakfast Ordered Assessment/Plan - Assessment and Plan (Free Text) Assessment: Patient seen and examined on rounds with resident, agree with note with following additions/exceptions: Pt is 66yo male with PMHx oc CVA progressive aphasia, HTN, HLD, CAD with stents admitted for SFA embolectomy. Currently afebrile, HD stable. Vascular surgery OR today. Recommend: - supp o2 as needed - no ID issuess - BP control - NPO for OR today - A/C as per Vascular surgery - GI ppx - DVT ppx - monitor in MICU
[2017-06-30] MEDS ORDERED: Phenylephrine 10 mg/ml Inj ONE (14:26)
[2017-06-30] MEDS ORDERED: Rocuronium 10 mg/ml (5 ml) ONE ×2 (14:26→17:02)
[2017-06-30] MEDS ORDERED: Etomidate 20 mg/10ml Inj IV ONE (14:26)
[2017-06-30] MEDS ORDERED: Lidocaine 1% Inj (20ml) ONE (14:51)
[2017-06-30] MEDS ORDERED: Thrombin Topical 20,000 Intl Units Spray Kit TOP ONE (14:53)
[2017-06-30] MEDS ORDERED: Vancomycin 1gm in NS 250ml IVPB ONE (14:55)
[2017-06-30] MEDS ORDERED: Midazolam 2 MG/2 ML VIAL ONE (14:55)
[2017-06-30] MEDS ORDERED: Vancomycin 1 g Inj ONE (15:09)
[2017-06-30] MEDS ORDERED: Lidocaine 1% Inj (20ml) IJ ONE (15:20)
[2017-06-30] MEDS ORDERED: Sevoflurane - Inhalation Anesthetic Liq (250 ml) ONE (15:49)
[2017-06-30] MEDS ORDERED: Iohexol 240 (50 ml) ONE ×2 (16:26→16:35)
[2017-06-30] MEDS ORDERED: Iohexol 240 MG/100 ML SOL IJ ONE ×2 (16:28)
[2017-06-30] MEDS ORDERED: Neostigmine Methylsulfate 3mg/3ml Syringe IV ONE (17:43)
[2017-06-30] MEDS ORDERED: Glycopyrrolate 0.2 mg/ml (2ml vial) ONE (17:43)
[2017-06-30] MEDS ORDERED: HYDROmorphone 0.5 mg/0.5 ml ISec IVP PRN ×2 (18:17→18:19)
[2017-06-30] MEDS ORDERED: Oxycodone/Acetaminophen 5/325 mg Tab PO PRN (18:20)
[2017-06-30] MEDS ORDERED: Lactated Ringer's 1,000 ML IV SCH (18:30)
--- NOTE | 2017-06-30 19:09 | HP ---
HISTORY OF PRESENT ILLNESS: The patient is a 66 year old man with multiple medical comorbidities including hypertension, hyperlipidemia, dementia and primary progressive aphasia who initially presented to the [facility] ([facility]] for evaluation of a 3 day history of malaise and increasing lethargy. He was admitted to the CCU for management of STEMI, acute systolic heart failure , sepsis secondary to community-acquired pneumonia, multiple electrolyte derangements and transaminitis. During the patient's hospital stay, he was noted to have an intracardiac thrombus as well as severe peripheral vascular disease with a right iliac arterial thrombus. Attempts were made with Dr. Seymour Jordan of Interventional Radiology for catheter directed thrombolysis however given the patient's anatomy and severe peripheral vascular disease, this was technically unfeasible. The patient was then evaluated by Dr. Bernstein of Vascular Surgery and was scheduled for the OR for thrombectomy however the case was canceled by the anesthesiologist given his recent STEMI and poor underlying cardiac function. Arrangements were then made to transfer the patient to the TCU for continued medical management of his multiple comorbidities with a plan to have the patient return to the OR for repeat attempt at thrombectomy. The patient was successfully transferred to TCU and was there for 3 days and was subsequently taken to the OR by Dr. Bernstein for attempted right lower extremity thrombectomy. After induction of anesthesia it was noted that the patient received his Eliquis the night prior and thus the case was canceled. He was then admitted to the ICU for monitoring overnight and extubation with the plan to return to the OR the following day to pursue the planned procedure. PAST MEDICAL HISTORY: As per HPI, also intracardiac thrombus to the apical septum. PAST SURGICAL HISTORY: None. ALLERGIES: PENICILLIN. MEDICATIONS: Aspirin 81 mg p.o. daily, Plavix 75 mg p.o. daily, Eliquis 2.5 mg p.o. b.i.d., Metoprolol 25 mg p.o. b.i.d., Lipitor 40 mg p.o. daily and Pepcid 20 mg p.o. b.i.d. FAMILY HISTORY: Noncontributory. SOCIAL HISTORY: The patient has no history of toxic habits. REVIEW OF SYSTEMS: Unobtainable secondary to aphasia. PHYSICAL EXAMINATION: VITAL SIGNS: Temperature 97.7, pulse 69, blood pressure 111/71, respiratory rate 14, and oxygen saturation 99% on 100% FiO2. GENERAL: No apparent distress. HEENT: PERRL. No scleral icterus. No conjunctival pallor. NECK: No JVD. No bruits. LUNGS: Coarse breath sounds anteriorly; otherwise, clear. CARDIOVASCULAR: Regular rate and rhythm. Normal S1 and S2. ABDOMEN: Normoactive bowel sounds. Soft, nontender, and nondistended. EXTREMITIES: No edema. NEUROLOGIC: Awake, alert, not able to follow commands. Able to move all extremities. LABORATORY DATA: Morning labs are pending. ASSESSMENT: The patient is a 66 year old man with hypertension, hyperlipidemia , dementia and primary progressive aphasia who was initially admitted to the CCU for management of STEMI, acute systolic heart failure and sepsis secondary to community-acquired pneumonia who is now s/p PCI with GRZEGORZ stent placement to the LAD lesion s/p readmission from the TCU for planned RLE thrombectomy. PLAN: 1. Severe PVD with RLE iliac arterial thrombus. Input from Dr. Bernstein noted and greatly appreciated and the patient is scheduled for thrombectomy. We will resume Aspirin 81 mg p.o. daily, Plavix 75 mg p.o. daily and Eliquis 2.5 mg p.o. b.i.d. postoperatively when OK as per Dr. Bernstein in the Vascular Surgery team. Continue Lipitor 40 mg p.o. daily. 2. Intracardiac thrombus. TTE demonstrates an organized, layered thrombus to the apical septum. As above, we will resume Eliquis 2.5 mg p.o. b.i.d. when OK as per vascular surgery. 3. CAD s/p STEMI s/p PCI with GRZEGORZ stent placement to the LAD. Continue Lipitor 40 mg p.o. daily, Metoprolol 25 mg p.o. b.i.d., and resume Aspirin and Plavix when OK as per Dr. Bernstein. 4. Acute systolic heart failure, likely secondary to acute STEMI, resolved. The patient remains clinically euvolemic and off Lasix. 5. Hypertension. Continue Metoprolol 25 mg p.o. b.i.d. 6. Hyperlipidemia. Continue Lipitor 40 mg p.o. daily. 7. Dementia. The patient remains at his baseline neurologic status. 8. Primary progressive aphasia. 9. Prophylaxis. Continue with Pepcid for GI prophylaxis. We will resume Eliquis postoperatively, thus DVT prophylaxis not indicated. CODE STATUS: Full code. Jacek Salgado MD [facility] # [id number] NATHANIEL
--- NOTE | 2017-07-01 01:41 | OP ---
PREOPERATIVE DIAGNOSIS: Right femoral occlusion after deployment of Angio-Seal. POSTOPERATIVE DIAGNOSIS: Right femoral occlusion after deployment of Angio-Seal. PROCEDURES: Femoral artery exploration; thrombectomy of femoral artery, profunda femoris artery, and superficial femoral artery; removal of foreign body; endarterectomy of femoral artery; Bovine patch angioplasty of the superficial femoral artery; on-table angiogram. SURGEON: aCrla Bernstein MD. CLERK OF SCALES: Seferino. TYPE OF ANESTHESIA: General. DESCRIPTION OF PROCEDURE: The patient was brought to the OR and placed supine on the OR table. After adequate general anesthesia had been accomplished, the entire right groin and right leg was prepped with ChloraPrep and draped out as a sterile field. An oblique incision was made over the puncture site and the incision was carried down through subcutaneous tissue. There was massive inflammatory reaction in this area. The femoral artery and its branches were dissected out and looped out using vessel loop. After systemic heparinization, the common femoral artery was crossclamped just cephalad to the thrombus. A longitudinal incision was made over the common femoral artery extending into the superficial femoral artery. The Angio-Seal was removed. Due to the duration of the occlusion, the surrounding tissue and blood clot surrounding the Angio-Seal was organized. In order to remove the blood clots, the intima has to be removed as the blood clot is adherent to the intima, so the femoral artery, profunda femoris artery, and superficial femoral artery intima were removed. The distal intima in the superficial femoral artery and the profunda femoris artery were tacked down using 5-0 Prolene continuous suture. The longitudinal arteriotomy was closed using a Bovine patch and 5-0 Prolene continuous suture. On-table angiogram showed stenosis at the superficial femoral artery, so the patch was removed. The superficial femoral artery was explored. There was some intimal flap, which was again debrided and tacked down again. A new patch was placed using a 5-0 Prolene continuous suture. Upon completion of the patch, on-table angiogram show open profundus and superficial femoral artery. The superficial femoral artery has flow all the way to the ankle and there is a Doppler signal in the posterior tibial artery. The groin was closed in layer using 2-0 Monocryl continuous suture for the subcutaneous tissue and 4-0 Monocryl subcuticular suture for skin. The patient tolerated the procedure well and was returned to the recovery room in stable condition. Carla Bernstein MD
[2017-07-01] MEDS: Pantoprazole 20 mg EC Tab PO SCH (05:56)
[2017-07-01 06:06] LABS: BASO # 0.01 K/mm3 (0.0-2.0); BASO % 0.1 % (0.0-3.0); EOS % 0.2 % (1.5-5.0); GRAN # 7.73 (1.4-6.5); GRAN % 80.5 % (50.0-68.0); HEMOGLOBIN 12.3 g/dL (14.0-18.0); LYMPH # 1.2 (1.2-3.4); LYMPH % 12.6 % (22.0-35.0); MEAN CELL VOLUME 87.4 fl (80.0-105.0); MEAN CORPUSCULAR HEMOGLOBIN 28.7 pg (25.0-35.0); MEAN CORPUSCULAR HGB CONC 32.8 g/dl (31.0-37.0); MEAN PLATELET VOLUME 12.1 fl (7.0-11.0); MONO # 0.6 (0.1-0.6); MONO % 6.6 % (1.0-6.0); RBC 4.29 10^6/uL (3.5-6.1); RED CELL DISTRIBUTION WIDTH 13.1 % (11.5-14.5); WHITE BLOOD COUNT 9.6 10^3/ul (4.5-11.0)
[2017-07-01] MEDS: Oxycodone/Acetaminophen 2.5/325 mg Tab PO SCH ×3 (06:33→19:15)
[2017-07-01 06:34] LABS: ALB/GLOB RATIO 0.9 (1.1-1.8); ALBUMIN 3.1 g/dL (3.0-4.8); ALT/SGPT 86 U/L (7-56); AST/SGOT 30 U/L (17-59); BLOOD UREA NITROGEN 24 mg/dL (7-21); CALCIUM 8.9 mg/dL (8.4-10.5); GFR AFRICAN-AMERICAN > 60; GFR NON-AFRICAN AMERICAN > 60; MAGNESIUM 2.1 mg/dL (1.7-2.2)
--- NOTE | 2017-07-01 08:42 | CP.PCM.PN ---
Subjective - Date & Time of Evaluation Date of Evaluation: 07/01/17 Time of Evaluation: 07:00 - Subjective Subjective: Vascular Surgery- Dr. Bernstein Patient seen and examined at bedside this AM. No acute events overnight. Nursing notes reviewed. Pt is non-verbal, unable to obtain ROS. Right dopplerable pedal pulses DP and PT. Objective - Vital Signs/Intake and Output Vital Signs (last 24 hours): Temp Pulse Resp BP Pulse Ox 100 F H 83 21 127/62 96 07/01/17 04:00 07/01/17 06:00 07/01/17 01:30 06/30/17 18:45 07/01/17 01:30 Intake and Output: 07/01/17 07/01/17 06:59 18:59 Intake Total 1240 Output Total 400 Balance 840 - Medications Medications: Current Medications Apixaban (Eliquis) 5 mg PO BID [facility] PRN Reason: Protocol Atorvastatin Calcium (Lipitor) 40 mg PO DIN PAULA Clopidogrel Bisulfate (Plavix) 75 mg PO DAILY [facility] Last Admin: 06/30/17 09:22 Dose: 75 mg Famotidine (Pepcid) 20 mg PO 1000,2200 [facility] Last Admin: 06/30/17 21:40 Dose: 20 mg Hydromorphone HCl (Dilaudid) 0.5 mg IVP Q4H PRN PRN Reason: Pain, severe (8-10) Metoprolol Tartrate (Lopressor) 25 mg PO BID [facility] Last Admin: 06/30/17 12:56 Dose: Not Given Oxycodone/Acetaminophen (Percocet 2.5/325 Mg Tab) 1 tab PO Q6 [facility] Stop: 07/02/17 23:59 Last Admin: 07/01/17 06:33 Dose: 1 tab Oxycodone/Acetaminophen (Percocet 5/325 Mg Tab) 2 tab PO Q4H PRN PRN Reason: Pain, moderate (4-7) Stop: 07/03/17 18:21 Pantoprazole Sodium (Protonix Ec Tab) 20 mg PO 0600 [facility] Last Admin: 07/01/17 05:56 Dose: 20 mg - Labs Labs: 07/01/17 05:15 07/01/17 05:15 - Constitutional Appears: Non-toxic, No Acute Distress - Eye Exam Eye Exam: EOMI - Respiratory Exam Respiratory Exam: NORMAL BREATHING PATTERN. absent: Accessory Muscle Use, Respiratory Distress - Cardiovascular Exam Cardiovascular Exam: +S1, +S2. absent: Bradycardia, Tachycardia - GI/Abdominal Exam GI & Abdominal Exam: Soft. absent: Firm, Guarding, Rigid, Tenderness - Extremities Exam Additional comments: doppler Right biphasic PT and DP - Neurological Exam Neurological Exam: Awake - Skin Skin Exam: Intact, Warm Assessment and Plan - Assessment and Plan (Free Text) Assessment: 66M s/p Right SFA embolectomy Plan: - restart anticoagulation eliquis and continue plavix today - advance to regular diet - neurovascular and pulse checks - further recs per Dr. Bernstein surgical attending Raj Weber PGY1
--- NOTE | 2017-07-01 09:34 | PN ---
SUBJECTIVE: The patient was seen and examined at the bedside in the ICU. No acute events overnight. He remains afebrile and hemodynamically stable s/p his vascular surgery which consisted of femoral artery exploration and thrombectomy. Overall he is doing well and demonstrating gradual clinical improvement. OBJECTIVE: VITAL SIGNS: Temperature 100, pulse 83, blood pressure 110/77, respiratory rate 20, and oxygen saturation 96% on room air. GENERAL: No apparent distress. HEENT: PERRL. EOMI. No scleral icterus. No conjunctival pallor. NECK: No JVD. No bruits. LUNGS: Clear to auscultation. HEART: Regular rate and rhythm. Normal S1 and S2. ABDOMEN: Normoactive bowel sounds. Soft, nontender, and nondistended. EXTREMITIES: No edema. NEUROLOGIC: Awake and alert, not following commands. Able to move all extremities. LABORATORY DATA: WBC 9.6, hemoglobin 12, hematocrit 37, and platelets 237. Chemistry reviewed and unremarkable. ASSESSMENT: The patient is a 66 year old man with hypertension, hyperlipidemia , dementia and primary progressive aphasia who was initially admitted to the CCU for management of STEMI, acute systolic heart failure and sepsis secondary to community-acquired pneumonia who is now s/p PCI with GRZEGORZ stent placement to the LAD s/p readmission from the TCU for planned right lower extremity thrombectomy who is s/p RLE femoral artery thrombectomy POD #1. PLAN: 1. Severe PVD with right lower extremity arterial thrombus s/p thrombectomy POD #1. Input from Dr. Bernstein noted and greatly appreciated. Continue with postoperative care as per Dr. Bernstein. Resume aspirin, Plavix, and Eliquis, when OK as per Dr. Bernstein. Continue Lipitor 40 mg p.o. daily. 2. Intracardiac thrombus. TTE demonstrates an organized, layered thrombus to the apical septum. As above, we will resume Eliquis 2.5 mg p.o. b.i.d., when OK as per Vascular Surgery. 3. CAD s/p STEMI s/p PCI with GRZEGORZ stent placement to the LAD. Continue with Lipitor 40 mg p.o. daily, Metoprolol 25 mg p.o. b.i.d., and resume Aspirin and Plavix when OK as per Dr. Bernstein. 4. Acute systolic heart failure, likely secondary to STEMI, resolved. The patient remains clinically euvolemic and off Lasix. 5. Hypertension. Continue Metoprolol 25 mg p.o. b.i.d. 6. Hyperlipidemia. Continue Lipitor 40 mg p.o. b.i.d. 7. Dementia. The patient remains at his baseline neurologic status. 8. Primary progressive aphasia. 9. Prophylaxis. Continue with Pepcid for GI prophylaxis. We will resume Eliquis when OK as per Dr. Bernstein. CODE STATUS: Full code. Jacek Salgado MD MTDD
--- NOTE | 2017-07-01 11:36 | PN ---
DATE: 07/01/2017 SUBJECTIVE: The patient tolerated repair of the right femoral artery well. PHYSICAL EXAMINATION: VITAL SIGNS: Blood pressure 109/55, heart rate in the 70s. NECK: Negative JVD. LUNGS: Without rales. HEART: S1, S2. EXTREMITIES: Without edema. Warm bilaterally with Doppler pulses. LABORATORY DATA: Hemoglobin is 12.3. Chemistries, BUN and creatinine unremarkable. Glucose is 126. IMPRESSION: 1. Status post surgery of the right femoral artery. 2. Status post acute superior mesenteric ischemia. 3. Status post emergency percutaneous transluminal coronary angioplasty and stent and an occluded left anterior descending. 4. Peripheral vascular disease. 5. Diabetes mellitus. Given these findings, the patient is hemodynamically doing well. We will discontinue Whitaker today. We will begin ambulation. The patient can be transferred to telemetry. Seymour King MD
--- NOTE | 2017-07-01 12:15 | CP.PCM.PN ---
Subjective - Date & Time of Evaluation Date of Evaluation: 07/01/17 Time of Evaluation: 07:30 - Subjective Subjective: Pt seen and examined, s/p R SFA embolectomy, tolerated procedure well. Doing well, non verbal at baseline. Objective - Vital Signs/Intake and Output Vital Signs (last 24 hours): Temp Pulse Resp BP Pulse Ox 100 F H 74 21 109/55 L 96 07/01/17 04:00 07/01/17 09:27 07/01/17 01:30 07/01/17 09:27 07/01/17 01:30 Intake and Output: 07/01/17 07/01/17 06:59 18:59 Intake Total 1240 Output Total 400 Balance 840 - Medications Medications: Current Medications Apixaban (Eliquis) 5 mg PO BID [facility] PRN Reason: Protocol Last Admin: 07/01/17 09:27 Dose: 5 mg Atorvastatin Calcium (Lipitor) 40 mg PO DIN PAULA Clopidogrel Bisulfate (Plavix) 75 mg PO DAILY [facility] Last Admin: 07/01/17 09:27 Dose: 75 mg Famotidine (Pepcid) 20 mg PO 1000,2200 [facility] Last Admin: 07/01/17 09:27 Dose: 20 mg Hydromorphone HCl (Dilaudid) 0.5 mg IVP Q4H PRN PRN Reason: Pain, severe (8-10) Metoprolol Tartrate (Lopressor) 25 mg PO BID [facility] Last Admin: 07/01/17 09:27 Dose: 25 mg Oxycodone/Acetaminophen (Percocet 2.5/325 Mg Tab) 1 tab PO Q6 [facility] Stop: 07/02/17 23:59 Last Admin: 07/01/17 06:33 Dose: 1 tab Oxycodone/Acetaminophen (Percocet 5/325 Mg Tab) 2 tab PO Q4H PRN PRN Reason: Pain, moderate (4-7) Stop: 07/03/17 18:21 Pantoprazole Sodium (Protonix Ec Tab) 20 mg PO 0600 [facility] Last Admin: 07/01/17 05:56 Dose: 20 mg - Labs Labs: 07/01/17 05:15 07/01/17 05:15 - Constitutional Appears: Well, Non-toxic, No Acute Distress - Head Exam Head Exam: NORMAL INSPECTION - Eye Exam Eye Exam: Periorbital tenderness - ENT Exam ENT Exam: Mucous Membranes Moist - Respiratory Exam Respiratory Exam: Clear to Ausculation Bilateral, NORMAL BREATHING PATTERN - Cardiovascular Exam Cardiovascular Exam: REGULAR RHYTHM, +S1, +S2 - GI/Abdominal Exam GI & Abdominal Exam: Soft, Normal Bowel Sounds - Extremities Exam Extremities Exam: Normal Capillary Refill, Normal Inspection - Neurological Exam Neurological Exam: Alert, Awake Assessment and Plan - Assessment and Plan (Free Text) Assessment: Pt is 66yo male with PMHx oc CVA progressive aphasia, HTN, HLD, CAD with stents admitted s/p SFA embolectomy. Currently afebrile, HD stable, extremities warm, well perfused. Recommend: - supp o2 as needed - no ID issuess - BP control - resume Eliquis - DC arterial line - GI ppx - DVT ppx - stable, transfer to telemetry
[2017-07-02] MEDS: Pantoprazole 20 mg EC Tab PO SCH (05:57)
[2017-07-02 06:55] LABS: BASO # 0.03 K/mm3 (0.0-2.0); BASO % 0.3 % (0.0-3.0); EOS # 0.1 (0.0-0.7); EOS % 1.2 % (1.5-5.0); GRAN # 6.6 (1.4-6.5); GRAN % 72.6 % (50.0-68.0); LYMPH # 1.4 (1.2-3.4); LYMPH % 15.8 % (22.0-35.0); MEAN CELL VOLUME 87.5 fl (80.0-105.0); MEAN CORPUSCULAR HEMOGLOBIN 28.8 pg (25.0-35.0); MEAN CORPUSCULAR HGB CONC 32.9 g/dl (31.0-37.0); MEAN PLATELET VOLUME 12.6 fl (7.0-11.0); MONO # 0.9 (0.1-0.6); MONO % 10.1 % (1.0-6.0); RBC 2.71 10^6/uL (3.5-6.1); RED CELL DISTRIBUTION WIDTH 13.1 % (11.5-14.5); WHITE BLOOD COUNT 9.1 10^3/ul (4.5-11.0)
[2017-07-02 06:57] LABS: HEMOGLOBIN 7.8 g/dL (14.0-18.0)
[2017-07-02 07:31] LABS: ALB/GLOB RATIO 0.9 (1.1-1.8); ALT/SGPT 67 U/L (7-56); AST/SGOT 30 U/L (17-59); BLOOD UREA NITROGEN 19 mg/dL (7-21); CALCIUM 8.5 mg/dL (8.4-10.5); GFR AFRICAN-AMERICAN > 60; GFR NON-AFRICAN AMERICAN > 60; MAGNESIUM 2.1 mg/dL (1.7-2.2)
--- NOTE | 2017-07-02 08:55 | RAD ---
PROCEDURE: Fluoroscopy over 1 hour HISTORY: RT FEM. EMBOLECTOMY COMPARISON: None TECHNIQUE: Total exam DLP: (mGy): 15.97 FINDINGS: Total fluoroscopic time (continuous mode) utilized during the procedure: 118.4 seconds. IMPRESSION:
[2017-07-02 10:43] LABS: MEAN CELL VOLUME 87.4 fl (80.0-105.0); MEAN CORPUSCULAR HEMOGLOBIN 28.5 pg (25.0-35.0); MEAN CORPUSCULAR HGB CONC 32.6 g/dl (31.0-37.0); MEAN PLATELET VOLUME 11.9 fl (7.0-11.0); RBC 3.89 10^6/uL (3.5-6.1); RED CELL DISTRIBUTION WIDTH 12.9 % (11.5-14.5); WHITE BLOOD COUNT 7.8 10^3/ul (4.5-11.0)
[2017-07-02 10:45] LABS: HEMOGLOBIN 11.1 g/dL (14.0-18.0)
--- NOTE | 2017-07-02 10:54 | CP.PCM.PN ---
Subjective - Date & Time of Evaluation Date of Evaluation: 07/02/17 Time of Evaluation: 10:51 - Subjective Subjective: Vascular Pt s&e. Answers yes and no to questions. Dopplerable distal pulses. Dressing removed. Objective - Vital Signs/Intake and Output Vital Signs (last 24 hours): Temp Pulse Resp BP Pulse Ox 98.1 F 88 18 37/25 L 100 07/02/17 08:00 07/02/17 10:10 07/02/17 10:10 07/02/17 10:07 07/02/17 06:30 Intake and Output: 07/02/17 07/02/17 06:59 18:59 Intake Total 675 Balance 675 - Medications Medications: Current Medications Apixaban (Eliquis) 5 mg PO BID [facility] PRN Reason: Protocol Last Admin: 07/02/17 10:07 Dose: 5 mg Atorvastatin Calcium (Lipitor) 40 mg PO DIN [facility] Last Admin: 07/01/17 17:15 Dose: 40 mg Clopidogrel Bisulfate (Plavix) 75 mg PO DAILY [facility] Last Admin: 07/02/17 10:04 Dose: 75 mg Famotidine (Pepcid) 20 mg PO 1000,2200 [facility] Last Admin: 07/02/17 10:04 Dose: 20 mg Hydromorphone HCl (Dilaudid) 0.5 mg IVP Q4H PRN PRN Reason: Pain, severe (8-10) Metoprolol Tartrate (Lopressor) 25 mg PO BID [facility] Last Admin: 07/02/17 10:04 Dose: 25 mg Oxycodone/Acetaminophen (Percocet 2.5/325 Mg Tab) 1 tab PO Q6 [facility] Stop: 07/02/17 23:59 Last Admin: 07/01/17 19:15 Dose: 1 tab Oxycodone/Acetaminophen (Percocet 5/325 Mg Tab) 2 tab PO Q4H PRN PRN Reason: Pain, moderate (4-7) Stop: 07/03/17 18:21 Pantoprazole Sodium (Protonix Ec Tab) 20 mg PO 0600 [facility] Last Admin: 07/02/17 05:57 Dose: 20 mg - Labs Labs: 07/02/17 10:30 07/02/17 05:30 - Constitutional Appears: No Acute Distress - Head Exam Head Exam: ATRAUMATIC, NORMAL INSPECTION, NORMOCEPHALIC - Eye Exam Eye Exam: EOMI, Normal appearance, PERRL Pupil Exam: NORMAL ACCOMODATION, PERRL - ENT Exam ENT Exam: Mucous Membranes Moist, Normal Exam - Neck Exam Neck Exam: Full ROM, Normal Inspection. absent: Lymphadenopathy - Respiratory Exam Respiratory Exam: Clear to Ausculation Bilateral, NORMAL BREATHING PATTERN - Cardiovascular Exam Cardiovascular Exam: REGULAR RHYTHM, +S1, +S2. absent: Murmur - GI/Abdominal Exam GI & Abdominal Exam: Soft, Normal Bowel Sounds. absent: Distended, Firm, Tenderness - Rectal Exam Rectal Exam: NORMAL INSPECTION - Exam Exam: NORMAL INSPECTION - Extremities Exam Extremities Exam: Normal Capillary Refill, Normal Inspection. absent: Full ROM , Tenderness Additional comments: Contracted. R groin steristrips in place. No redness, swelling or ecchymosis. Non tender. Dopplerable distal pulses. - Back Exam Back Exam: NORMAL INSPECTION - Neurological Exam Neurological Exam: Awake, CN II-XII Intact. absent: Normal Gait, Oriented x3 - Psychiatric Exam Psychiatric exam: Normal Affect, Normal Mood - Skin Skin Exam: Dry, Intact, Normal Color, Warm. absent: Cyanosis, Erythema Assessment and Plan - Assessment and Plan (Free Text) Assessment: 66M s/p Right SFA embolectomy POD 2 Plan: - continue anticoagulation eliquis and continue plavix - regular diet - neurovascular and pulse checks - further recs per Dr. Bernstein surgical attending
[2017-07-02] MEDS: Oxycodone/Acetaminophen 2.5/325 mg Tab PO SCH (12:24)
--- NOTE | 2017-07-02 12:45 | PN ---
DATE: 07/02/2017 SUBJECTIVE: The patient is without distress. PHYSICAL EXAMINATION: VITAL SIGNS: Blood pressure is 108 systolic and heart rate is in the 80s. NECK: Negative JVD. LUNGS: Without rales. HEART: Reveals S1 and S2. EXTREMITIES: Both lower extremities are warm. LABORATORY DATA: Hemoglobin is 11.1. BUN and creatinine are unremarkable. IMPRESSION 1. Status post embolectomy of the right femoral artery. 2. Status post acute anterior wall myocardial infarction. 3. Status post percutaneous transluminal coronary angioplasty and stent of an occluded left anterior descending. 4. Hypercholesterolemia. 5. Left ventricular thrombus. PLAN: 1. Given these findings, the patient is back on his Eliquis as well as Plavix. 2. The patient is hemodynamically stable, we will transfer the patient to a Medical/Surgical floor. Seymour King MD
--- NOTE | 2017-07-02 13:29 | PN ---
DATE: LOCATION: The patient is in room 128, bed 1. SUBJECTIVE: The patient is aphasic and a history is unobtainable from him. The nurse had said he had quiet night. There have been no acute events recorded overnight. The patient did have a thrombectomy yesterday. PHYSICAL EXAMINATION: VITAL SIGNS: Temperature of 98.4 axillary, pulse rate of 73, respiratory rate of 16, with 100% saturation on room air. HEENT: Negative. NECK: Supple, with a full range of motion. No bruits are appreciated. LUNGS: Clear bilaterally. HEART: Regular rate and rhythm. No murmurs. ABDOMEN: Soft. It is nontender. Bowel sounds are normoactive. EXTREMITIES: Showed no deformities. No edema. No cyanosis. NEUROLOGIC: As previously stated, the patient is both expressive and receptive aphasic. There are no focal motor deficits. CURRENT DIAGNOSES: 1. Dementia. 2. Sepsis. 3. Congestive heart failure status post myocardial infarction and a urinary tract infection. PLAN: We will transfer the patient up to telemetry today and look for patient placement. Harley Salgado MD
[2017-07-03 07:49] LABS: BASO # 0.02 K/mm3 (0.0-2.0); BASO % 0.3 % (0.0-3.0); EOS # 0.1 (0.0-0.7); EOS % 0.9 % (1.5-5.0); GRAN # 4.15 (1.4-6.5); GRAN % 72.2 % (50.0-68.0); LYMPH # 0.9 (1.2-3.4); LYMPH % 16.3 % (22.0-35.0); MEAN CELL VOLUME 86.2 fl (80.0-105.0); MEAN CORPUSCULAR HEMOGLOBIN 28.1 pg (25.0-35.0); MEAN CORPUSCULAR HGB CONC 32.6 g/dl (31.0-37.0); MEAN PLATELET VOLUME 12.3 fl (7.0-11.0); MONO # 0.6 (0.1-0.6); MONO % 10.3 % (1.0-6.0); RBC 3.56 10^6/uL (3.5-6.1); RED CELL DISTRIBUTION WIDTH 12.9 % (11.5-14.5); WHITE BLOOD COUNT 5.8 10^3/ul (4.5-11.0)
[2017-07-03 07:59] LABS: ALB/GLOB RATIO 0.8 (1.1-1.8); ALBUMIN 2.6 g/dL (3.0-4.8); ALT/SGPT 67 U/L (7-56); AST/SGOT 34 U/L (17-59); BLOOD UREA NITROGEN 12 mg/dL (7-21); CALCIUM 8.2 mg/dL (8.4-10.5); GFR AFRICAN-AMERICAN > 60; GFR NON-AFRICAN AMERICAN > 60
--- NOTE | 2017-07-03 08:32 | CP.PCM.PN ---
Subjective - Date & Time of Evaluation Date of Evaluation: 07/03/17 Time of Evaluation: 07:00 - Subjective Subjective: Vascular Surgery- Dr. Bernstein Patient seen and examined at bedside this AM. Nursing notes reviewed. no acute events overnight. Pain non-verbal, will occasional respond yes and no. RLE palpable DP and PT pulses Objective - Vital Signs/Intake and Output Vital Signs (last 24 hours): Temp Pulse Resp BP Pulse Ox 98.4 F 75 20 109/52 L 100 07/03/17 08:21 07/03/17 08:21 07/03/17 08:21 07/03/17 08:21 07/03/17 08:21 Intake and Output: 07/03/17 07/03/17 06:59 18:59 Intake Total 3180 Balance 3180 - Medications Medications: Current Medications Apixaban (Eliquis) 5 mg PO BID [facility] PRN Reason: Protocol Last Admin: 07/02/17 18:26 Dose: 5 mg Atorvastatin Calcium (Lipitor) 40 mg PO DIN [facility] Last Admin: 07/02/17 18:26 Dose: 40 mg Clopidogrel Bisulfate (Plavix) 75 mg PO DAILY [facility] Last Admin: 07/02/17 10:04 Dose: 75 mg Famotidine (Pepcid) 20 mg PO 1000,2200 [facility] Last Admin: 07/02/17 21:53 Dose: 20 mg Hydromorphone HCl (Dilaudid) 0.5 mg IVP Q4H PRN PRN Reason: Pain, severe (8-10) Metoprolol Tartrate (Lopressor) 25 mg PO BID [facility] Last Admin: 07/02/17 18:26 Dose: 25 mg Tramadol HCl (Ultram) 50 mg PO Q6 PRN PRN Reason: Pain, Mild (1-3) - Labs Labs: 07/03/17 07:00 07/03/17 07:00 - Constitutional Appears: Non-toxic, No Acute Distress - Head Exam Head Exam: ATRAUMATIC - ENT Exam ENT Exam: Mucous Membranes Moist - Respiratory Exam Respiratory Exam: NORMAL BREATHING PATTERN. absent: Accessory Muscle Use, Respiratory Distress - Cardiovascular Exam Cardiovascular Exam: +S1, +S2. absent: Bradycardia, Tachycardia - GI/Abdominal Exam GI & Abdominal Exam: Soft. absent: Distended, Firm, Guarding, Rigid, Tenderness - Extremities Exam Additional comments: Distal pulses: +2 DP, +1 PT - Neurological Exam Neurological Exam: Awake Additional comments: non-verbal, will occasionally respond yes and no to questions - Skin Skin Exam: Warm Assessment and Plan - Assessment and Plan (Free Text) Assessment: 66M s/p Right SFA embolectomy POD 3 Plan: - continue anticoagulation eliquis and continue plavix - regular diet - neurovascular and pulse checks - no further acute surgical intervention at this time - further recs per Dr. Bernstein surgical attending Raj Weber PGY1
--- NOTE | 2017-07-03 10:45 | PN ---
DATE: 07/03/2017 CARDIOLOGY FOLLOWUP SUBJECTIVE: The patient is asymptomatic. PHYSICAL EXAMINATION: VITAL SIGNS: Blood pressure 109/52, heart rate in the 70s. NECK: Negative JVD. LUNGS: Without rales. HEART: S1, S2. EXTREMITIES: Without edema. Lower extremities are warm. LABORATORY DATA: Hemoglobin is 10.0. Chemistries unremarkable. IMPRESSION: 1. Status post thrombectomy of the right femoral artery. 2. Status post acute anterior wall myocardial infarction. 3. Left ventricular thrombus noted on echocardiogram. 4. Coronary artery disease. 5. Primary aphasia. Given these findings, the patient has been restarted on Eliquis and Plavix. Seymour King MD
[2017-07-04 07:34] LABS: BASO # 0.03 K/mm3 (0.0-2.0); BASO % 0.4 % (0.0-3.0); EOS # 0.1 (0.0-0.7); GRAN # 4.98 (1.4-6.5); HEMOGLOBIN 10.4 g/dL (14.0-18.0); LYMPH # 1.2 (1.2-3.4); LYMPH % 17.8 % (22.0-35.0); MEAN CELL VOLUME 85.9 fl (80.0-105.0); MEAN CORPUSCULAR HEMOGLOBIN 28.1 pg (25.0-35.0); MEAN CORPUSCULAR HGB CONC 32.7 g/dl (31.0-37.0); MONO # 0.5 (0.1-0.6); MONO % 6.8 % (1.0-6.0); RBC 3.7 10^6/uL (3.5-6.1); RED CELL DISTRIBUTION WIDTH 12.8 % (11.5-14.5); WHITE BLOOD COUNT 6.7 10^3/ul (4.5-11.0)
[2017-07-04 07:50] LABS: ALBUMIN 2.7 g/dL (3.0-4.8); ALT/SGPT 74 U/L (7-56); AST/SGOT 36 U/L (17-59); BLOOD UREA NITROGEN 12 mg/dL (7-21); CALCIUM 8.3 mg/dL (8.4-10.5); GFR AFRICAN-AMERICAN > 60; GFR NON-AFRICAN AMERICAN > 60
[2017-07-04 07:52] LABS: ALB/GLOB RATIO 0.9 (1.1-1.8)
--- NOTE | 2017-07-04 08:27 | CP.PCM.PN ---
Subjective - Date & Time of Evaluation Date of Evaluation: 07/04/17 Time of Evaluation: 07:05 - Subjective Subjective: Vascular Surgery Note for Dr. Bernstein Patient seen and examined at bedside. No acute events overnight as per nursing. Patient is non-verbal, but will occasional respond to certain questions. Patient tolerating diet. ROS unobtainable. Objective - Vital Signs/Intake and Output Vital Signs (last 24 hours): Temp Pulse Resp BP Pulse Ox 97.2 F L 81 18 107/76 98 07/04/17 08:01 07/04/17 08:01 07/04/17 08:01 07/04/17 08:01 07/04/17 08:01 Intake and Output: 07/04/17 07/04/17 06:59 18:59 Intake Total 0 Balance 0 - Medications Medications: Current Medications Apixaban (Eliquis) 5 mg PO BID [facility] PRN Reason: Protocol Last Admin: 07/03/17 17:32 Dose: 5 mg Atorvastatin Calcium (Lipitor) 40 mg PO DIN [facility] Last Admin: 07/03/17 17:32 Dose: 40 mg Clopidogrel Bisulfate (Plavix) 75 mg PO DAILY [facility] Last Admin: 07/03/17 10:38 Dose: 75 mg Famotidine (Pepcid) 20 mg PO 1000,2200 [facility] Last Admin: 07/03/17 22:19 Dose: 20 mg Hydromorphone HCl (Dilaudid) 0.5 mg IVP Q4H PRN PRN Reason: Pain, severe (8-10) Metoprolol Tartrate (Lopressor) 25 mg PO BID [facility] Last Admin: 07/03/17 17:32 Dose: 25 mg Tramadol HCl (Ultram) 50 mg PO Q6 PRN PRN Reason: Pain, Mild (1-3) - Labs Labs: 07/04/17 06:45 07/04/17 06:45 - Constitutional Appears: No Acute Distress - Head Exam Head Exam: ATRAUMATIC, NORMOCEPHALIC - Eye Exam Eye Exam: Normal appearance - ENT Exam ENT Exam: Mucous Membranes Moist - Respiratory Exam Respiratory Exam: NORMAL BREATHING PATTERN - Cardiovascular Exam Cardiovascular Exam: REGULAR RHYTHM - GI/Abdominal Exam GI & Abdominal Exam: Soft. absent: Tenderness - Extremities Exam Additional comments: RLE: DP and PT pulse palpable, leg warm with no skin changes, nontender - Neurological Exam Neurological Exam: Awake Additional comments: non-verbal, will occasionally answer questions with yes/no - Psychiatric Exam Psychiatric exam: Flat Affect - Skin Skin Exam: Dry, Intact, Normal Color, Warm Assessment and Plan - Assessment and Plan (Free Text) Plan: 66M s/p Right SFA embolectomy POD #4 - Anti-coagulation and Anti-platelet therapy - Heart Healthy diet - Neurovascular Checks - No further acute surgical intervention needed at this time - Further recommendations as per Dr. Amandeep Preciado PGY1
--- NOTE | 2017-07-04 10:00 | PN ---
DATE: SUBJECTIVE: The patient is lying comfortably in bed, room 363, bed 1. He is aphasic and is unable to give a complete review of systems. PHYSICAL EXAMINATION: VITAL SIGNS: His vital signs are temperature of 98.4, pulse rate is 77, blood pressure 103/64 with a 98% saturation on room air. HEENT: Unremarkable. NECK: Supple. No bruits. LUNGS: Clear bilaterally. HEART: Regular rate and rhythm. ABDOMEN: Soft, nontender. Positive bowel sounds. EXTREMITIES: Show no cyanosis. NEUROLOGIC: The patient has an expressive and receptive aphasia, but no focal motor deficits. ASSESSMENT AND PLAN: The patient's diagnoses are; 1. Acute myocardial infarction. 2. Congestive heart failure. 3. Sepsis. 4. Dementia. 5. Urinary tract infection. Awaiting the patient's transfer to long-term care. Harley Salgado MD
--- NOTE | 2017-07-04 15:25 | PN ---
DATE: 07/04/2017 CARDIOLOGY FOLLOWUP SUBJECTIVE: The patient is without distress. PHYSICAL EXAMINATION: VITAL SIGNS: Blood pressure 110/72 and heart rate in the 80s. NECK: Negative JVD. LUNGS: Without rales. HEART: Reveals S1 and S2. EXTREMITIES: Without edema. Lower extremities are equally warm. LABORATORY DATA: Hemoglobin is 10.4. Laboratories are unremarkable. IMPRESSION: 1. Status post thrombectomy of the right femoral artery. 2. Status post acute anterior wall myocardial infarction. 3. Coronary artery disease. 4. Status post emergency percutaneous transluminal coronary angioplasty and stent of an occluded left anterior descending artery. 5. Primary aphasia. PLAN: Given these findings, the patient's cardiovascular status is stable. Seymour King MD
[2017-07-05 07:22] LABS: BASO # 0.03 K/mm3 (0.0-2.0); BASO % 0.5 % (0.0-3.0); EOS # 0.1 (0.0-0.7); EOS % 1.4 % (1.5-5.0); GRAN # 3.65 (1.4-6.5); GRAN % 66.1 % (50.0-68.0); HEMOGLOBIN 10.8 g/dL (14.0-18.0); LYMPH # 1.3 (1.2-3.4); LYMPH % 22.6 % (22.0-35.0); MEAN CELL VOLUME 86.2 fl (80.0-105.0); MEAN CORPUSCULAR HEMOGLOBIN 28.1 pg (25.0-35.0); MEAN CORPUSCULAR HGB CONC 32.6 g/dl (31.0-37.0); MEAN PLATELET VOLUME 12.3 fl (7.0-11.0); MONO # 0.5 (0.1-0.6); MONO % 9.4 % (1.0-6.0); RBC 3.84 10^6/uL (3.5-6.1); RED CELL DISTRIBUTION WIDTH 13.1 % (11.5-14.5); WHITE BLOOD COUNT 5.5 10^3/ul (4.5-11.0)
[2017-07-05 07:45] LABS: ALBUMIN 2.8 g/dL (3.0-4.8); ALT/SGPT 63 U/L (7-56); AST/SGOT 32 U/L (17-59); BLOOD UREA NITROGEN 11 mg/dL (7-21); CALCIUM 8.7 mg/dL (8.4-10.5); GFR AFRICAN-AMERICAN > 60; GFR NON-AFRICAN AMERICAN > 60
[2017-07-05 07:57] LABS: ALB/GLOB RATIO 0.9 (1.1-1.8)
--- NOTE | 2017-07-05 07:57 | CP.PCM.PN ---
Subjective - Date & Time of Evaluation Date of Evaluation: 07/05/17 Time of Evaluation: 07:05 - Subjective Subjective: Vascular Surgery Note for Dr. Bernstein Patient seen and examined at bedside. No acute events overnight. Patient is non- verbal, but will occasional respond to questions. Patient tolerating diet. ROS unobtainable. Objective - Vital Signs/Intake and Output Vital Signs (last 24 hours): Temp Pulse Resp BP Pulse Ox 97.2 F L 71 18 104/64 98 07/04/17 08:01 07/04/17 17:52 07/04/17 08:01 07/04/17 17:52 07/04/17 08:01 Intake and Output: 07/05/17 07/05/17 06:59 18:59 Intake Total 300 Output Total 1600 Balance -1300 - Medications Medications: Current Medications Apixaban (Eliquis) 5 mg PO BID [facility] PRN Reason: Protocol Last Admin: 07/04/17 17:52 Dose: 5 mg Atorvastatin Calcium (Lipitor) 40 mg PO DIN [facility] Last Admin: 07/03/17 17:32 Dose: 40 mg Clopidogrel Bisulfate (Plavix) 75 mg PO DAILY [facility] Last Admin: 07/04/17 09:10 Dose: 75 mg Famotidine (Pepcid) 20 mg PO 1000,2200 [facility] Last Admin: 07/04/17 22:14 Dose: 20 mg Metoprolol Tartrate (Lopressor) 25 mg PO BID [facility] Last Admin: 07/04/17 17:52 Dose: 25 mg Tramadol HCl (Ultram) 50 mg PO Q6 PRN PRN Reason: Pain, Mild (1-3) - Labs Labs: 07/05/17 06:30 07/05/17 06:30 - Constitutional Appears: No Acute Distress - Head Exam Head Exam: ATRAUMATIC, NORMOCEPHALIC - Eye Exam Eye Exam: Normal appearance - ENT Exam ENT Exam: Mucous Membranes Moist - Respiratory Exam Respiratory Exam: NORMAL BREATHING PATTERN - Cardiovascular Exam Cardiovascular Exam: REGULAR RHYTHM - GI/Abdominal Exam GI & Abdominal Exam: Soft. absent: Tenderness - Extremities Exam Additional comments: RLE: DP and PT pulse palpable, leg warm with no skin changes, nontender - Neurological Exam Neurological Exam: Awake - Psychiatric Exam Psychiatric exam: Flat Affect - Skin Skin Exam: Dry, Intact, Normal Color, Warm Assessment and Plan - Assessment and Plan (Free Text) Plan: 66M s/p Right SFA embolectomy POD #5 - Anti-coagulation and Anti-platelet therapy - Heart Healthy diet - Vascular Checks - No further acute surgical intervention needed at this time - Further recommendations as per Dr. Amandeep Preciado PGY1
--- NOTE | 2017-07-05 10:50 | CP.PCM.PN ---
Subjective - Date & Time of Evaluation Date of Evaluation: 07/05/17 Time of Evaluation: 10:00 - Subjective Subjective: Subjective: Patient seen and examined at bedside on the remote tele birch. No acute events. Patient doing well post-operatively and remains afebrile and hemodynamically stable. Pending PT eval and placement. Objective: VS: T 97.9, P 81, BP 116/71, RR 18, O2 99% on RA Gen: NAD HEENT: PERRL, EOMI, no scleral icterus Neck: no JVD Lungs: CTA CV: RRR, normal S1, S2 Abd: benign Ext: warm to touch with palpable distal pulses, no edema Neuo: Awake, alert, not following commands, able to move all extremities Lab Data: Reviewed and Hb 10.8, CMP normal Assessment: 66 yo man initially admitted to CCU for management of STEMI, acute systolic HF and CAP who subsequently developed RLE arterial thrombus now s/p thrombectomy and also noted to have intracardiac thrombus who is pending PT eval and placement. Plan: 1. Severe PVD s/p RLE thrombectomy. Continue post op care as per Dr. Bernstein. Continue Eliquis 5mg PO BID and Lipitor 40mg PO QD 2. CAD s/p STEMI. Continue Lopressor, Lipitor and Plavix. 3. Acute systolic HF, resolved. Pt remains clinically euvolemic and off Lasix. 4. Dementia 5. Primary Progressive Aphasia 6. Disposition. Eval pending for placement (ie: TCU vs [facility]) Code Status: Full Code Objective - Vital Signs/Intake and Output Vital Signs (last 24 hours): Temp Pulse Resp BP Pulse Ox 97.9 F 81 18 116/71 96 07/05/17 06:00 07/05/17 10:32 07/05/17 06:00 07/05/17 10:32 07/05/17 06:00 Intake and Output: 07/05/17 07/05/17 06:59 18:59 Intake Total 300 Output Total 1600 Balance -1300 - Medications Medications: Current Medications Apixaban (Eliquis) 5 mg PO BID [facility] PRN Reason: Protocol Last Admin: 07/05/17 10:33 Dose: 5 mg Atorvastatin Calcium (Lipitor) 40 mg PO DIN [facility] Last Admin: 07/03/17 17:32 Dose: 40 mg Clopidogrel Bisulfate (Plavix) 75 mg PO DAILY [facility] Last Admin: 07/05/17 10:33 Dose: 75 mg Famotidine (Pepcid) 20 mg PO 1000,2200 [facility] Last Admin: 07/05/17 10:32 Dose: 20 mg Metoprolol Tartrate (Lopressor) 25 mg PO BID [facility] Last Admin: 07/05/17 10:32 Dose: 25 mg Tramadol HCl (Ultram) 50 mg PO Q6 PRN PRN Reason: Pain, Mild (1-3) - Labs Labs: 07/05/17 06:30 07/05/17 06:30
[2017-07-06 08:18] VITALS: RESP 20
[2017-07-06 08:57] LABS: BASO # 0.02 K/mm3 (0.0-2.0); BASO % 0.3 % (0.0-3.0); EOS # 0.1 (0.0-0.7); EOS % 1.1 % (1.5-5.0); GRAN # 4.41 (1.4-6.5); GRAN % 70.8 % (50.0-68.0); HEMOGLOBIN 10.8 g/dL (14.0-18.0); LYMPH # 1.2 (1.2-3.4); LYMPH % 19.3 % (22.0-35.0); MEAN CELL VOLUME 86.5 fl (80.0-105.0); MEAN CORPUSCULAR HEMOGLOBIN 28.5 pg (25.0-35.0); MEAN CORPUSCULAR HGB CONC 32.9 g/dl (31.0-37.0); MEAN PLATELET VOLUME 11.9 fl (7.0-11.0); MONO # 0.5 (0.1-0.6); MONO % 8.5 % (1.0-6.0); RBC 3.79 10^6/uL (3.5-6.1); RED CELL DISTRIBUTION WIDTH 13.1 % (11.5-14.5); WHITE BLOOD COUNT 6.2 10^3/ul (4.5-11.0)
[2017-07-06 09:00] LABS: ALB/GLOB RATIO 0.9 (1.1-1.8); ALBUMIN 2.9 g/dL (3.0-4.8); ALT/SGPT 60 U/L (7-56); AST/SGOT 30 U/L (17-59); BLOOD UREA NITROGEN 15 mg/dL (7-21); CALCIUM 8.7 mg/dL (8.4-10.5); GFR AFRICAN-AMERICAN > 60; GFR NON-AFRICAN AMERICAN > 60
--- NOTE | 2017-07-06 09:34 | PN ---
SUBJECTIVE: The patient was seen and examined at the bedside on the remote telemetry birch. No acute events overnight. He remains afebrile and hemodynamically stable. The patient is demonstrating continued clinical improvement. The patient has been evaluated by PT and recommendations are for home care with services versus subacute rehab. We will coordinate with the family as well as the case maker and social workers to facilitate this. PHYSICAL EXAMINATION: VITAL SIGNS: Temperature 97.6, pulse 74, blood pressure 109/75, respiratory rate 18 and oxygen saturation 98% on room air. GENERAL: No apparent distress. HEENT: PERRL. EOMI. No scleral icterus. No conjunctival pallor. NECK: No JVD. No bruits. LUNGS: Clear to auscultation. CARDIOVASCULAR: Regular rate and rhythm. Normal S1 and S2. ABDOMEN: Normoactive bowel sounds. Soft, nontender and nondistended. EXTREMITIES: No edema. NEUROLOGIC: Awake and alert, not following commands. Able to move all extremities. LABORATORY DATA: Morning laboratories are pending. ASSESSMENT: The patient is a 66 year old man with hypertension, hyperlipidemia , dementia and primary progressive aphasia who was initially admitted to the CCU for management of STEMI, acute systolic heart failure and sepsis secondary to CAP who subsequently developed RLE thrombus who was now s/p thrombectomy POD #6 and pending disposition. PLAN: 1. PVD s/p RLE thrombectomy POD #6. Continue with Eliquis 5 mg p.o. b.i.d., Plavix 75 mg p.o. daily and Lipitor 40 mg p.o. daily. 2. Intracardiac thrombus. TTE demonstrates an organized, layered thrombus to the apical septum. Continue Eliquis 5 mg p.o. b.i.d. 3. CAD s/p STEMI s/p PCI with GRZEGORZ stent placement to the LAD. Continue Lipitor 40 mg p.o. daily, Metoprolol 25 mg p.o. b.i.d. and Plavix 75 mg p.o. daily. 4. Acute systolic heart failure secondary to STEMI, resolved. Continue with care as above. 5. Hypertension. Blood pressure remains controlled. Continue Metoprolol 25 mg p.o. b.i.d. 6. Hyperlipidemia. Continue Lipitor 40 mg p.o. daily. 7. Dementia. The patient remains at his baseline neurologic status. 8. Primary progressive aphasia. 9. Prophylaxis. Continue with Pepcid for GI prophylaxis. The patient remains on Eliquis thus DVT prophylaxis not indicated. CODE STATUS: Full code. Jacek Salgado MD MTDLaith
[2017-07-06 17:39] VITALS: TEMP 97.7; O2SAT 90
--- NOTE | 2017-07-06 19:32 | PN ---
CARDIOLOGY FOLLOWUP DATE: 07/06/2017 SUBJECTIVE: The patient is eating well. No shortness of breath. No chest pain. OBJECTIVE VITAL SIGNS: Blood pressure is 108/67, heart rate is in the 70s. NECK: Negative JVD. LUNGS: Without rales. HEART: Reveals S1, S2. EXTREMITIES: Warm bilaterally. LABORATORY DATA: Hemoglobin is 10.8. Chemistries, BUN and creatinine unremarkable. IMPRESSION: 1. Status post acute anterior wall myocardial infarction. 2. Status post thrombectomy of the right femoral artery. 3. Coronary artery disease with status post emergency percutaneous transluminal coronary angioplasty and stent of an left anterior descending. 4. Hypercholesterolemia. 5. Primary aphasia. Given these findings, the patient has been restarted on his anticoagulation as well as antiplatelet therapy. The patient is doing well cardiac narvaez. Seymour King MD
[2017-07-07 06:34] LABS: BASO # 0.02 K/mm3 (0.0-2.0); BASO % 0.4 % (0.0-3.0); EOS # 0.1 (0.0-0.7); EOS % 1.9 % (1.5-5.0); GRAN # 3.38 (1.4-6.5); GRAN % 63.4 % (50.0-68.0); LYMPH # 1.4 (1.2-3.4); LYMPH % 25.5 % (22.0-35.0); MEAN CELL VOLUME 86.1 fl (80.0-105.0); MEAN CORPUSCULAR HEMOGLOBIN 28.8 pg (25.0-35.0); MEAN CORPUSCULAR HGB CONC 33.4 g/dl (31.0-37.0); MONO # 0.5 (0.1-0.6); MONO % 8.8 % (1.0-6.0); RBC 3.82 10^6/uL (3.5-6.1); RED CELL DISTRIBUTION WIDTH 13.3 % (11.5-14.5); WHITE BLOOD COUNT 5.3 10^3/ul (4.5-11.0)
[2017-07-07 06:47] LABS: ALB/GLOB RATIO 0.9 (1.1-1.8); ALBUMIN 2.9 g/dL (3.0-4.8); ALT/SGPT 51 U/L (7-56); AST/SGOT 29 U/L (17-59); BLOOD UREA NITROGEN 15 mg/dL (7-21); CALCIUM 8.6 mg/dL (8.4-10.5); GFR AFRICAN-AMERICAN > 60; GFR NON-AFRICAN AMERICAN > 60
--- NOTE | 2017-07-07 09:31 | PN ---
SUBJECTIVE: The patient was seen and examined at the bedside on the remote telemetry birch. No acute events overnight. He remains afebrile, hemodynamically stable and demonstrating continued clinical improvement. Arrangements are being made for placement to a subacute rehab facility. OBJECTIVE: VITAL SIGNS: Temperature 97.7, pulse 63, blood pressure 110/70, respiratory rate 20, and oxygen saturations 94% on room air. GENERAL: No apparent distress. HEENT: PERRL. EOMI. No scleral icterus. No conjunctival pallor. NECK: No JVD. No bruits. LUNGS: Clear to auscultation. CARDIOVASCULAR: Regular rate and rhythm. Normal S1 and S2. ABDOMEN: Normoactive bowel sounds. Soft, nontender, and nondistended. EXTREMITIES: No edema. NEUROLOGIC: Awake and alert, not following commands. Able to move all extremities. LABORATORY DATA: CBC reviewed and unremarkable. CMP reviewed and unremarkable. ASSESSMENT: The patient is a 66 year old man with hypertension, hyperlipidemia , dementia and primary progressive aphasia who was initially admitted to the CCU for management of STEMI, acute systolic heart failure and sepsis secondary to CAP who subsequently developed a RLE thrombus who is now s/p thrombectomy POD #7 and pending placement to subacute rehab. PLAN: 1. PVD s/p RLE thrombectomy POD #7. Continue Eliquis 5 mg p.o. b.i.d., Plavix 75 mg p.o. daily, and Lipitor 40 mg p.o. daily. 2. Intracardiac thrombus: TTE demonstrates an organized, layered thrombus to the apical septum. Continue Eliquis 5 mg p.o. b.i.d. 3. CAD s/p STEMI s/p PCI with GRZEGORZ stent placement to LAD. Continue Lipitor 40 mg p.o. daily, Metoprolol 25 mg p.o. b.i.d. and Plavix 75 mg p.o. daily. 4. Acute systolic heart failure secondary to STEMI, resolved. The patient remains clinically euvolemic. Continue care as above. 5. Hypertension: Continue Metoprolol 25 mg p.o. b.i.d. 6. Hyperlipidemia: Continue Lipitor 40 mg p.o. daily. 7. Dementia: The patient remains at his baseline neurologic status. 8. Primary progressive aphasia. 9. Prophylaxis: Continue with Pepcid for GI prophylaxis. The patient remains on Eliquis, thus DVT prophylaxis is not indicated. CODE STATUS: Full code. Jacek Salgado MD MTDLaith
[2017-07-07 10:18] VITALS: BP 92/53; PULSE 76
--- NOTE | 2017-07-07 10:39 | PN ---
DATE: 07/07/2017 CARDIOLOGY FOLLOWUP SUBJECTIVE: The patient is without symptoms. PHYSICAL EXAMINATION: VITAL SIGNS: Blood pressure 110/ and heart rates in the 60s. NECK: Negative JVD. LUNGS: Without rales. HEART: Reveals S1 and S2. EXTREMITIES: Without change. LABORATORY DATA: Hemoglobin is 11.0. Chemistries are unremarkable. IMPRESSION: 1. Status post acute anterior wall myocardial infarction. 2. Status post emergency percutaneous transluminal coronary angioplasty and stent to the occluded left anterior descending artery. 3. Status post thrombectomy of the right femoral artery. 4. Left ventricular thrombus. 5. Primary aphasia. PLAN: Given these findings, the patient is on Eliquis and Plavix with the aspirin discontinued. We will continue Lopressor and Lipitor. The patient is stable for transfer to subacute rehab. Seymour King MD
--- NOTE | 2017-07-13 07:49 | DS ---
ADMITTING DIAGNOSES: Severe peripheral vascular disease with right lower extremity arterial thrombus. DISCHARGE DIAGNOSES: Severe peripheral vascular disease with right lower extremity arterial thrombus s/p thrombectomy. SECONDARY DIAGNOSES: CAD s/p STEMI s/p PCI with GRZEGORZ stent placement, hypertension, hyperlipidemia, intracardiac thrombus, dementia and primary progressive aphasia. CONSULTATIONS: Dr. Bernstein (Vascular Surgery), Dr. King (Cardiology). PROCEDURE: Right lower extremity femoral artery embolectomy. HISTORY OF PRESENT ILLNESS: The patient is a 66 year old man with multiple medical comorbidities including hypertension, hyperlipidemia, dementia and primary progressive aphasia who initially presented to [facility] for evaluation of a 3 day history of malaise and increasing lethargy. He was admitted to the CCU for management of STEMI, acute systolic heart failure, sepsis secondary to community acquired pneumonia and multiple electrolyte derangements. During the patient's hospital stay he was found to have an intracardiac thrombus and severe PVD with an acute RLE arterial thrombus. Attempts were made with Dr. Seymour Jordan of for catheter directed thrombolysis however given the patient's anatomy and severe PVD, this was technically unfeasible. The patient was subsequently evaluated by Dr. Bernstein of Vascular Surgery and was scheduled for the OR for thrombectomy however the case was canceled by the anesthesiologist given the patient's recent STEMI and poor underlying cardiac function. As such arrangements were made to have the patient transferred to the TCU for continued medical management of his comorbidities and for continued physical therapy. The patient was successfully transferred to the TCU where he remained for 3 days. Arrangements were again made with Dr. Bernstein for repeat thrombectomy and the patient was brought to the OR where he underwent successful thrombectomy and subsequently admitted to the ICU for continued postoperative monitoring. HOSPITAL COURSE: The patient's postoperative course was uncomplicated and he remained afebrile and hemodynamically stable during his ICU stay. By hospital stay #3 he was transferred to the general medical birch where he continued to remain clinically stable. Given his prolonged hospital stay, his multiple medical comorbidities and his deconditioned status, recommendations from PT were for subacute placement. After discussion with the patient's family, arrangements were made for transfer to the [facility] [address] in [place], [place]. By hospital day #8, he was cleared for discharge to subacute rehab. CONDITION: Fair, improved. DISPOSITION: [facility] [address] in [place], [place]. DISCHARGE MEDICATIONS: Eliquis 5 mg p.o. b.i.d., Plavix 75 mg p.o. daily, Lipitor 40 mg p.o. daily, and Metoprolol 25 mg p.o. b.i.d. DISCHARGE INSTRUCTIONS: The patient's family was advised that if he develops any fevers, chills, rigors , uncontrollable bleeding or pain at his right lower extremity site to return to the nearest ED immediately. FOLLOWUP: The patient to follow up with his PMD within 1 week of discharge from subacute rehab. The patient is to follow up with Dr. Bernstein as scheduled. The patient is to follow up with Dr. King as scheduled. Jacek Salgado MD MTDD
== END 2017-07-07 12:12 | DRG 270 ==
LOC: SDAINP 09:55 → EDSTATUS 10:00 → ICU 12:21 → 3RNO 07-02 16:04
PROVIDERS: ADMIT Student in an Organized Health Care Education/Training Program; ATTEND Student in an Organized Health Care Education/Training Program
PROC: 04UK3KZ Supplement Right Femoral Artery with Nonautologous Tissue Substitute, Percutaneous Approach (ICD-10-PCS; 2017-06-30)
PROC: 047K3ZZ Dilation of Right Femoral Artery, Percutaneous Approach (ICD-10-PCS; 2017-06-30)
PROC: 04CK3ZZ Extirpation of Matter from Right Femoral Artery, Percutaneous Approach (ICD-10-PCS; principal; 2017-06-30 13:30)
DX: I74.3 Embolism and thrombosis of arteries of the lower extremities (principal); I21.09 ST elevation (STEMI) myocardial infarction involving other coronary artery of anterior wall; I50.21 Acute systolic (congestive) heart failure; A41.9 Sepsis, unspecified organism; J18.9 Pneumonia, unspecified organism; I11.0 Hypertensive heart disease with heart failure; I27.20 Pulmonary hypertension, unspecified; E11.51 Type 2 diabetes mellitus with diabetic peripheral angiopathy without gangrene; R47.01 Aphasia; N39.0 Urinary tract infection, site not specified; F03.90 Unspecified dementia, unspecified severity, without behavioral disturbance, psychotic disturbance, mood disturbance, and anxiety; I25.10 Atherosclerotic heart disease of native coronary artery without angina pectoris; E78.00 Pure hypercholesterolemia, unspecified; Z95.5 Presence of coronary angioplasty implant and graft; Z86.73 Personal history of transient ischemic attack (TIA), and cerebral infarction without residual deficits